=== PATIENT | female | born 1935 | race Caucasian/White ===

== ENCOUNTER 2016-03-28 17:28 | Inpatient (IN) | payer MEDICARE ==
[~2016-03-28] VITALS: Ht 175.3 cm; Wt 99.8 kg
[~2016-03-28 17:28] MED LIST changes: -ASPI81TA7 PO; -ATOR40TA PO; -CALC1CAP31 PO; -CEFD1CAP8 PO; -DILT240C5 PO; -FLUO40CA PO; -INSULANT SC; -JANU25TA PO; -LEVA500T PO; -LOSA100T PO; -LYRI200C PO; -OMEP40CA2 PO; -PERC5TAB6 PO; -PERC7.5T3 PO; -SENN1TAB4 PO; -SPIR1CAP INH; -SPIR25TA2 PO; -TRAM50TA2 PO; -VITA-121 PO
[2016-03-28] MEDS ORDERED: PERCOCET 5MG/325MG TAB As Ordered ONE (17:45)
[2016-03-28] MEDS ORDERED: BUPIVACAINE HCL 0.5% 10 ML VIAL As Ordered ONE (17:51)
[2016-03-28] MEDS ORDERED: LIDOCAINE 1% MDV 20ML VIAL As Ordered ONE (17:52)
[2016-03-28] MEDS ORDERED: MORPHINE 4 MG/ML 1ML SYRINGE As Ordered ONE (19:15)
[2016-03-28] MEDS ORDERED: ONDANSETRON 4MG/2ML VIAL (J2405) As Ordered ONE ×2 (19:15→23:05)
[2016-03-28] MEDS ORDERED: PERC7.5T3 PO (19:18)
[2016-03-28] MEDS ORDERED: LOSA100T PO (19:18)
[2016-03-28] MEDS ORDERED: OMEP40CA2 PO (19:18)
[2016-03-28] MEDS ORDERED: CALC1CAP31 PO (19:18)
[2016-03-28] MEDS ORDERED: SPIR1CAP INH (19:18)
[2016-03-28] MEDS ORDERED: JANU25TA PO (19:18)
[2016-03-28] MEDS ORDERED: CEFD1CAP8 PO (19:18)
[2016-03-28] MEDS ORDERED: FLUO40CA PO (19:18)
[2016-03-28] MEDS ORDERED: ASPI81TA7 PO (19:18)
[2016-03-28] MEDS ORDERED: DILT240C5 PO (19:18)
[2016-03-28] MEDS ORDERED: INSULANT SC (19:18)
[2016-03-28] MEDS ORDERED: TRAM50TA2 PO (19:18)
[2016-03-28] MEDS ORDERED: LYRI200C PO (19:18)
[2016-03-28] MEDS ORDERED: SPIR25TA2 PO (19:18)
[2016-03-28] MEDS ORDERED: ATOR40TA PO (19:18)
[2016-03-28] MEDS ORDERED: VITA-121 PO (19:18)
[2016-03-28 19:30] LABS: MEAN CORPUSCULAR HEMOGLOBIN 29.2 pg (27.0-33.0); MEAN CORPUSCULAR HGB CONC 33.1 g/dl (32.0-36.5); MEAN CORPUSCULAR VOLUME 88.3 fl (80.0-96.0); RED CELL DISTRIBUTION WIDTH 13.8 % (11.5-14.5); WHITE BLOOD COUNT 11.8 K/mm3 (4.0-10.0)
[2016-03-28 19:49] LABS: INR 1.01
[2016-03-28 19:54] LABS: ALBUMIN 3.4 GM/DL (3.2-5.2); ALBUMIN/GLOBULIN RATIO 1.13 (1.00-1.93); BILIRUBIN,DIRECT 0.1 MG/DL (0.0-0.2); BILIRUBIN,TOTAL 0.4 MG/DL (0.2-1.0); CALCIUM LEVEL 8.4 MG/DL (8.8-10.2); CREATININE FOR GFR 1.71 MG/DL (0.55-1.02); GLOMERULAR FILTRATION RATE 30.6 (>32); POTASSIUM SERUM 3.9 MEQ/L (3.5-5.1); TOTAL PROTEIN 6.4 GM/DL (6.4-8.2)
[2016-03-28] MEDS ORDERED: fentaNYL 100 MCG/2 ML INJECTION (J3010) As Ordered ONE ×2 (20:05→21:00)
--- NOTE | 2016-03-28 20:29 | REP ---
AP PORTABLE CHEST: 03/28/2016. Comparison: 12/17/2015, 09/26/2014 chest x-ray. 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 This portable chest show the lungs quite hyperinflated. Flattening of the diaphragm on the right and left obscured. Lordotic technique limits evaluation of posterior lower lung zone. Heart not enlarged. There is pulmonary artery hypertension. There is no venous hypertension, pulmonary edema or dense consolidation. Small effusion is difficult to exclude, but no gross effusion seen. Airway intact. Calcified aortic arch without aneurysm. Bones demineralized. Impression: 1. COPD and fibrosis with emphysematous changes, pulmonary artery hypertension and no cardiomegaly, edema or acute infiltrate. Small effusions difficult to exclude due to lordotic projection. Signed by Fabián Miller MD 03/29/2016 07:18 P
[2016-03-28] MEDS ORDERED: PREGABALIN 100 MG CAP (LYRICA) PO PRN (20:30)
[2016-03-28] MEDS ORDERED: GLUCOSE 4 GM CHEW TABLET PO PRN (20:30)
[2016-03-28] MEDS ORDERED: GLUCAGON FOR INJ 1 MG VIAL (J1610) SC PRN (20:30)
[2016-03-28] MEDS ORDERED: DEXTROSE 50% 50 ML SYRINGE IV PRN (20:30)
[2016-03-28] MEDS ORDERED: ATORVASTATIN 20 MG TAB PO SCH (21:00)
--- NOTE | 2016-03-28 21:30 | CR.PDOC ---
[facility] Consultation Consultation DATE OF CONSULTATION: Mar 28, 2016 at 17:28 PRIMARY CARE PHYSICIAN: Dr. Tod Stevens REFERRING PROVIDER: Justino Fischer M.D. ATTENDING PHYSICIAN: Dr. Peterson of orthopedic surgery REASON FOR CONSULTATION/CHIEF COMPLAINT: . Medical optimization for surgery HISTORY OF PRESENT ILLNESS: . 80-year-old female with past medical history of insulin-dependent diabetes mellitus, hypertension, dyslipidemia, CAD, history of PR status post angioplasty in 1995, COPD, and chronic kidney disease presented to the ER following a slip and fall on a sheet of ice which resulted in her falling on her right wrist, resulting in a Colles' fracture of the distal radius. The patient denies any trauma to the head, loss of consciousness, or any preceding symptoms leading to the event. The hospitalist service has been consulted for medical optimization prior to the patient going for surgery. Upon evaluation, the patient states that she is otherwise feeling relatively well. She follows with Dr. Caceres of cardiology for her CAD. She notes that she did have a stress test within the past 1 year, and this was noted to be within normal limits according to her. She states that she is able to walk up a flight of stairs without any significant limitations. She also states that she is able to ambulate around her home without any significant shortness of breath or any complaints of chest pain. However, her ambulation is limited due to chronic lower back pain. The patient denies any history of PND, orthopnea, or lower extremity swelling. She reports that she has not had any issues with her heart since she had an PR in 1995. At this time, she denies any acute complaints of fevers, chills, shortness of breath, chest pain, palpitations, abdominal pain, or any nausea/vomiting/diarrhea. In the ER, the patient's EKG is without any acute ST changes when compared to previous tracings. ALLERGIES: Please see below. HOME MEDICATIONS: Please see below. PAST MEDICAL HISTORY: 1. . As noted above PAST SURGICAL HISTORY: 1. Lasix surgery, gallbladder removal, FAMILY HISTORY: Non-pertinent SOCIAL HISTORY: Lives with her family, is able to ambulate without any assistive devices, and is able to perform activities of daily living independently REVIEW OF SYSTEMS: 10 point review of systems is negative unless otherwise specified in HPI PHYSICAL EXAMINATION: VITAL SIGNS: Please see below. GENERAL APPEARANCE: . Awake, alert, and oriented, in no acute distress HEENT: . Normocephalic, atraumatic. No JVD, no murmur appreciated on auscultation of the carotid arteries RESPIRATORY: . Clear to auscultation bilaterally, with no wheezing or rales, or rhonchi CARDIOVASCULAR: . Normal rate, normal rhythm, normal S1, normal S2 ABDOMEN: . Soft, nontender, nondistended EXTREMITIES: . No edema, no erythema noted LABORATORY DATA: Please see below. ASSESSMENT/PLAN: 1. Right wrist fracture secondary to mechanical fall The patient's revised cardiac risk index score is 2 (history of ischemic heart disease, and insulin-dependent diabetes mellitus) which categorizes the patient as a class III risk with a 6.6% chance of major cardiac risk, for an intermediate risk procedure. In addition, the patient did have a stress test done one year ago which, according to her was negative She is also able to tolerate up to 4 METs of activity without any significant limitations The patient does follow with Dr. Caceres of cardiology as an outpatient-I did discuss the case with his partner Dr. Peres given the patient's history of coronary artery disease. He concurs with the risk stratification above and does not believe that her cardiac history/current condition should preclude her from surgery. The patient has been medically optimized for this intermediate risk procedure. 2. History of CAD status post angioplasty in 1995, history of PR EKG with no acute ST changes, and unchanged compared to previous tracings Hold aspirin 81 mg, continue statin Patient not on a beta brenda, possibly secondary to her underlying history of COPD Patient on losartan as an outpatient, however we will hold this as her blood pressure is on the lower and after receiving narcotic medication for pain relief 3. Diabetes mellitus Patient's hemoglobin A1c noted to be 6.5% from 6 weeks ago The patient takes 40 units of insulin in the a.m. subcutaneously-however, we will order half this dose to be given in the morning given her nothing by mouth status Consider up titration of this dose when the patient is able to adequately resume her diet Insulin sliding scale added for additional coverage 4. Chronic kidney disease Patient's serum creatinine noted to be 1.7 (Baseline 1.5-1.7) Patient's losartan held secondary to borderline low blood pressures 5. Hypertension We'll hold the patient's antihypertensives at this time given that her blood pressure is on the lower end of normal following administration of narcotics for pain relief 6. COPD Patient with no active wheezing, and with no need of supplemental oxygen at this time Continue Spiriva States that she used to follow with Dr. Jiménez pulmonary as an outpatient, but has not been back as her COPD has been well-controlled. 7. Dyslipidemia Continue statin 8. Diabetes mellitus Patient's hemoglobin A1c noted to be 6.5% from 6 weeks ago The patient takes 40 units of insulin in the a.m. subcutaneously-however, we will order half this dose to be given in the morning given her nothing by mouth status Consider up titration of this dose when the patient is able to adequately resume her diet Insulin sliding scale added for additional coverage 9. Chronic kidney disease Patient's serum creatinine noted to be 1.7 (Baseline 1.5-1.7) Patient's losartan held secondary to borderline low blood pressures 10. GERD Cont PPI 11. Depression Cont Fluoxetine DVT prophylaxis-as per primary team Laboratory Data Labs 24H Laboratory Tests 2 03/28/16 19:19: Aspartate Amino Transf (AST/SGOT) 11L, Alanine Aminotransferase (ALT/SGPT) 22, Alkaline Phosphatase 120H, Total Bilirubin 0.4, Direct Bilirubin 0.1, Albumin 3.4, Albumin/Globulin Ratio 1.13, Anion Gap 9, Calcium Level 8.4L, Glomerular Filtration Rate 30.6L, Prothromb Time International Ratio 1.01, Prothrombin Time 13.4, Total Protein 6.4 CBC/BMP Laboratory Tests 03/28/16 19:19 Red Blood Count 4.60, Mean Corpuscular Volume 88.3, Mean Corpuscular Hemoglobin 29.2, Mean Corpuscular Hemoglobin Concent 33.1, Red Cell Distribution Width 13.8 Allergies Coded Allergies: No Known Drug Allergy (Verified Allergy, Unknown, 05/23/12) Home Medications Scheduled (Losartan Potassium/Hydroc 100-12.5 mg) 1 Tab Tab 1 TAB PO DAILY (Reported) Aspirin (Aspirin) 81 Mg Tab 81 MG PO QHS (Reported) Atorvastatin Calcium (Atorvastatin Calcium) 40 Mg Tab 40 MG PO QHS (Reported) Calcitriol (Calcitriol) 0.25 Mcg Cap 0.25 MCG PO DAILY (Reported) Cefdinir (Cefdinir) 300 Mg Cap 300 MG PO BID (Reported) 10 DAY COURSE ENDS 03/29 Cholecalciferol (Vitamin D-3) 1,000 Unit Tab 1,000 UNIT PO DAILY (Reported) Diltiazem HCl (Diltiazem Cd) 240 Mg Cap 240 MG PO DAILY (Reported) Fluoxetine Hcl (Fluoxetine HCl) 40 Mg Cap 40 MG PO DAILY (Reported) Insulin Glargine (Lantus) 1 Units/0.01 Ml Susp 40 UNITS SC QAM (Reported) Omeprazole (Omeprazole) 40 Mg Cap 40 MG PO DAILY (Reported) Sitagliptin Phosphate (Januvia) 25 Mg Tab 25 MG PO DAILY (Reported) Spironolactone (Spironolactone) 25 Mg Tab 12.5 MG PO DAILY (Reported) Tiotropium [place] Monohydrate (Spiriva Handihaler) 18 Mcg Cap 1 INHALATION INH DAILY (Reported) Scheduled PRN Oxycodone/Acetaminophen (Percocet 7.5-325 mg) 1 Tab Tab 2 TAB PO DAILY PRN PRN PAIN (Reported) Pregabalin (Lyrica) 200 Mg Cap 200 MG PO BID PRN PRN NERVE PAIN (Reported) Tramadol HCl (Tramadol HCl) 50 Mg Tab 50 MG PO Q6H PRN PRN PAIN (Reported) JUSTINO FISCHER MD Mar 28, 2016 21:30
--- NOTE | 2016-03-28 21:39 | ECGEPIP ---
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
--- NOTE | 2016-03-28 21:55 | EDDOCDS ---
Physician Documentation [facility] Name: Yamila Gallegos Age: 80 yrs Sex: Female : 1935 Arrival Date: 03/28/2016 Time: 17:28 Bed 10 Private MD: Tod Stevens P. Disposition: 03/28/16 19:09 Hospitalization ordered by Derek Peterson for Inpatient Admission. Preliminary diagnosis is Displaced comminuted fracture of shaft of radius, right arm. - Bed requested for Admit. - Status is Inpatient Admission. af2 - Condition is Stable. - Problem is new. - Symptoms are unchanged. Historical: - Allergies: no known allergies; - Home Meds: 1. aspirin 81 mg Oral chew 1 tab nightly (Last dose: 03/27/2016) 2. atorvastatin oral nightly (Last dose: 03/27/2016) 3. Januvia 25 mg oral tab daily (Last dose: 03/28/2016 08:00) 4. Lantus 40 units Sub-Q daily (Last dose: 03/28/2016 08:00) 5. losartan-hydrochlorothiazide oral once daily (Last dose: 03/28/2016 08:00) 6. Prozac Oral once daily (Last dose: 03/28/2016 08:00) 7. Vitamin D Oral daily (Last dose: 03/28/2016 07:00) - PMHx: Hypertension; Hypercholesterolemia; Diabetes - IDDM: controlled; Depression; AAA; [place] 1995; - PSHx: Angioplasty (1995); right ear surgery; Cataract Surgery- Bilateral; Cesearean Section; Cholecystectomy; - Social history: Smoking status: Patient states was never smoker of tobacco. Patient/guardian denies using alcohol, street drugs, No barriers to communication noted, The patient speaks fluent Macedonian, Speaks appropriately for age. - Family history: Not pertinent. - : The pt / caregiver states he / she is not on anticoagulants. Home medication list is obtained from the patient. - Exposure Risk Screening:: None identified. Vital Signs: 03/28 17:35 BP 154 / 77; Pulse 73; Resp 17; Temp 96.4(T); Pulse Ox 100% on R/A; Weight 99.79 kg / lr2 220 lbs (R); Height 5 ft. 9 in. (175.26 cm) (R); Pain 10/10; 19:48 BP 111 / 58 (auto/); cjh 19:50 Pulse 64 MON; Pulse Ox 94% ; cjh 19:51 BP 111 / 58 LA Sitting (auto/); Pulse 64; Resp 18 S; Pulse Ox 93% on R/A; af2 20:50 BP 114 / 63; Pulse 55; Resp 18; Pulse Ox 94% ; Pain 10/10; cjh 21:03 BP 118 / 62 (auto/); af2 21:05 Pulse 72 MON; Resp 18 S; Temp 97.6(O); Pulse Ox 93% on R/A; af2 17:35 Body Mass Index 32.49 (99.79 kg, 175.26 cm) lr2 MDM: 17:42 oxyCODONE-acetaminophen 5 mg-325 mg 2 tabs PO once ordered. ke 17:53 Lidocaine 10 mg/mL (1 %) 10 ml Infiltration once; to bedside ordered. ke 17:53 Bupivacaine 0.5 % 5 ml Infiltration once ordered. ke 18:40 IV Saline Lock ordered. ke 18:40 Ondansetron 4 mg IVP once ordered. ke 18:40 morphine 4 mg IVP every 30 minutes; Document pain score/vitals after each dose (Hold if ke SBP < 90mmHg) x2 ordered. 18:42 CBC Ordered. EDMS 18:42 BMP Ordered. EDMS 18:42 PT/INR Ordered. EDMS 18:42 Liver Profile Ordered. EDMS 18:42 Chest, 1 View Ordered. EDMS 18:42 ECG WITH READING ER PHYS+CARDIAG ordered. EDMS 18:42 BED REQUEST+ADM ordered. EDMS 18:48 Wrist, complete Ordered. EDMS 20:08 Written Provider Order was scanned into Direct Access Software and attached to record. jlm 20:09 fentaNYL (PF) 50 mcg IVP once ordered. af2 20:57 fentaNYL (PF) 50 mcg IVP once ordered. cjh 21:18 Fingerstick Blood Sugar Ordered. EDMS 21:34 [facility] Payment Agreement was scanned into Direct Access Software and attached to record. zo 21:34 Financial registration complete. zo 21:36 Written Provider Order was scanned into Direct Access Software and attached to record. zo Point of Care Testing: Blood Glucose: 21:12 Blood Glucose: 125 mg/dL; [facility] Ranges: Administered Medications: 17:54 Drug: oxyCODONE-acetaminophen 2 tabs [oxycodone-acetaminophen 5 mg-325 mg tablet (2 mb9 tabs)] Route: PO; 19:23 Follow up: Response: No significant change. af2 17:54 Drug: Lidocaine 10 ml [lidocaine 10 mg/mL (1 %) injection solution (10 mL)] Route: mb9 Infiltration; 17:54 Drug: Bupivacaine 5 ml [bupivacaine 0.5 % (5 mg/mL) injection solution (5 mL)] {Note: mb9 given to provider..} Route: Infiltration; 19:18 Drug: Ondansetron 4 mg [ondansetron HCl 2 mg/mL intravenous solution (2 mL)] Route: af2 IVP; Site: left antecubital; 20:08 Follow up: Response: Nausea is decreased af2 19:18 Drug: morphine 4 mg [morphine 4 mg/mL intravenous cartridge (1 mL)] Route: IVP; Site: af2 left antecubital; 20:08 Follow up: Response: No significant change. af2 20:09 Drug: fentaNYL (PF) 50 mcg [fentanyl (PF) 50 mcg/mL injection solution (1 mL)] Route: af2 IVP; Site: left antecubital; 20:52 Follow up: Response: Confirmed pt not driving.; No Adverse Reaction; No significant [facility] change. 21:07 Drug: fentaNYL (PF) 50 mcg [fentanyl (PF) 50 mcg/mL injection solution (1 mL)] Route: [facility] IVP; Site: left antecubital; Signatures: Dispatcher [employer] EDMS Chicho Eddy, LAW INSTRUCTOR LAW INSTRUCTOR Dante Marinelli Jane, RN RN [facility] Shelley Miller RN RN ttb Flavia Sanchez, Turkish Line Attendant Unit jlm Gabrielle YeungRN RN af2 Luis Greenwood RN mb9 The chart was reviewed and I authenticate all verbal orders and agree with the evaluation and treatment provided.Attachments: 20:08 Written Provider Order jltato 21:34 [facility] Payment Agreement zo 21:36 Written Provider Order zo [email or web address]
--- NOTE | 2016-03-28 21:55 | EDDOCDS ---
Nurse's Notes [facility] Name: Yamila Gallegos Age: 80 yrs Sex: Female : 1935 Arrival Date: 03/28/2016 Time: 17:28 Bed 10 Private MD: Tod Stevens P. Diagnosis: Displaced comminuted fracture of shaft of radius, right arm Presentation: 03/28 17:34 Presenting complaint: Patient states: pt fell on right wrist around 1600 today. From [facility]. Tucker wrapped and sling on upon arrival. Painful. Adult Sepsis Screening: The patient does not have new or worsening altered mentation. Patient's respiratory rate is less than 22. Systolic blood pressure is greater than 100. Patient has a qSOFA score of 0- Negative Sepsis Screen. Suicide/Homicide risk assessment- the patient denies having any suicidal and/or homicidal ideations and does not present with any other emotional, behavioral or mental health complaints. Status: Patient is not a home economist consumer service or dependent. Transition of care: patient was not received from another setting of care. 17:34 Acuity: PRINCESS Level 3 ttb 17:34 Method Of Arrival: Walkin/Carried/Asstd ttb Triage Assessment: 17:37 General: Appears in no apparent distress, uncomfortable, well nourished, well groomed, ttb Behavior is appropriate for age, cooperative, pleasant. Pain: Location: right wrist 10/10. Neurological: Level of Consciousness is awake, alert. Cardiovascular: Chest pain is denied. Respiratory: No deficits noted. Airway is patent Denies cough, shortness of breath. Derm: Skin is normal. Musculoskeletal: Range of motion limited in right wrist. Injury Description: pt fell from standing. Historical: - Allergies: no known allergies; - Home Meds: 1. aspirin 81 mg Oral chew 1 tab nightly (Last dose: 03/27/2016) 2. atorvastatin oral nightly (Last dose: 03/27/2016) 3. Januvia 25 mg oral tab daily (Last dose: 03/28/2016 08:00) 4. Lantus 40 units Sub-Q daily (Last dose: 03/28/2016 08:00) 5. losartan-hydrochlorothiazide oral once daily (Last dose: 03/28/2016 08:00) 6. Prozac Oral once daily (Last dose: 03/28/2016 08:00) 7. Vitamin D Oral daily (Last dose: 03/28/2016 07:00) - PMHx: Hypertension; Hypercholesterolemia; Diabetes - IDDM: controlled; Depression; AAA; [place] 1995; - PSHx: Angioplasty (1995); right ear surgery; Cataract Surgery- Bilateral; Cesearean Section; Cholecystectomy; - Social history: Smoking status: Patient states was never smoker of tobacco. Patient/guardian denies using alcohol, street drugs, No barriers to communication noted, The patient speaks fluent Sudanese, Speaks appropriately for age. - Family history: Not pertinent. - : The pt / caregiver states he / she is not on anticoagulants. Home medication list is obtained from the patient. - Exposure Risk Screening:: None identified. Screenin:53 Screening information is obtained from the patient. Fall risk: At risk due to prior kc3 history of falls, The following interventions are performed due to a positive Fall Risk Screen: Fall Risk is added to Special Handling on the patient Summary Screen. A Fall Risk Bracelet was applied to the patient. Side Rails are placed in the up position. A Call Ortega is given with instruction to call for help when getting out of bed. Fall Alert bracelet is placed on the patient. Assistance ADL's: requires no assistance with activities of daily living. Abuse/DV Screen: The patient / caregiver reports he/she is: not in a situation that causes fear, pain or injury. Nutritional screening: No deficits noted. home support is adequate. 21:12 Advance Directives: There is an active DNR order and the pt has a copy here at this af2 time. Assessment: 18:52 General: Appears uncomfortable, Behavior is appropriate for age, cooperative. Pain: kc3 Location: right wrist. Neurological: Level of Consciousness is awake, alert, obeys commands, Oriented to person, place, time. Respiratory: Respiratory effort is even, unlabored. Derm: Skin is pink, warm & dry. Swollen area noted on right wrist. Musculoskeletal: Capillary refill < 3 seconds Bony deformity noted of right wrist Signs and Symptoms of Compartment Syndrome: no signs of compartment syndrome. 19:27 General: Appears uncomfortable, Behavior is appropriate for age, cooperative, Assumed af2 care of pt at this time. Resp easy, unlabored. Pt updated regarding plan of care, verbalizes understanding.. Neurological: Level of Consciousness is awake, alert, obeys commands. Respiratory: Airway is patent Respiratory effort is even, unlabored. Derm: Skin is pink, warm & dry. Swollen area noted on right wrist. 19:50 General: hospitalist at bedside to exam pt. pt requests additional dose of pain af2 medication, medication withheld due to BP.. 20:50 General: patient requesting additional pain meds, states 'whatever she gave me before [facility] didn't help at all' call placed to hospitalist to request additional meds. 21:00 General: Appears uncomfortable, Behavior is cooperative, pt updated regarding plan of af2 care and transport to OR at this time. Resp easy and unlabored.. Vital Signs: 17:35 BP 154 / 77; Pulse 73; Resp 17; Temp 96.4(T); Pulse Ox 100% on R/A; Weight 99.79 kg lr2 (R); Height 5 ft. 9 in. (175.26 cm) (R); Pain 10/10; 19:48 BP 111 / 58 (auto/); cjh 19:50 Pulse 64 MON; Pulse Ox 94% ; cjh 19:51 BP 111 / 58 LA Sitting (auto/); Pulse 64; Resp 18 S; Pulse Ox 93% on R/A; af2 20:50 BP 114 / 63; Pulse 55; Resp 18; Pulse Ox 94% ; Pain 10/10; cjh 21:03 BP 118 / 62 (auto/); af2 21:05 Pulse 72 MON; Resp 18 S; Temp 97.6(O); Pulse Ox 93% on R/A; af2 17:35 Body Mass Index 32.49 (99.79 kg, 175.26 cm) lr2 Vitals: 17:35 Log In Time: March 28, 2016 at 17:28. lr2 ED Course: 17:31 Patient visited by Mei Gomez. lr2 17:31 Patient moved to Waiting lr2 17:33 Tod Stevens is Private Physician. lr2 17:33 Patient moved to Pre RCE lr2 17:35 Triage Initiated ttb 17:38 Tati Fox,RN is Primary Nurse. ttb 17:38 Patient moved to 10 ttb 17:40 [facility] Edd[facility]. ke 17:40 Patient visited by Chicho Eddy FNP. ke 17:40 Patient visited by Chicho Eddy FNP. ke 18:13 Patient visited by Chicho Eddy FNP. ke 18:51 Patient visited by Chicho Eddy FNP. ke 19:04 Gabrielle Yeung RN is Primary Nurse. af2 19:06 Derek Peterson is Hospitalizing Provider. ke 19:08 Patient visited by Josef Castro PCA. jmv 19:08 EKG done. (by ED staff). Reviewed by Chicho SOLIS. jmv 19:22 Liver Profile Sent. af2 19:22 PT/INR Sent. af2 19:22 BMP Sent. af2 19:23 CBC Sent. af2 19:28 Patient visited by Gabrielle Yeung RN. af2 19:28 Inserted saline lock: 18 gauge in left antecubital area and blood collected. The af2 patient tolerated the procedure well. 19:40 Primary Nurse role handed off by Tati Fox RN rs6 19:51 Patient visited by Gabrielle Yeung RN. af2 20:08 Written Provider Order was scanned into [employer] and attached to record. jlm 21:00 Patient visited by Gabrielle Yeung RN. af2 21:12 The patient / caregiver is instructed regarding the plan of care and ED course. Patient af2 has correct armband on for positive identification. Placed in gown. 21:13 No procedures done that require assistance. af2 21:23 Chest, 1 View Returned. EDMS 21:34 [facility] [place] Agreement was scanned into [employer] and attached to record. zo 21:36 Written Provider Order was scanned into [employer] and attached to record. zo Administered Medications: 17:54 Drug: oxyCODONE-acetaminophen 2 tabs [oxycodone-acetaminophen 5 mg-325 mg tablet (2 mb9 tabs)] Route: PO; 19:23 Follow up: Response: No significant change. af2 17:54 Drug: Lidocaine 10 ml [lidocaine 10 mg/mL (1 %) injection solution (10 mL)] Route: mb9 Infiltration; 17:54 Drug: Bupivacaine 5 ml [bupivacaine 0.5 % (5 mg/mL) injection solution (5 mL)] {Note: mb9 given to provider..} Route: Infiltration; 19:18 Drug: Ondansetron 4 mg [ondansetron HCl 2 mg/mL intravenous solution (2 mL)] Route: af2 IVP; Site: left antecubital; 20:08 Follow up: Response: Nausea is decreased af2 19:18 Drug: morphine 4 mg [morphine 4 mg/mL intravenous cartridge (1 mL)] Route: IVP; Site: af2 left antecubital; 20:08 Follow up: Response: No significant change. af2 20:09 Drug: fentaNYL (PF) 50 mcg [fentanyl (PF) 50 mcg/mL injection solution (1 mL)] Route: af2 IVP; Site: left antecubital; 20:52 Follow up: Response: Confirmed pt not driving.; No Adverse Reaction; No significant [facility] change. 21:07 Drug: fentaNYL (PF) 50 mcg [fentanyl (PF) 50 mcg/mL injection solution (1 mL)] Route: [facility] IVP; Site: left antecubital; Point of Care Testing: Blood Glucose: 21:12 Blood Glucose: 125 mg/dL; [facility] Ranges: Order Results: Lab Order: CBC; SPEC'M 03/28/16 19:19 Test: WHITE BLOOD COUNT; Value: 11.8; Range: 4.0-10.0; Abnormal: Above high normal; Units: K/mm3; Status: F Test: RED BLOOD COUNT; Value: 4.60; Range: 4.00-5.40; Units: M/mm3; Status: F Test: HEMOGLOBIN; Value: 13.4; Range: 12.0-16.0; Units: g/dl; Status: F Test: HEMATOCRIT; Value: 40.6; Range: 36.0-47.0; Units: %; Status: F Test: MEAN CORPUSCULAR VOLUME; Value: 88.3; Range: 80.0-96.0; Units: fl; Status: F Test: MEAN CORPUSCULAR HEMOGLOBIN; Value: 29.2; Range: 27.0-33.0; Units: pg; Status: F Test: MEAN CORPUSCULAR HGB CONC; Value: 33.1; Range: 32.0-36.5; Units: g/dl; Status: F Test: RED CELL DISTRIBUTION WIDTH; Value: 13.8; Range: 11.5-14.5; Units: %; Status: F Test: PLATELET COUNT, AUTOMATED; Value: 295; Range: 150-450; Units: k/mm3; Status: F Lab Order: BMP; 03/28/16 19:19 Test: GLUCOSE, FASTING; Value: 197; Range: 83-110; Abnormal: Above high normal; Units: MG/DL; Status: F Test: BLOOD UREA NITROGEN; Value: 29; Range: 7-18; Abnormal: Above high normal; Units: MG/DL; Status: F Test: CREATININE FOR GFR; Value: 1.71; Range: 0.55-1.02; Abnormal: Above high normal; Units: MG/DL; Status: F Test: GLOMERULAR FILTRATION RATE; Value: 30.6; Range: >32; Abnormal: Below low normal; Status: F Test: SODIUM LEVEL; Value: 140; Range: 136-145; Units: MEQ/L; Status: F Test: POTASSIUM SERUM; Value: 3.9; Range: 3.5-5.1; Units: MEQ/L; Status: F Test: CHLORIDE LEVEL; Value: 105; Range: 98-107; Units: MEQ/L; Status: F Test: CARBON DIOXIDE LEVEL; Value: 26; Range: 21-32; Units: MEQ/L; Status: F Test: ANION GAP; Value: 9; Range: 8-16; Units: MEQ/L; Status: F Test: CALCIUM LEVEL; Value: 8.4; Range: 8.8-10.2; Abnormal: Below low normal; Units: MG/DL; Status: F Test Note: ; Units are mL/min/1.73 m2 Chronic Kidney Disease Staging per NKF: Stage I & II GFR >=60 Normal to Mildly Decreased Stage III GFR 30-59 Moderately Decreased Stage IV GFR 15-29 Severely Decreased Stage V GFR <15 Very Little GFR Left ESRD GFR <15 on AIR COMPRESSOR MECHANIC Lab Order: PT/INR; 03/28/16 19:19 Test: PROTHROMBIN TIME; Value: 13.4; Range: 12.3-14.5; Units: SECONDS; Status: F Test: INR; Value: 1.01; Status: F Test Note: ; THERAPUTIC HUMAN INR VALUES INDICATIONS NORMAL RANGES PROPHYLAXIS/TREATMENT OF: VENOUS THROMBOSIS 2.0-3.0 PULMONARY EMBOLISM 2.0-3.0 PREVENTION OF SYSTEMIC EMBOLISM FROM: TISSUE HEART VALVES 2.0-3.0 ACUTE MYOCARDIAL INFARCTION 2.0-3.0 VALVULAR HEART DISEASE 2.0-3.0 ATRIAL FIBRILLATION 2.0-3.0 MECHANICAL VALVES(HIGH RISK) 2.5-3.5 RECURRENT MYOCARDIAL INFARCTION 2.5-3.5 Lab Order: Liver Profile; SPEC'M 03/28/16 19:19 Test: AST/SGOT; Value: 11; Range: 15-37; Abnormal: Below low normal; Units: U/L; Status: F Test: ALT/SGPT; Value: 22; Range: 12-78; Units: U/L; Status: F Test: ALKALINE PHOSPHATASE; Value: 120; Range: 45-117; Abnormal: Above high normal; Units: U/L; Status: F Test: BILIRUBIN,TOTAL; Value: 0.4; Range: 0.2-1.0; Units: MG/DL; Status: F Test: BILIRUBIN,DIRECT; Value: 0.1; Range: 0.0-0.2; Units: MG/DL; Status: F Test: TOTAL PROTEIN; Value: 6.4; Range: 6.4-8.2; Units: GM/DL; Status: F Test: ALBUMIN; Value: 3.4; Range: 3.2-5.2; Units: GM/DL; Status: F Test: ALBUMIN/GLOBULIN RATIO; Value: 1.13; Range: 1.00-1.93; Status: F Lab Order: Fingerstick Blood Sugar; SPEC'M 03/28/16 21:10 Test: BEDSIDE GLUCOSE; Value: 125; Range: 83-110; Abnormal: Above high normal; Units: MG/DL; Status: F Radiology Order: Chest, 1 View Test: Chest, 1 View REASON FOR EXAMINATION: pre op; AP PORTABLE CHEST: 03/28/2016.; ; Comparison: 12/17/2015, 09/26/2014 chest x-ray.; ; Clinical history: 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 Flattening of the; diaphragm on the right and left obscured. Lordotic technique limits evaluation; of posterior lower lung zone. Heart not enlarged. There is pulmonary artery; hypertension. There is no venous hypertension, pulmonary edema or dense; consolidation. Small effusion is difficult to exclude, but no gross effusion; seen. Airway intact. Calcified aortic arch without aneurysm.; ; Bones demineralized.; ; Impression:; COPD and fibrosis with emphysematous changes, pulmonary artery hypertension and; no cardiomegaly, edema or acute infiltrate. Small effusions difficult to exclude; due to lordotic projection.; ; ; ; ; Unreviewed; Outcome: 19:09 Decision to Hospitalize by Provider. ke 21:12 Discharge Assessment: Patient awake, alert and oriented x 3. No cognitive and/or af2 functional deficits noted. Patient verbalized understanding of disposition instructions. patient administered narcotics - yes. Patient was admitted to the hospital or transferred to another facility. The following High Risk Discharge criteria are identified: None. Admitted to OR accompanied by nurse, accompanied by tech, via stretcher, with chart. Condition: stable. No special radiology studies were completed. Property :Personal belongings accompany Pt. 21:53 Patient left the ED. af2 Signatures: Dispatcher [employer] EDMS Chicho Eddy, TEAR DOWN MATCHER TEAR DOWN MATCHER Dante Marinelli Jane,RN RN Shelley Ross RN RN ttb Flavia Sanchez, Refresh Technician Unit jlm Luis Greenwood,RN RN mb9 Estefania Cox, RADIAL DRILL OPERATOR RADIAL DRILL OPERATOR rs6 Gabrielle YeungRN RN af2 Tati Fox,WILLIAM RN kc3 Josef Castro, RADIAL DRILL OPERATOR RADIAL DRILL OPERATOR Mei Michaels lr2 MTDD
[2016-03-28] MEDS ORDERED: MIDAZOLAM INJ 2 MG/2 ML VIAL (J2250) As Ordered ONE (22:02)
[2016-03-28] MEDS ORDERED: fentaNYL 250 MCG/5 ML INJECTION (J3010) As Ordered ONE (22:02)
[2016-03-28] MEDS ORDERED: LIDOCAINE 2% INJ 100 MG/5 ML SDV (FOR ANES.) As Ordered ONE (22:03)
[2016-03-28] MEDS ORDERED: ROCURONIUM BROMIDE 50 MG/5 ML VIAL As Ordered ONE (22:03)
[2016-03-28] MEDS ORDERED: PROPOFOL 200 MG/20 ML VIAL As Ordered ONE (22:03)
[2016-03-28] MEDS ORDERED: GLYCOPYRROLATE INJ 0.2 MG/ML 2 ML VIAL As Ordered ONE (23:05)
[2016-03-28] MEDS ORDERED: NEOSTIGMINE 1MG/ML 5 ML SYRINGE (J2710) As Ordered ONE (23:05)
[2016-03-28] MEDS ORDERED: BUPIVACAINE HCL 0.5% 30 ML VIAL As Ordered ONE (23:19)
[2016-03-28] MEDS ORDERED: DESFLURANE 240 ML INHALANT As Ordered ONE (23:24)
[2016-03-28] MEDS ORDERED: BUPIVACAINE HCL 0.5% 10 ML VIAL IM ONE (23:33)
[2016-03-29] VITALS (10 sets, daily range): BP systolic 117–179; BP diastolic 55–84
[2016-03-29] MEDS ORDERED: HumaLOG INSULIN (NovoLOG) PER UNIT SC SCH
[2016-03-29] MEDS: fentaNYL 100 MCG/2 ML INJECTION (J3010) IV PRN ×3 (00:05→00:20)
[2016-03-29] MEDS ORDERED: fentaNYL 100 MCG/2 ML INJECTION (J3010) As Ordered ONE (00:09)
[2016-03-29] MEDS ORDERED: LR 1,000 ML IV SCH (00:15)
[2016-03-29] MEDS ORDERED: ONDANSETRON 4MG/2ML VIAL (J2405) IV PRN (00:15)
[2016-03-29] MEDS ORDERED: DOCUSATE SODIUM 100 MG CAP PO PRN (00:30)
[2016-03-29] MEDS ORDERED: ONDANSETRON 4 MG TAB (S0181) PO PRN (00:30)
[2016-03-29] MEDS ORDERED: HYDROmorphone HCL 1 MG/ML SYRINGE (J1170) As Ordered ONE (00:33)
[2016-03-29] MEDS: HYDROmorphone HCL 1 MG/ML SYRINGE (J1170) IV PRN ×2 (00:35→00:40)
[2016-03-29] MEDS ORDERED: HYDROmorphone HCL 1 MG/ML SYRINGE (J1170) IV PRN (00:45)
[2016-03-29] MEDS: PERCOCET 5MG/325MG TAB PO PRN ×4 (03:25→18:10)
[2016-03-29] MEDS ORDERED: traMADol 50 MG TAB PO PRN (03:30)
[2016-03-29] MEDS ORDERED: ALBUTEROL 90 MCG/ACT 8GM HFA INHALER INH PRN (04:30)
[2016-03-29 06:19] LABS: MEAN CORPUSCULAR HEMOGLOBIN 29.2 pg (27.0-33.0); MEAN CORPUSCULAR HGB CONC 32.8 g/dl (32.0-36.5); MEAN CORPUSCULAR VOLUME 88.9 fl (80.0-96.0); RED CELL DISTRIBUTION WIDTH 13.7 % (11.5-14.5); WHITE BLOOD COUNT 12.6 K/mm3 (4.0-10.0)
[2016-03-29] MEDS ORDERED: PERC5TAB6 PO (06:36)
[2016-03-29 06:46] LABS: CALCIUM LEVEL 8.2 MG/DL (8.8-10.2); CREATININE FOR GFR 1.52 MG/DL (0.55-1.02); POTASSIUM SERUM 3.9 MEQ/L (3.5-5.1)
[2016-03-29] MEDS: TIOTROPIUM INHALER/CAPSULE (SPIRIVA) INH SCH (07:29)
[2016-03-29] MEDS: HumaLOG INSULIN (NovoLOG) PER UNIT SC SCH ×4 (07:50→21:00)
[2016-03-29] MEDS ORDERED: TIOTROPIUM INHALER/CAPSULE (SPIRIVA) INH SCH (08:00)
[2016-03-29] MEDS ORDERED: ACETAMINOPHEN TAB 650MG DOSE (2X325MG) PO ONE (08:00)
[2016-03-29] MEDS ORDERED: ACETAMINOPHEN TAB 650MG DOSE (2X325MG) PO PRN (08:00)
--- NOTE | 2016-03-29 08:05 | REP ---
RIGHT WRIST SERIES AP LATERAL: 03/28/2016. Clinical history: C-arm fluoroscopy images utilized by Dr. Peterson of the orthopedic division for ORIF distal right radial fracture. Findings: Plate and multiple screws in the distal radius along its volar surface transfixing the comminuted distal radial metaphyseal fracture. Alignment is anatomic. There is an ulnar styloid avulsion noted. Signed by Fabián Miller MD 03/29/2016 07:24 P
[2016-03-29] MEDS ORDERED: FLUoxetine 20 MG CAP PO SCH (09:00)
[2016-03-29] MEDS ORDERED: LEVEMIR (INSULIN DETEMIR) 1 UNITS/0.01ML SC SCH (09:00)
[2016-03-29] MEDS ORDERED: SPIRONOLACTONE 12.5MG PER 1/2 TABLET PO SCH (09:00)
[2016-03-29] MEDS ORDERED: hydroCHLOROthiazide 12.5 MG CAPSULE PO SCH (09:00)
[2016-03-29] MEDS ORDERED: OMEPRAZOLE 20 MG CAP PO SCH (09:00)
[2016-03-29] MEDS: VITAMIN D 1,000 INTERNATIONAL UNITS TABLET PO SCH (09:04)
[2016-03-29] MEDS: OMEPRAZOLE 20 MG CAP PO SCH (09:04)
[2016-03-29] MEDS: CALCITRIOL 0.25 MCG CAP (S0169) PO SCH (09:05)
[2016-03-29] MEDS: PREGABALIN 100 MG CAP (LYRICA) PO SCH ×2 (09:05→20:11)
[2016-03-29] MEDS: hydroCHLOROthiazide 12.5 MG CAPSULE PO SCH (09:05)
[2016-03-29] MEDS: FLUoxetine 20 MG CAP PO SCH (09:05)
[2016-03-29] MEDS: LEVEMIR (INSULIN DETEMIR) 1 UNITS/0.01ML SC SCH (09:06)
--- NOTE | 2016-03-29 11:13 | RO ---
DATE OF CONSULTATION: 03/28/2016 PREOPERATIVE DIAGNOSIS: She is an 80-year-old female with a right extraarticular widely displaced distal radius fracture. POSTOPERATIVE DIAGNOSIS: She is an 80-year-old female with a right extraarticular widely displaced distal radius fracture. PROCEDURE PERFORMED: Open reduction internal fixation with a volar locking plate. SURGEON: Dr. Derek Peterson CATALYTIC CONVERTER OPERATOR: ONIEL Mena ANESTHESIA: ANESTHESIOLOGIST: Dr. Daniel TOURNIQUET TIME: Less than 1 hour under 250 mmHg. COMPLICATIONS: None. BLOOD LOSS: Minimal. INDICATIONS: An 80-year-old female with an unstable displaced distal radius fracture. After discussion of risks and benefits of operative intervention, she elected to proceed. DESCRIPTION OF PROCEDURE: The patient was met in preoperative holding area, the operative site was initialed by the surgeon, IV access was verified, consent was verified, and she was taken to the operative suite where she was prepped and draped in the usual sterile fashion in the supine position. A formal time-out was performed. IV antibiotics were infused. We inflated the tourniquet to 250 mmHg and performed a standard volar approach to the distal radius without difficulty with care to avoid and protect the neurovascular structures. There was subperiosteal dissection to the volar distal radius and reduced it manually with the use of a [place] volar locking plate. We positioned the plate first in the center of the bone and then used the plate as a reduction tool and added the remaining screws without difficulty. The position of the screws and the position of the plate and fracture were all verified both clinically and fluoroscopically in orthogonal planes. Once the fracture was fixed with a locking construct and stable, the wound was irrigated copiously and closed in layers. She was injected with Marcaine without epinephrine for postoperative analgesia. She was placed in a volar splint for comfort, and she was awaken and taken to the recovery room in stable condition. Postoperative plan will be overnight stay for pain control and discharge in the morning on oral pain medications if she tolerates. She will followup in the orthopedic clinic at [facility] ([facility] in about 1-1/2 weeks or so for a wound check.
[2016-03-29] MEDS: LOSARTAN 50 MG TAB PO SCH (11:49)
[2016-03-29] MEDS: ATORVASTATIN 20 MG TAB PO SCH (20:10)
[2016-03-29] MEDS ORDERED: ASPIRIN 81 MG ENTERIC TAB PO SCH (21:00)
[2016-03-30 06:00] VITALS: BP 145/52
[2016-03-30 07:14] LABS: MEAN CORPUSCULAR HEMOGLOBIN 29.2 pg (27.0-33.0); MEAN CORPUSCULAR HGB CONC 32.7 g/dl (32.0-36.5); MEAN CORPUSCULAR VOLUME 89.4 fl (80.0-96.0); WHITE BLOOD COUNT 10.5 K/mm3 (4.0-10.0)
[2016-03-30] MEDS: TIOTROPIUM INHALER/CAPSULE (SPIRIVA) INH SCH (07:17)
[2016-03-30 07:30] LABS: CALCIUM LEVEL 8.6 MG/DL (8.8-10.2); CREATININE FOR GFR 1.68 MG/DL (0.55-1.02); GLOMERULAR FILTRATION RATE 31.2 (>32); MAGNESIUM LEVEL 2.2 MG/DL (1.8-2.4)
[2016-03-30] MEDS: CALCITRIOL 0.25 MCG CAP (S0169) PO SCH (09:23)
[2016-03-30] MEDS: FLUoxetine 20 MG CAP PO SCH (09:23)
[2016-03-30] MEDS: OMEPRAZOLE 20 MG CAP PO SCH (09:24)
[2016-03-30] MEDS: LOSARTAN 50 MG TAB PO SCH (09:24)
[2016-03-30] MEDS: VITAMIN D 1,000 INTERNATIONAL UNITS TABLET PO SCH (09:24)
[2016-03-30] MEDS: PERCOCET 5MG/325MG TAB PO PRN ×2 (09:25→16:58)
[2016-03-30] MEDS: PREGABALIN 100 MG CAP (LYRICA) PO SCH (09:25)
[2016-03-30] MEDS: hydroCHLOROthiazide 12.5 MG CAPSULE PO SCH (09:26)
[2016-03-30] MEDS: HumaLOG INSULIN (NovoLOG) PER UNIT SC SCH ×4 (09:26→21:00)
[2016-03-30] MEDS: LEVEMIR (INSULIN DETEMIR) 1 UNITS/0.01ML SC SCH (09:27)
[2016-03-30] MEDS ORDERED: IPRATROPIUM 0.5MG/ALBUTEROL 2.5MG INH SOL UD 3ML (DUONEB)(J7620) NEB PRN (11:45)
--- NOTE | 2016-03-30 12:03 | IPNPDOC ---
Date Seen The patient was seen on 03/30/16. Progress Note SUBJECTIVE: The patient tells me that she has a little cough and that she has some difficulty getting a deep breath in but otherwise she has no complaints of chest pain fevers chills nausea vomiting or diarrhea OBJECTIVE PHYSICAL EXAMINATION: VITAL SIGNS: Please see below. GENERAL: Frail elderly female laying in bed at 30 angle she does not appear to be in any acute distress. She coughs during exam HEENT: Pupils round reactive to light she has moist pedis membranes elevation CVP CARDIOVASCULAR: s1 S2 regular. RESPIRATORY: Some mild end expiratory wheeze bibasilar Rales. ABDOMINAL: Sounds present abdomen soft EXTREMITIES: No clubbing cyanosis or edema, her right arm was casted LABORATORY DATA: Please see below. MICROBIOLOGY: Please see below. IMAGING: No new imaging DVT prophylaxis ordered?: Sequentials and teds as per orthopedic surgery ASSESSMENT AND PLAN: This is a 80-year-old female with right colles fracture status post operative repair. 1. colles fracture management as per orthopedic surgery DVT prophylaxis PT 2. Dyspnea: The patient is not using presents from to have encouraged her to do this I feel that she likely has some abdominal post operative atelectasis. She has a history of COPD she is on her home Spiriva I'll also provide her with nebulizer treatments and continue to monitor should she spike a temperature we' ll consider starting antibiotics for the time being we'll check a chest x-ray 3. Hypertension the patient is on hydrochlorothiazide and losartan 4. Dyslipidemia: The patient is on Lipitor 5. Insulin-dependent diabetes: The patient on sliding scale insulin finger 6 uncontrolled. 6. Gastroesophageal reflux disease: The patient is on omeprazole. 7. Depression: The patient is on fluoxetine. 8. Coronary artery disease: The patient's aspirin is on hold she is on a statin she is not on a beta brenda curiously will defer to her outpatient providers DISPOSITION: We will continue to follow along with you thank you for involving us in this patient's care. VS, I&O, 24H, Fishbone Vital Signs/I&O Vital Signs Date Time Temp Pulse Resp B/P Pulse Ox O2 Delivery O2 Flow Rate FiO2 03/30/16 10:00 18 03/30/16 09:24 145/52 03/30/16 06:00 99.4 70 91 Nasal Cannula 2.0 I&O- Last 24 Hours up to 6 AM 03/30/16 05:59 Intake Total 2160 ml Output Total 0 ml Balance 2160 ml Laboratory Data 24H LABS Laboratory Tests 2 03/29/16 12:52: Bedside Glucose (Misc Panel) 111H 03/29/16 16:23: Bedside Glucose (Misc Panel) 114H 03/29/16 20:05: Bedside Glucose (Misc Panel) 119H 03/30/16 06:47: Anion Gap 8, Blood Urea Nitrogen 24H, Creatinine 1.68H, Sodium Level 140, Potassium Level 4.0, Chloride Level 104, Carbon Dioxide Level 28, Calcium Level 8.6L, Glomerular Filtration Rate 31.2L, Magnesium Level 2.2 03/30/16 09:19: B-Type Natriuretic Peptide 57.3 03/30/16 11:39: Bedside Glucose (Misc Panel) 113H CBC/BMP Laboratory Tests 03/30/16 06:46 Red Blood Count 3.97 L, Mean Corpuscular Volume 89.4, Mean Corpuscular Hemoglobin 29.2, Mean Corpuscular Hemoglobin Concent 32.7, Red Cell Distribution Width 14.0 03/30/16 06:47 Calcium Level 8.6 L ELHAM BLACK MD Mar 30, 2016 12:03
[2016-03-30] MEDS: IPRATROPIUM 0.5MG/ALBUTEROL 2.5MG INH SOL UD 3ML (DUONEB)(J7620) NEB SCH ×2 (13:35→19:29)
--- NOTE | 2016-03-30 13:43 | REP ---
CHEST X-RAY PA AND LATERAL: 03/30/2016. Clinical history: Infiltrate versus pulmonary edema. Comparison: 03/28/2016, 12/17/2015, CT angiogram 12/17/2015. Findings: The lung oliva are hyperinflated. COPD, interstitial fibrotic changes and some superimposed basilar atelectatic or fibroatelectatic changes are noted. There is no dense consolidation. I see no definite effusion. There is no parenchymal mass. The heart is not enlarged. The aorta is calcified at the arch but without aneurysm. There is some pulmonary artery hypertension. Some apical pleural parenchymal scarring noted but stable. Bony thorax shows no acute compression deformity. Bones appear demineralized. Impression: 1. COPD and fibrosis with emphysematous changes, pulmonary artery hypertension and some apical pleural scarring. Some heavier fibrotic changes in the bases left CP angle may have some linear atelectasis superimposed. 2. No cardiomegaly, edema or dense consolidation. No definite effusion. Signed by Fabián Miller MD 03/30/2016 07:22 P
[2016-03-30 14:00] VITALS: BP 114/57
[2016-03-30] MEDS ORDERED: traMADol 50 MG TAB PO PRN (18:00)
[2016-03-30] MEDS ORDERED: FLEET ENEMA PR PRN (18:30)
[2016-03-30] MEDS: MOM 30ML SUSPENSION UDC PO SCH (18:44)
[2016-03-30] MEDS: MIRALAX *UNIT DOSE* 17GM PACKET PO SCH (18:44)
[2016-03-30] MEDS: SENNA 8.6 MG TAB (SENOKOT) PO SCH (18:44)
[2016-03-30 22:00] VITALS: BP 140/65
[2016-03-30] MEDS: ATORVASTATIN 20 MG TAB PO SCH (22:22)
--- NOTE | 2016-03-30 22:54 | EDDOCDS ---
Physician Documentation [facility] Name: Yamila Gallegos Age: 80 yrs Sex: Female : 1935 Arrival Date: 03/28/2016 Time: 17:28 Bed 10 Private MD: Tod Stevens P. Disposition: 03/28/16 19:09 Hospitalization ordered by Derek Peterson for Inpatient Admission. Preliminary diagnosis is Displaced comminuted fracture of shaft of radius, right arm. - Bed requested for Admit. - Status is Inpatient Admission. af2 - Condition is Stable. - Problem is new. - Symptoms are unchanged. Historical: - Allergies: no known allergies; - Home Meds: 1. aspirin 81 mg Oral chew 1 tab nightly (Last dose: 03/27/2016) 2. atorvastatin oral nightly (Last dose: 03/27/2016) 3. Januvia 25 mg oral tab daily (Last dose: 03/28/2016 08:00) 4. Lantus 40 units Sub-Q daily (Last dose: 03/28/2016 08:00) 5. losartan-hydrochlorothiazide oral once daily (Last dose: 03/28/2016 08:00) 6. Prozac Oral once daily (Last dose: 03/28/2016 08:00) 7. Vitamin D Oral daily (Last dose: 03/28/2016 07:00) - PMHx: Hypertension; Hypercholesterolemia; Diabetes - IDDM: controlled; Depression; AAA; [place] 1995; - PSHx: Angioplasty (1995); right ear surgery; Cataract Surgery- Bilateral; Cesearean Section; Cholecystectomy; - Social history: Smoking status: Patient states was never smoker of tobacco. Patient/guardian denies using alcohol, street drugs, No barriers to communication noted, The patient speaks fluent Irish, Speaks appropriately for age. - Family history: Not pertinent. - : The pt / caregiver states he / she is not on anticoagulants. Home medication list is obtained from the patient. - Exposure Risk Screening:: None identified. Vital Signs: 03/28 17:35 BP 154 / 77; Pulse 73; Resp 17; Temp 96.4(T); Pulse Ox 100% on R/A; Weight 99.79 kg / lr2 220 lbs (R); Height 5 ft. 9 in. (175.26 cm) (R); Pain 10/10; 19:48 BP 111 / 58 (auto/); cjh 19:50 Pulse 64 MON; Pulse Ox 94% ; cjh 19:51 BP 111 / 58 LA Sitting (auto/); Pulse 64; Resp 18 S; Pulse Ox 93% on R/A; af2 20:50 BP 114 / 63; Pulse 55; Resp 18; Pulse Ox 94% ; Pain 10/10; cjh 21:03 BP 118 / 62 (auto/); af2 21:05 Pulse 72 MON; Resp 18 S; Temp 97.6(O); Pulse Ox 93% on R/A; af2 17:35 Body Mass Index 32.49 (99.79 kg, 175.26 cm) lr2 MDM: 17:42 oxyCODONE-acetaminophen 5 mg-325 mg 2 tabs PO once ordered. ke 17:53 Lidocaine 10 mg/mL (1 %) 10 ml Infiltration once; to bedside ordered. ke 17:53 Bupivacaine 0.5 % 5 ml Infiltration once ordered. ke 18:40 IV Saline Lock ordered. ke 18:40 Ondansetron 4 mg IVP once ordered. ke 18:40 morphine 4 mg IVP every 30 minutes; Document pain score/vitals after each dose (Hold if ke SBP < 90mmHg) x2 ordered. 18:42 CBC Ordered. EDMS 18:42 BMP Ordered. EDMS 18:42 PT/INR Ordered. EDMS 18:42 Liver Profile Ordered. EDMS 18:42 Chest, 1 View Ordered. EDMS 18:42 ECG WITH READING ER PHYS+CARDIAG ordered. EDMS 18:42 BED REQUEST+ADM ordered. EDMS 18:48 Wrist, complete Ordered. EDMS 20:08 Written Provider Order was scanned into [employer] and attached to record. jlm 20:09 fentaNYL (PF) 50 mcg IVP once ordered. af2 20:57 fentaNYL (PF) 50 mcg IVP once ordered. cjh 21:18 Fingerstick Blood Sugar Ordered. EDMS 21:34 [facility] Payment Agreement was scanned into [employer] and attached to record. zo 21:34 Financial registration complete. zo 21:36 Written Provider Order was scanned into [employer] and attached to record. zo 03/29 10:33 T-Sheet-- Draft Copy was scanned into [employer] and attached to record. gb 16:35 ECG/EKG was scanned into [employer] and attached to record. 16:35 Consents was scanned into [employer] and attached to record. Point of Care Testing: Blood Glucose: 03/28 21:12 Blood Glucose: 125 mg/dL; [facility] Ranges: Administered Medications: 17:54 Drug: oxyCODONE-acetaminophen 2 tabs [oxycodone-acetaminophen 5 mg-325 mg tablet (2 mb9 tabs)] Route: PO; 19:23 Follow up: Response: No significant change. af2 17:54 Drug: Lidocaine 10 ml [lidocaine 10 mg/mL (1 %) injection solution (10 mL)] Route: mb9 Infiltration; 17:54 Drug: Bupivacaine 5 ml [bupivacaine 0.5 % (5 mg/mL) injection solution (5 mL)] {Note: mb9 given to provider..} Route: Infiltration; 19:18 Drug: Ondansetron 4 mg [ondansetron HCl 2 mg/mL intravenous solution (2 mL)] Route: af2 IVP; Site: left antecubital; 20:08 Follow up: Response: Nausea is decreased af2 19:18 Drug: morphine 4 mg [morphine 4 mg/mL intravenous cartridge (1 mL)] Route: IVP; Site: af2 left antecubital; 20:08 Follow up: Response: No significant change. af2 20:09 Drug: fentaNYL (PF) 50 mcg [fentanyl (PF) 50 mcg/mL injection solution (1 mL)] Route: af2 IVP; Site: left antecubital; 20:52 Follow up: Response: Confirmed pt not driving.; No Adverse Reaction; No significant [facility] change. 21:07 Drug: fentaNYL (PF) 50 mcg [fentanyl (PF) 50 mcg/mL injection solution (1 mL)] Route: [facility] IVP; Site: left antecubital; Signatures: Dispatcher [employer] EDMS Lolis Warren, Chicho Curiel, RECONCILIATION ACCOUNTANT RECONCILIATION ACCOUNTANT Dante Marinelli Jane, RN RN [facility] Shelley Miller RN RN ttb Flavia Sanchez, Rating Examiner Unit Gabrielle Benavides RN RN 2 Luis Greenwood RN mb9 The chart was reviewed and I authenticate all verbal orders and agree with the evaluation and treatment provided.Attachments: 20:08 Written Provider Order jlm 21:34 [facility] Payment Agreement zo 21:36 Written Provider Order zo 03/29 10:33 T-Sheet-- Draft Copy gb 16:35 ECG/EKG gb Chart Complete MTDD
--- NOTE | 2016-03-30 22:54 | EDDOCDS ---
Physician Documentation [facility] Name: Yamila Gallegos Age: 80 yrs Sex: Female : 1935 Arrival Date: 03/28/2016 Time: 17:28 Bed 10 Private MD: Tod Stevens P. Disposition: 03/28/16 19:09 Hospitalization ordered by Derek Peterson for Inpatient Admission. Preliminary diagnosis is Displaced comminuted fracture of shaft of radius, right arm. - Bed requested for Admit. - Status is Inpatient Admission. af2 - Condition is Stable. - Problem is new. - Symptoms are unchanged. Historical: - Allergies: no known allergies; - Home Meds: 1. aspirin 81 mg Oral chew 1 tab nightly (Last dose: 03/27/2016) 2. atorvastatin oral nightly (Last dose: 03/27/2016) 3. Januvia 25 mg oral tab daily (Last dose: 03/28/2016 08:00) 4. Lantus 40 units Sub-Q daily (Last dose: 03/28/2016 08:00) 5. losartan-hydrochlorothiazide oral once daily (Last dose: 03/28/2016 08:00) 6. Prozac Oral once daily (Last dose: 03/28/2016 08:00) 7. Vitamin D Oral daily (Last dose: 03/28/2016 07:00) - PMHx: Hypertension; Hypercholesterolemia; Diabetes - IDDM: controlled; Depression; AAA; [place] 1995; - PSHx: Angioplasty (1995); right ear surgery; Cataract Surgery- Bilateral; Cesearean Section; Cholecystectomy; - Social history: Smoking status: Patient states was never smoker of tobacco. Patient/guardian denies using alcohol, street drugs, No barriers to communication noted, The patient speaks fluent Kazakh, Speaks appropriately for age. - Family history: Not pertinent. - : The pt / caregiver states he / she is not on anticoagulants. Home medication list is obtained from the patient. - Exposure Risk Screening:: None identified. Vital Signs: 03/28 17:35 BP 154 / 77; Pulse 73; Resp 17; Temp 96.4(T); Pulse Ox 100% on R/A; Weight 99.79 kg / lr2 220 lbs (R); Height 5 ft. 9 in. (175.26 cm) (R); Pain 10/10; 19:48 BP 111 / 58 (auto/); cjh 19:50 Pulse 64 MON; Pulse Ox 94% ; cjh 19:51 BP 111 / 58 [place] Sitting (auto/); Pulse 64; Resp 18 S; Pulse Ox 93% on R/A; af2 20:50 BP 114 / 63; Pulse 55; Resp 18; Pulse Ox 94% ; Pain 10/10; cjh 21:03 BP 118 / 62 (auto/); af2 21:05 Pulse 72 MON; Resp 18 S; Temp 97.6(O); Pulse Ox 93% on R/A; af2 17:35 Body Mass Index 32.49 (99.79 kg, 175.26 cm) lr2 MDM: 17:42 oxyCODONE-acetaminophen 5 mg-325 mg 2 tabs PO once ordered. ke 17:53 Lidocaine 10 mg/mL (1 %) 10 ml Infiltration once; to bedside ordered. ke 17:53 Bupivacaine 0.5 % 5 ml Infiltration once ordered. ke 18:40 IV Saline Lock ordered. ke 18:40 Ondansetron 4 mg IVP once ordered. ke 18:40 morphine 4 mg IVP every 30 minutes; Document pain score/vitals after each dose (Hold if ke SBP < 90mmHg) x2 ordered. 18:42 CBC Ordered. EDMS 18:42 BMP Ordered. EDMS 18:42 PT/INR Ordered. EDMS 18:42 Liver Profile Ordered. EDMS 18:42 Chest, 1 View Ordered. EDMS 18:42 ECG WITH READING ER PHYS+CARDIAG ordered. EDMS 18:42 BED REQUEST+ADM ordered. EDMS 18:48 Wrist, complete Ordered. EDMS 20:08 Written Provider Order was scanned into [employer] and attached to record. jlm 20:09 fentaNYL (PF) 50 mcg IVP once ordered. af2 20:57 fentaNYL (PF) 50 mcg IVP once ordered. cjh 21:18 Fingerstick Blood Sugar Ordered. EDMS 21:34 [facility] Payment Agreement was scanned into [employer] and attached to record. zo 21:34 Financial registration complete. zo 21:36 Written Provider Order was scanned into [employer] and attached to record. zo 03/29 10:33 T-Sheet-- Draft Copy was scanned into [employer] and attached to record. gb 16:35 ECG/EKG was scanned into [employer] and attached to record. 16:35 Consents was scanned into [employer] and attached to record. Point of Care Testing: Blood Glucose: 03/28 21:12 Blood Glucose: 125 mg/dL; [facility] Ranges: Administered Medications: 17:54 Drug: oxyCODONE-acetaminophen 2 tabs [oxycodone-acetaminophen 5 mg-325 mg tablet (2 mb9 tabs)] Route: PO; 19:23 Follow up: Response: No significant change. af2 17:54 Drug: Lidocaine 10 ml [lidocaine 10 mg/mL (1 %) injection solution (10 mL)] Route: mb9 Infiltration; 17:54 Drug: Bupivacaine 5 ml [bupivacaine 0.5 % (5 mg/mL) injection solution (5 mL)] {Note: mb9 given to provider..} Route: Infiltration; 19:18 Drug: Ondansetron 4 mg [ondansetron HCl 2 mg/mL intravenous solution (2 mL)] Route: af2 IVP; Site: left antecubital; 20:08 Follow up: Response: Nausea is decreased af2 19:18 Drug: morphine 4 mg [morphine 4 mg/mL intravenous cartridge (1 mL)] Route: IVP; Site: af2 left antecubital; 20:08 Follow up: Response: No significant change. af2 20:09 Drug: fentaNYL (PF) 50 mcg [fentanyl (PF) 50 mcg/mL injection solution (1 mL)] Route: af2 IVP; Site: left antecubital; 20:52 Follow up: Response: Confirmed pt not driving.; No Adverse Reaction; No significant [facility] change. 21:07 Drug: fentaNYL (PF) 50 mcg [fentanyl (PF) 50 mcg/mL injection solution (1 mL)] Route: [facility] IVP; Site: left antecubital; Signatures: Dispatcher [employer] EDMS Lolis Warren, Chicho Curiel, MATERIALS PLANNING ANALYST MATERIALS PLANNING ANALYST Dante Marinelli Jane, RN RN [facility] Shelley Miller RN RN ttb Flavia Sanchez, Qual Research Manager Unit Gabrielle Benavides RN RN 2 Luis Greenwood RN mb9 The chart was reviewed and I authenticate all verbal orders and agree with the evaluation and treatment provided.Attachments: 20:08 Written Provider Order jlm 21:34 [facility] Payment Agreement zo 21:36 Written Provider Order zo 03/29 10:33 T-Sheet-- Draft Copy gb 16:35 ECG/EKG gb Chart Complete MTDD
--- NOTE | 2016-03-30 22:55 | EDDOCDS ---
Nurse's Notes [facility] Name: Yamila Gallegos Age: 80 yrs Sex: Female : 1935 Arrival Date: 03/28/2016 Time: 17:28 Bed 10 Private MD: Tod Stevens P. Diagnosis: Displaced comminuted fracture of shaft of radius, right arm Presentation: 03/28 17:34 Presenting complaint: Patient states: pt fell on right wrist around 1600 today. From [facility]. Tucker wrapped and sling on upon arrival. Painful. Adult Sepsis Screening: The patient does not have new or worsening altered mentation. Patient's respiratory rate is less than 22. Systolic blood pressure is greater than 100. Patient has a qSOFA score of 0- Negative Sepsis Screen. Suicide/Homicide risk assessment- the patient denies having any suicidal and/or homicidal ideations and does not present with any other emotional, behavioral or mental health complaints. 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 Transition of care: patient was not received from another setting of care. 17:34 Acuity: PRINCESS Level 3 ttb 17:34 Method Of Arrival: Walkin/Carried/Asstd ttb Triage Assessment: 17:37 General: Appears in no apparent distress, uncomfortable, well nourished, well groomed, ttb Behavior is appropriate for age, cooperative, pleasant. Pain: Location: right wrist 10/10. Neurological: Level of Consciousness is awake, alert. Cardiovascular: Chest pain is denied. Respiratory: No deficits noted. Airway is patent Denies cough, shortness of breath. Derm: Skin is normal. Musculoskeletal: Range of motion limited in right wrist. Injury Description: pt fell from standing. Historical: - Allergies: no known allergies; - Home Meds: 1. aspirin 81 mg Oral chew 1 tab nightly (Last dose: 03/27/2016) 2. atorvastatin oral nightly (Last dose: 03/27/2016) 3. Januvia 25 mg oral tab daily (Last dose: 03/28/2016 08:00) 4. Lantus 40 units Sub-Q daily (Last dose: 03/28/2016 08:00) 5. losartan-hydrochlorothiazide oral once daily (Last dose: 03/28/2016 08:00) 6. Prozac Oral once daily (Last dose: 03/28/2016 08:00) 7. Vitamin D Oral daily (Last dose: 03/28/2016 07:00) - PMHx: Hypertension; Hypercholesterolemia; Diabetes - IDDM: controlled; Depression; AAA; SD 1995; - PSHx: Angioplasty (1995); right ear surgery; Cataract Surgery- Bilateral; Cesearean Section; Cholecystectomy; - Social history: Smoking status: Patient states was never smoker of tobacco. Patient/guardian denies using alcohol, street drugs, No barriers to communication noted, The patient speaks fluent Chilean, Speaks appropriately for age. - Family history: Not pertinent. - : The pt / caregiver states he / she is not on anticoagulants. Home medication list is obtained from the patient. - Exposure Risk Screening:: None identified. Screenin:53 Screening information is obtained from the patient. Fall risk: At risk due to prior kc3 history of falls, The following interventions are performed due to a positive Fall Risk Screen: Fall Risk is added to Special Handling on the patient Summary Screen. A Fall Risk Bracelet was applied to the patient. Side Rails are placed in the up position. A Call Ortega is given with instruction to call for help when getting out of bed. Fall Alert bracelet is placed on the patient. Assistance ADL's: requires no assistance with activities of daily living. Abuse/DV Screen: The patient / caregiver reports he/she is: not in a situation that causes fear, pain or injury. Nutritional screening: No deficits noted. home support is adequate. 21:12 Advance Directives: There is an active DNR order and the pt has a copy here at this af2 time. Assessment: 18:52 General: Appears uncomfortable, Behavior is appropriate for age, cooperative. Pain: kc3 Location: right wrist. Neurological: Level of Consciousness is awake, alert, obeys commands, Oriented to person, place, time. Respiratory: Respiratory effort is even, unlabored. Derm: Skin is pink, warm & dry. Swollen area noted on right wrist. Musculoskeletal: Capillary refill < 3 seconds Bony deformity noted of right wrist Signs and Symptoms of Compartment Syndrome: no signs of compartment syndrome. 19:27 General: Appears uncomfortable, Behavior is appropriate for age, cooperative, Assumed af2 care of pt at this time. Resp easy, unlabored. Pt updated regarding plan of care, verbalizes understanding.. Neurological: Level of Consciousness is awake, alert, obeys commands. Respiratory: Airway is patent Respiratory effort is even, unlabored. Derm: Skin is pink, warm & dry. Swollen area noted on right wrist. 19:50 General: hospitalist at bedside to exam pt. pt requests additional dose of pain af2 medication, medication withheld due to BP.. 20:50 General: patient requesting additional pain meds, states 'whatever she gave me before [facility] didn't help at all' call placed to hospitalist to request additional meds. 21:00 General: Appears uncomfortable, Behavior is cooperative, pt updated regarding plan of af2 care and transport to OR at this time. Resp easy and unlabored.. Vital Signs: 17:35 BP 154 / 77; Pulse 73; Resp 17; Temp 96.4(T); Pulse Ox 100% on R/A; Weight 99.79 kg lr2 (R); Height 5 ft. 9 in. (175.26 cm) (R); Pain 10/10; 19:48 BP 111 / 58 (auto/); cjh 19:50 Pulse 64 MON; Pulse Ox 94% ; cjh 19:51 BP 111 / 58 LA Sitting (auto/); Pulse 64; Resp 18 S; Pulse Ox 93% on R/A; af2 20:50 BP 114 / 63; Pulse 55; Resp 18; Pulse Ox 94% ; Pain 10/10; cjh 21:03 BP 118 / 62 (auto/); af2 21:05 Pulse 72 MON; Resp 18 S; Temp 97.6(O); Pulse Ox 93% on R/A; af2 17:35 Body Mass Index 32.49 (99.79 kg, 175.26 cm) lr2 Vitals: 17:35 Log In Time: March 28, 2016 at 17:28. lr2 ED Course: 17:31 Patient visited by Mei Gomez. lr2 17:31 Patient moved to Waiting lr2 17:33 Tod Stevens is Private Physician. lr2 17:33 Patient moved to Pre RCE lr2 17:35 Triage Initiated ttb 17:38 Tati Fox,RN is Primary Nurse. ttb 17:38 Patient moved to 10 ttb 17:40 [facility]. ke 17:40 Patient visited by Chicho Eddy FNP. ke 17:40 Patient visited by Chicho Edyd FNP. ke 18:13 Patient visited by Chicho Eddy FNP. ke 18:51 Patient visited by Chicho Eddy FNP. ke 19:04 Gabrielle Yeung RN is Primary Nurse. af2 19:06 Derek Peterson is Hospitalizing Provider. ke 19:08 Patient visited by Josef Castro PCA. jmv 19:08 EKG done. (by ED staff). Reviewed by Chicho SOLIS. jmv 19:22 Liver Profile Sent. af2 19:22 PT/INR Sent. af2 19:22 BMP Sent. af2 19:23 CBC Sent. af2 19:28 Patient visited by Gabrielle Yeung RN. af2 19:28 Inserted saline lock: 18 gauge in left antecubital area and blood collected. The af2 patient tolerated the procedure well. 19:40 Primary Nurse role handed off by Tati Fox RN rs6 19:51 Patient visited by Gabrielle Yeung RN. af2 20:08 Written Provider Order was scanned into Outright and attached to record. jlm 21:00 Patient visited by Gabrielle Yeung RN. af2 21:12 The patient / caregiver is instructed regarding the plan of care and ED course. Patient af2 has correct armband on for positive identification. Placed in gown. 21:13 No procedures done that require assistance. af2 21:23 Chest, 1 View Returned. EDMS 21:34 [place] [place] was scanned into Outright and attached to record. zo 21:36 Written Provider Order was scanned into Outright and attached to record. zo 03/29 10:33 T-Sheet-- Draft Copy was scanned into Outright and attached to record. gb 16:35 ECG/EKG was scanned into Outright and attached to record. gb 16:35 Consents was scanned into Outright and attached to record. gb Administered Medications: 03/28 17:54 Drug: oxyCODONE-acetaminophen 2 tabs [oxycodone-acetaminophen 5 mg-325 mg tablet (2 mb9 tabs)] Route: PO; 19:23 Follow up: Response: No significant change. af2 17:54 Drug: Lidocaine 10 ml [lidocaine 10 mg/mL (1 %) injection solution (10 mL)] Route: mb9 Infiltration; 17:54 Drug: Bupivacaine 5 ml [bupivacaine 0.5 % (5 mg/mL) injection solution (5 mL)] {Note: mb9 given to provider..} Route: Infiltration; 19:18 Drug: Ondansetron 4 mg [ondansetron HCl 2 mg/mL intravenous solution (2 mL)] Route: af2 IVP; Site: left antecubital; 20:08 Follow up: Response: Nausea is decreased af2 19:18 Drug: morphine 4 mg [morphine 4 mg/mL intravenous cartridge (1 mL)] Route: IVP; Site: af2 left antecubital; 20:08 Follow up: Response: No significant change. af2 20:09 Drug: fentaNYL (PF) 50 mcg [fentanyl (PF) 50 mcg/mL injection solution (1 mL)] Route: af2 IVP; Site: left antecubital; 20:52 Follow up: Response: Confirmed pt not driving.; No Adverse Reaction; No significant [facility] change. 21:07 Drug: fentaNYL (PF) 50 mcg [fentanyl (PF) 50 mcg/mL injection solution (1 mL)] Route: [facility] IVP; Site: left antecubital; Attachments: 16:35 Consents Point of Care Testing: Blood Glucose: 03/28 21:12 Blood Glucose: 125 mg/dL; [facility] Ranges: Order Results: Lab Order: CBC; SPEC'M 03/28/16 19:19 Test: WHITE BLOOD COUNT; Value: 11.8; Range: 4.0-10.0; Abnormal: Above high normal; Units: K/mm3; Status: F Test: RED BLOOD COUNT; Value: 4.60; Range: 4.00-5.40; Units: M/mm3; Status: F Test: HEMOGLOBIN; Value: 13.4; Range: 12.0-16.0; Units: g/dl; Status: F Test: HEMATOCRIT; Value: 40.6; Range: 36.0-47.0; Units: %; Status: F Test: MEAN CORPUSCULAR VOLUME; Value: 88.3; Range: 80.0-96.0; Units: fl; Status: F Test: MEAN CORPUSCULAR HEMOGLOBIN; Value: 29.2; Range: 27.0-33.0; Units: pg; Status: F Test: MEAN CORPUSCULAR HGB CONC; Value: 33.1; Range: 32.0-36.5; Units: g/dl; Status: F Test: RED CELL DISTRIBUTION WIDTH; Value: 13.8; Range: 11.5-14.5; Units: %; Status: F Test: PLATELET COUNT, AUTOMATED; Value: 295; Range: 150-450; Units: k/mm3; Status: F Lab Order: BMP; SPEC'03/28/16 19:19 Test: GLUCOSE, FASTING; Value: 197; Range: 83-110; Abnormal: Above high normal; Units: MG/DL; Status: F Test: BLOOD UREA NITROGEN; Value: 29; Range: 7-18; Abnormal: Above high normal; Units: MG/DL; Status: F Test: CREATININE FOR GFR; Value: 1.71; Range: 0.55-1.02; Abnormal: Above high normal; Units: MG/DL; Status: F Test: GLOMERULAR FILTRATION RATE; Value: 30.6; Range: >32; Abnormal: Below low normal; Status: F Test: SODIUM LEVEL; Value: 140; Range: 136-145; Units: MEQ/L; Status: F Test: POTASSIUM SERUM; Value: 3.9; Range: 3.5-5.1; Units: MEQ/L; Status: F Test: CHLORIDE LEVEL; Value: 105; Range: 98-107; Units: MEQ/L; Status: F Test: CARBON DIOXIDE LEVEL; Value: 26; Range: 21-32; Units: MEQ/L; Status: F Test: ANION GAP; Value: 9; Range: 8-16; Units: MEQ/L; Status: F Test: CALCIUM LEVEL; Value: 8.4; Range: 8.8-10.2; Abnormal: Below low normal; Units: MG/DL; Status: F Test Note: ; Units are mL/min/1.73 m2 Chronic Kidney Disease Staging per NKF: Stage I & II GFR >=60 Normal to Mildly Decreased Stage III GFR 30-59 Moderately Decreased Stage IV GFR 15-29 Severely Decreased Stage V GFR <15 Very Little GFR Left ESRD GFR <15 on STIPPLER Lab Order: PT/INR; SPEC'03/28/16 19:19 Test: PROTHROMBIN TIME; Value: 13.4; Range: 12.3-14.5; Units: SECONDS; Status: F Test: INR; Value: 1.01; Status: F Test Note: ; THERAPUTIC HUMAN INR VALUES INDICATIONS NORMAL RANGES PROPHYLAXIS/TREATMENT OF: VENOUS THROMBOSIS 2.0-3.0 PULMONARY EMBOLISM 2.0-3.0 PREVENTION OF SYSTEMIC EMBOLISM FROM: TISSUE HEART VALVES 2.0-3.0 ACUTE MYOCARDIAL INFARCTION 2.0-3.0 VALVULAR HEART DISEASE 2.0-3.0 ATRIAL FIBRILLATION 2.0-3.0 MECHANICAL VALVES(HIGH RISK) 2.5-3.5 RECURRENT MYOCARDIAL INFARCTION 2.5-3.5 Lab Order: Liver Profile; SPEC'M 03/28/16 19:19 Test: AST/SGOT; Value: 11; Range: 15-37; Abnormal: Below low normal; Units: U/L; Status: F Test: ALT/SGPT; Value: 22; Range: 12-78; Units: U/L; Status: F Test: ALKALINE PHOSPHATASE; Value: 120; Range: 45-117; Abnormal: Above high normal; Units: U/L; Status: F Test: BILIRUBIN,TOTAL; Value: 0.4; Range: 0.2-1.0; Units: MG/DL; Status: F Test: BILIRUBIN,DIRECT; Value: 0.1; Range: 0.0-0.2; Units: MG/DL; Status: F Test: TOTAL PROTEIN; Value: 6.4; Range: 6.4-8.2; Units: GM/DL; Status: F Test: ALBUMIN; Value: 3.4; Range: 3.2-5.2; Units: GM/DL; Status: F Test: ALBUMIN/GLOBULIN RATIO; Value: 1.13; Range: 1.00-1.93; Status: F Lab Order: Fingerstick Blood Sugar; SPEC'M 03/28/16 21:10 Test: BEDSIDE GLUCOSE; Value: 125; Range: 83-110; Abnormal: Above high normal; Units: MG/DL; Status: F Radiology Order: Chest, 1 View Test: Chest, 1 View REASON FOR EXAMINATION: pre op; AP PORTABLE CHEST: 03/28/2016.; ; Comparison: 12/17/2015, 09/26/2014 chest x-ray.; ; Clinical history: 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 Flattening of the; diaphragm on the right and left obscured. Lordotic technique limits evaluation; of posterior lower lung zone. Heart not enlarged. There is pulmonary artery; hypertension. There is no venous hypertension, pulmonary edema or dense; consolidation. Small effusion is difficult to exclude, but no gross effusion; seen. Airway intact. Calcified aortic arch without aneurysm.; ; Bones demineralized.; ; Impression:; COPD and fibrosis with emphysematous changes, pulmonary artery hypertension and; no cardiomegaly, edema or acute infiltrate. Small effusions difficult to exclude; due to lordotic projection.; ; ; ; ; Unreviewed; Outcome: 19:09 Decision to Hospitalize by Provider. ke 21:12 Discharge Assessment: Patient awake, alert and oriented x 3. No cognitive and/or af2 functional deficits noted. Patient verbalized understanding of disposition instructions. patient administered narcotics - yes. Patient was admitted to the hospital or transferred to another facility. The following High Risk Discharge criteria are identified: None. Admitted to OR accompanied by nurse, accompanied by tech, via stretcher, with chart. Condition: stable. No special radiology studies were completed. Property :Personal belongings accompany Pt. 21:53 Patient left the ED. af2 Signatures: Dispatcher [employer] EDMS Lolis Warren, Isma Ashby gb Chicho Eddy, RESET MERCHANDISER RESET MERCHANDISER Dante Marinelli JaneRN Shelley Juan RN RN ttb Flavia Sanchez, Commercial Litigation Attorney Unit Luis Li,WILLIAM RN mb9 Estefania Cox, [employer] rs6 Gabrielle Yeung,RN RN af2 Tati Fox,WILLIAM RN kc3 Josef Castro, [employer]NS[employer] B[employer] INTERNSH[employer] ebv Mei Gomez lr2 Chart Complete MTDD
[2016-03-31] MEDS: IPRATROPIUM 0.5MG/ALBUTEROL 2.5MG INH SOL UD 3ML (DUONEB)(J7620) NEB SCH ×4 (02:15→19:51)
[2016-03-31 06:00] VITALS: BP 138/63
[2016-03-31] MEDS ORDERED: LevoFLOXacin 500 MG TABLET PO SCH (06:00)
[2016-03-31 06:42] LABS: MEAN CORPUSCULAR HEMOGLOBIN 30.6 pg (27.0-33.0); MEAN CORPUSCULAR HGB CONC 34.6 g/dl (32.0-36.5); MEAN CORPUSCULAR VOLUME 88.6 fl (80.0-96.0); RED CELL DISTRIBUTION WIDTH 13.8 % (11.5-14.5); WHITE BLOOD COUNT 9.5 K/mm3 (4.0-10.0)
[2016-03-31 06:56] LABS: CALCIUM LEVEL 8.4 MG/DL (8.8-10.2); CREATININE FOR GFR 1.61 MG/DL (0.55-1.02); GLOMERULAR FILTRATION RATE 32.8 (>32); POTASSIUM SERUM 4.2 MEQ/L (3.5-5.1)
[2016-03-31] MEDS ORDERED: CIPROFLOXACIN 500 MG TAB PO SCH (07:00)
[2016-03-31] MEDS: TIOTROPIUM INHALER/CAPSULE (SPIRIVA) INH SCH (07:28)
[2016-03-31] MEDS ORDERED: MAGNESIUM CITRATE 300 ML BTL PO ONE (08:00)
[2016-03-31] MEDS: MOM 30ML SUSPENSION UDC PO SCH (08:24)
[2016-03-31] MEDS: LEVEMIR (INSULIN DETEMIR) 1 UNITS/0.01ML SC SCH (08:24)
[2016-03-31] MEDS: HumaLOG INSULIN (NovoLOG) PER UNIT SC SCH ×4 (08:24→21:00)
[2016-03-31] MEDS: SENNA 8.6 MG TAB (SENOKOT) PO SCH (08:25)
[2016-03-31] MEDS: FLUoxetine 20 MG CAP PO SCH (08:25)
[2016-03-31] MEDS: hydroCHLOROthiazide 12.5 MG CAPSULE PO SCH (08:25)
[2016-03-31] MEDS: CALCITRIOL 0.25 MCG CAP (S0169) PO SCH (08:25)
[2016-03-31] MEDS: VITAMIN D 1,000 INTERNATIONAL UNITS TABLET PO SCH (08:25)
[2016-03-31] MEDS: OMEPRAZOLE 20 MG CAP PO SCH (08:25)
[2016-03-31] MEDS: MIRALAX *UNIT DOSE* 17GM PACKET PO SCH (08:26)
[2016-03-31] MEDS: LOSARTAN 50 MG TAB PO SCH (08:26)
--- NOTE | 2016-03-31 12:03 | IPNPDOC ---
Date Seen The patient was seen on 03/31/16. Progress Note SUBJECTIVE: The patient tells me that she has some difficulty with walking and getting around feling unsteady but otherwise she has no complaints of chest pain fevers chills nausea vomiting or diarrhea OBJECTIVE PHYSICAL EXAMINATION: VITAL SIGNS: Please see below. GENERAL: Frail elderly female laying in bed at 30 angle she does not appear to be in any acute distress. She is oriented to person, place, time and situation. HEENT: Pupils round reactive to light she has moist pedis membranes elevation CVP CARDIOVASCULAR: s1 S2 regular. RESPIRATORY: Some mild end expiratory wheeze bibasilar Rales. ABDOMINAL: Sounds present abdomen soft EXTREMITIES: No clubbing cyanosis or edema, her right arm was casted LABORATORY DATA: Please see below. MICROBIOLOGY: Please see below. IMAGING: No new imaging DVT prophylaxis ordered?: Sequentials and teds as per orthopedic surgery ASSESSMENT AND PLAN: This is a 80-year-old female with right colles fracture status post operative repair. 1. colles fracture management as per orthopedic surgery DVT prophylaxis PT 2. COPD: She has a history of COPD she is on her home Spiriva I'll also provide her with nebulizer treatments, CXR shows some LLL atelectasis 3. Gait instability minor disorientation: The patient has difficulty ambulating and using a walker with her fracture she also is intermittently confused I'm concerned she may have a urinary tract infection given her abnormal UA. I did discuss this with Dr. Peters this morning I'll start the patient on levofloxacin renally dosed this should adequately cover her for urinary tract infection and any postoperative atelectasis we'll continue to follow her progress with PT as of now she is not safe. PT is recommending acute versus subacute rehabilitation. I am optimistic she may improve with antibiotic treatment after 2 days. I would also limit narcotic pain medication as this may be contributing as well 3. Hypertension the patient is on hydrochlorothiazide and losartan 4. Dyslipidemia: The patient is on Lipitor 5. Insulin-dependent diabetes: The patient on sliding scale insulin finger 6 uncontrolled. 6. Gastroesophageal reflux disease: The patient is on omeprazole. 7. Depression: The patient is on fluoxetine. 8. Coronary artery disease: The patient's aspirin is on hold she is on a statin she is not on a beta brenda curiously will defer to her outpatient providers DISPOSITION: We will continue to follow along with you thank you for involving us in this patient's care. VS, I&O, 24H, [place] Vital Signs/I&O Vital Signs Date Time Temp Pulse Resp B/P Pulse Ox O2 Delivery O2 Flow Rate FiO2 03/31/16 08:30 Nasal Cannula 2.0 03/31/16 08:26 138/63 03/31/16 06:00 99.5 100 18 93 I&O- Last 24 Hours up to 6 AM 03/31/16 05:59 Intake Total 1560 ml Output Total 0 ml Balance 1560 ml Laboratory Data 24H LABS Laboratory Tests 2 03/30/16 16:41: Bedside Glucose (Misc Panel) 176H 03/30/16 21:06: Bedside Glucose (Misc Panel) 157H 03/31/16 05:29: Urine Amorphous Sediment , Urine Appearance HAZY, Urine Color YELLOW, Urine pH 5.0, Urine Specific [place] 1.017, Urine Protein NEGATIVE, Urine Glucose (UA) NEGATIVE, Urine Ketones NEGATIVE, Urine Urobilinogen 0.2, Urine Bilirubin NEGATIVE, Urine Leukocyte Esterase 2+H, Urine Bacteria (Auto) NEGATIVE, Urine Blood NEGATIVE, Urine Calcium Carbonate Cryst(Auto) , Urine Calcium Oxalate Cryst (Auto) , Urine Calcium Phosphate Geri (Auto) , Urine Cellular Casts , Urine Cystine Crystals , Urine Granular Casts (Auto) , Urine Hyaline Casts (Auto ) 11, Urine Leucine Crystals , Urine Mucus (Auto) SMALL, Urine Nitrite NEGATIVE , Urine Oval Fat Bodies (Auto) , Urine RBC (Auto) 5H, Urine Renal Epithelial Cells , Urine Sperm (Auto) , Urine Squamous Epithelial Cells 1, Urine Transitional Epithelial Cells , Urine Trichomonas (Auto) , Urine Triple Phosphate Cryst (Auto) , Urine Tyrosine Crystals , Urine Uric Acid Crystals ( Auto) , Urine WBC (Auto) 175H, Urine Waxy Casts (Auto) , Urine Yeast-Like Cells (Auto) 03/31/16 06:25: Anion Gap 9, Blood Urea Nitrogen 26H, Creatinine 1.61H, Sodium Level 139, Potassium Level 4.2, Chloride Level 103, Carbon Dioxide Level 27, Calcium Level 8.4L, Glomerular Filtration Rate 32.8, Magnesium Level 2.0 03/31/16 11:08: Bedside Glucose (Misc Panel) 140H CBC/BMP Laboratory Tests 03/31/16 06:25 Calcium Level 8.4 L, Red Blood Count 3.74 L, Mean Corpuscular Volume 88.6, Mean Corpuscular Hemoglobin 30.6, Mean Corpuscular Hemoglobin Concent 34.6, Red Cell Distribution Width 13.8 Microbiology Microbiology 03/31/16 Urine Culture, Received Pending ELHAM BLACK MD Mar 31, 2016 12:03
[2016-03-31] MEDS: traMADol 50 MG TAB PO PRN ×2 (12:39→18:53)
[2016-03-31 14:00] VITALS: BP 137/72
[2016-03-31] MEDS: ATORVASTATIN 20 MG TAB PO SCH (21:18)
[2016-03-31 22:00] VITALS: BP 144/67
[2016-04-01] MEDS: IPRATROPIUM 0.5MG/ALBUTEROL 2.5MG INH SOL UD 3ML (DUONEB)(J7620) NEB SCH ×2 (01:45→07:25)
[2016-04-01 06:00] VITALS: BP 147/70
[2016-04-01 07:13] LABS: MEAN CORPUSCULAR HEMOGLOBIN 29.5 pg (27.0-33.0); MEAN CORPUSCULAR HGB CONC 34.2 g/dl (32.0-36.5); MEAN CORPUSCULAR VOLUME 86.2 fl (80.0-96.0); RED CELL DISTRIBUTION WIDTH 13.5 % (11.5-14.5); WHITE BLOOD COUNT 8.1 K/mm3 (4.0-10.0)
[2016-04-01] MEDS: TIOTROPIUM INHALER/CAPSULE (SPIRIVA) INH SCH (07:22)
[2016-04-01 07:23] LABS: CALCIUM LEVEL 8.4 MG/DL (8.8-10.2); CREATININE FOR GFR 1.25 MG/DL (0.55-1.02); GLOMERULAR FILTRATION RATE 43.9 (>32)
[2016-04-01] MEDS ORDERED: LEVA500T PO (08:00)
[2016-04-01] MEDS ORDERED: HEPARIN SOD (PORCINE) 5000 UNITS/ML VIAL SQ SCH (08:00)
[2016-04-01] MEDS ORDERED: SENN1TAB4 PO (08:00)
[2016-04-01] MEDS: HumaLOG INSULIN (NovoLOG) PER UNIT SC SCH (08:18)
[2016-04-01] MEDS: traMADol 50 MG TAB PO PRN (08:19)
[2016-04-01] MEDS: MOM 30ML SUSPENSION UDC PO SCH (09:00)
[2016-04-01] MEDS: MIRALAX *UNIT DOSE* 17GM PACKET PO SCH (09:00)
[2016-04-01 09:20] VITALS: BP 128/60
[2016-04-01 09:53] VITALS: BP 147/70
[2016-04-01] MEDS: OMEPRAZOLE 20 MG CAP PO SCH (09:53)
[2016-04-01] MEDS: LOSARTAN 50 MG TAB PO SCH (09:53)
[2016-04-01] MEDS: FLUoxetine 20 MG CAP PO SCH (09:53)
[2016-04-01] MEDS: hydroCHLOROthiazide 12.5 MG CAPSULE PO SCH (09:53)
[2016-04-01] MEDS: VITAMIN D 1,000 INTERNATIONAL UNITS TABLET PO SCH (09:54)
[2016-04-01] MEDS ORDERED: LOSA100T PO (09:54)
[2016-04-01] MEDS: SENNA 8.6 MG TAB (SENOKOT) PO SCH (09:54)
[2016-04-01] MEDS: LEVEMIR (INSULIN DETEMIR) 1 UNITS/0.01ML SC SCH (09:54)
[2016-04-01] MEDS: CALCITRIOL 0.25 MCG CAP (S0169) PO SCH (09:54)
--- NOTE | 2016-04-02 06:48 | IPN ---
DATE: 04/01/2016 Patient seen and examined. Currently walking with a walker. Denies any chest pain, pressure or discomfort. No fevers or chill. Had no nausea, vomiting or diarrhea overnight. Case discussed with orthopedics and physical therapy. Patient ready for discharge as per primary team. Patient currently admitted under orthopedics. Patient did have an episode of nausea and vomiting prior to discharge. As per patient due to her pain medication, she does have a history of nausea and vomiting with pain medication and patient is still comfortable with discharge. Vital signs: Temperature 98.2, pulse 100, respirations 18, blood pressure 128/60, pulse ox 94% on room air. Laboratory: WBC 8.1, hemoglobin and hematocrit 10.8/31.6, platelets 245. Chemistry: Sodium 141, potassium 4, chloride 104, bicarbonate 77, BUN 20, creatinine 1.25. PHYSICAL EXAMINATION: General: Patient alert, oriented times three. Comfortable, in no acute distress. HEENT: Normocephalic, atraumatic. Moist mucous membranes. Cardiac: Regular, S1, S2. Pulmonary: Mild expiratory wheeze. Abdomen: Soft, nontender, positive bowel sounds. Extremities: No clubbing, cyanosis or edema. Right arm cast in place. ASSESSMENT AND PLAN: This is an 80-year-old female patient with underlying medical history of insulin dependent diabetes, hypertension, dyslipidemia, coronary arterial disease, with history of myocardial infarction ([place]) with angioplasty in 1995, chronic obstructive pulmonary disease (COPD), chronic kidney disease (CKD), presented status post mechanical fall with Colles fracture. PROBLEMS: 1. Colles fracture, management as per orthopedics, status post surgery. Pain regimen, deep venous thrombosis (DVT) prophylaxis. Physical therapy (PT) as per surgery. As per surgical team, patient likely to be discharged today. 2. Chronic obstructive pulmonary disease (COPD). Patient has history of chronic obstructive pulmonary disease (COPD). Continue home medication. Chest x-ray shows left lower lobe atelectasis. Incentive spirometry. 3. Gait instability with mild disorientation. Physical therapy (PT) has been consulted, walker. 4. Intermittent disorientation possibly due to narcotics versus urinary tract infection (UTI). Patient was treated with antibiotics for urinary tract infection with Levaquin renally dosed. Currently back to baseline and cleared by physical therapy for discharge. Narcotic was discontinue. 5. Hypertension. Continue hydrochlorothiazide and Losartan and diltiazem as well. 6. Dyslipidemia. Continue Lipitor. 7. Insulin dependent diabetes. Continue insulin as per home dose. Outpatient followup with primary care provider for further management. 8. Gastroesophageal reflux disease (GERD). Continue omeprazole. 9. Depression. Continue home medication. 10. Coronary arterial disease, aspirin on hold initially. Will continue patient on aspirin, statin, Losartan, hydrochlorothiazide, diltiazem and spironolactone. Outpatient followup with primary care provider for further management. 11. Deep venous thrombosis (DVT) prophylaxis as per surgical team. DISPOSITION: Likely discharge later today. Patient is instructed to followup with primary care provider for management of diabetes, hypertension in the next 7 days.
--- NOTE | 2016-04-04 19:24 | DSES ---
DATE OF ADMISSION: 03/29/2016 DATE OF DISCHARGE: 04/01/2016 ADMISSION DIAGNOSIS: Comminuted displaced right distal radius fracture. OTHER DIAGNOSES: 1. Depression. 2. Gastric reflux disease. 3. Coronary artery disease. 4. History of myocardial infarction (CT) status post angioplasty. 5. Chronic obstructive pulmonary disease (COPD). 6. Hypertension. 7. Insulin-dependent diabetes. 8. Elevated lipids. 9. Chronic kidney disease. ATTENDING PHYSICIAN: Dr. Peterson. DISCHARGE DIAGNOSIS: Right comminuted displaced distal radius fracture, status post open reduction internal fixation of a right distal radius fracture. HISTORY: This is a pleasant 80-year-old female patient who sustained a mechanical fall on 03/28/2016, and noted to have a displaced comminuted distal radius fracture of the right side. She was seen at the emergency room (ER) and then seen by Dr. Peterson who recommended operative fixation of her unstable fracture. The patient elected for the operative procedure. OPERATION PERFORMED: Open reduction internal fixation of her right displaced comminuted distal radius fracture. HOSPITAL COURSE: The patient was admitted on day of surgery, underwent open reduction internal fixation of her right comminuted displaced distal radius fracture which was uneventful. During the hospital course, she did develop a urinary tract infection (UTI) and some confusion. The confusion was thought to be secondary to narcotics, was slowly weaned off the narcotics, and her UTI was treated with antibiotics. She continued to improve and on the day of discharge she was doing well. Her confusion had resolved and her UTI symptoms had resolved. On day of discharge, she will use oral pain medications for pain control. She is non-weightbearing on her right upper extremity. She will resume her preoperative medications and diet. She was given instructions to include but not limited to wound monitoring, activity limitations, wear the splint. She will followup in our office in a 7-10 days for surgical followup. Please refer the medical record for further details.
== END 2016-04-01 10:09 | disposition home or self-care (01) | DRG 512 ==
LOC: M ED 17:28 → M SDC 18:45 → M MS5PR 03-29 01:10 → M SDC 03-29 08:59 → M MS5PR 03-29 09:00
PROC: 0PSH04Z Reposition Right Radius with Internal Fixation Device, Open Approach (ICD-10-PCS; principal; 2016-03-29)
DX: S52.531A Colles' fracture of right radius, initial encounter for closed fracture (principal); Y93.9 Activity, unspecified; Y99.8 Other external cause status; K21.9 Gastro-esophageal reflux disease without esophagitis; I25.2 Old myocardial infarction; J44.9 Chronic obstructive pulmonary disease, unspecified; I12.9 Hypertensive chronic kidney disease with stage 1 through stage 4 chronic kidney disease, or unspecified chronic kidney disease; E11.9 Type 2 diabetes mellitus without complications; N18.9 Chronic kidney disease, unspecified; I25.10 Atherosclerotic heart disease of native coronary artery without angina pectoris; W18.30XA Fall on same level, unspecified, initial encounter; Y92.009 Unspecified place in unspecified non-institutional (private) residence as the place of occurrence of the external cause; F32.9 Major depressive disorder, single episode, unspecified; Z79.899 Other long term (current) drug therapy; E78.5 Hyperlipidemia, unspecified

== ENCOUNTER → 2016-03-28 | Outpatient (CLI) | payer MEDICARE ==
[~2016-03-28] MED LIST: /ATOR40TA OR; /GLIP10TAB OR; /TIOT18INH INH; ALBU83IN IN; AMBI10TA OR; AMBI5TAB OR; ASPI325T OR; ASPI81TA7 PO; ATEN25TA OR; ATOR40TA PO; BENI20TA11 OR; CALC1CAP31 PO; CEFD1CAP8 PO; COMBVENT INH; DILT240C5 PO; FLUO40CA PO; GLUC500T OR; INSULANT SC; JANU25TA PO; LEVA500T PO; LOSA100T PO; LYRI200C PO; OMEP40CA2 PO; PERC5TAB6 PO; PERC7.5T3 PO; PRED20TA OR; PRIL40CA OR; SENN1TAB4 PO; SPIR1CAP INH; SPIR25TA2 PO; TESS100C OR; TRAM50TA2 PO; VITA-121 PO; XOPE0.632 IN; ZITH500T OR
--- NOTE | 2016-03-28 17:07 | REP ---
Right wrist four views: The there is a Collie's' fracture of the distal radius with one shaft width posterior displacement of the distal fracture fragment and posterior angulation of the distal fracture fragment. I suspect that there is a fracture of the ulnar styloid. 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 Signed by Ross Null MD 03/28/2016 04:59 P
== END ==
LOC: M WUC 16:40
PROVIDERS: ATTEND Physician Assistant
DX: S52.531A Colles' fracture of right radius, initial encounter for closed fracture (principal); X58.XXXA Exposure to other specified factors, initial encounter; Y93.9 Activity, unspecified; Y92.9 Unspecified place or not applicable; Y99.8 Other external cause status

== ENCOUNTER → 2016-09-17 | Outpatient (CLI) | payer MEDICARE ==
[~2016-09-17] MED LIST changes: +ASPI1TAB15 PO; +ATOR40TA75 PO; +CALC1CAP31 PO; +CEFD1CAP8 PO; +DILT240C75 PO; +FLUO40CA PO; +INSULANT SC; +JANU25TA PO; +LEVA1TAB2 PO; +LOSA100T8 PO; +LYRI200C PO; +OMEP40CA2 PO; +PERC5TAB12 PO; +PERC7.5T11 PO; +SENN18TA PO; +SPIR1CAP INH; +SPIR25TA2 PO; +TRAM50TA2 PO; +VITA-121 PO
[2016-09-17 16:41] LABS: CALCIUM LEVEL 8.3 MG/DL (8.8-10.2); CREATININE FOR GFR 1.24 MG/DL (0.55-1.02); GLOMERULAR FILTRATION RATE 44.3 (>32); POTASSIUM SERUM 3.6 MEQ/L (3.5-5.1)
--- NOTE | 2016-09-17 17:27 | REP ---
CHEST, TWO VIEWS: HISTORY: Heart disease. COMPARISON: 04/04/2016 The lungs are hyperinflated. An increase in interstitial markings is present in the lungs. Bilateral apical pleural thickening is present. Linear density is present in the left lower lobe consistent with scar. There is blunting of the costophrenic angles due to pleural thickening. The heart is normal in size. The pulmonary vasculature is normal in appearance. The bony structure is intact. IMPRESSION:1. COPD. 2. Left lower lobe scar. Signed by Malachi Brandt MD 09/18/2016 08:18 A
== END ==
LOC: M LAB 13:59
PROVIDERS: ATTEND Orthopaedic Surgery
DX: Z01.818 Encounter for other preprocedural examination (principal); I51.9 Heart disease, unspecified

== ENCOUNTER 2016-09-18 20:37 | Emergency (ER) | payer MEDICARE ==
[~2016-09-18] VITALS: Ht 170.2 cm; Wt 104.0 kg
--- NOTE | 2016-09-18 22:00 | REPUSA ---
CLINICAL HISTORY: Head trauma COMPARISON: No study for comparison is available at the time of interpretation. TECHNIQUE: Head CT without contrast. Total DLP 894.5 mGy*cm Brain: Chronic generalized atrophy. Periventricular low attenuation changes consistent with small ves danni ischemic disease. No intracranial hemorrhage or parenchymal edema. Calvarium: No depressed fractures. Right mastoidectomy. Sinuses (partially visualized): No hemorrhage fluid levels. IMPRESSION: 1. No intracranial hemorrhage or fracture. 2. Chronic atrophy and small vessel ischemic disease.
[2016-09-18 22:46] VITALS: BP 126/74
== END 2016-09-18 22:47 | disposition home or self-care (01) ==
LOC: M ED 20:37
DX: S00.93XA Contusion of unspecified part of head, initial encounter (principal); E11.9 Type 2 diabetes mellitus without complications; I25.10 Atherosclerotic heart disease of native coronary artery without angina pectoris; I10 Essential (primary) hypertension; W18.30XA Fall on same level, unspecified, initial encounter; Y92.017 Garden or yard in single-family (private) house as the place of occurrence of the external cause; Y99.9 Unspecified external cause status; Y93.9 Activity, unspecified; Z87.891 Personal history of nicotine dependence; Z79.82 Long term (current) use of aspirin; Z79.4 Long term (current) use of insulin; Z79.899 Other long term (current) drug therapy

== ENCOUNTER → 2016-09-29 | Outpatient (CLI) | payer MEDICARE ==
--- NOTE | 2016-09-29 09:00 | REP ---
Abdominal aorta ultrasound: Abdominal Aortic Measurements are as follows: Proximal 2.5 cm AP at 2.2 cm TRV Renal Artery Level 2.3 cm AP 2.1 cm TRV Mid Aorta 2.8 cm AP 2.4 cm TRV Distal Aorta 3.8 cm AP 4.7 cm TRV R Iliac Artery bowel gas cm AP 1.4 cm TRV L Iliac Artery bowel gas cm AP 1.9 cm TRV There is a 3.8 x 4.7 cm abdominal aortic aneurysm of the distal abdominal aorta. The aneurysm measures 7.8 cm craniocaudad. Signed by Ross Null MD 09/29/2016 08:51 A
== END ==
LOC: M RAD 07:47
PROVIDERS: ATTEND Internal Medicine Cardiovascular Disease
DX: I71.4 Abdominal aortic aneurysm, without rupture (principal)

== ENCOUNTER → 2017-01-30 | Outpatient (CLI) | payer MEDICARE ==
--- NOTE | 2017-01-30 15:09 | REP ---
Chest x-ray: Two views. History: Shortness of breath. Comparison chest x-ray September 17, 2016. The lungs are symmetrically aerated and free of infiltrate. There is a linear zone of fibrosis in the left base, unchanged from the comparison study. Heart is not enlarged. No new infiltrate is seen. The aorta is calcific and somewhat tortuous. Impression: Linear fibrosis left base. Otherwise no acute disease. Signed by Lnony Hein MD 01/30/2017 04:16 P
== END ==
LOC: M SMT 10:34
PROVIDERS: ATTEND Internal Medicine Cardiovascular Disease
DX: R06.02 Shortness of breath (principal)

== ENCOUNTER → 2017-02-16 | Outpatient (CLI) | payer MEDICARE ==
[2017-02-16 16:29] LABS: ESTIMATED AVERAGE GLUCOSE 137 MG/DL (60-110); HEMOGLOBIN A1c 6.4 %
[2017-02-16 16:31] LABS: ALBUMIN 3.3 GM/DL (3.2-5.2); ALBUMIN/GLOBULIN RATIO 1.06 (1.00-1.93); ALKALINE PHOSPHATASE 149 U/L (45-117); ALT/SGPT 29 U/L (12-78); ANION GAP 6 MEQ/L (8-16); AST/SGOT 16 U/L (7-37); BILIRUBIN,TOTAL 0.5 MG/DL (0.2-1.0); BLOOD UREA NITROGEN 23 MG/DL (7-18); CALCIUM LEVEL 8.4 MG/DL (8.8-10.2); CARBON DIOXIDE LEVEL 29 MEQ/L (21-32); CHLORIDE LEVEL 108 MEQ/L (98-107); CHOLESTEROL LEVEL 156 MG/DL (<200); CHOLESTEROL RISK RATIO 3.391 (<5); CREATININE FOR GFR 1.23 MG/DL (0.55-1.02); GLOMERULAR FILTRATION RATE 44.6 (>32); GLUCOSE, FASTING 103 MG/DL (83-110); HDL CHOLESTEROL 46 MG/DL (>40); LDL CHOLESTEROL 85.2 MG/DL (<100); MAGNESIUM LEVEL 2.1 MG/DL (1.8-2.4); NON-HDL-C 110 MG/DL; POTASSIUM SERUM 4.5 MEQ/L (3.5-5.1); SODIUM LEVEL 143 MEQ/L (136-145); TOTAL PROTEIN 6.4 GM/DL (6.4-8.2); TRIGLYCERIDES LEVEL 124 MG/DL (<150)
[2017-02-16 16:38] LABS: TOTAL 25(OH) VITAMIN D 42.5 NG/ML (30.0-100.0)
== END ==
LOC: M LAB 15:14
DX: E11.9 Type 2 diabetes mellitus without complications (principal); E55.9 Vitamin D deficiency, unspecified; I10 Essential (primary) hypertension; E78.2 Mixed hyperlipidemia; E83.42 Hypomagnesemia
CPT/HCPCS: 83735

== ENCOUNTER → 2017-06-30 | Outpatient (CLI) | payer MEDICARE ==
[2017-06-30 18:37] LABS: ALBUMIN 3.7 GM/DL (3.2-5.2); ANION GAP 10 MEQ/L (8-16); BLOOD UREA NITROGEN 26 MG/DL (7-18); CALCIUM LEVEL 8.8 MG/DL (8.8-10.2); CARBON DIOXIDE LEVEL 28 MEQ/L (21-32); CHLORIDE LEVEL 105 MEQ/L (98-107); CREATININE FOR GFR 1.49 MG/DL (0.55-1.30); GLOMERULAR FILTRATION RATE 35.8 (>32); GLUCOSE, FASTING 151 MG/DL (70-100); MAGNESIUM LEVEL 2.1 MG/DL (1.8-2.4); PHOSPHORUS LEVEL 3.6 MG/DL (2.5-4.9); POTASSIUM SERUM 3.9 MEQ/L (3.5-5.1); SODIUM LEVEL 143 MEQ/L (136-145)
== END ==
LOC: M SMT 12:59
DX: I11.0 Hypertensive heart disease with heart failure (principal)
CPT/HCPCS: 83735

== ENCOUNTER → 2017-09-07 | Outpatient (CLI) | payer MEDICARE ==
[2017-09-07 14:05] LABS: TOTAL 25(OH) VITAMIN D 51.6 NG/ML (30.0-100.0)
[2017-09-07 14:11] LABS: ALBUMIN 3.3 GM/DL (3.2-5.2); ALBUMIN/GLOBULIN RATIO 1.03 (1.00-1.93); ALKALINE PHOSPHATASE 135 U/L (45-117); ALT/SGPT 26 U/L (12-78); ANION GAP 6 MEQ/L (8-16); AST/SGOT 14 U/L (7-37); BILIRUBIN,TOTAL 0.4 MG/DL (0.2-1.0); BLOOD UREA NITROGEN 21 MG/DL (7-18); CALCIUM LEVEL 8.5 MG/DL (8.8-10.2); CARBON DIOXIDE LEVEL 31 MEQ/L (21-32); CHLORIDE LEVEL 110 MEQ/L (98-107); CHOLESTEROL LEVEL 128 MG/DL (<200); CREATININE FOR GFR 1.42 MG/DL (0.55-1.30); GLOMERULAR FILTRATION RATE 37.8 (>32); GLUCOSE, FASTING 105 MG/DL (70-100); HDL CHOLESTEROL 40 MG/DL (>40); LDL CHOLESTEROL 47.8 MG/DL (<100); MAGNESIUM LEVEL 2.3 MG/DL (1.8-2.4); NON-HDL-C 88 MG/DL; POTASSIUM SERUM 3.9 MEQ/L (3.5-5.1); SODIUM LEVEL 147 MEQ/L (136-145); TOTAL PROTEIN 6.5 GM/DL (6.4-8.2); TRIGLYCERIDES LEVEL 201 MG/DL (<150)
[2017-09-07 14:21] LABS: ESTIMATED AVERAGE GLUCOSE 148 MG/DL (60-110); HEMOGLOBIN A1c 6.8 %
== END ==
LOC: M SMT 08:10
DX: E11.9 Type 2 diabetes mellitus without complications (principal); E55.9 Vitamin D deficiency, unspecified; I10 Essential (primary) hypertension; E78.2 Mixed hyperlipidemia; E83.42 Hypomagnesemia
CPT/HCPCS: 83735

== ENCOUNTER 2017-11-03 16:01 | Emergency (ER) | payer MEDICARE ==
[2017-11-03 17:21] LABS: BASO % 0.4 % (0.0-1.0); EOS # 0.3 10^3/uL (0.0-0.50); EOS % 3.4 % (0.0-3.0); HEMATOCRIT 37.2 % (36.0-47.0); HEMOGLOBIN 12.3 g/dl (12.0-15.5); IMMATURE GRANULOCYTE % 0.9 % (0-3.0); LYMPH # 1.1 10^3/uL (1.5-4.5); LYMPH % 15.3 % (24.0-44.0); MEAN CORPUSCULAR HEMOGLOBIN 27.8 pg (27.0-33.0); MEAN CORPUSCULAR HGB CONC 33.1 g/dl (32.0-36.5); MEAN CORPUSCULAR VOLUME 84.2 fl (80.0-96.0); MONO # 0.5 10^3/uL (0.0-0.8); MONO % 6.1 % (0.0-5.0); NEUTROPHILS # 5.4 10^3/uL (1.8-7.7); NEUTROPHILS % 73.9 % (36.0-66.0); PLATELET COUNT, AUTOMATED 302 10^3/uL (150-450); RED BLOOD COUNT 4.42 10^6/uL (4.00-5.40); RED CELL DISTRIBUTION WIDTH 15.5 % (11.5-14.5); WHITE BLOOD COUNT 7.4 10^3/uL (4.0-10.0)
[2017-11-03 17:27] LABS: ANION GAP 8 MEQ/L (8-16); BLOOD UREA NITROGEN 18 MG/DL (7-18); CALCIUM LEVEL 8.5 MG/DL (8.8-10.2); CARBON DIOXIDE LEVEL 26 MEQ/L (21-32); CHLORIDE LEVEL 109 MEQ/L (98-107); CPK CREATINE PHOSPHOKINASE 132 U/L (26-192); CREATININE FOR GFR 1.37 MG/DL (0.55-1.30); GLOMERULAR FILTRATION RATE 39.4 (>32); GLUCOSE, FASTING 225 MG/DL (70-100); MB/CK RELATIVE INDEX 0.98 (< OR =4); POTASSIUM SERUM 3.8 MEQ/L (3.5-5.1); SODIUM LEVEL 143 MEQ/L (136-145); TROPONIN I 0.02 NG/ML (< 0.10)
[2017-11-03 17:34] LABS: INR 0.97
[2017-11-03 17:35] LABS: PARTIAL THROMBOPLASTIN TIME 27.9 SECONDS (25.4-37.6)
[2017-11-03 21:00] LABS: CPK CREATINE PHOSPHOKINASE 137 U/L (26-192); MB/CK RELATIVE INDEX 1.09 (< OR =4); TROPONIN I < 0.02 NG/ML (< 0.10)
[2017-11-03] MEDS: HEPARIN SOD (PORCINE) 5000 UNITS/ML VIAL IV ×2 (21:45)
[2017-11-03] MEDS: CLOPIDOGREL 300 MG TAB (PLAVIX) PO ×2 (21:45)
[2017-11-03] MEDS: HEPARIN DRIP 25,000 UNITS in APPROPRIATE DILUENT 1 EA IV (21:45)
[2017-11-03 21:53] LABS: BEDSIDE GLUCOSE 59 MG/DL (83-110)
[2017-11-03] MEDS: DEXTROSE 50% 50 ML SYRINGE IV ×2 (22:30)
[2017-11-03] MEDS ORDERED: DEXTROSE 50% 50 ML SYRINGE As Ordered ×2 (22:31)
== END 2017-11-03 22:45 | disposition short-term general hospital (02) ==
LOC: M ED 16:01
DX: I20.0 Unstable angina (principal); R94.31 Abnormal electrocardiogram [ECG] [EKG]; R00.1 Bradycardia, unspecified; I44.0 Atrioventricular block, first degree; I25.10 Atherosclerotic heart disease of native coronary artery without angina pectoris; E11.9 Type 2 diabetes mellitus without complications; I10 Essential (primary) hypertension; E78.5 Hyperlipidemia, unspecified; N18.9 Chronic kidney disease, unspecified; Z79.82 Long term (current) use of aspirin; Z79.4 Long term (current) use of insulin; Z79.899 Other long term (current) drug therapy
CPT/HCPCS: 71045

== ENCOUNTER → 2017-11-23 | Outpatient (CLI) | payer MEDICARE ==
[2017-11-23 13:55] LABS: ANION GAP 4 MEQ/L (8-16); BLOOD UREA NITROGEN 19 MG/DL (7-18); CALCIUM LEVEL 8.1 MG/DL (8.8-10.2); CARBON DIOXIDE LEVEL 31 MEQ/L (21-32); CHLORIDE LEVEL 108 MEQ/L (98-107); CREATININE FOR GFR 1.28 MG/DL (0.55-1.30); GLOMERULAR FILTRATION RATE 42.6 (>32); GLUCOSE, FASTING 108 MG/DL (70-100); POTASSIUM SERUM 4.4 MEQ/L (3.5-5.1); SODIUM LEVEL 143 MEQ/L (136-145)
== END ==
LOC: M SMT 09:48
DX: I10 Essential (primary) hypertension (principal)
CPT/HCPCS: 80048

== ENCOUNTER → 2017-11-26 | Outpatient (REF) | payer MEDICARE | LOC: M LAB REF 17:22 | DX: N39.0 Urinary tract infection, site not specified (principal) | CPT/HCPCS: 87086 ==

== ENCOUNTER → 2017-12-29 | Outpatient (CLI) | payer MEDICARE ==
[2017-12-29 17:48] LABS: C REACTIVE PROTEIN QUANTITATIV < 0.30 MG/DL (0.00-0.30)
[2017-12-29 18:25] LABS: ERYTHROCYTE SEDIMENTATION RATE 27 mm/hr (0-30)
== END ==
LOC: M SMT 13:56
DX: M31.6 Other giant cell arteritis (principal)
CPT/HCPCS: 86140

== ENCOUNTER → 2018-01-27 | Outpatient (CLI) | payer MEDICARE ==
[2018-01-27 13:51] LABS: BASO # 0.1 10^3/uL (0.0-0.2); BASO % 0.7 % (0.0-1.0); EOS # 0.2 10^3/uL (0.0-0.50); EOS % 2.5 % (0.0-3.0); HEMATOCRIT 40.2 % (36.0-47.0); HEMOGLOBIN 12.8 g/dl (12.0-15.5); IMMATURE GRANULOCYTE % 0.4 % (0-3.0); LYMPH # 2.2 10^3/uL (1.5-4.5); LYMPH % 25.4 % (24.0-44.0); MEAN CORPUSCULAR HEMOGLOBIN 27.9 pg (27.0-33.0); MEAN CORPUSCULAR HGB CONC 31.8 g/dl (32.0-36.5); MEAN CORPUSCULAR VOLUME 87.8 fl (80.0-96.0); MONO # 0.7 10^3/uL (0.0-0.8); MONO % 8.2 % (0.0-5.0); NEUTROPHILS # 5.4 10^3/uL (1.8-7.7); NEUTROPHILS % 62.8 % (36.0-66.0); PLATELET COUNT, AUTOMATED 280 10^3/uL (150-450); RED BLOOD COUNT 4.58 10^6/uL (4.00-5.40); RED CELL DISTRIBUTION WIDTH 14.7 % (11.5-14.5); WHITE BLOOD COUNT 8.6 10^3/uL (4.0-10.0)
[2018-01-27 13:56] LABS: APPEARANCE, URINE CLEAR (CLEAR); BACTERIA, URINE AUTO 1+ (NEGATIVE); BILIRUBIN, URINE AUTO NEGATIVE (NEGATIVE); BLOOD, URINE BLOOD NEGATIVE (NEGATIVE); COLOR, URINE YELLOW (YELLOW); GLUCOSE, URINE (UA) AUTO NEGATIVE (NEGATIVE); KETONE, URINE AUTO NEGATIVE (NEGATIVE); LEUKOCYTE ESTERASE, URINE AUTO NEGATIVE (NEGATIVE); NITRITE, URINE AUTO NEGATIVE (NEGATIVE); PROTEIN, URINE AUTO NEGATIVE (NEGATIVE); RBC, URINE AUTO 1 /HPF (0-3); SPECIFIC GRAVITY URINE AUTO 1.017 (1.002-1.035); SQUAMOUS EPITHELIAL CELL UR AU 1 /HPF (0-6); UROBILINOGEN, URINE AUTO 0.2 mg/dL (0.0-2.0); WBC, URINE AUTO 1 /HPF (0-3)
[2018-01-27 15:14] LABS: ALBUMIN 3.1 GM/DL (3.2-5.2); ANION GAP 8 MEQ/L (8-16); BLOOD UREA NITROGEN 20 MG/DL (7-18); CALCIUM LEVEL 8.2 MG/DL (8.8-10.2); CARBON DIOXIDE LEVEL 28 MEQ/L (21-32); CHLORIDE LEVEL 109 MEQ/L (98-107); CREATININE FOR GFR 1.24 MG/DL (0.55-1.30); GLOMERULAR FILTRATION RATE 44.1 (>32); GLUCOSE, FASTING 95 MG/DL (70-100); PHOSPHORUS LEVEL 3.3 MG/DL (2.5-4.9); POTASSIUM SERUM 4.1 MEQ/L (3.5-5.1); SODIUM LEVEL 145 MEQ/L (136-145)
[2018-01-27 15:32] LABS: TOTAL 25(OH) VITAMIN D 37.9 NG/ML (30.0-100.0)
[2018-01-27 15:33] LABS: PTH INTACT 114.6 PG/ML (18.5-88.0)
[2018-01-27 15:59] LABS: MALB URINE SIEMENS 11.1 MG/L; MAU/CREAT RATIO 8.7 MCG/MG (0.0-30.0)
== END ==
LOC: M SMT 10:15
DX: N18.4 Chronic kidney disease, stage 4 (severe) (principal); I12.9 Hypertensive chronic kidney disease with stage 1 through stage 4 chronic kidney disease, or unspecified chronic kidney disease; E11.22 Type 2 diabetes mellitus with diabetic chronic kidney disease; E55.9 Vitamin D deficiency, unspecified
CPT/HCPCS: 80069

== ENCOUNTER 2018-01-29 21:35 | Emergency (ER) | payer OTHER, MEDICARE ==
[~2018-01-29] VITALS: Ht 175.3 cm; Wt 100.0 kg
[~2018-01-29 21:35] MED LIST changes: +ADV250INH; +DILT240C14 PO; -DILT240C75 PO; +INCR1INH; +NITR0.4S14 SL; +SPIR-10 PO; -SPIR25TA2 PO
[2018-01-29] MEDS ORDERED: IBUPROFEN 600 MG TAB PO ONE (22:15)
[2018-01-29 22:35] VITALS: BP 200/93
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
[2018-01-29] MEDS ORDERED: NAPR-50 PO (23:20)
[2018-01-29] MEDS ORDERED: SOMA350T PO (23:20)
[2018-01-29 23:21] VITALS: BP 151/73
[2018-01-29] MEDS ORDERED: NORCO 5/325MG TABLET (BULK FOR ED) PO ONE (23:30)
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
--- NOTE | 2018-01-31 08:15 | ED PDOC ---
Post-Departure Follow-Up dr marquez faxed formal report of ct ls spine for fu Maynor Avalos MD Jan 31, 2018 08:15
--- NOTE | 2018-01-31 08:16 | ED PDOC ---
Post-Departure Follow-Up ct c spine faxed formal report to dr rebecca marquez rfu Maynor Avalos MD Jan 31, 2018 08:16
== END 2018-01-29 23:45 | disposition home or self-care (01) ==
LOC: M ED 21:35
DX: S16.1XXA Strain of muscle, fascia and tendon at neck level, initial encounter (principal); T14.8XXA Other injury of unspecified body region, initial encounter; V49.49XA Driver injured in collision with other motor vehicles in traffic accident, initial encounter; Y92.410 Unspecified street and highway as the place of occurrence of the external cause; J44.9 Chronic obstructive pulmonary disease, unspecified; E11.9 Type 2 diabetes mellitus without complications; I25.10 Atherosclerotic heart disease of native coronary artery without angina pectoris; Z79.899 Other long term (current) drug therapy; Z79.4 Long term (current) use of insulin; F17.210 Nicotine dependence, cigarettes, uncomplicated

== ENCOUNTER → 2018-03-01 | Outpatient (CLI) | payer MEDICARE ==
[~2018-03-01] MED LIST changes: +NAPR-50 PO; +SOMA350T PO
[2018-03-01 18:03] LABS: ALBUMIN 3.2 GM/DL (3.2-5.2); CALCIUM LEVEL 8.7 MG/DL (8.8-10.2); CREATININE FOR GFR 1.39 MG/DL (0.55-1.30); GLOMERULAR FILTRATION RATE 38.6 (>32); PHOSPHORUS LEVEL 3.5 MG/DL (2.5-4.9); POTASSIUM SERUM 4.1 MEQ/L (3.5-5.1)
[2018-03-01 18:15] LABS: PTH INTACT 85.1 PG/ML (18.5-88.0)
[2018-03-01 18:23] LABS: BASO % 0.5 % (0.0-1.0); EOS # 0.3 10^3/uL (0.0-0.50); EOS % 3.4 % (0.0-3.0); HEMATOCRIT 39.4 % (36.0-47.0); HEMOGLOBIN 12.6 g/dl (12.0-15.5); LYMPH # 2.1 10^3/uL (1.5-4.5); LYMPH % 24.9 % (24.0-44.0); MEAN CORPUSCULAR HEMOGLOBIN 27.3 pg (27.0-33.0); MEAN CORPUSCULAR VOLUME 85.5 fl (80.0-96.0); MONO # 0.5 10^3/uL (0.0-0.8); MONO % 6.3 % (0.0-5.0); NEUTROPHILS # 5.5 10^3/uL (1.8-7.7); NEUTROPHILS % 64.3 % (36.0-66.0); PLATELET COUNT, AUTOMATED 243 10^3/uL (150-450); RED BLOOD COUNT 4.61 10^6/uL (4.00-5.40); WHITE BLOOD COUNT 8.6 10^3/uL (4.0-10.0)
== END ==
LOC: M SMT 13:22
PROVIDERS: ATTEND Internal Medicine Nephrology
DX: N18.3 Chronic kidney disease, stage 3 (moderate) (principal); D63.1 Anemia in chronic kidney disease; N25.81 Secondary hyperparathyroidism of renal origin

== ENCOUNTER → 2018-04-13 | Outpatient (CLI) | payer MEDICARE ==
[2018-04-13 13:59] LABS: ALBUMIN 3.3 GM/DL (3.2-5.2); BILIRUBIN,TOTAL 0.6 MG/DL (0.2-1.0); CALCIUM LEVEL 8.6 MG/DL (8.8-10.2); CHOLESTEROL RISK RATIO 3.17 (<5); CREATININE FOR GFR 1.23 MG/DL (0.55-1.30); GLOMERULAR FILTRATION RATE 44.5 (>32); POTASSIUM SERUM 4.2 MEQ/L (3.5-5.1); TOTAL PROTEIN 6.3 GM/DL (6.4-8.2)
[2018-04-13 14:05] LABS: HEMOGLOBIN A1c 7.4 %
== END ==
LOC: M SMT 10:06
PROVIDERS: ATTEND Physician Assistant
DX: E11.69 Type 2 diabetes mellitus with other specified complication (principal); I10 Essential (primary) hypertension

== ENCOUNTER → 2018-05-05 | Outpatient (CLI) | payer MEDICARE ==
--- NOTE | 2018-05-06 09:26 | REPMRS ---
Patient History The patient states she has not had a clinical breast exam in over a year. Patient is postmenopausal and has history of other cancer at age 81. Family history of breast cancer at age 50 or over in maternal cousin, breast cancer at age 50 or over in maternal cousin, colorectal cancer at age 50 or over in maternal cousin. Benign excisional biopsy of the left breast, 1995. No Hormone Replacement Therapy Digital Woman Screen Mammo: May 05, 2018 - Exam #: [id number] Bilateral CC and MLO view(s) were taken. Technologist: Lalita Tucker, Technologist Prior study comparison: January 02, 2016, digital woman screen mammo performed at [facility]. August 15, 2013, digital woman screen mammo performed at [facility] [facility]. November 07, 2009, bilateral digital woman screen mammo, performed at [facility]. FINDINGS: There are scattered fibroglandular densities. There has been no change in the appearance of the mammogram from the prior studies. There is a mild amount of scattered fibroglandular density which is fairly symmetric. There is no interval development of dominant mass, architectural distortion, or clustered microcalcification suggestive of malignancy. 3-D tomosynthesis shows no additional findings. Assessment: BI-RADS/ACR category 1 mammogram. Negative Mammogram. Recommendation Routine screening mammogram of both breasts in 1 year (for women over age 40). This patient's Lifetime Breast Cancer RIsk is estimated at 1.0 %. This mammogram was interpreted with the aid of an FDA-approved computer-aided dectection system. Electronically Signed By: Waqar Hein MD 05/06/18 [id number]
--- NOTE | 2018-05-11 13:36 | DEXA ---
AP SPINE L1 - L4 1.199 0.0 1.9 LT FEMUR TOTAL 0.737 -2.1 0.0 LT NECK 0.650 -2.8 -0.5 RT FEMUR TOTAL 0.749 -2.1 0.1 RT NECK 0.663 -2.7 -0.4 TOTAL BODY TOTAL OTHER COMMENTS: Normal bone densitometry of the spine. There is osteoporosis of the hips. The decreased density of the spine does represent a significant change. The decreased density of the left hip does represent a significant change. The decreased density of the right hip does represent a significant change. The density of the spine has increased 10.2% since the initial exam on 03/09/2001. The spine density has decreased 3.7% since the most recent exam on 01/02/2016. The density of the left hip has decreased 12.9% since the initial exam on 03/09/2001. The density of the left hip has decreased 5.6% since the most recent exam on 01/02/2016. The density of the right hip has decreased 11.8% since the initial exam on 03/09/2001. The density of the right hip has decreased 7.8% since the most recent exam on 01/02/2016. FOLLOW-UP: Recommendation for the next bone density exam: 2 years. GEORGES
== END ==
LOC: M WHC 13:09
PROVIDERS: ATTEND Physician Assistant
DX: Z12.31 Encounter for screening mammogram for malignant neoplasm of breast (principal); Z80.3 Family history of malignant neoplasm of breast; Z80.0 Family history of malignant neoplasm of digestive organs; M81.0 Age-related osteoporosis without current pathological fracture; M85.851 Other specified disorders of bone density and structure, right thigh; M85.852 Other specified disorders of bone density and structure, left thigh

== ENCOUNTER → 2018-06-10 | Outpatient (CLI) | payer MEDICARE ==
[~2018-06-10] MED LIST changes: -/ATOR40TA OR; -/TIOT18INH INH; -DILT240C14 PO; +DILT240C82 PO; +LIPI1TAB2 OR; -NAPR-50 PO; +NAPR-837 PO
[2018-06-10 19:09] LABS: CREATININE FOR GFR 1.47 MG/DL (0.55-1.30); GLOMERULAR FILTRATION RATE 36.2 (>32)
== END ==
LOC: M SMT 14:29
PROVIDERS: ATTEND Physician Assistant
DX: Z01.812 Encounter for preprocedural laboratory examination (principal)

== ENCOUNTER → 2018-06-23 | Outpatient (CLI) | payer MEDICARE ==
[~2018-06-23] MED LIST changes: +ISOVUE-370 76% 100ML VIAL (Q9967) As Ordered ONE
--- NOTE | 2018-06-23 15:59 | REP ---
CT chest with IV contrast: History: Localized swelling, mass and lump. Lump in the right subclavicular region. CT contrast dose: 75 ml of intravenous Isovue 370. CT findings: There is no evidence of supraclavicular, subclavicular, or axillary lymphadenopathy on either side. There is no CT evidence of breast mass on either side. Thyroid lobes are normal and symmetric. There is heavy atherosclerotic plaquing and calcification in the transverse aorta. No aneurysm is seen. No evidence of dissection. No hilar or mediastinal mass is seen. No mediastinal adenopathy is observed. No pleural or pericardial effusion is seen. No filling defect is seen in the pulmonary arterial tree to suggest pulmonary embolism. On lung parenchymal window settings, there is mild biapical pleuroparenchymal fibrosis. Minimal emphysematous changes are seen in the apices. No infiltrate, mass or adenopathy is seen. No significant pulmonary nodule is seen. No bony destructive lesion. No adrenal lesion is observed. There are clips in the gallbladder fossa. A tiny accessory splenule is noted. Visualized upper abdominal structures are otherwise unremarkable. Impression: No active disease. Electronically Signed by Lonny Hein MD 06/23/2018 05:01 P
== END ==
LOC: M RAD 10:33
PROVIDERS: ATTEND Physician Assistant
DX: R22.31 Localized swelling, mass and lump, right upper limb (principal)
CPT/HCPCS: 71260; Q9967

== ENCOUNTER → 2018-09-09 | Outpatient (CLI) | payer MEDICARE ==
[~2018-09-09] MED LIST changes: -ISOVUE-370 76% 100ML VIAL (Q9967) As Ordered ONE
[2018-09-09 20:23] LABS: ALBUMIN 3.3 GM/DL (3.2-5.2); BILIRUBIN,TOTAL 0.5 MG/DL (0.2-1.0); CALCIUM LEVEL 8.4 MG/DL (8.8-10.2); CHOLESTEROL RISK RATIO 3.552 (<5); CREATININE FOR GFR 1.27 MG/DL (0.55-1.30); GLOMERULAR FILTRATION RATE 42.9 (>32); POTASSIUM SERUM 3.6 MEQ/L (3.5-5.1); TOTAL PROTEIN 6.4 GM/DL (6.4-8.2)
[2018-09-09 20:36] LABS: HEMOGLOBIN A1c 7.1 %
[2018-09-09 20:42] LABS: MALB URINE SIEMENS 8.2 MG/L; MAU/CREAT RATIO 6.8 MCG/MG (0.0-30.0)
== END ==
LOC: M WUC 17:39
PROVIDERS: ATTEND Physician Assistant
DX: I10 Essential (primary) hypertension (principal); E11.69 Type 2 diabetes mellitus with other specified complication

== ENCOUNTER → 2018-09-21 | Outpatient (CLI) | payer MEDICARE ==
[2018-09-21 20:15] LABS: BASO # 0.1 10^3/uL (0.0-0.2); BASO % 0.7 % (0.0-1.0); EOS # 0.3 10^3/uL (0.0-0.50); EOS % 4.4 % (0.0-3.0); HEMATOCRIT 39.6 % (36.0-47.0); HEMOGLOBIN 13.1 g/dl (12.0-15.5); LYMPH # 1.9 10^3/uL (1.5-4.5); LYMPH % 24.9 % (24.0-44.0); MEAN CORPUSCULAR HEMOGLOBIN 28.7 pg (27.0-33.0); MEAN CORPUSCULAR HGB CONC 33.1 g/dl (32.0-36.5); MEAN CORPUSCULAR VOLUME 86.8 fl (80.0-96.0); MONO # 0.5 10^3/uL (0.0-0.8); MONO % 6.4 % (0.0-5.0); NEUTROPHILS # 4.8 10^3/uL (1.8-7.7); NEUTROPHILS % 63.2 % (36.0-66.0); PLATELET COUNT, AUTOMATED 245 10^3/uL (150-450); RED BLOOD COUNT 4.56 10^6/uL (4.00-5.40); WHITE BLOOD COUNT 7.7 10^3/uL (4.0-10.0)
[2018-09-21 20:37] LABS: ALBUMIN 3.1 GM/DL (3.2-5.2); CALCIUM LEVEL 8.5 MG/DL (8.8-10.2); CREATININE FOR GFR 1.17 MG/DL (0.55-1.30); GLOMERULAR FILTRATION RATE 47.1 (>32); PHOSPHORUS LEVEL 3.8 MG/DL (2.5-4.9); POTASSIUM SERUM 3.7 MEQ/L (3.5-5.1)
[2018-09-21 20:53] LABS: PTH INTACT 66.2 PG/ML (18.5-88.0)
== END ==
LOC: M WUC 18:25
PROVIDERS: ATTEND Internal Medicine Nephrology
DX: N18.3 Chronic kidney disease, stage 3 (moderate) (principal); D63.1 Anemia in chronic kidney disease; N25.81 Secondary hyperparathyroidism of renal origin

== ENCOUNTER → 2018-10-07 | Outpatient (CLI) | payer MEDICARE ==
[2018-10-07 17:39] LABS: ALBUMIN 3.1 GM/DL (3.2-5.2); CREATININE FOR GFR 1.07 MG/DL (0.55-1.30); GLOMERULAR FILTRATION RATE 52.3 (>32); PHOSPHORUS LEVEL 3.7 MG/DL (2.5-4.9); POTASSIUM SERUM 3.8 MEQ/L (3.5-5.1)
== END ==
LOC: M WUC 14:01
PROVIDERS: ATTEND Nurse Practitioner Family
DX: N18.3 Chronic kidney disease, stage 3 (moderate) (principal)

== ENCOUNTER 2018-10-22 13:49 | Emergency (ER) | payer MEDICARE ==
[~2018-10-22] VITALS: Ht 172.7 cm; Wt 104.5 kg
[2018-10-22] MEDS ORDERED: HYDR12CA (14:13)
[2018-10-22] MEDS ORDERED: OMEP-221 (14:13)
[2018-10-22] MEDS ORDERED: DULO1CAP5 (14:13)
[2018-10-22] MEDS ORDERED: FLUO60TA6 (14:13)
[2018-10-22] MEDS ORDERED: PREG200C (14:13)
[2018-10-22] MEDS ORDERED: SPIR1CAP (14:13)
[2018-10-22 14:41] LABS: BASO % 0.3 % (0.0-1.0); EOS # 0.3 10^3/uL (0.0-0.5); EOS % 2.2 % (0.0-3.0); HEMOGLOBIN 13.1 g/dl (12.0-15.5); LYMPH # 1.4 10^3/uL (1.5-5.0); LYMPH % 11.8 % (24.0-44.0); MEAN CORPUSCULAR HEMOGLOBIN 29.7 pg (27.0-33.0); MEAN CORPUSCULAR HGB CONC 33.6 g/dl (32.0-36.5); MEAN CORPUSCULAR VOLUME 88.4 fl (80.0-96.0); MONO # 0.7 10^3/uL (0.0-0.8); MONO % 6.1 % (0.0-5.0); NEUTROPHILS # 9.1 10^3/uL (1.5-8.5); NEUTROPHILS % 79.2 % (36.0-66.0); PLATELET COUNT, AUTOMATED 214 10^3/uL (150-450); RED BLOOD COUNT 4.41 10^6/uL (4.00-5.40); WHITE BLOOD COUNT 11.5 10^3/uL (4.0-10.0)
--- NOTE | 2018-10-22 14:48 | REP ---
Clinical: Altered mental status. Comparison: 01/29/2018 . Findings: Age-related atrophy and microvascular ischemic changes are appreciated. The ventricles and sulci are symmetric. Berry-white differentiation is maintained. There is no evidence for acute intracranial hemorrhage, mass/mass effect, pathology or infarction. No extra-axial fluid collection. Calvarium is intact. Paranasal sinuses and mastoid air cells are clear. Impression: Age related atrophy and microvascular ischemic changes. No acute intracranial hemorrhage, infarction, or mass/mass effect. Electronically Signed by Koffi Avery MD 10/22/2018 02:39 P
[2018-10-22 15:15] LABS: ALBUMIN 2.7 GM/DL (3.2-5.2); BILIRUBIN,DIRECT 0.1 MG/DL (0.0-0.2); BILIRUBIN,TOTAL 0.4 MG/DL (0.2-1.0); CK-MB VALUE MASS 1.3 NG/ML (<3.6); MAGNESIUM LEVEL 2.2 MG/DL (1.8-2.4); MB/CK RELATIVE INDEX 1.6 (< OR =4); TOTAL PROTEIN 5.6 GM/DL (6.4-8.2); TROPONIN I 0.02 NG/ML (< 0.10)
[2018-10-22] MEDS ORDERED: KCL 10MEQ/100ML SWI (KRUN) 10 MEQ in IV 1 EA IV ONE (15:30)
[2018-10-22] MEDS ORDERED: POTASSIUM CHLORIDE 10 MEQ SR TABLET PO ONE (15:30)
[2018-10-22] MEDS ORDERED: NS 500 ML IV ONE (16:00)
[2018-10-22 17:46] VITALS: BP 154/73
--- NOTE | 2018-10-22 19:32 | ECGEPIP ---
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
== END 2018-10-22 18:01 | disposition home or self-care (01) ==
LOC: EDBD 13:49 → M ED 13:49
DX: E11.649 Type 2 diabetes mellitus with hypoglycemia without coma (principal); E87.6 Hypokalemia; I11.0 Hypertensive heart disease with heart failure; I50.9 Heart failure, unspecified; E78.5 Hyperlipidemia, unspecified; J44.9 Chronic obstructive pulmonary disease, unspecified; N18.9 Chronic kidney disease, unspecified; D63.1 Anemia in chronic kidney disease; Z87.891 Personal history of nicotine dependence; Z79.899 Other long term (current) drug therapy; Z79.82 Long term (current) use of aspirin; Z79.4 Long term (current) use of insulin; Z79.51 Long term (current) use of inhaled steroids

== ENCOUNTER → 2018-10-28 | Outpatient (CLI) | payer MEDICARE ==
[~2018-10-28] MED LIST changes: +DULO1CAP5; +FLUO60TA6; +HYDR12CA; +OMEP-221; +PREG200C; +SPIR1CAP
[2018-10-28 20:49] LABS: CALCIUM LEVEL 8.8 MG/DL (8.8-10.2); CREATININE FOR GFR 1.46 MG/DL (0.55-1.30); GLOMERULAR FILTRATION RATE 36.5 (>32); POTASSIUM SERUM 4.5 MEQ/L (3.5-5.1)
== END ==
LOC: M WUC 17:21
PROVIDERS: ATTEND Physician Assistant
DX: E87.6 Hypokalemia (principal)

== ENCOUNTER 2018-12-13 12:45 | Outpatient (RCR) | payer MEDICARE, OTHER ==
[~2018-12-13 12:45] MED LIST changes: -OMEP40CA2 PO; +OMEP40CA97 PO
== END 2018-12-16 ==
LOC: M PT 12:45
PROVIDERS: ATTEND Physician Assistant
DX: M47.897 Other spondylosis, lumbosacral region (principal); M51.37 Other intervertebral disc degeneration, lumbosacral region

== ENCOUNTER → 2018-12-28 | Outpatient (CLI) | payer MEDICARE ==
[2018-12-28 20:25] LABS: BASO % 0.4 % (0.0-1.0); EOS # 0.3 10^3/uL (0.0-0.5); EOS % 3.4 % (0.0-3.0); HEMATOCRIT 43.3 % (36.0-47.0); HEMOGLOBIN 13.5 g/dl (12.0-15.5); LYMPH # 1.9 10^3/uL (1.5-5.0); LYMPH % 25.4 % (24.0-44.0); MEAN CORPUSCULAR HEMOGLOBIN 28.5 pg (27.0-33.0); MEAN CORPUSCULAR HGB CONC 31.2 g/dl (32.0-36.5); MEAN CORPUSCULAR VOLUME 91.5 fl (80.0-96.0); MONO # 0.5 10^3/uL (0.0-0.8); MONO % 7.1 % (0.0-5.0); NEUTROPHILS # 4.7 10^3/uL (1.5-8.5); NEUTROPHILS % 63.3 % (36.0-66.0); PLATELET COUNT, AUTOMATED 238 10^3/uL (150-450); RED BLOOD COUNT 4.73 10^6/uL (4.00-5.40); WHITE BLOOD COUNT 7.4 10^3/uL (4.0-10.0)
[2018-12-28 20:35] LABS: APPEARANCE, URINE CLOUDY (CLEAR); BACTERIA, URINE AUTO 1+ (NEGATIVE); BILIRUBIN, URINE AUTO NEGATIVE (NEGATIVE); BLOOD, URINE BLOOD NEGATIVE (NEGATIVE); COLOR, URINE YELLOW (YELLOW); GLUCOSE, URINE (UA) AUTO NEGATIVE (NEGATIVE); KETONE, URINE AUTO NEGATIVE (NEGATIVE); LEUKOCYTE ESTERASE, URINE AUTO 1+ (NEGATIVE); MUCUS, URINE SMALL (NEGATIVE); NITRITE, URINE AUTO NEGATIVE (NEGATIVE); PROTEIN, URINE AUTO NEGATIVE (NEGATIVE); RBC, URINE AUTO 2 /HPF (0-3); SPECIFIC GRAVITY URINE AUTO 1.019 (1.002-1.035); SQUAMOUS EPITHELIAL CELL UR AU 11 /HPF (0-6); UROBILINOGEN, URINE AUTO 0.2 mg/dL (0.0-2.0); WBC, URINE AUTO 10 /HPF (0-3)
[2018-12-28 20:58] LABS: ALBUMIN 3.1 GM/DL (3.2-5.2); CALCIUM LEVEL 8.4 MG/DL (8.8-10.2); CREATININE FOR GFR 1.44 MG/DL (0.55-1.30); MAGNESIUM LEVEL 1.9 MG/DL (1.8-2.4); PHOSPHORUS LEVEL 3.7 MG/DL (2.5-4.9); POTASSIUM SERUM 3.5 MEQ/L (3.5-5.1)
[2018-12-28 21:03] LABS: PTH INTACT 80.5 PG/ML (18.5-88.0)
== END ==
LOC: M WUC 15:55
PROVIDERS: ATTEND Nurse Practitioner Family
DX: N18.3 Chronic kidney disease, stage 3 (moderate) (principal); D63.1 Anemia in chronic kidney disease; N25.81 Secondary hyperparathyroidism of renal origin; E83.42 Hypomagnesemia

== ENCOUNTER → 2019-01-18 | Outpatient (CLI) | payer MEDICARE ==
[2019-01-18 20:59] LABS: APPEARANCE, URINE CLOUDY (CLEAR); BACTERIA, URINE AUTO NEGATIVE (NEGATIVE); BILIRUBIN, URINE AUTO NEGATIVE (NEGATIVE); BLOOD, URINE BLOOD NEGATIVE (NEGATIVE); COLOR, URINE YELLOW (YELLOW); GLUCOSE, URINE (UA) AUTO NEGATIVE (NEGATIVE); KETONE, URINE AUTO NEGATIVE (NEGATIVE); LEUKOCYTE ESTERASE, URINE AUTO 1+ (NEGATIVE); MUCUS, URINE SMALL (NEGATIVE); NITRITE, URINE AUTO NEGATIVE (NEGATIVE); PROTEIN, URINE AUTO NEGATIVE (NEGATIVE); RBC, URINE AUTO 2 /HPF (0-3); SPECIFIC GRAVITY URINE AUTO 1.023 (1.002-1.035); SQUAMOUS EPITHELIAL CELL UR AU 10 /HPF (0-6); UROBILINOGEN, URINE AUTO 0.2 mg/dL (0.0-2.0); WBC, URINE AUTO 7 /HPF (0-3)
[2019-01-18 21:06] LABS: ALBUMIN 3.2 GM/DL (3.2-5.2); BLOOD UREA NITROGEN 29 MG/DL (7-18); C REACTIVE PROTEIN QUANTITATIV < 0.30 MG/DL (0.00-0.30); CALCIUM LEVEL 8.9 MG/DL (8.8-10.2); CARBON DIOXIDE LEVEL 32 MEQ/L (21-32); CHLORIDE LEVEL 106 MEQ/L (98-107); CREATININE FOR GFR 1.18 MG/DL (0.55-1.30); GLOMERULAR FILTRATION RATE 46.6 (>32); GLUCOSE, FASTING 65 MG/DL (70-100); PHOSPHORUS LEVEL 3.5 MG/DL (2.5-4.9); POTASSIUM SERUM 4.1 MEQ/L (3.5-5.1); SODIUM LEVEL 143 MEQ/L (136-145)
== END ==
LOC: M WUC 17:54
PROVIDERS: ATTEND Nurse Practitioner Family
DX: M25.542 Pain in joints of left hand (principal); M79.641 Pain in right hand; I73.00 Raynaud's syndrome without gangrene; N18.3 Chronic kidney disease, stage 3 (moderate); N39.0 Urinary tract infection, site not specified

== ENCOUNTER → 2019-01-29 | Outpatient (CLI) | payer OTHER ==
--- NOTE | 2019-01-31 10:13 | REP ---
MRI lumbar spine: . Indication: Low back pain. Comparison: 01/29/2019. Technique: Multiplanar short and long TR sequences of the lumbar spine were performed without IV Gadolinium. Findings: There is dextroscoliosis of the lumbar spine with the convexity centered at L3. There is reversal of the lumbar lordosis. Mild anterolisthesis of L1 on L2 and retrolisthesis of L3 on L4 are present. Disc desiccation and disc space narrowing is present throughout. Endplate degenerative signal changes are present most pronounced anteriorly at L2/L3. L1/L2: There is no focal disc herniation or significant spinal canal / neural foraminal narrowing. L2/L3: Bilateral facet arthropathy and diffuse disc and spur complex, most apparent anteriorly are present. There is moderate to severe left recess narrowing. The neural foramen are patent. L3/L4: Diffuse disc and spur complex and bilateral facet arthropathy are present with moderate to severe left and moderate right recess and neural foraminal narrowing. L4/L5: Diffuse disc bulge and bilateral facet arthropathy are present with severe bilateral recess narrowing. Moderate bilateral neural foraminal narrowing is present on the left. Moderate to severe right neural foraminal narrowing is present. L5/S1: Diffuse disc bulge and bilateral facet arthropathy are present with moderate bilateral recess and neural foraminal narrowing. Impression: Scoliosis, multilevel spondylolisthesis and degenerative sequelae as described with the greatest spinal canal narrowing at L4/L5. Electronically Signed by Keven Gutierrez DO 01/31/2019 10:05 A
== END ==
LOC: M RAD 09:31
PROVIDERS: ATTEND Physician Assistant
DX: M47.817 Spondylosis without myelopathy or radiculopathy, lumbosacral region (principal); M41.9 Scoliosis, unspecified

== ENCOUNTER → 2019-02-22 | Outpatient (CLI) | payer MEDICARE ==
[2019-02-22 17:50] LABS: HEMATOCRIT 43.4 % (36.0-47.0); HEMOGLOBIN 13.4 g/dl (12.0-15.5); MEAN CORPUSCULAR HGB CONC 30.9 g/dl (32.0-36.5); MEAN CORPUSCULAR VOLUME 90.8 fl (80.0-96.0); PLATELET COUNT, AUTOMATED 263 10^3/uL (150-450); RED BLOOD COUNT 4.78 10^6/uL (4.00-5.40); WHITE BLOOD COUNT 9.2 10^3/uL (4.0-10.0)
[2019-02-22 17:55] LABS: ALBUMIN 3.2 GM/DL (3.2-5.2); CALCIUM LEVEL 8.5 MG/DL (8.8-10.2); CREATININE FOR GFR 1.08 MG/DL (0.55-1.30); GLOMERULAR FILTRATION RATE 51.6 (>32); PHOSPHORUS LEVEL 3.5 MG/DL (2.5-4.9); POTASSIUM SERUM 4.4 MEQ/L (3.5-5.1)
[2019-02-22 18:06] LABS: PTH INTACT 100.7 PG/ML (18.5-88.0)
== END ==
LOC: M WUC 12:00
PROVIDERS: ATTEND Nurse Practitioner Family
DX: N18.3 Chronic kidney disease, stage 3 (moderate) (principal); N25.81 Secondary hyperparathyroidism of renal origin; D63.1 Anemia in chronic kidney disease

== ENCOUNTER → 2019-04-27 | Outpatient (CLI) | payer MEDICARE ==
--- NOTE | 2019-04-27 11:16 | REP ---
Abdominal aortic sonography: History: Abdominal aortic aneurysm without rupture. Comparison is made with CT study of the abdomen from November 05, 2016. This showed a 3.8 cm infrarenal abdominal aortic aneurysm. . Findings: Scanning through the retroperitoneum demonstrates that the abdominal aorta is normal in caliber at the level of the diaphragmatic hiatus measuring 2.7 x 2.4 cm in AP by transverse dimension respectively. Abdominal bowel gas precludes visualization and measurement of the abdominal aorta at mid level and renal artery level. The distal aorta is aneurysmal measuring 4.2 x 4.1 cm in AP by transverse dimension. The right and left common iliac arteries are normal measuring 1.0 and 1.1 cm in AP dimension respectively. No aneurysm is seen. No periaortic disease is observed. Impression: 4.2 x 4.1 cm infrarenal abdominal aortic aneurysm. Electronically Signed by Lonny Hein MD 04/27/2019 11:07 A
== END ==
LOC: M RAD 08:06
PROVIDERS: ATTEND Internal Medicine Cardiovascular Disease
DX: I71.4 Abdominal aortic aneurysm, without rupture (principal)

== ENCOUNTER → 2019-05-23 | Outpatient (CLI) | payer MEDICARE ==
[2019-05-23 20:16] LABS: ALBUMIN 3.1 GM/DL (3.2-5.2); CALCIUM LEVEL 8.6 MG/DL (8.8-10.2); CREATININE FOR GFR 1.1 MG/DL (0.55-1.30); GLOMERULAR FILTRATION RATE 50.5 (>32); PHOSPHORUS LEVEL 2.9 MG/DL (2.5-4.9); POTASSIUM SERUM 3.9 MEQ/L (3.5-5.1)
== END ==
LOC: M WUC 18:21
PROVIDERS: ATTEND Internal Medicine Cardiovascular Disease
DX: I50.42 Chronic combined systolic (congestive) and diastolic (congestive) heart failure (principal); I11.0 Hypertensive heart disease with heart failure; I25.10 Atherosclerotic heart disease of native coronary artery without angina pectoris

== ENCOUNTER → 2019-07-27 | Outpatient (CLI) | payer MEDICARE ==
--- NOTE | 2019-07-27 16:21 | REPMRS ---
Patient History The patient states she has not had a clinical breast exam in over a year. Family history of breast cancer at age 50 or over in maternal cousin, breast cancer at age 50 or over in maternal cousin, colorectal cancer at age 50 or over in maternal cousin. Benign excisional biopsy of the left breast, 1995. No Hormone Replacement Therapy 3D TOMOSYNTHESIS WAS PERFORMED. [facility] lifetime risk for breast cancer is 0.6%. VOLJOSEA ELO A. Digital Woman Screen Mammo: July 27, 2019 - Exam #: [id number] Bilateral CC and MLO view(s) were taken. Technologist: Bella Lindsey, Technologist Prior study comparison: May 05, 2018, bilateral digital woman screen mammo performed at [facility]. January 02, 2016, digital woman screen mammo performed at [facility]. FINDINGS: There are scattered fibroglandular densities. There has been no change in the appearance of the mammogram from the prior studies. There is a mild amount of residual fibroglandular tissue which is fairly symmetric. There is no interval development of dominant mass, architectural distortion, or clustered microcalcification suggestive of malignancy. Assessment: BI-RADS/ACR category 1 mammogram. Negative Mammogram. Recommendation Routine screening mammogram in 1 year (for women over age 40). This mammogram was interpreted with the aid of an FDA-approved computer-aided dectection system. Electronically Signed By: Ross Berry MD 07/27/19 [id number]
== END ==
LOC: M WHC 14:05
PROVIDERS: ATTEND Physician Assistant
DX: Z12.31 Encounter for screening mammogram for malignant neoplasm of breast (principal); M89.9 Disorder of bone, unspecified; M94.9 Disorder of cartilage, unspecified; Z80.3 Family history of malignant neoplasm of breast; Z80.0 Family history of malignant neoplasm of digestive organs

== ENCOUNTER → 2019-08-15 | Outpatient (CLI) | payer MEDICARE ==
[2019-08-15 15:58] LABS: PLATELET COUNT, AUTOMATED 260 10^3/uL (150-450)
[2019-08-15 16:13] LABS: INR 1.11
[2019-08-15 16:14] LABS: PARTIAL THROMBOPLASTIN TIME 30.9 SECONDS (25.0-38.4)
== END ==
LOC: M WUC 13:39
PROVIDERS: ATTEND Physician Assistant
DX: Z01.812 Encounter for preprocedural laboratory examination (principal); M47.817 Spondylosis without myelopathy or radiculopathy, lumbosacral region; Z79.82 Long term (current) use of aspirin; Z79.4 Long term (current) use of insulin; Z79.899 Other long term (current) drug therapy

== ENCOUNTER → 2019-08-18 | Outpatient (CLI) | payer MEDICARE | LOC: M LABSMTC 10:41 | PROVIDERS: ATTEND Physical Medicine & Rehabilitation | DX: Z03.818 Encounter for observation for suspected exposure to other biological agents ruled out (principal); Z11.59 Encounter for screening for other viral diseases ==

== ENCOUNTER → 2019-10-04 | Outpatient (REF) | payer MEDICARE ==
[~2019-10-04] MED LIST changes: +ASPI-546 PO; -ASPI1TAB15 PO
[2019-12-25 08:37] LABS: ALBUMIN 3.5 GM/DL (3.2-5.2); CALCIUM LEVEL 9.1 MG/DL (8.8-10.2); CREATININE FOR GFR 1.23 MG/DL (0.55-1.30); GLOMERULAR FILTRATION RATE 44.3 (>32); MAGNESIUM LEVEL 2.3 MG/DL (1.8-2.4); PHOSPHORUS LEVEL 3.3 MG/DL (2.5-4.9); POTASSIUM SERUM 4.2 MEQ/L (3.5-5.1)
== END ==
LOC: M WUC 16:02
PROVIDERS: ATTEND Internal Medicine Cardiovascular Disease
DX: I11.0 Hypertensive heart disease with heart failure (principal)

== ENCOUNTER → 2019-11-09 | Outpatient (CLI) | payer MEDICARE ==
--- NOTE | 2019-11-17 08:20 | REP ---
TWO-VIEW CHEST HISTORY: Cough. COMPARISON: 01/30/2017. TECHNIQUE: PA and lateral views of the chest are performed. FINDINGS: Bibasilar fibrotic change is stable with no evidence of acute infiltrate bilaterally. The heart is not enlarged. The mediastinal silhouette is unchanged. There is calcification and tortuosity of the thoracic aorta. There are mild degenerative changes of the spine. IMPRESSION: Stable chronic findings without evidence of acute pulmonary disease. MTDD
== END ==
LOC: M WUC 10:49
PROVIDERS: ATTEND Nurse Practitioner Family
DX: R91.8 Other nonspecific abnormal finding of lung field (principal); R05 Cough

== ENCOUNTER → 2019-12-06 | Outpatient (CLI) | payer MEDICARE ==
[2019-12-06 16:00] LABS: ALBUMIN 3.2 GM/DL (3.2-5.2); CALCIUM LEVEL 9.4 MG/DL (8.8-10.2); CREATININE FOR GFR 1.08 MG/DL (0.55-1.30); GLOMERULAR FILTRATION RATE 51.6 (>32); PHOSPHORUS LEVEL 4.3 MG/DL (2.5-4.9); POTASSIUM SERUM 4.6 MEQ/L (3.5-5.1)
[2019-12-06 16:01] LABS: BASO % 0.4 % (0.0-1.0); EOS # 0.3 10^3/uL (0.0-0.5); EOS % 3.3 % (0.0-3.0); HEMATOCRIT 43.7 % (36.0-47.0); HEMOGLOBIN 13.6 g/dl (12.0-15.5); LYMPH # 2.1 10^3/uL (1.5-5.0); LYMPH % 23.5 % (24.0-44.0); MEAN CORPUSCULAR HEMOGLOBIN 27.7 pg (27.0-33.0); MEAN CORPUSCULAR HGB CONC 31.1 g/dl (32.0-36.5); MONO # 0.8 10^3/uL (0.0-0.8); MONO % 9.2 % (0.0-5.0); NEUTROPHILS # 5.6 10^3/uL (1.5-8.5); NEUTROPHILS % 62.7 % (36.0-66.0); PLATELET COUNT, AUTOMATED 280 10^3/uL (150-450); RED BLOOD COUNT 4.91 10^6/uL (4.00-5.40); WHITE BLOOD COUNT 8.9 10^3/uL (4.0-10.0)
[2019-12-06 16:03] LABS: APPEARANCE, URINE HAZY (CLEAR); BACTERIA, URINE AUTO 1+ (NEGATIVE); BILIRUBIN, URINE AUTO NEGATIVE (NEGATIVE); BLOOD, URINE BLOOD NEGATIVE (NEGATIVE); COLOR, URINE YELLOW (YELLOW); GLUCOSE, URINE (UA) AUTO NEGATIVE (NEGATIVE); KETONE, URINE AUTO NEGATIVE (NEGATIVE); LEUKOCYTE ESTERASE, URINE AUTO 3+ (NEGATIVE); NITRITE, URINE AUTO NEGATIVE (NEGATIVE); PROTEIN, URINE AUTO NEGATIVE (NEGATIVE); RBC, URINE AUTO 4 /HPF (0-3); SPECIFIC GRAVITY URINE AUTO 1.014 (1.002-1.035); SQUAMOUS EPITHELIAL CELL UR AU 7 /HPF (0-6); UROBILINOGEN, URINE AUTO 0.2 mg/dL (0.0-2.0); WBC, URINE AUTO 12 /HPF (0-3)
[2019-12-06 16:11] LABS: PTH INTACT 60.2 PG/ML (18.5-88.0)
== END ==
LOC: M WUC 12:08
PROVIDERS: ATTEND Nurse Practitioner Family
DX: N18.30 Chronic kidney disease, stage 3 unspecified (principal); D63.1 Anemia in chronic kidney disease; N25.81 Secondary hyperparathyroidism of renal origin

== ENCOUNTER → 2019-12-16 | Outpatient (CLI) | payer MEDICARE ==
[2019-12-16 17:16] LABS: BASO # 0.1 10^3/uL (0.0-0.2); BASO % 0.5 % (0.0-1.0); EOS # 0.3 10^3/uL (0.0-0.5); EOS % 3.1 % (0.0-3.0); HEMATOCRIT 42.1 % (36.0-47.0); HEMOGLOBIN 13.6 g/dl (12.0-15.5); LYMPH # 2.4 10^3/uL (1.5-5.0); LYMPH % 23.6 % (24.0-44.0); MEAN CORPUSCULAR HEMOGLOBIN 28.3 pg (27.0-33.0); MEAN CORPUSCULAR HGB CONC 32.3 g/dl (32.0-36.5); MEAN CORPUSCULAR VOLUME 87.5 fl (80.0-96.0); MONO # 0.6 10^3/uL (0.0-0.8); MONO % 5.9 % (0.0-5.0); NEUTROPHILS # 6.7 10^3/uL (1.5-8.5); NEUTROPHILS % 66.3 % (36.0-66.0); PLATELET COUNT, AUTOMATED 281 10^3/uL (150-450); RED BLOOD COUNT 4.81 10^6/uL (4.00-5.40); WHITE BLOOD COUNT 10.1 10^3/uL (4.0-10.0)
[2019-12-16 17:53] LABS: ALBUMIN 3.3 GM/DL (3.2-5.2); BILIRUBIN,TOTAL 0.5 MG/DL (0.2-1.0); CHOLESTEROL RISK RATIO 3.136 (<5); CREATININE FOR GFR 1.18 MG/DL (0.55-1.30); FREE T4 1.03 NG/DL (0.76-1.46); GLOMERULAR FILTRATION RATE 46.6 (>32); POTASSIUM SERUM 4.2 MEQ/L (3.5-5.1); THYROID STIMULATING HORMONE 2.16 uIU/ML (0.358-3.740); TOTAL PROTEIN 6.4 GM/DL (6.4-8.2)
[2019-12-16 17:54] LABS: CREATININE, URINE 65.8 MG/DL; MALB URINE SIEMENS 5.7 MG/L; MAU/CREAT RATIO 8.6 MCG/MG (0.0-30.0)
[2019-12-16 18:18] LABS: HEMOGLOBIN A1c 6.6 %
== END ==
LOC: M WUC 14:30
PROVIDERS: ATTEND Nurse Practitioner Family
DX: E11.69 Type 2 diabetes mellitus with other specified complication (principal)

== ENCOUNTER → 2020-01-05 | Outpatient (CLI) | payer MEDICARE ==
[2020-01-05 19:46] LABS: MAGNESIUM LEVEL 1.9 MG/DL (1.8-2.4)
== END ==
LOC: M WUC 15:08
PROVIDERS: ATTEND Internal Medicine Cardiovascular Disease
DX: I50.33 Acute on chronic diastolic (congestive) heart failure (principal)

== ENCOUNTER → 2020-02-24 | Outpatient (CLI) | payer MEDICARE ==
[2020-02-24 16:56] LABS: BASO % 0.4 % (0.0-1.0); EOS # 0.3 10^3/uL (0.0-0.5); EOS % 2.5 % (0.0-3.0); HEMATOCRIT 40.7 % (36.0-47.0); HEMOGLOBIN 12.9 g/dl (12.0-15.5); LYMPH # 2.2 10^3/uL (1.5-5.0); LYMPH % 22.2 % (24.0-44.0); MEAN CORPUSCULAR HEMOGLOBIN 28.1 pg (27.0-33.0); MEAN CORPUSCULAR HGB CONC 31.7 g/dl (32.0-36.5); MEAN CORPUSCULAR VOLUME 88.7 fl (80.0-96.0); MONO # 0.6 10^3/uL (0.0-0.8); MONO % 6.4 % (0.0-5.0); NEUTROPHILS # 6.8 10^3/uL (1.5-8.5); PLATELET COUNT, AUTOMATED 274 10^3/uL (150-450); RED BLOOD COUNT 4.59 10^6/uL (4.00-5.40)
[2020-02-24 17:29] LABS: ALBUMIN 3.4 GM/DL (3.2-5.2); BILIRUBIN,TOTAL 0.5 MG/DL (0.2-1.0); CALCIUM LEVEL 8.7 MG/DL (8.8-10.2); CHOLESTEROL RISK RATIO 3.065 (<5); CREATININE FOR GFR 1.28 MG/DL (0.55-1.30); GLOMERULAR FILTRATION RATE 42.3 (>32); MAGNESIUM LEVEL 2.1 MG/DL (1.8-2.4); POTASSIUM SERUM 3.7 MEQ/L (3.5-5.1); THYROID STIMULATING HORMONE 2.22 uIU/ML (0.358-3.740); TOTAL PROTEIN 6.5 GM/DL (6.4-8.2)
== END ==
LOC: M WUC 15:05
PROVIDERS: ATTEND Internal Medicine Cardiovascular Disease
DX: E78.2 Mixed hyperlipidemia (principal); I47.2 Ventricular tachycardia

== ENCOUNTER → 2020-03-07 | Outpatient (CLI) | payer MEDICARE ==
[2020-03-07 17:49] LABS: BASO # 0.1 10^3/uL (0.0-0.2); BASO % 0.6 % (0.0-1.0); EOS # 0.3 10^3/uL (0.0-0.5); EOS % 3.6 % (0.0-3.0); HEMATOCRIT 41.8 % (36.0-47.0); LYMPH # 2.4 10^3/uL (1.5-5.0); LYMPH % 28.4 % (24.0-44.0); MEAN CORPUSCULAR HEMOGLOBIN 27.8 pg (27.0-33.0); MEAN CORPUSCULAR HGB CONC 31.1 g/dl (32.0-36.5); MEAN CORPUSCULAR VOLUME 89.3 fl (80.0-96.0); MONO # 0.7 10^3/uL (0.0-0.8); MONO % 7.7 % (0.0-5.0); NEUTROPHILS # 5.1 10^3/uL (1.5-8.5); NEUTROPHILS % 59.1 % (36.0-66.0); PLATELET COUNT, AUTOMATED 271 10^3/uL (150-450); RED BLOOD COUNT 4.68 10^6/uL (4.00-5.40); WHITE BLOOD COUNT 8.6 10^3/uL (4.0-10.0)
[2020-03-07 18:04] LABS: APPEARANCE, URINE CLOUDY (CLEAR); BACTERIA, URINE AUTO 2+ (NEGATIVE); BILIRUBIN, URINE AUTO NEGATIVE (NEGATIVE); BLOOD, URINE BLOOD NEGATIVE (NEGATIVE); COLOR, URINE YELLOW (YELLOW); GLUCOSE, URINE (UA) AUTO NEGATIVE (NEGATIVE); KETONE, URINE AUTO NEGATIVE (NEGATIVE); LEUKOCYTE ESTERASE, URINE AUTO 2+ (NEGATIVE); MUCUS, URINE SMALL (NEGATIVE); NITRITE, URINE AUTO NEGATIVE (NEGATIVE); PROTEIN, URINE AUTO NEGATIVE (NEGATIVE); RBC, URINE AUTO 5 /HPF (0-3); SQUAMOUS EPITHELIAL CELL UR AU 14 /HPF (0-6); UROBILINOGEN, URINE AUTO 0.2 mg/dL (0.0-2.0); WBC, URINE AUTO 11 /HPF (0-3)
[2020-03-07 18:25] LABS: ALBUMIN 3.3 GM/DL (3.2-5.2); BLOOD UREA NITROGEN 23 MG/DL (7-18); CALCIUM LEVEL 8.7 MG/DL (8.8-10.2); CARBON DIOXIDE LEVEL 35 MEQ/L (21-32); CHLORIDE LEVEL 104 MEQ/L (98-107); CREATININE FOR GFR 0.64 MG/DL (0.55-1.30); GLOMERULAR FILTRATION RATE > 60.0 (>32); GLUCOSE, FASTING 85 MG/DL (70-100); PHOSPHORUS LEVEL 3.1 MG/DL (2.5-4.9); SODIUM LEVEL 144 MEQ/L (136-145)
[2020-03-07 18:39] LABS: PTH INTACT 115.2 PG/ML (18.5-88.0)
[2020-03-08 13:19] LABS: CREATININE, URINE 66.7 MG/DL; MALB URINE SIEMENS 9.6 MG/L; MAU/CREAT RATIO 14.3 MCG/MG (0.0-30.0)
[2020-03-09 12:11] LABS: TOTAL 25(OH) VITAMIN D 42.8 NG/ML (30.0-100.0)
== END ==
LOC: M WUC 15:54
PROVIDERS: ATTEND Nurse Practitioner Family
DX: N25.81 Secondary hyperparathyroidism of renal origin (principal); D63.1 Anemia in chronic kidney disease; N18.30 Chronic kidney disease, stage 3 unspecified

== ENCOUNTER → 2020-04-09 | Outpatient (CLI) | payer MEDICARE | LOC: M WUC 11:37 | PROVIDERS: ATTEND Internal Medicine Cardiovascular Disease | DX: I50.32 Chronic diastolic (congestive) heart failure (principal) ==

== ENCOUNTER → 2020-04-23 | Outpatient (CLI) | payer MEDICARE ==
[2020-04-23 20:59] LABS: ALBUMIN 3.4 GM/DL (3.2-5.2); BILIRUBIN,TOTAL 0.4 MG/DL (0.2-1.0); CALCIUM LEVEL 8.6 MG/DL (8.8-10.2); CREATININE FOR GFR 1.21 MG/DL (0.55-1.30); GLOMERULAR FILTRATION RATE 45.1 (>32); MAGNESIUM LEVEL 1.9 MG/DL (1.8-2.4); POTASSIUM SERUM 3.2 MEQ/L (3.5-5.1); TOTAL PROTEIN 6.6 GM/DL (6.4-8.2)
== END ==
LOC: M WUC 15:31
PROVIDERS: ATTEND Internal Medicine Cardiovascular Disease
DX: I47.2 Ventricular tachycardia (principal); E78.2 Mixed hyperlipidemia

== ENCOUNTER → 2020-04-25 | Outpatient (CLI) | payer MEDICARE ==
--- NOTE | 2020-04-25 16:03 | REP ---
INDICATION: COUGH COMPARISON: 11/09/2019 TECHNIQUE: PA and lateral. FINDINGS: The mediastinum and cardiac silhouette are normal. The lung oliva demonstrate stable chronic changes without acute focal consolidation, effusion, or pneumothorax. The skeletal structures are intact and normal. IMPRESSION: No acute cardiopulmonary process. <Electronically signed by Koffi Avery > 04/25/20 [id number]
== END ==
LOC: M WUC 15:35
PROVIDERS: ATTEND Nurse Practitioner Family
DX: R05 Cough (principal)

== ENCOUNTER → 2020-05-03 | Outpatient (CLI) | payer MEDICARE ==
--- NOTE | 2020-05-03 08:16 | REP ---
INDICATION: LEFT LEG PAIN, LUMP IN BACK OF KNEE COMPARISON: None. TECHNIQUE: Berry scale and color Doppler evaluation left lower extremity using linear high frequency transducer. FINDINGS: Ultrasound examination of the left lower extremity deep venous structures from the common femoral vein to the popliteal vein demonstrates normal compressibility flow and wave patterns in response to respiration and augmentation. There is no evidence for deep venous thrombosis. Fernández's cyst in the popliteal fossa measures 3.2 x 0.8 x 1.1 cm. IMPRESSION: No evidence for deep venous thrombosis. Fernández's cyst in the popliteal fossa. <Electronically signed by Koffi Avery > 05/03/20 [id number]
== END ==
LOC: M RAD 07:16
PROVIDERS: ATTEND Nurse Practitioner Family
DX: M71.22 Synovial cyst of popliteal space [Baker], left knee (principal)

== ENCOUNTER → 2020-08-15 | Outpatient (CLI) | payer MEDICARE ==
[~2020-08-15] MED LIST changes: +OMEP40CA4 PO; -OMEP40CA97 PO
--- NOTE | 2020-08-15 15:18 | REPMRS ---
Patient History The patient states she has not had a clinical breast exam in over a year. Family history of breast cancer at age 50 or over in maternal cousin, breast cancer at age 50 or over in maternal cousin, colorectal cancer at age 50 or over in maternal cousin. Benign excisional biopsy of the left breast, 1995. No Hormone Replacement Therapy Patient states no breast complaints today. Patient has signed MRS History Sheet. Digital Woman Screen Mammo: August 15, 2020 - Exam #: [id number] Bilateral CC and MLO view(s) were taken. Technologist: Jany Dickens, Technologist Prior study comparison: July 27, 2019, bilateral digital woman screen mammo performed at [facility]. May 05, 2018, bilateral digital woman screen mammo performed at [facility]. January 02, 2016, digital woman screen mammo performed at [facility]. FINDINGS: The breast tissue is almost entirely fat. The Volpara volumetric breast density category is: A. There has been no change in the appearance of the mammogram from the prior studies. There is no interval development of dominant mass, architectural distortion, or grouped microcalcification typical of malignancy. 3-D tomosynthesis shows no additional findings. Assessment: BI-RADS/ACR category 1 mammogram. Negative Mammogram. Recommendation Routine screening mammogram of both breasts in 1 year (for women over age 40). This patient's [facility] Lifetime Breast Cancer RIsk is estimated at 0.3 %. This mammogram was interpreted with the aid of an FDA-approved computer-aided dectection system. Electronically Signed By: Waqar Hein MD 08/15/20 [id number]
--- NOTE | 2020-08-15 15:41 | DEXAMM ---
INDICATION: SCR FOR OSTEOPOROSIS/Z13.820. COMPARISON: Most recent comparison densitometry study May 05, 2018. The most remote is dated March 09, 2001.. TECHNIQUE: Bone density was measured using dual-energy x-ray absorptionmetry (DEXA). FINDINGS: AP SPINE L1-L4 BMD 1.264 g/cm2 Young Adult T-Score 0.6 Age Matched Z-Score 2.5. LT FEMUR, TOTAL BMD 0.739 g/cm2 Young Adult T-Score -2.1 Age Matched Z-Score 0.1. LT NECK BMD 0.646 g/cm2 Young Adult T-Score -2.8 Age Matched Z-Score -0.5. RT FEMUR, TOTAL BMD 0.761 g/cm2 Young Adult T-Score -2.0 Age Matched Z-Score 0.3. RT NECK BMD 0.690 g/cm2 Young Adult T-Score -2.5 Age Matched Z-Score -0.1. IMPRESSION: There is normal bone density of the spine. There is osteoporosis of the left hip. There is low bone density of the right hip. The density of the spine has increased 16.2% since the initial exam on March 09, 2001. The density of the spine increased 5.4% since most recent exam on May 05, 2018. The density of the left hip has decreased 12.6% since initial exam on March 09, 2001. The density of the left hip has increase 0.3% since most recent exam on May 05, 2018. The density of the right hip has decreased 10.4% since the initial exam on March 09, 2001. The density of the right hip has increased 1.6% since the most recent exam on May 05, 2018. FOLLOW-UP: Recommendation for the next bone density exam: 2 years. <Electronically signed by Waqar Hein > 08/15/20 [id number]
== END ==
LOC: M WHC 14:03
PROVIDERS: ATTEND Nurse Practitioner Family
DX: Z12.31 Encounter for screening mammogram for malignant neoplasm of breast (principal); Z13.820 Encounter for screening for osteoporosis; M85.89 Other specified disorders of bone density and structure, multiple sites

== ENCOUNTER 2020-08-28 16:10 | Emergency (ER) | payer MEDICARE ==
[~2020-08-28] VITALS: Ht 170.2 cm; Wt 104.8 kg
--- NOTE | 2020-08-28 19:17 | REP ---
INDICATION: DYSPNEA/COUGH. COMPARISON: Comparison chest x-ray April 25, 2020. TECHNIQUE: Portable upright AP chest radiograph. FINDINGS: EKG monitoring electrodes are seen overlying the chest along with what appears to be a loop recorder. There is mild cardiomegaly. Pulmonary vasculature is cephalized and somewhat congested. Pleural angles are sharp. No focal infiltrate is seen.. IMPRESSION: Mild cardiomegaly and pulmonary vascular cephalization and congestion consistent with CHF pattern. No pleural effusion or dani pulmonary edema seen.. <Electronically signed by Waqar Hein > 08/28/201912
[2020-08-28 21:24] LABS: BASO % 0.5 % (0.0-1.0); EOS # 0.3 10^3/uL (0.0-0.5); EOS % 3.2 % (0.0-3.0); HEMATOCRIT 41.2 % (36.0-47.0); HEMOGLOBIN 13.1 g/dl (12.0-15.5); LYMPH # 2.2 10^3/uL (1.5-5.0); LYMPH % 25.5 % (24.0-44.0); MEAN CORPUSCULAR HEMOGLOBIN 27.5 pg (27.0-33.0); MEAN CORPUSCULAR HGB CONC 31.8 g/dl (32.0-36.5); MEAN CORPUSCULAR VOLUME 86.6 fl (80.0-96.0); MONO # 0.7 10^3/uL (0.0-0.8); MONO % 7.6 % (2.0-8.0); NEUTROPHILS # 5.5 10^3/uL (1.5-8.5); NEUTROPHILS % 62.7 % (36.0-66.0); PLATELET COUNT, AUTOMATED 268 10^3/uL (150-450); RED BLOOD COUNT 4.76 10^6/uL (4.00-5.40); WHITE BLOOD COUNT 8.7 10^3/uL (4.0-10.0)
[2020-08-28 21:54] LABS: ALBUMIN 3.1 GM/DL (3.2-5.2); BILIRUBIN,DIRECT 0.2 MG/DL (0.0-0.2); BILIRUBIN,TOTAL 0.7 MG/DL (0.2-1.0); CALCIUM LEVEL 8.7 MG/DL (8.8-10.2); CK-MB VALUE MASS 1.7 NG/ML (<3.6); CREATININE FOR GFR 1.16 MG/DL (0.55-1.30); GLOMERULAR FILTRATION RATE 47.4 (>32); MB/CK RELATIVE INDEX 1.95 (< OR =4); POTASSIUM SERUM 3.8 MEQ/L (3.5-5.1); TOTAL PROTEIN 6.3 GM/DL (6.4-8.2); TROPONIN I 0.02 NG/ML (< 0.10)
[2020-08-28] MEDS ORDERED: FUROSEMIDE 40MG/4ML VIAL (J1940) IV ONE (22:10)
[2020-08-28] MEDS ORDERED: BISO5TAB14 (23:02)
[2020-08-28] MEDS ORDERED: FURO40TA2 (23:02)
[2020-08-28] MEDS ORDERED: ELIQ5TAB (23:02)
[2020-08-28] MEDS ORDERED: ISOS1TAB36 (23:02)
[2020-08-28] MEDS ORDERED: BASA100I (23:02)
[2020-08-28 23:30] VITALS: BP 153/73
--- NOTE | 2020-08-29 20:34 | ECGEPIP ---
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
== END 2020-08-28 23:39 | disposition home or self-care (01) ==
LOC: M ED 16:10
DX: I11.0 Hypertensive heart disease with heart failure (principal); I48.91 Unspecified atrial fibrillation
CPT/HCPCS: 71045; 80048; 80076; 82550; 82553; 83880; 84484; 85025; 93005; 93041; 94760; 96374; 99284; J1940

== ENCOUNTER → 2020-08-30 | Outpatient (CLI) | payer MEDICARE ==
[~2020-08-30] MED LIST changes: +BASA100I; +BISO5TAB14; +ELIQ5TAB; +FURO40TA2; +ISOS1TAB36
--- NOTE | 2020-08-30 11:36 | REP ---
INDICATION: HEART FAILURE, UNSPECIFIED. COMPARISON: Multiple the latest 08/28/2020 TECHNIQUE: PA and lateral views FINDINGS: There is cardiomegaly status quo. There is interstitial fibrotic change with basilar predominance status quo. No acute patchy parenchymal opacities or pleural effusions have developed. There is no change in the osseous structures. IMPRESSION: Stable appearing chronic changes correlate clinically to rule out the possibility of acute disease superimposed upon chronic change. <Electronically signed by Niels Richard > 08/30/20 [id number]
[2020-08-30 12:36] LABS: CALCIUM LEVEL 8.5 MG/DL (8.8-10.2); CREATININE FOR GFR 1.28 MG/DL (0.55-1.30); GLOMERULAR FILTRATION RATE 42.3 (>32); MAGNESIUM LEVEL 2.1 MG/DL (1.8-2.4); POTASSIUM SERUM 3.2 MEQ/L (3.5-5.1)
== END ==
LOC: M WUC 11:05
PROVIDERS: ATTEND Nurse Practitioner Family
DX: I50.9 Heart failure, unspecified (principal)

== ENCOUNTER → 2020-10-10 | Outpatient (CLI) | payer MEDICARE ==
[2020-10-10 20:02] LABS: BILIRUBIN,TOTAL 0.5 MG/DL (0.2-1.0); CALCIUM LEVEL 8.6 MG/DL (8.8-10.2); CHOLESTEROL RISK RATIO 3.621 (<5); CREATININE FOR GFR 1.37 MG/DL (0.55-1.30); GLOMERULAR FILTRATION RATE 39.1 (>32); POTASSIUM SERUM 4.5 MEQ/L (3.5-5.1)
[2020-10-10 20:03] LABS: ALBUMIN 3.1 GM/DL (3.2-5.2); TOTAL PROTEIN 6.5 GM/DL (6.4-8.2)
[2020-10-10 20:15] LABS: HEMOGLOBIN A1c 6.8 %
[2020-10-12 13:33] LABS: CREATININE, URINE 82.4 MG/DL; MALB URINE SIEMENS 6.9 MG/L; MAU/CREAT RATIO 8.3 MCG/MG (0.0-30.0)
== END ==
LOC: M WUC 15:54
PROVIDERS: ATTEND Nurse Practitioner Family
DX: I10 Essential (primary) hypertension (principal); E11.69 Type 2 diabetes mellitus with other specified complication

== ENCOUNTER → 2020-10-12 | Outpatient (REF) | payer MEDICARE | LOC: M LAB REF 13:01 | PROVIDERS: ATTEND Nurse Practitioner Family | DX: E83.42 Hypomagnesemia (principal) ==

== ENCOUNTER 2020-11-02 18:27 | Inpatient (IN) | payer MEDICARE ==
[~2020-11-02] VITALS: Ht 170.2 cm; Wt 103.0 kg
[2020-11-02 21:20] LABS: BASO % 0.4 % (0.0-1.0); EOS # 0.3 10^3/uL (0.0-0.5); EOS % 2.7 % (0.0-3.0); HEMATOCRIT 40.4 % (36.0-47.0); HEMOGLOBIN 13.2 g/dl (12.0-15.5); LYMPH # 2.8 10^3/uL (1.5-5.0); LYMPH % 26.6 % (24.0-44.0); MEAN CORPUSCULAR HGB CONC 32.7 g/dl (32.0-36.5); MEAN CORPUSCULAR VOLUME 85.8 fl (80.0-96.0); MONO # 0.7 10^3/uL (0.0-0.8); MONO % 6.3 % (2.0-8.0); NEUTROPHILS # 6.6 10^3/uL (1.5-8.5); NEUTROPHILS % 63.6 % (36.0-66.0); PLATELET COUNT, AUTOMATED 266 10^3/uL (150-450); RED BLOOD COUNT 4.71 10^6/uL (4.00-5.40); WHITE BLOOD COUNT 10.3 10^3/uL (4.0-10.0)
--- NOTE | 2020-11-02 21:35 | REPVR ---
PROCEDURE INFORMATION: Exam: XR Chest Exam date and time: 11/02/2020 9:10 PM Age: 84 years old Clinical indication: Shortness of breath; Additional info: Dyspnea/cough TECHNIQUE: Imaging protocol: XR of the chest. Views: 1 view. COMPARISON: CR CHEST 2 VIEW 08/30/2020 11:22 AM FINDINGS: Lungs: Unremarkable. No consolidation. Pleural spaces: Unremarkable. No pleural effusion. No pneumothorax. Heart/Mediastinum: Unremarkable. No cardiomegaly. Loop recorder demonstrated. Bones/joints: Unremarkable. IMPRESSION: No acute findings. Electronically signed by: Jeff Bui On 11/02/2020 21:34:52 PM
[2020-11-02 21:45] LABS: ALBUMIN 3.4 GM/DL (3.2-5.2); ALT/SGPT 37 U/L (12-78); BILIRUBIN,DIRECT 0.1 MG/DL (0.0-0.2); BILIRUBIN,TOTAL 0.4 MG/DL (0.2-1.0); BLOOD UREA NITROGEN 58 MG/DL (7-18); CALCIUM LEVEL 9.1 MG/DL (8.8-10.2); CARBON DIOXIDE LEVEL 29 MEQ/L (21-32); CHLORIDE LEVEL 105 MEQ/L (98-107); CK-MB VALUE MASS 1.7 NG/ML (<3.6); CPK CREATINE PHOSPHOKINASE 77 U/L (26-192); CREATININE FOR GFR 1.88 MG/DL (0.55-1.30); GLOMERULAR FILTRATION RATE 27.1 (>32); GLUCOSE, FASTING 88 MG/DL (70-100); MB/CK RELATIVE INDEX 2.21 (< OR =4); NT-PRO BNP 974 PG/ML (<450); SODIUM LEVEL 144 MEQ/L (136-145); TOTAL PROTEIN 6.6 GM/DL (6.4-8.2); TROPONIN I < 0.02 NG/ML (< 0.10)
[2020-11-02] MEDS ORDERED: hydrALAZINE 20MG/ML 1ML VIAL (J0360 PER 20MG) IV ONE (21:55)
[2020-11-02] MEDS ORDERED: dexameTHASONE 20MG/5ML VIAL (J1100 PER 1MG) IV ONE (23:05)
[2020-11-02] MEDS: IPRATROPIUM 0.5MG/ALBUTEROL 2.5MG INH SOL UD 3ML (DUONEB) NEB SCH ×2 (23:22→23:25)
--- NOTE | 2020-11-02 23:52 | HPEPDOC ---
[facility] Medical History & Physical Date of Admission Nov 02, 2020 Date of Service: Nov 02, 2020 Other Provider Mushtaq SOLIS Attending Physician: JESS GARCÍA MD History and Physical TIME OF SERVICE 1154PM CHIEF COMPLAINT: shortness of breath HISTORY OF PRESENT ILLNESS: For about the last month has been feeling short of breath. The shortness of breath is worse with minimal exertion & when she tries to lie down flat on her back she feels like she is choking. Despite feeling like she is retaining water around her abdomen she denies having leg swelling or gaining weight. She reports that she has actually lost about 25 lbs. She has not been eating much but tries to consume ensure shakes with protein and V-8 juice. She also denies having chest pain or feeling like her chest is congested. She often feels dizzy, tired and weak and spends a lot of time resting. Her chronic dry cough has not changed recently. Despite receiving nebs for presumed acute COPD in the ER her shortness of breath has not improved. She added that her Pipe Coverer Helper told her that she doesnt have COPD but that she has a touch of asthma and that she doesnt need to use her inhalers any longer. Per d/w and review of the notes from her PCP Kate Barnett note from August of this year the patient was short of breath therefore the torsemide dose was increased from 20 to 30mg daily. She was on spironolactone as well. felt that the patients dyspnea was due to acute COPD/Asthma and that her BIJAN is due to dehydration. Per d/w Angel (pharmacy technologist) the patient didnt know her medications therefore he reviiewed the patients medications with her daughter who reported that the patient was on furosemide rather than torsemide. Angel also reviewed the scripts that the patient recently filled and added that the patient had torsemide prescribed by one provider in June and another script for furosemide written by a different provider in August. He suspected that the patient may actually be taking both torsemide and furosemide. REVIEW OF SYSTEMS: 10-point review of systems negative except as listed in HPI PAST MEDICAL/ SURGICAL HISTORY: Asthma ? 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 HOME MEDICATIONS: Please see below. PHYSICAL EXAMINATION: Vital Signs Date Time Temp Pulse Resp B/P (MAP) Pulse Ox O2 Delivery O2 Flow Rate FiO2 11/02/20 18:27 97.3 69 20 130/59 (82) 95 Room Air GENERAL APPEARANCE: well-nourished and developed/ NAD HEENT: EOMI / MMM&P / unable to appreciate hepatojugular reflux CARDIOVASCULAR: RRR/NMRG / trace BLE edema LUNGS: after transferring herself from the commode to the hospital bed she was very short of breath and took about 1 min to catch her breath before she was able to start talking with me / she was not coughing / she was initially using her accessory muscles / air entry was equal bilaterally / she has expiratory wheezing and inspiratory crackles at the lung bases ABDOMEN: contour convex / soft & NT w palpation MUSCULOSKELETAL: NCAT / DAMIAN x 4 extremities INTEGUMENT: she is not cyanotic, flushed or pale NEUROLOGICAL: CN 2-12 grossly intact / speech not dysarthric PSYCHIATRIC: A&O / able to understand and follow all commands LABORATORY DATA: Laboratory Tests 11/02/20 20:41 IMAGING: IMPRESSION: No acute findings. MICROBIOLOGY: Respiratory panel is neg ASSESSMENT: is an 84 yr old F w Asthma ?, CAD, Mild / AI, DLP, A fib, HFpEF, HTN, CKD3, ZOFIA, AAA, Osteoporosis, Microvascular ischemic dz (CT head 2018), hearing loss and obesity who is admitted for dyspnea that is likely 2/2 a combination of acute asthma and acute HFpEF along with BIJAN. PLAN: 1 Dyspnea -She has orthopnea, PND, wheezing & crackles therefore I think her symptoms are due to a combination of acute asthma and fluid overload Plan: admit to medical floor / treat fluid overload and reactive airway dz 2 Acute Asthma -She meets criteria for admission bc she has had poor response to therapy in the ER Plan: pulse ox / c/w supplemental O2 / continuous pulse ox / Dunebs Q6H, Albuterol Q1H / start oral Prednisone tomorrow 3 Fluid overload 2/2 Acute HFpEF / Pulm HTN Plan: f/u Is and Os (will aim for a fluid balance of -2L daily) / daily weights / restrict fluid to 2L of 67 oz / restrict salt to 2g 4 ZOFIA Plan: table top BIPAP w 2.5L bled in 5 IBJAN on CKD 3 Possibly due to congestive nephropathy Plan: Lasix / f/u UA w Ulytes, renal US, PTH and Phosphorus / calcitriol 6 IDDM w neuropathy Plan: diabetic diet / f/u accuchecks / hypoglycemia protocol / sliding scale insulin / f/u A1C (target A1C is 7.1 to 8.5%) / because her serum glucose is low and she has renal impairment which will reduce her rate of clearing insulin we will hold her long acting insulin for now / pregabalin 7 Chronic non-obstructive CAD / DLP Plan: atorvastatin, bisoprolol and nitro PRN 8 Paroxysmal Atrial Fibrillation She has an implantable loop recorder Plan: apixaban and bisoprolol 9 Essential HTN Plan: bisoprolol, furosemide and spironolactone 10 Osteoporosis She has T scores ranging from -2 to -2.8 at various sites Plan: Oscal with vitamin D/ she can f/u w her PCP to start Denosumab (bc her GFR is low) 10 Class 1 obesity -complicates care DVT n/a she is on a DOAC Dispo: home after at least 2 midnights stay / she is at high risk for readmission therefore a PFS consult has been placed for dc planning & home RN to help with her meds Home Medications Scheduled Apixaban (Eliquis) 5 Mg Tablet, 5 MG PO BID Atorvastatin Calcium (Atorvastatin Calcium) 40 Mg Tab, 40 MG PO QHS Bisoprolol Fumarate (Bisoprolol Fumarate) 5 Mg Tablet, 5 MG PO DAILY Calcitriol (Calcitriol) 0.25 Mcg Cap, 0.25 MCG PO DAILY Cholecalciferol (Vitamin D3) (Vitamin D3) 1,000 Unit Tablet, 1,000 UNITS PO QHS Duloxetine Hcl (Duloxetine HCl) 30 Mg Capsule.dr, 30 MG PO DAILY Fluoxetine Hcl (Fluoxetine HCl) 40 Mg Capsule, 40 MG PO DAILY Furosemide (Furosemide) 40 Mg Tablet, 40 MG PO DAILY Insulin Glargine,Hum.rec.anlog (Basaglar Kwikpen U-100) 100 Unit/1 Ml Insuln.pen, 100 UNIT SC DAILY Multivitamin (Multivitamins) 1 Each Tablet, 1 TAB PO DAILY Omeprazole (Omeprazole) 40 Mg Capsule.dr, 40 MG PO BID Potassium Chloride (Potassium Chloride) 20 Meq Tablet.er, 20 MEQ PO DAILY Spironolactone (Spironolactone) 25 Mg Tablet, 25 MG PO DAILY Scheduled PRN Albuterol Sulfate (Proair Hfa) 8.5 Gm Hfa.aer.ad, 2 PUFF INH Q4H PRN for COUGH/WHEEZING Nitroglycerin (Nitrostat) 0.4 Mg Tab.subl, 0.4 MG SL NITRO PRN for CHEST PAIN Pregabalin (Lyrica) 225 Mg Capsule, 225 MG PO BID PRN for NEUROPATHIC PAIN Allergies Coded Allergies: No Known Allergies (Unverified , 10/22/18) A-FIB/CHADSVASC A-FIB History Current/History of A-Fib/PAF?: Yes Current PO Anticoag Therapy: Yes JESS GARCÍA MD Nov 02, 2020 23:51
[2020-11-02] MEDS ORDERED: methylPREDNISolone 125MG 2ML VIAL IV STA (23:53)
[2020-11-02] MEDS ORDERED: MAALOX 30 ML SUSP *UDC PO PRN (23:55)
[2020-11-02] MEDS ORDERED: MOM 30ML SUSPENSION UDC PO PRN (23:55)
[2020-11-02] MEDS ORDERED: ACETAMINOPHEN TAB 650MG DOSE (2X325MG) PO PRN (23:55)
[2020-11-02] MEDS ORDERED: GLUCOSE 4GM CHEW TABLET PO PRN (23:55)
[2020-11-02] MEDS ORDERED: DEXTROSE 50% 50 ML SYRINGE IV PRN (23:55)
[2020-11-02] MEDS ORDERED: GLUCAGON INJ 1MG VIAL SC PRN (23:55)
[2020-11-02] MEDS ORDERED: ALBUTEROL 90 MCG/ACT 8GM HFA INHALER INH PRN (23:55)
[2020-11-03] MEDS ORDERED: FUROSEMIDE 40MG/4ML VIAL (J1940) IV SCH ×3 (00:20→21:00)
[2020-11-03] MEDS ORDERED: ISOS1TAB36 PO (00:34)
[2020-11-03] MEDS ORDERED: ELIQ5TAB PO (00:34)
[2020-11-03] MEDS ORDERED: BASA100I SC (00:34)
[2020-11-03] MEDS ORDERED: FLUO40CA PO (00:34)
[2020-11-03] MEDS ORDERED: DULO1CAP5 PO (00:34)
[2020-11-03] MEDS ORDERED: BISO5TAB14 PO (00:34)
[2020-11-03] MEDS ORDERED: D31000TA2 PO (00:34)
[2020-11-03] MEDS ORDERED: FURO40TA2 PO (00:34)
[2020-11-03] MEDS: HumaLOG INSULIN (NovoLOG) PER UNIT SC SCH ×5 (00:37→21:00)
[2020-11-03] MEDS ORDERED: POTA1TAB14 PO (00:40)
[2020-11-03] MEDS ORDERED: OMEP-221 PO (00:40)
[2020-11-03] MEDS ORDERED: HOME MED LIST COMPLETE! XX SCH (00:40)
[2020-11-03] MEDS ORDERED: NITR4TASL SL (00:40)
[2020-11-03] MEDS ORDERED: MULT-40 PO (00:40)
[2020-11-03] MEDS ORDERED: LYRI225C PO (00:40)
[2020-11-03] MEDS ORDERED: SPIR-10 PO (00:40)
[2020-11-03] MEDS ORDERED: PROAAER10 INH (00:40)
[2020-11-03 01:00] VITALS: BP 151/90
[2020-11-03 02:59] VITALS: O2SAT 91
[2020-11-03] MEDS ORDERED: PREGABALIN 75 MG CAP(LYRICA) PO PRN (03:00)
[2020-11-03] MEDS ORDERED: NITROGLYCERIN 0.4 MG SUBL TABLET SL PRN (03:00)
[2020-11-03 03:30] LABS: HEMATOCRIT 39.2 % (36.0-47.0); MEAN CORPUSCULAR HGB CONC 33.2 g/dl (32.0-36.5); MEAN CORPUSCULAR VOLUME 84.5 fl (80.0-96.0); PLATELET COUNT, AUTOMATED 234 10^3/uL (150-450); RED BLOOD COUNT 4.64 10^6/uL (4.00-5.40); WHITE BLOOD COUNT 10.9 10^3/uL (4.0-10.0)
[2020-11-03 04:03] LABS: PHOSPHORUS LEVEL 2.8 MG/DL (2.5-4.9)
[2020-11-03 04:07] LABS: CALCIUM LEVEL 9.1 MG/DL (8.8-10.2); CREATININE FOR GFR 1.66 MG/DL (0.55-1.30); GLOMERULAR FILTRATION RATE 31.3 (>32)
[2020-11-03] MEDS: FUROSEMIDE 40MG/4ML VIAL (J1940) IV SCH ×2 (04:13→08:00)
[2020-11-03] MEDS: IPRATROPIUM 0.5MG/ALBUTEROL 2.5MG INH SOL UD 3ML (DUONEB) NEB SCH ×5 (04:44→18:18)
[2020-11-03 05:04] LABS: APPEARANCE, URINE HAZY (CLEAR); BILIRUBIN, URINE AUTO NEGATIVE (NEGATIVE); BLOOD, URINE BLOOD NEGATIVE (NEGATIVE); COLOR, URINE YELLOW (YELLOW); GLUCOSE, URINE (UA) AUTO NEGATIVE (NEGATIVE); KETONE, URINE AUTO NEGATIVE (NEGATIVE); LEUKOCYTE ESTERASE, URINE AUTO 1+ (NEGATIVE); NITRITE, URINE AUTO NEGATIVE (NEGATIVE); PROTEIN, URINE AUTO NEGATIVE (NEGATIVE); SPECIFIC GRAVITY URINE AUTO 1.014 (1.002-1.035); UROBILINOGEN, URINE AUTO 0.2 mg/dL (0.0-2.0)
[2020-11-03 05:06] LABS: BACTERIA, URINE AUTO NEGATIVE (NEGATIVE); RBC, URINE AUTO 2 /HPF (0-3); SQUAMOUS EPITHELIAL CELL UR AU 1 /HPF (0-6); WBC, URINE AUTO 8 /HPF (0-3)
--- NOTE | 2020-11-03 05:20 | ECGEPIP ---
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
[2020-11-03 05:28] LABS: CREATININE,RANDOM URINE 85.2 MG/DL
[2020-11-03 06:00] VITALS: BP 149/70
[2020-11-03 06:33] LABS: VENOUS BASE EXCESS 0.8 (-2.0-2.0); VENOUS O2 SATURATION 95.9 % (60.0-80.0); VENOUS PARTIAL PRESSURE CO2 38.7 mmHg (38.0-50.0); VENOUS PARTIAL PRESSURE O2 86.5 mmHg (30.0-50.0); VENOUS PH 7.428 UNITS (7.330-7.430); VENOUS STANDARD HCO3 25.1 MEQ/L; VENOUS TOTAL CO2 26.2 MEQ/L (24.0-28.0)
--- NOTE | 2020-11-03 07:57 | REP ---
INDICATION: sissy. COMPARISON: None. TECHNIQUE: Real-time sonographic evaluation of the kidneys FINDINGS: Multiple ultrasonographic images of the right kidney show the right kidney to measure 9.7 x 4.9 x 3.7 cm. The renal cortical echotexture is unremarkable. There are no masses. There is good corticomedullary differentiation. There is no hydronephrosis. There are no perinephric fluid collections. Multiple ultrasonographic images of the left kidney show the left kidney to measure 10.2 x 4.2 x 4.7 cm. The renal cortical echotexture is unremarkable. There are no masses. There is good corticomedullary differentiation. There is no hydronephrosis. There is minimal caliceal prominence. There are no perinephric fluid collections. IMPRESSION: Unremarkable renal ultrasonography. <Electronically signed by Niels Richard > 11/03/20 0759
[2020-11-03] MEDS ORDERED: FLUBLOK(EGG FREE)(QUAD)INFLUENZA VACC 0.5ML SYRINGE 18YRS & OLDER IM ONE (09:00)
[2020-11-03] MEDS: SPIRONOLACTONE 25 MG TAB PO SCH (09:32)
[2020-11-03] MEDS: bisoproloL fumarate 5 MG TAB PO SCH (09:33)
[2020-11-03] MEDS: DULoxetine 30MG CAPSULE (CYMBALTA) PO SCH (09:34)
[2020-11-03] MEDS: predniSONE 20 MG TAB PO SCH (09:34)
[2020-11-03] MEDS: FLUoxetine 20 MG CAP PO SCH (09:34)
[2020-11-03] MEDS: OMEPRAZOLE 20 MG CAP PO SCH (09:34)
[2020-11-03] MEDS: POTASSIUM CHLORIDE 10MEQ SR TABLET PO SCH (09:36)
[2020-11-03] MEDS: CALCITRIOL 0.25 MCG CAP (S0169) PO SCH (09:36)
[2020-11-03] MEDS: APIXABAN 5 MG TAB (ELIQUIS) PO SCH ×2 (09:36→20:46)
[2020-11-03] MEDS ORDERED: ALBUTEROL 90 MCG/ACT 8GM HFA INHALER INH PRN (10:25)
--- NOTE | 2020-11-03 12:31 | IPNPDOC ---
Text Note Date of Service The patient was seen on 11/03/20. NOTE SUBJECTIVE: -No acute events, reports that she feels better GENERAL APPEARANCE: well-nourished and developed/ NAD HEENT: NCAT, EOMI, MMM CARDIOVASCULAR: RRR/NMRG / no edema LUNGS: Continues to have expiratory wheezing. No crackles ABDOMEN: Normoactive sounds, soft, NTND NEUROLOGICAL: CN 3-12 grossly intact / speech not dysarthric PSYCHIATRIC: A&O x3 / able to understand and follow all commands LABORATORY DATA: Reviewed IMAGING: IMPRESSION: No acute findings. MICROBIOLOGY: Respiratory panel is neg ASSESSMENT: 84 yr old F w Asthma ?, CAD, Mild / AI, DLP, A fib, HFpEF, HTN, CKD3, ZOFIA, AAA, Osteoporosis, Microvascular ischemic dz (CT head 2019), hearing loss and obesity who is admitted for dyspnea that is likely 2/2 a combination of acute asthma and acute HFpEF along with BIJAN. PLAN: 1 Dyspnea -She has orthopnea, PND, wheezing & crackles therefore I think her symptoms are due to a combination of acute asthma and fluid overload Plan: admit to medical floor / treat fluid overload and reactive airway dz Probable Asthma exacerbation -Duonebs Q6H -Albuterol Q4HP -prednisone 40mg QD Possible HFpEF exacerbation / Pulm HTN -I am not convinced that she is fluid overloaded --> will get TTE -f/u Is and Os, goal balance of -2L daily) -daily weights -restrict fluid to 2L -restrict salt to 2g -Reduce lasix to 40 IV BID 4 ZOFIA Plan: table top BIPAP w 2.5L bled in 5 BIJAN on CKD 3 -Possibly due to congestive nephropathy -Lasix as per above -renal US was unremarkable 6 IDDM w neuropathy -Diabetic diet / f/u accuchecks / hypoglycemia protocol / sliding scale insulin / f/u A1C (target A1C is 7.1 to 8.5%) / because her serum glucose is low and she has renal impairment which will reduce her rate of clearing insulin we will hold her long acting insulin for now / pregabalin 7 Chronic non-obstructive CAD / DLP -continue atorvastatin, bisoprolol and nitro PRN 8 Paroxysmal Atrial Fibrillation She has an implantable loop recorder -continue apixaban and bisoprolol 9 Essential HTN -bisoprolol, furosemide and spironolactone 10 Osteoporosis She has T scores ranging from -2 to -2.8 at various sites -Oscal with vitamin D/ she can f/u w her PCP 10 Class 1 obesity -complicates care DVT ppx: DOAC Dispo: home after at least 2 midnights stay / she is at high risk for readmission therefore a PFS consult has been placed for dc planning & home RN to help with her meds VS,Fishbone, I+O VS, Fishbone, I+O Laboratory Tests 11/02/20 20:41 11/03/20 03:18 Vital Signs Date Time Temp Pulse Resp B/P (MAP) Pulse Ox O2 Delivery O2 Flow Rate FiO2 11/03/20 09:33 90 116/60 11/03/20 06:00 98.0 20 94 Room Air I&O- Last 24 Hours up to 6 AM 11/03/20 06:00 Intake Total 500 ml Output Total 350 ml Balance 150 ml JE ORTA MD Nov 03, 2020 10:33
[2020-11-03 14:00] VITALS: BP 120/58
[2020-11-03] MEDS: OYSTER SHELL CALCIUM 500 MG TAB PO SCH (20:46)
[2020-11-03] MEDS: ATORVASTATIN 20 MG TAB PO SCH (20:46)
[2020-11-03] MEDS: VITAMIN D 1,000 INTERNATIONAL UNITS TABLET PO SCH (20:46)
[2020-11-03 22:00] VITALS: BP 122/58
[2020-11-03] MEDS ORDERED: RAMELTEON 8 MG TAB (ROZEREM) PO PRN (23:55)
[2020-11-04] MEDS: IPRATROPIUM 0.5MG/ALBUTEROL 2.5MG INH SOL UD 3ML (DUONEB) NEB SCH ×4 (02:00→20:00)
[2020-11-04 06:00] VITALS: BP 148/77
[2020-11-04] MEDS ORDERED: FUROSEMIDE 100MG/10ML VIAL (J1940) IV SCH (09:00)
[2020-11-04 09:50] LABS: HEMATOCRIT 37.9 % (36.0-47.0); HEMOGLOBIN 12.5 g/dl (12.0-15.5); MEAN CORPUSCULAR HEMOGLOBIN 28.3 pg (27.0-33.0); MEAN CORPUSCULAR VOLUME 85.7 fl (80.0-96.0); PLATELET COUNT, AUTOMATED 267 10^3/uL (150-450); RED BLOOD COUNT 4.42 10^6/uL (4.00-5.40); WHITE BLOOD COUNT 17.2 10^3/uL (4.0-10.0)
[2020-11-04] MEDS: HumaLOG INSULIN (NovoLOG) PER UNIT SC SCH ×4 (09:56→22:22)
[2020-11-04] MEDS: OMEPRAZOLE 20 MG CAP PO SCH (09:56)
[2020-11-04] MEDS: SPIRONOLACTONE 25 MG TAB PO SCH (09:56)
[2020-11-04] MEDS: FLUoxetine 20 MG CAP PO SCH (09:56)
[2020-11-04] MEDS: bisoproloL fumarate 5 MG TAB PO SCH (09:57)
[2020-11-04] MEDS: DULoxetine 30MG CAPSULE (CYMBALTA) PO SCH (09:57)
[2020-11-04] MEDS: POTASSIUM CHLORIDE 10MEQ SR TABLET PO SCH (09:58)
[2020-11-04] MEDS: predniSONE 20 MG TAB PO SCH (09:58)
[2020-11-04] MEDS: FUROSEMIDE 40 MG TAB PO SCH (09:58)
[2020-11-04] MEDS: CALCITRIOL 0.25 MCG CAP (S0169) PO SCH (09:58)
[2020-11-04] MEDS: APIXABAN 5 MG TAB (ELIQUIS) PO SCH ×2 (09:58→21:01)
[2020-11-04 10:32] LABS: CALCIUM LEVEL 9.5 MG/DL (8.8-10.2); CREATININE FOR GFR 1.58 MG/DL (0.55-1.30); GLOMERULAR FILTRATION RATE 33.2 (>32); POTASSIUM SERUM 4.4 MEQ/L (3.5-5.1)
--- NOTE | 2020-11-04 11:09 | IPNPDOC ---
Text Note Date of Service The patient was seen on 11/04/20. NOTE SUBJECTIVE: -No acute events, continues to feel better GENERAL APPEARANCE: well-nourished and developed/ NAD HEENT: NCAT, EOMI, MMM CARDIOVASCULAR: RRR/NMRG / no edema LUNGS: Continues to have expiratory wheezing. No crackles ABDOMEN: Normoactive sounds, soft, NTND NEUROLOGICAL: CN 3-12 grossly intact / speech not dysarthric PSYCHIATRIC: A&O x3 / able to understand and follow all commands LABORATORY DATA: Reviewed, pending AM labs IMAGING: IMPRESSION: No acute findings. MICROBIOLOGY: Respiratory panel is neg ASSESSMENT: 84 yr old F w Asthma ?, CAD, Mild / AI, DLP, A fib, HFpEF, HTN, CKD3, ZOFIA, AAA, Osteoporosis, Microvascular ischemic dz (CT head 2019), hearing loss and obesity who is admitted for dyspnea that is likely 2/2 a combination of acute as thma and acute HFpEF along with BIJAN. PLAN: 1 Dyspnea -She reported orthopnea and wheezing Probable Asthma exacerbation -Duonebs Q6H -Albuterol Q4HP -prednisone 40mg QD -will start her on advair BID Unlikely HFpEF exacerbation / Pulm HTN -I am not convinced that she is fluid overloaded --> f/u TTE -f/u Is and Os, goal balance of -2L daily) -daily weights -restrict fluid to 2L -restrict salt to 2g -Restore home lasix of 40 PO QD 4 ZOFIA -table top BIPAP w 2.5L bled in 5 BIJAN on CKD 3 -Possibly due to congestive nephropathy vs frankly pre-renal? as she is at the most euvolemic on exam -Lasix per baseline meds -renal US was unremarkable -f/u BMP today 6 IDDM w neuropathy -Diabetic diet / f/u accuchecks / hypoglycemia protocol / sliding scale insulin / f/u A1C (target A1C is 7.1 to 8.5%) / because her serum glucose is low and she has renal impairment which will reduce her rate of clearing insulin we will continue holding her long acting insulin for now / pregabalin 7 Chronic non-obstructive CAD / DLP -continue atorvastatin, bisoprolol and nitro PRN 8 Paroxysmal Atrial Fibrillation She has an implantable loop recorder -continue apixaban and bisoprolol 9 Essential HTN -bisoprolol, furosemide and spironolactone 10 Osteoporosis She has T scores ranging from -2 to -2.8 at various sites -Oscal with vitamin D/ she can f/u w her PCP 10 Class 1 obesity -complicates care DVT ppx: DOAC Dispo: home after at least 2 midnights stay VS,Fishbone, I+O VS, Fishbone, I+O Vital Signs Date Time Temp Pulse Resp B/P (MAP) Pulse Ox O2 Delivery O2 Flow Rate FiO2 11/04/20 06:00 97.4 82 17 148/77 (100) 89 Room Air I&O- Last 24 Hours up to 6 AM 11/04/20 06:00 Intake Total 660 ml Output Total 450 ml Balance 210 ml JE ORTA MD Nov 04, 2020 09:18
[2020-11-04 14:00] VITALS: BP 133/58
[2020-11-04] MEDS: ADVAIR HFA 115/21MCG INHALER INH SCH (20:07)
[2020-11-04] MEDS: OYSTER SHELL CALCIUM 500 MG TAB PO SCH (21:01)
[2020-11-04] MEDS: VITAMIN D 1,000 INTERNATIONAL UNITS TABLET PO SCH (21:01)
[2020-11-04] MEDS: ATORVASTATIN 20 MG TAB PO SCH (21:01)
[2020-11-04 22:00] VITALS: BP 128/60
[2020-11-05] MEDS: IPRATROPIUM 0.5MG/ALBUTEROL 2.5MG INH SOL UD 3ML (DUONEB) NEB SCH ×2 (01:24→07:58)
[2020-11-05 06:00] VITALS: BP 135/65
[2020-11-05 06:38] LABS: HEMATOCRIT 35.9 % (36.0-47.0); HEMOGLOBIN 11.9 g/dl (12.0-15.5); MEAN CORPUSCULAR HEMOGLOBIN 28.4 pg (27.0-33.0); MEAN CORPUSCULAR HGB CONC 33.1 g/dl (32.0-36.5); MEAN CORPUSCULAR VOLUME 85.7 fl (80.0-96.0); PLATELET COUNT, AUTOMATED 227 10^3/uL (150-450); RED BLOOD COUNT 4.19 10^6/uL (4.00-5.40); WHITE BLOOD COUNT 12.8 10^3/uL (4.0-10.0)
[2020-11-05 06:58] LABS: CALCIUM LEVEL 9.2 MG/DL (8.8-10.2); CREATININE FOR GFR 1.34 MG/DL (0.55-1.30); GLOMERULAR FILTRATION RATE 40.1 (>32); POTASSIUM SERUM 4.5 MEQ/L (3.5-5.1)
[2020-11-05] MEDS: ADVAIR HFA 115/21MCG INHALER INH SCH (07:57)
[2020-11-05] MEDS: SPIRONOLACTONE 25 MG TAB PO SCH (09:07)
[2020-11-05] MEDS: HumaLOG INSULIN (NovoLOG) PER UNIT SC SCH (09:07)
[2020-11-05 09:08] VITALS: BP 142/62
[2020-11-05] MEDS: FLUoxetine 20 MG CAP PO SCH (09:08)
[2020-11-05] MEDS: bisoproloL fumarate 5 MG TAB PO SCH (09:08)
[2020-11-05] MEDS: CALCITRIOL 0.25 MCG CAP (S0169) PO SCH (09:09)
[2020-11-05] MEDS: DULoxetine 30MG CAPSULE (CYMBALTA) PO SCH (09:09)
[2020-11-05] MEDS: FUROSEMIDE 40 MG TAB PO SCH (09:09)
[2020-11-05] MEDS: OMEPRAZOLE 20 MG CAP PO SCH (09:09)
[2020-11-05] MEDS: predniSONE 20 MG TAB PO SCH (09:09)
[2020-11-05] MEDS: APIXABAN 5 MG TAB (ELIQUIS) PO SCH (09:10)
[2020-11-05] MEDS: POTASSIUM CHLORIDE 10MEQ SR TABLET PO SCH (09:10)
--- NOTE | 2020-11-05 09:33 | ECHO ---
ECHOCARDIOGRAM DATE OF PROCEDURE: 11/03/2020 REFERRING PHYSICIAN: JESS GARCÍA MD INDICATION: Dyspnea. MEASUREMENTS: LV 5.1 cm IVS 1.2 cm LVPW 1.2 cm Aorta 3.0 cm LA 5.6 cm Mitral E wave velocity 72 Mitral A wave 82 E prime septal 12.5 E prime lateral 8.6 FINDINGS: This study is of fair technical quality with limited visualization. The patient is in sinus rhythm with wide QRS complex. Left ventricle is normal size. Mild left ventricular hypertrophy is noted. Overall, normal LV systolic function based on fair visualization. I cannot reliably rule out segmental wall motion abnormality, but overall left ventricle systolic function is preserved and I estimate LVEF around 60 to 65%. Right ventricle is grossly normal. Left atrium is visually enlarged. Right atraumatic was poorly visualized. Aortic valve was poorly seen. It appears sclerotic based on limited views, but I cannot comment on its anatomy and mobility. Mitral and tricuspid valve septi are normal. Pulmonic valve was not well visualized. No pericardial effusion is noted. The inferior vena cava is relatively of small size indicative of low central venous pressure. Aortic root is normal. Aortic arch and abdominal aorta were not well visualized. Doppler interrogation reveals no aortic insufficiency and mild stenosis with mean gradient 14 mmHg. Mitral and tricuspid valves are functionally competent. Mitral inflow pattern and tissue Doppler imaging of mitral annulus reveals grade 1 diastolic dysfunction. CONCLUSIONS: 1. Study is of fair technical quality, underlying sinus rhythm and wide QRS complex. 2. Normal LV size with mild LVH and overall preserved LV systolic function. Grade 1 diastolic dysfunction. Due to limitations of the study, I cannot reliably rule out subtle segmental wall motion abnormalities. 3. Poorly visualized aortic valve with mild stenosis and no insufficiency. 4. Competent mitral and tricuspid valves. 5. Likely normal central venous pressure. 6. Unable to estimate pulmonary artery pressure.
[2020-11-05] MEDS ORDERED: ADVA115A INH (09:46)
[2020-11-05] MEDS ORDERED: PRED20TA PO (09:46)
[2020-11-05] MEDS ORDERED: PROAAER10 INH (09:46)
--- NOTE | 2020-11-05 10:09 | DS.PDOC ---
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 HISTORY OF PRESENT ILLNESS: For about 1 month had been feeling short of breath. The shortness of breath was worse with minimal exertion & when she tries to lie down flat on her back she feels like she is choking. Despite feeling like she was retaining water around her abdomen she denies having leg swelling or gaining weight. She also denied having chest pain or feeling like her chest is congested but often had audible wheezing a lot. HOSPITAL COURSE: Despite receiving nebs for presumed acute COPD in the ER her shortness of breath did not improved. She added that her [employer] told her that she doesnt have COPD but that she has a touch of asthma and that she doesnt need to use her inhalers any longer. Per d/w and review of the notes from her PCP Kate Barnett note from August of this year the patient was short of breath therefore the torsemide dose was increased from 20 to 30mg daily. She was on spironolactone as well. felt that the patients dyspnea was due to acute COPD/Asthma and that her BIJAN is due to dehydration. Despite that assessment the admitting team placed her on IV diuretics TID that I de- escalated, steroids which improved her wheezing and tachypnea greatly and she clinically improved. She did well with PT and is now being discharged home on 5d of pred 50, advair BID, PRN albuterol and her home dose of lasix 40 PO. She is to be seen by her PCP within 7d and english language learner tutor within 2w. DISCHARGE MEDICATIONS: Please see below. ALLERGIES: Please see below. PHYSICAL EXAMINATION ON DISCHARGE: VITAL SIGNS: Please see below. GENERAL APPEARANCE: well-nourished and developed/ NAD HEENT: NCAT, EOMI, MMM CARDIOVASCULAR: RRR/NMRG / no edema LUNGS: Continues to have expiratory wheezing. No crackles ABDOMEN: Normoactive sounds, soft, NTND NEUROLOGICAL: CN 3-12 grossly intact / speech not dysarthric PSYCHIATRIC: A&O x3 / able to understand and follow all commands LABORATORY DATA: please see below IMAGING: CXR: IMPRESSION: No acute findings. TTE: Left ventricle is normal size. Mild left ventricular hypertrophy is noted. Overall, normal LV systolic function based on fair visualization. I cannot reliably rule out segmental wall motion abnormality, but overall left ventricle systolic function is preserved and I estimate LVEF around 60 to 65%. Right ventricle is grossly normal. Left atrium is visually enlarged. Right atraumatic was poorly visualized. Aortic valve was poorly seen. It appears sclerotic based on limited views, but I cannot comment on its anatomy and mobility. Mitral and tricuspid valve septi are normal. Pulmonic valve was not well visualized. No pericardial effusion is noted. The inferior vena cava is relatively of small size indicative of low central venous pressure. Aortic root is normal. Aortic arch and abdominal aorta were not well visualized. Doppler interrogation reveals no aortic insufficiency and mild stenosis with mean gradient 14 mmHg. Mitral and tricuspid valves are functionally competent. Mitral inflow pattern and tissue Doppler imaging of mitral annulus reveals grade 1 diastolic dysfunction. CONCLUSIONS: 1. Study is of fair technical quality, underlying sinus rhythm and wide QRS complex. 2. Normal LV size with mild LVH and overall preserved LV systolic function. Grade 1 diastolic dysfunction. Due to limitations of the study, I cannot reliably rule out subtle segmental wall motion abnormalities. 3. Poorly visualized aortic valve with mild stenosis and no insufficiency. 4. Competent mitral and tricuspid valves. 5. Likely normal central venous pressure. 6. Unable to estimate pulmonary artery pressure. PROGNOSIS: Good ACTIVITY: As tolerated DIET: consistent carb, 2g sodium DISCHARGE PLAN: Home w/ advair BID, prednisone 40mg daily for 5d, lasix 40mg daily. Please DO NOT TAKE TORSEMIDE WELL THAT YOU MAY ALSO HAVE AT HOME. DISPOSITION: Home DISCHARGE INSTRUCTIONS: Home w/ advair BID, prednisone 40mg daily for 5d, lasix 40mg daily. Please DO NOT TAKE TORSEMIDE WELL THAT YOU MAY ALSO HAVE AT HOME. ITEMS TO FOLLOWUP ON ON OUTPATIENT: Asthma exacerbation CHF med optimization, was recently possibly taking 2 loop diuretics DISCHARGE CONDITION: Stable TIME SPENT ON DISCHARGE: 50 minutes. Vital Signs/I&Os Vital Signs Date Time Temp Pulse Resp B/P (MAP) Pulse Ox O2 Delivery O2 Flow Rate FiO2 11/05/20 09:08 75 142/62 11/05/20 06:00 97.3 18 95 Room Air I&O- Last 24 Hours up to 6 AM 11/05/20 06:00 Intake Total 540 ml Output Total 1000 ml Balance -460 ml Laboratory Data Labs 24H Laboratory Tests 2 11/04/20 11:29: Bedside Glucose (Misc Panel) 170H 11/04/20 16:22: Bedside Glucose (Misc Panel) 191H 11/04/20 21:32: Bedside Glucose (Misc Panel) 308H 11/05/20 04:51: Bedside Glucose (Misc Panel) 244H 11/05/20 06:09: Nucleated Red Blood Cells % (auto) 0.0, Anion Gap 7L, Glomerular Filtration Rate 40.1, Calcium Level 9.2 CBC/BMP Laboratory Tests 11/05/20 06:09 FSBS Laboratory Tests Test 11/04/20 11:29 11/04/20 16:22 11/04/20 21:32 11/05/20 04:51 Range/Units Bedside Glucose (Misc Panel) 170 191 308 244 83-110 MG/DL Microbiology Microbiology 11/02/20 Blood Culture - Preliminary, Resulted No Growth after 48 hours. All Specime... 11/02/20 Respiratory Virus Panel (PCR) ([facility]) - Final, Complete 11/02/20 Blood Culture - Preliminary, Resulted No Growth after 48 hours. All Specime... Discharge Medications Scheduled Apixaban (Eliquis) 5 Mg Tablet, 5 MG PO BID, (Reported) Atorvastatin Calcium (Atorvastatin Calcium) 40 Mg Tab, 40 MG PO QHS, (Reported) Bisoprolol Fumarate (Bisoprolol Fumarate) 5 Mg Tablet, 5 MG PO DAILY, (Reported) Calcitriol (Calcitriol) 0.25 Mcg Cap, 0.25 MCG PO DAILY, (Reported) Cholecalciferol (Vitamin D3) (Vitamin D3) 1,000 Unit Tablet, 1,000 UNITS PO QHS, (Reported) Duloxetine Hcl (Duloxetine HCl) 30 Mg Capsule.dr, 30 MG PO DAILY, (Reported) Fluoxetine Hcl (Fluoxetine HCl) 40 Mg Capsule, 40 MG PO DAILY, (Reported) Fluticasone Propion/Salmeterol (Advair Hfa 115-21 Mcg Inhaler) 12 Gm Hfa.aer.ad, 2 PUFF INH RBID Furosemide (Furosemide) 40 Mg Tablet, 40 MG PO DAILY, (Reported) Insulin Glargine,Hum.rec.anlog (Basaglar Kwikpen U-100) 100 Unit/1 Ml I nsuln.pen, 100 UNIT SC DAILY, (Reported) Multivitamin (Multivitamins) 1 Each Tablet, 1 TAB PO DAILY, (Reported) Omeprazole (Omeprazole) 40 Mg Capsule.dr, 40 MG PO BID, (Reported) Potassium Chloride (Potassium Chloride) 20 Meq Tablet.er, 20 MEQ PO DAILY, (Reported) Prednisone (Prednisone) 20 Mg Tablet, 40 MG PO DAILY Spironolactone (Spironolactone) 25 Mg Tablet, 25 MG PO DAILY, (Reported) Scheduled PRN Albuterol Sulfate (Proair Hfa) 8.5 Gm Hfa.aer.ad, 2 PUFF INH Q4H PRN for COUGH/WHEEZING Nitroglycerin (Nitrostat) 0.4 Mg Tab.subl, 0.4 MG SL NITRO PRN for CHEST PAIN, (Reported) Pregabalin (Lyrica) 225 Mg Capsule, 225 MG PO BID PRN for NEUROPATHIC PAIN, (Reported) Allergies Coded Allergies: No Known Allergies (Unverified , 10/22/18) JE ORTA MD Nov 05, 2020 10:09
[2020-11-05 11:17] LABS: PTH INTACT 62.6 PG/ML (18.5-88.0)
[2020-11-05] MEDS ORDERED: MUCI1TAB16 PO (12:30)
[2020-11-05] MEDS ORDERED: LEVA1.25 INH (12:30)
== END 2020-11-05 12:30 | disposition home health service (06) | DRG 202 ==
LOC: M ED 18:27 → M ED INP 23:53 → M MSPAV 11-03 01:00
PROVIDERS: ADMIT Internal Medicine; ATTEND Internal Medicine
DX: J45.901 Unspecified asthma with (acute) exacerbation (principal); N17.9 Acute kidney failure, unspecified; I50.32 Chronic diastolic (congestive) heart failure; I13.0 Hypertensive heart and chronic kidney disease with heart failure and stage 1 through stage 4 chronic kidney disease, or unspecified chronic kidney disease; N18.30 Chronic kidney disease, stage 3 unspecified; E66.9 Obesity, unspecified; Z68.35 Body mass index [BMI] 35.0-35.9, adult; I27.20 Pulmonary hypertension, unspecified; I25.10 Atherosclerotic heart disease of native coronary artery without angina pectoris; I48.0 Paroxysmal atrial fibrillation; E11.40 Type 2 diabetes mellitus with diabetic neuropathy, unspecified; G47.33 Obstructive sleep apnea (adult) (pediatric); I71.4 Abdominal aortic aneurysm, without rupture; M81.0 Age-related osteoporosis without current pathological fracture; Z79.899 Other long term (current) drug therapy; Z79.4 Long term (current) use of insulin; E86.0 Dehydration; Z87.891 Personal history of nicotine dependence

== ENCOUNTER → 2020-11-28 | Outpatient (CLI) | payer MEDICARE ==
[~2020-11-28] MED LIST changes: +ADVA115A INH; +BASA100I SC; +BISO5TAB14 PO; +D31000TA2 PO; +DULO1CAP5 PO; +ELIQ5TAB PO; +FURO40TA2 PO; +ISOS1TAB36 PO; +LEVA1.25 INH; +LYRI225C PO; +MUCI1TAB16 PO; +MULT-40 PO; +NITR4TASL SL; +OMEP-221 PO; +POTA1TAB14 PO; +PRED20TA PO; +PROAAER10 INH
--- NOTE | 2020-11-28 14:20 | REP ---
INDICATION: CHF COMPARISON: 11/02/2020 TECHNIQUE: PA and lateral. FINDINGS: Mediastinum and cardiac silhouette are stable. Loop recorder overlies the cardiac silhouette. Increased interstitial markings are nonspecific although mild interstitial edema cannot be excluded. No focal consolidation. No effusion. No pneumothorax. IMPRESSION: Cannot exclude interstitial edema. No focal consolidation or effusion. <Electronically signed by Koffi Avery > 11/28/20 [id number]
== END ==
LOC: M WUC 13:28
PROVIDERS: ATTEND Nurse Practitioner Family
DX: I50.32 Chronic diastolic (congestive) heart failure (principal)

== ENCOUNTER → 2021-01-15 | Outpatient (CLI) | payer OTHER ==
[~2021-01-15] MED LIST changes: +ADVA230A INH; +AMIO200T49; +AMIO200T49 PO; +BUDE0.5S6 INH; -CEFD1CAP8 PO; +CEFD300C41 PO; +FLUO60TA PO; +FURO20TA2 PO; +JARD1TAB PO; +LEVA1.2519 INH; +LEVA45AE INH; +LEVO500T4 PO; +OCUVTAB4 PO; -OMEP-221; -OMEP-221 PO; +OMEP40CA5; +OMEP40CA5 PO; +PRED10TA2; +PRED10TA2 PO; +TORS20TA2; +TORS20TA2 PO; +VITMTA PO
== END ==
LOC: M PLAIMG 07:50
PROVIDERS: ATTEND Physician Assistant
DX: M47.817 Spondylosis without myelopathy or radiculopathy, lumbosacral region (principal)

== ENCOUNTER 2021-01-28 11:18 | Emergency (ER) | payer MEDICARE, OTHER ==
[~2021-01-28] VITALS: Ht 170.2 cm; Wt 101.6 kg
[~2021-01-28 11:18] MED LIST changes: -ADVA230A INH; -AMIO200T49; -AMIO200T49 PO; -BUDE0.5S6 INH; -FLUO60TA PO; -FURO20TA2 PO; -JARD1TAB PO; -LEVA1.2519 INH; -LEVA45AE INH; -LEVO500T4 PO; -OCUVTAB4 PO; -PRED10TA2; -PRED10TA2 PO; -TORS20TA2; -TORS20TA2 PO; -VITMTA PO
[2021-01-28 11:20] VITALS: BP 148/67
[2021-01-28] MEDS ORDERED: PRED10TA2 (11:29)
[2021-01-28] MEDS ORDERED: AMIO200T49 (11:29)
[2021-01-28] MEDS ORDERED: TORS20TA2 (11:29)
[2021-01-29] MEDS ORDERED: LEVA45AE INH (00:35)
[2021-01-29] MEDS ORDERED: ADVA230A INH (00:35)
[2021-01-29] MEDS ORDERED: OCUVTAB4 PO (00:35)
[2021-01-29] MEDS ORDERED: AMIO200T49 PO (00:35)
[2021-01-29] MEDS ORDERED: PRED10TA2 PO ×2 (00:35→11:39)
[2021-01-29] MEDS ORDERED: TORS20TA2 PO (00:35)
[2021-01-29] MEDS ORDERED: VITMTA PO (00:35)
[2021-01-29] MEDS ORDERED: FLUO60TA PO (00:35)
[2021-01-29] MEDS ORDERED: BUDE0.5S6 INH (00:35)
[2021-01-29] MEDS ORDERED: FURO20TA2 PO (00:35)
[2021-01-29] MEDS ORDERED: LEVA1.2519 INH (00:35)
[2021-03-13] MEDS ORDERED: JARD1TAB PO (16:26)
== END 2021-01-28 13:39 | disposition left against medical advice (07) ==
LOC: M ED 11:18
DX: Z53.21 Procedure and treatment not carried out due to patient leaving prior to being seen by health care provider (principal)

== ENCOUNTER 2021-01-28 15:16 | Observation (INO) | payer MEDICARE, OTHER ==
[~2021-01-28] VITALS: Ht 170.2 cm; Wt 109.0 kg
[~2021-01-28 15:16] MED LIST changes: +AMIO200T49; +PRED10TA2; +TORS20TA2
[2021-01-29] MEDS ORDERED: BUDE0.5S6 INH (00:35)
[2021-01-29] MEDS ORDERED: TORS20TA2 PO (00:35)
[2021-01-29] MEDS ORDERED: OCUVTAB4 PO (00:35)
[2021-01-29] MEDS ORDERED: VITMTA PO (00:35)
[2021-01-29] MEDS ORDERED: AMIO200T49 PO (00:35)
[2021-01-29] MEDS ORDERED: FLUO60TA PO (00:35)
[2021-01-29] MEDS ORDERED: PRED10TA2 PO ×2 (00:35→11:39)
[2021-01-29] MEDS ORDERED: FURO20TA2 PO (00:35)
[2021-01-29] MEDS ORDERED: ADVA230A INH (00:35)
[2021-01-29] MEDS ORDERED: LEVA45AE INH (00:35)
[2021-01-29] MEDS ORDERED: LEVA1.2519 INH (00:35)
[2021-01-29 11:25] VITALS: BP 108/82
[2021-03-13] MEDS ORDERED: JARD1TAB PO (16:26)
== END 2021-01-29 12:21 | disposition home or self-care (01) ==
LOC: M ED 15:16 → M ED INP 15:17
PROVIDERS: ADMIT Family Medicine; ATTEND Family Medicine
DX: I50.33 Acute on chronic diastolic (congestive) heart failure (principal); J44.1 Chronic obstructive pulmonary disease with (acute) exacerbation; I48.0 Paroxysmal atrial fibrillation; E87.6 Hypokalemia; E78.5 Hyperlipidemia, unspecified; I12.9 Hypertensive chronic kidney disease with stage 1 through stage 4 chronic kidney disease, or unspecified chronic kidney disease; N18.30 Chronic kidney disease, stage 3 unspecified; G47.33 Obstructive sleep apnea (adult) (pediatric); E11.40 Type 2 diabetes mellitus with diabetic neuropathy, unspecified; K21.9 Gastro-esophageal reflux disease without esophagitis; I71.4 Abdominal aortic aneurysm, without rupture; E66.9 Obesity, unspecified; Z87.891 Personal history of nicotine dependence; Z79.01 Long term (current) use of anticoagulants; Z79.4 Long term (current) use of insulin; Z79.52 Long term (current) use of systemic steroids; Z79.899 Other long term (current) drug therapy
CPT/HCPCS: 36415; 71045; 80048; 80053; 80076; 82803; 83605; 83735; 83880; 84443; 84484; 85025; 87040; 87798; 87804; 93041; 94640; 99285; G0378; J1940; J2930

== ENCOUNTER 2021-03-13 16:14 | Emergency (ER) | payer MEDICARE ==
[~2021-03-13] VITALS: Ht 172.7 cm; Wt 100.0 kg
[~2021-03-13 16:14] MED LIST changes: +ADVA230A INH; +AMIO200T49 PO; +BUDE0.5S6 INH; +FLUO60TA PO; +FURO20TA2 PO; +LEVA1.2519 INH; +LEVA45AE INH; +OCUVTAB4 PO; +PRED10TA2 PO; +TORS20TA2 PO; +VITMTA PO
[2021-03-13] MEDS ORDERED: JARD1TAB (16:26)
[2021-03-13 18:35] LABS: BASO % 0.4 % (0.0-1.0); EOS # 0.1 10^3/uL (0.0-0.5); EOS % 1.4 % (0.0-3.0); HEMATOCRIT 33.7 % (36.0-47.0); HEMOGLOBIN 9.9 g/dl (12.0-15.5); LYMPH # 1.1 10^3/uL (1.5-5.0); MEAN CORPUSCULAR HEMOGLOBIN 22.6 pg (27.0-33.0); MEAN CORPUSCULAR HGB CONC 29.4 g/dl (32.0-36.5); MEAN CORPUSCULAR VOLUME 76.8 fl (80.0-96.0); MONO # 0.5 10^3/uL (0.0-0.8); MONO % 4.6 % (2.0-8.0); NEUTROPHILS # 8.5 10^3/uL (1.5-8.5); PLATELET COUNT, AUTOMATED 334 10^3/uL (150-450); RED BLOOD COUNT 4.39 10^6/uL (4.00-5.40); WHITE BLOOD COUNT 10.3 10^3/uL (4.0-10.0)
[2021-03-13 19:00] LABS: CALCIUM LEVEL 9.1 MG/DL (8.8-10.2); CREATININE FOR GFR 1.15 MG/DL (0.55-1.30); GLOMERULAR FILTRATION RATE 47.7 (>32); POTASSIUM SERUM 3.7 MEQ/L (3.5-5.1)
[2021-03-13] MEDS ORDERED: FUROSEMIDE 40MG/4ML VIAL (J1940) IV ONE (19:45)
[2021-03-13] MEDS: COMBIVENT RESPIMAT 100-20MCG INHALER 4GM INH SCH ×3 (20:55→21:46)
[2021-03-13 22:09] VITALS: BP 130/69
== END 2021-03-13 22:31 | disposition home or self-care (01) ==
LOC: M ED 16:14
DX: R06.02 Shortness of breath (principal); I50.30 Unspecified diastolic (congestive) heart failure; D64.9 Anemia, unspecified; R94.31 Abnormal electrocardiogram [ECG] [EKG]; I48.91 Unspecified atrial fibrillation; I10 Essential (primary) hypertension; J45.909 Unspecified asthma, uncomplicated; Z86.79 Personal history of other diseases of the circulatory system; Z88.8 Allergy status to other drugs, medicaments and biological substances; Z90.49 Acquired absence of other specified parts of digestive tract; Z79.899 Other long term (current) drug therapy
CPT/HCPCS: 71045; 80048; 83880; 84484; 85025; 87798; 93005; 93041; 94640; 96374; 99285; J1940

== ENCOUNTER 2021-03-18 12:56 | Inpatient (IN) | payer MEDICARE ==
[~2021-03-18] VITALS: Ht 170.2 cm; Wt 113.7 kg
[~2021-03-18 12:56] MED LIST changes: +JARD1TAB PO
[2021-03-18] MEDS ORDERED: COMBIVENT RESPIMAT 100-20MCG INHALER 4GM INH SCH (13:35)
[2021-03-18] MEDS ORDERED: BUDESONIDE 180MCG INHALER (PULMICORT FLEXHALER) INH ONE (13:40)
[2021-03-18 13:58] LABS: BASO # 0.1 10^3/uL (0.0-0.2); BASO % 0.6 % (0.0-1.0); EOS # 0.1 10^3/uL (0.0-0.5); EOS % 1.3 % (0.0-3.0); HEMOGLOBIN 9.8 g/dl (12.0-15.5); LYMPH # 1.1 10^3/uL (1.5-5.0); LYMPH % 10.4 % (24.0-44.0); MEAN CORPUSCULAR HEMOGLOBIN 22.6 pg (27.0-33.0); MEAN CORPUSCULAR HGB CONC 29.7 g/dl (32.0-36.5); MONO # 0.6 10^3/uL (0.0-0.8); MONO % 5.5 % (2.0-8.0); NEUTROPHILS # 8.3 10^3/uL (1.5-8.5); NEUTROPHILS % 81.7 % (36.0-66.0); PLATELET COUNT, AUTOMATED 312 10^3/uL (150-450); RED BLOOD COUNT 4.34 10^6/uL (4.00-5.40); WHITE BLOOD COUNT 10.1 10^3/uL (4.0-10.0)
[2021-03-18] MEDS ORDERED: FUROSEMIDE 40MG/4ML VIAL (J1940) IV ONE (14:10)
[2021-03-18 14:37] LABS: ALBUMIN 3.1 GM/DL (3.2-5.2); BILIRUBIN,DIRECT 0.2 MG/DL (0.0-0.2); BILIRUBIN,TOTAL 0.5 MG/DL (0.2-1.0); CALCIUM LEVEL 8.8 MG/DL (8.8-10.2); CREATININE FOR GFR 1.28 MG/DL (0.55-1.30); GLOMERULAR FILTRATION RATE 42.2 (>32); POTASSIUM SERUM 3.3 MEQ/L (3.5-5.1); THYROID STIMULATING HORMONE 3.69 uIU/ML (0.358-3.740); THYROXINE (T4) 11.4 UG/DL (4.5-12.0); TOTAL PROTEIN 6.3 GM/DL (6.4-8.2)
[2021-03-18] MEDS ORDERED: ALBUTEROL 90 MCG/ACT 8GM HFA INHALER INH ONE (14:45)
[2021-03-18] MEDS ORDERED: COMBIVENT RESPIMAT 100-20MCG INHALER 4GM INH ONE (15:25)
[2021-03-18] MEDS ORDERED: LEVO500T4 PO (15:31)
[2021-03-18] MEDS ORDERED: LEVALBUTEROL 1.25 MG/0.5 ML CONCENTRATE NEB NEB PRN (15:35)
[2021-03-18] MEDS ORDERED: POTASSIUM CHLORIDE 10MEQ SR TABLET PO ONE (15:45)
[2021-03-18] MEDS ORDERED: methylPREDNISolone 40MG 1ML VIAL IV SCH (16:00)
[2021-03-18] MEDS ORDERED: HOME MED LIST COMPLETE! XX SCH (16:20)
[2021-03-18 16:26] LABS: ABG BASE EXCESS 1.3 (-2.0-2.0); ABG HCO3 25.1 MEQ/L (22.0-26.0); ABG O2 SATURATION 96.2 % (95.0-99.0); ABG PARTIAL PRESSURE O2 88.1 mmHg (75.0-100.0); ABG STANDARD HCO3 25.6 MEQ/L (22.0-26.0); ABG TOTAL CO2 26.3 MEQ/L (23.0-31.0)
[2021-03-18] MEDS ORDERED: methylPREDNISolone 125MG 2ML VIAL IV SCH (16:40)
[2021-03-18] MEDS ORDERED: LevoFLOXacin IV 750 MG in IV 1 EA IV SCH (17:00)
[2021-03-18] MEDS ORDERED: NITROGLYCERIN 0.4 MG SUBL TABLET SL PRN (17:05)
[2021-03-18] MEDS ORDERED: cefTRIAXone SOD 1 GM in D5W MINI-BAG PLUS 50 ML IV SCH (18:00)
[2021-03-18 18:50] VITALS: BP 103/73
[2021-03-18 20:00] VITALS: BP 137/85
[2021-03-18] MEDS: ATORVASTATIN 20 MG TAB PO SCH (20:33)
[2021-03-18] MEDS: APIXABAN 5 MG TAB (ELIQUIS) PO SCH (20:34)
[2021-03-18] MEDS: PREGABALIN 75 MG CAP(LYRICA) PO SCH (20:34)
[2021-03-18] MEDS: AMIODARONE 200 MG TAB (PACERONE) PO SCH (20:34)
[2021-03-18] MEDS: DOXYCYCLINE HYCLATE 100MG TABLET PO SCH (20:34)
[2021-03-18] MEDS: VITAMIN D 1,000 INTERNATIONAL UNITS TABLET PO SCH (20:34)
[2021-03-18] MEDS: LEVALBUTEROL 1.25 MG/0.5 ML CONCENTRATE NEB NEB SCH (20:54)
[2021-03-18] MEDS: ADVAIR HFA 230/21MCG INHALER INH SCH (20:54)
[2021-03-18] MEDS: BUDESONIDE 0.5 MG/2 ML INHALATION SUSPENSION INH SCH (20:54)
[2021-03-19 04:00] VITALS: BP 141/84
[2021-03-19] MEDS: methylPREDNISolone 40MG 1ML VIAL IV SCH ×2 (04:42→16:03)
[2021-03-19 06:29] LABS: HEMOGLOBIN 9.6 g/dl (12.0-15.5); MEAN CORPUSCULAR HEMOGLOBIN 22.4 pg (27.0-33.0); MEAN CORPUSCULAR VOLUME 74.8 fl (80.0-96.0); PLATELET COUNT, AUTOMATED 308 10^3/uL (150-450); RED BLOOD COUNT 4.28 10^6/uL (4.00-5.40)
[2021-03-19 07:00] LABS: BILIRUBIN,TOTAL 0.4 MG/DL (0.2-1.0); CREATININE FOR GFR 1.24 MG/DL (0.55-1.30); GLOMERULAR FILTRATION RATE 43.8 (>32); POTASSIUM SERUM 3.6 MEQ/L (3.5-5.1); TOTAL PROTEIN 6.4 GM/DL (6.4-8.2)
[2021-03-19 07:48] VITALS: BP 141/71
[2021-03-19] MEDS: LEVALBUTEROL 1.25 MG/0.5 ML CONCENTRATE NEB NEB SCH ×4 (08:00→19:56)
[2021-03-19] MEDS: ADVAIR HFA 230/21MCG INHALER INH SCH ×2 (08:01→19:57)
[2021-03-19] MEDS: BUDESONIDE 0.5 MG/2 ML INHALATION SUSPENSION INH SCH ×2 (08:01→19:56)
[2021-03-19] MEDS: POTASSIUM CHLORIDE 10MEQ SR TABLET PO SCH (08:40)
[2021-03-19] MEDS: OMEPRAZOLE 20MG CAP PO SCH (08:40)
[2021-03-19] MEDS: MULTIVITAMINS/MINERALS THERAP 1 TAB PO SCH (08:42)
[2021-03-19] MEDS: bisoproloL fumarate 5 MG TAB PO SCH (08:42)
[2021-03-19] MEDS: CALCITRIOL 0.25 MCG CAP (S0169) PO SCH (08:42)
[2021-03-19] MEDS: DOXYCYCLINE HYCLATE 100MG TABLET PO SCH ×2 (08:42→20:16)
[2021-03-19] MEDS: PREGABALIN 75 MG CAP(LYRICA) PO SCH ×2 (08:42→20:16)
[2021-03-19] MEDS: APIXABAN 5 MG TAB (ELIQUIS) PO SCH ×2 (08:42→20:16)
[2021-03-19] MEDS ORDERED: FLUoxetine 20 MG CAP PO SCH (09:00)
[2021-03-19] MEDS ORDERED: PREVNAR 13 VACCINE SYRINGE IM ONE (09:00)
[2021-03-19] MEDS ORDERED: DULoxetine 30MG CAPSULE (CYMBALTA) PO SCH (09:00)
[2021-03-19 11:53] VITALS: BP 152/90
[2021-03-19] MEDS ORDERED: FUROSEMIDE 40MG/4ML VIAL (J1940) IV ONE (15:55)
[2021-03-19 16:00] VITALS: BP 150/90
[2021-03-19] MEDS: ATORVASTATIN 20 MG TAB PO SCH (20:16)
[2021-03-19] MEDS: VITAMIN D 1,000 INTERNATIONAL UNITS TABLET PO SCH (20:16)
[2021-03-19] MEDS: AMIODARONE 200 MG TAB (PACERONE) PO SCH (20:16)
[2021-03-20 04:00] VITALS: BP 142/88
[2021-03-20] MEDS: methylPREDNISolone 40MG 1ML VIAL IV SCH ×3 (05:30→20:49)
[2021-03-20] MEDS: BUDESONIDE 0.5 MG/2 ML INHALATION SUSPENSION INH SCH ×2 (07:34→20:21)
[2021-03-20] MEDS: ADVAIR HFA 230/21MCG INHALER INH SCH ×2 (07:34→20:21)
[2021-03-20] MEDS: LEVALBUTEROL 1.25 MG/0.5 ML CONCENTRATE NEB NEB SCH ×4 (07:37→20:00)
[2021-03-20 07:58] LABS: BASO % 0.1 % (0.0-1.0); HEMATOCRIT 34.9 % (36.0-47.0); HEMOGLOBIN 10.2 g/dl (12.0-15.5); LYMPH # 0.6 10^3/uL (1.5-5.0); LYMPH % 5.4 % (24.0-44.0); MEAN CORPUSCULAR HEMOGLOBIN 22.3 pg (27.0-33.0); MEAN CORPUSCULAR HGB CONC 29.2 g/dl (32.0-36.5); MEAN CORPUSCULAR VOLUME 76.2 fl (80.0-96.0); MONO # 0.5 10^3/uL (0.0-0.8); MONO % 4.4 % (2.0-8.0); NEUTROPHILS # 10.4 10^3/uL (1.5-8.5); NEUTROPHILS % 89.4 % (36.0-66.0); PLATELET COUNT, AUTOMATED 415 10^3/uL (150-450); RED BLOOD COUNT 4.58 10^6/uL (4.00-5.40); WHITE BLOOD COUNT 11.7 10^3/uL (4.0-10.0)
[2021-03-20 08:00] VITALS: BP 140/65
[2021-03-20 08:35] LABS: CALCIUM LEVEL 9.5 MG/DL (8.8-10.2); CREATININE FOR GFR 1.35 MG/DL (0.55-1.30); GLOMERULAR FILTRATION RATE 39.7 (>32)
[2021-03-20] MEDS: CALCITRIOL 0.25 MCG CAP (S0169) PO SCH (08:36)
[2021-03-20] MEDS: PREGABALIN 75 MG CAP(LYRICA) PO SCH ×2 (08:36→20:48)
[2021-03-20] MEDS: bisoproloL fumarate 5 MG TAB PO SCH (08:36)
[2021-03-20] MEDS: OMEPRAZOLE 20MG CAP PO SCH (08:36)
[2021-03-20] MEDS: DOXYCYCLINE HYCLATE 100MG TABLET PO SCH ×2 (08:36→20:49)
[2021-03-20] MEDS: APIXABAN 5 MG TAB (ELIQUIS) PO SCH ×2 (08:37→20:48)
[2021-03-20] MEDS: POTASSIUM CHLORIDE 10MEQ SR TABLET PO SCH (08:37)
[2021-03-20] MEDS: MULTIVITAMINS/MINERALS THERAP 1 TAB PO SCH (08:37)
[2021-03-20] MEDS ORDERED: predniSONE 20 MG TAB PO SCH (09:00)
[2021-03-20 12:00] VITALS: BP 137/75
[2021-03-20 15:45] LABS: MAGNESIUM LEVEL 2.3 MG/DL (1.8-2.4)
[2021-03-20 16:00] VITALS: BP 138/80
[2021-03-20] MEDS: AMIODARONE 200 MG TAB (PACERONE) PO SCH (20:48)
[2021-03-20] MEDS: ATORVASTATIN 20 MG TAB PO SCH (20:48)
[2021-03-20] MEDS: VITAMIN D 1,000 INTERNATIONAL UNITS TABLET PO SCH (20:49)
[2021-03-20 22:00] VITALS: BP 181/84
[2021-03-20] MEDS ORDERED: HumaLOG INSULIN (NovoLOG) PER UNIT SC ONE (22:15)
[2021-03-20] MEDS ORDERED: DEXTROSE 50% 50 ML SYRINGE IV PRN (22:15)
[2021-03-20] MEDS ORDERED: GLUCAGON INJ 1MG VIAL SC PRN (22:15)
[2021-03-20] MEDS ORDERED: GLUCOSE 4GM CHEW TABLET PO PRN (22:15)
[2021-03-20] MEDS ORDERED: SODIUM CHLORIDE 0.9% 250ML IV ONE (22:15)
[2021-03-21] MEDS: methylPREDNISolone 40MG 1ML VIAL IV SCH ×2 (05:08→18:26)
[2021-03-21] MEDS ORDERED: **hydrALAZINE** 50 MG TAB PO ONE (05:25)
[2021-03-21 05:54] LABS: BASO % 0.1 % (0.0-1.0); HEMATOCRIT 32.3 % (36.0-47.0); HEMOGLOBIN 9.2 g/dl (12.0-15.5); LYMPH # 0.4 10^3/uL (1.5-5.0); LYMPH % 2.8 % (24.0-44.0); MEAN CORPUSCULAR HEMOGLOBIN 22.1 pg (27.0-33.0); MEAN CORPUSCULAR HGB CONC 28.5 g/dl (32.0-36.5); MEAN CORPUSCULAR VOLUME 77.5 fl (80.0-96.0); MONO # 0.3 10^3/uL (0.0-0.8); NEUTROPHILS % 94.1 % (36.0-66.0); PLATELET COUNT, AUTOMATED 403 10^3/uL (150-450); RED BLOOD COUNT 4.17 10^6/uL (4.00-5.40); WHITE BLOOD COUNT 13.8 10^3/uL (4.0-10.0)
[2021-03-21 06:00] VITALS: BP 183/95
[2021-03-21 06:19] LABS: CALCIUM LEVEL 9.1 MG/DL (8.8-10.2); CREATININE FOR GFR 1.44 MG/DL (0.55-1.30); GLOMERULAR FILTRATION RATE 36.8 (>32); POTASSIUM SERUM 3.9 MEQ/L (3.5-5.1)
[2021-03-21 07:38] VITALS: BP 145/82
[2021-03-21] MEDS: BUDESONIDE 0.5 MG/2 ML INHALATION SUSPENSION INH SCH ×2 (08:02→19:59)
[2021-03-21] MEDS: ADVAIR HFA 230/21MCG INHALER INH SCH ×2 (08:02→19:59)
[2021-03-21] MEDS: LEVALBUTEROL 1.25 MG/0.5 ML CONCENTRATE NEB NEB SCH ×4 (08:03→19:59)
[2021-03-21] MEDS: LEVEMIR (INSULIN DETEMIR) 1 UNITS/0.01ML SC SCH (09:53)
[2021-03-21] MEDS: HumaLOG INSULIN (NovoLOG) PER UNIT SC SCH ×4 (09:53→21:48)
[2021-03-21] MEDS: POTASSIUM CHLORIDE 10MEQ SR TABLET PO SCH (09:54)
[2021-03-21] MEDS: DOCUSATE SODIUM 100MG CAPSULE PO SCH ×2 (09:54→21:00)
[2021-03-21] MEDS: DOXYCYCLINE HYCLATE 100MG TABLET PO SCH ×2 (09:54→21:51)
[2021-03-21] MEDS: OMEPRAZOLE 20MG CAP PO SCH (09:54)
[2021-03-21] MEDS: PREGABALIN 75 MG CAP(LYRICA) PO SCH ×2 (09:54→21:49)
[2021-03-21] MEDS: CALCITRIOL 0.25 MCG CAP (S0169) PO SCH (09:55)
[2021-03-21] MEDS: APIXABAN 5 MG TAB (ELIQUIS) PO SCH ×2 (09:55→21:49)
[2021-03-21] MEDS: MULTIVITAMINS/MINERALS THERAP 1 TAB PO SCH (09:55)
[2021-03-21] MEDS: bisoproloL fumarate 5 MG TAB PO SCH (09:56)
[2021-03-21 11:57] VITALS: BP 135/68
[2021-03-21 15:48] LABS: MAGNESIUM LEVEL 2.2 MG/DL (1.7-2.2)
[2021-03-21 16:31] VITALS: BP 133/92
[2021-03-21 20:05] VITALS: BP 174/77
[2021-03-21 20:06] VITALS: BP 170/70
[2021-03-21] MEDS: ATORVASTATIN 20 MG TAB PO SCH (21:49)
[2021-03-21] MEDS: VITAMIN D 1,000 INTERNATIONAL UNITS TABLET PO SCH (21:49)
[2021-03-21] MEDS: AMIODARONE 200 MG TAB (PACERONE) PO SCH (21:51)
[2021-03-22 04:45] LABS: BASO % 0.2 % (0.0-1.0); HEMATOCRIT 31.6 % (36.0-47.0); HEMOGLOBIN 9.1 g/dl (12.0-15.5); LYMPH # 0.4 10^3/uL (1.5-5.0); LYMPH % 3.2 % (24.0-44.0); MEAN CORPUSCULAR HEMOGLOBIN 22.1 pg (27.0-33.0); MEAN CORPUSCULAR HGB CONC 28.8 g/dl (32.0-36.5); MEAN CORPUSCULAR VOLUME 76.9 fl (80.0-96.0); MONO # 0.4 10^3/uL (0.0-0.8); MONO % 3.1 % (2.0-8.0); NEUTROPHILS # 11.7 10^3/uL (1.5-8.5); NEUTROPHILS % 91.4 % (36.0-66.0); PLATELET COUNT, AUTOMATED 321 10^3/uL (150-450); RED BLOOD COUNT 4.11 10^6/uL (4.00-5.40); WHITE BLOOD COUNT 12.8 10^3/uL (4.0-10.0)
[2021-03-22 05:05] LABS: CALCIUM LEVEL 8.8 MG/DL (8.8-10.2); CREATININE FOR GFR 1.36 MG/DL (0.55-1.30); GLOMERULAR FILTRATION RATE 39.3 (>32); POTASSIUM SERUM 4.6 MEQ/L (3.5-5.1)
[2021-03-22] MEDS: methylPREDNISolone 40MG 1ML VIAL IV SCH ×2 (07:27→17:53)
[2021-03-22] MEDS: ADVAIR HFA 230/21MCG INHALER INH SCH ×2 (08:09→20:47)
[2021-03-22] MEDS: LEVALBUTEROL 1.25 MG/0.5 ML CONCENTRATE NEB NEB SCH ×4 (08:09→20:05)
[2021-03-22] MEDS: BUDESONIDE 0.5 MG/2 ML INHALATION SUSPENSION INH SCH ×2 (08:09→20:05)
[2021-03-22 08:47] VITALS: BP 138/87
[2021-03-22] MEDS: HumaLOG INSULIN (NovoLOG) PER UNIT SC SCH ×4 (09:00→20:10)
[2021-03-22] MEDS: PREGABALIN 75 MG CAP(LYRICA) PO SCH ×2 (09:01→20:28)
[2021-03-22] MEDS: OMEPRAZOLE 20MG CAP PO SCH (09:01)
[2021-03-22] MEDS: bisoproloL fumarate 5 MG TAB PO SCH (09:01)
[2021-03-22] MEDS: DOCUSATE SODIUM 100MG CAPSULE PO SCH ×2 (09:01→20:28)
[2021-03-22] MEDS: POTASSIUM CHLORIDE 10MEQ SR TABLET PO SCH (09:01)
[2021-03-22] MEDS: MULTIVITAMINS/MINERALS THERAP 1 TAB PO SCH (09:02)
[2021-03-22] MEDS: APIXABAN 5 MG TAB (ELIQUIS) PO SCH ×2 (09:02→20:28)
[2021-03-22] MEDS: CALCITRIOL 0.25 MCG CAP (S0169) PO SCH (09:02)
[2021-03-22] MEDS: LEVEMIR (INSULIN DETEMIR) 1 UNITS/0.01ML SC SCH (09:02)
[2021-03-22] MEDS: DOXYCYCLINE HYCLATE 100MG TABLET PO SCH ×2 (09:02→20:28)
[2021-03-22 13:04] VITALS: BP 167/95
[2021-03-22 17:01] VITALS: BP 162/87
[2021-03-22 20:09] VITALS: BP 139/76
[2021-03-22] MEDS: AMIODARONE 200 MG TAB (PACERONE) PO SCH (20:28)
[2021-03-22] MEDS: VITAMIN D 1,000 INTERNATIONAL UNITS TABLET PO SCH (20:28)
[2021-03-22] MEDS: ATORVASTATIN 20 MG TAB PO SCH (20:28)
[2021-03-22 21:51] LABS: MAGNESIUM LEVEL 2.2 MG/DL (1.7-2.2)
[2021-03-23] VITALS (7 sets, daily range): BP systolic 127–165; BP diastolic 72–100
[2021-03-23] MEDS: methylPREDNISolone 40MG 1ML VIAL IV SCH (05:41)
[2021-03-23 05:45] LABS: BASO % 0.3 % (0.0-1.0); HEMATOCRIT 35.2 % (36.0-47.0); HEMOGLOBIN 9.9 g/dl (12.0-15.5); LYMPH # 0.7 10^3/uL (1.5-5.0); LYMPH % 5.1 % (24.0-44.0); MEAN CORPUSCULAR HGB CONC 28.1 g/dl (32.0-36.5); MEAN CORPUSCULAR VOLUME 78.2 fl (80.0-96.0); MONO # 0.5 10^3/uL (0.0-0.8); MONO % 3.8 % (2.0-8.0); NEUTROPHILS # 11.2 10^3/uL (1.5-8.5); NEUTROPHILS % 87.9 % (36.0-66.0); PLATELET COUNT, AUTOMATED 385 10^3/uL (150-450); WHITE BLOOD COUNT 12.7 10^3/uL (4.0-10.0)
[2021-03-23 06:02] LABS: CALCIUM LEVEL 8.9 MG/DL (8.8-10.2); CREATININE FOR GFR 1.19 MG/DL (0.55-1.30); GLOMERULAR FILTRATION RATE 45.9 (>32); POTASSIUM SERUM 4.8 MEQ/L (3.5-5.1)
[2021-03-23] MEDS: LEVALBUTEROL 1.25 MG/0.5 ML CONCENTRATE NEB NEB SCH ×4 (06:17→19:18)
[2021-03-23] MEDS: BUDESONIDE 0.5 MG/2 ML INHALATION SUSPENSION INH SCH ×2 (06:18→19:18)
[2021-03-23] MEDS: HumaLOG INSULIN (NovoLOG) PER UNIT SC SCH ×4 (08:25→20:31)
[2021-03-23] MEDS: LEVEMIR (INSULIN DETEMIR) 1 UNITS/0.01ML SC SCH (08:25)
[2021-03-23] MEDS: predniSONE 20 MG TAB PO SCH (08:26)
[2021-03-23] MEDS: OMEPRAZOLE 20MG CAP PO SCH (08:26)
[2021-03-23] MEDS: bisoproloL fumarate 5 MG TAB PO SCH (08:26)
[2021-03-23] MEDS: PREGABALIN 75 MG CAP(LYRICA) PO SCH ×3 (08:26→20:30)
[2021-03-23] MEDS: DOCUSATE SODIUM 100MG CAPSULE PO SCH ×2 (08:26→20:30)
[2021-03-23] MEDS: guaiFENesin ER 600 MG TAB PO SCH ×2 (08:26→20:30)
[2021-03-23] MEDS: CALCITRIOL 0.25 MCG CAP (S0169) PO SCH (08:26)
[2021-03-23] MEDS: MULTIVITAMINS/MINERALS THERAP 1 TAB PO SCH (08:27)
[2021-03-23] MEDS: APIXABAN 5 MG TAB (ELIQUIS) PO SCH ×2 (08:27→20:30)
[2021-03-23] MEDS: DOXYCYCLINE HYCLATE 100MG TABLET PO SCH ×2 (08:27→20:30)
[2021-03-23] MEDS: ADVAIR HFA 230/21MCG INHALER INH SCH ×2 (08:31→19:18)
[2021-03-23 08:45] LABS: ABG BASE EXCESS -2.5 (-2.0-2.0); ABG HCO3 22.3 MEQ/L (22.0-26.0); ABG O2 SATURATION 97.1 % (95.0-99.0); ABG PARTIAL PRESSURE CO2 38.9 mmHg (35.0-45.0); ABG PARTIAL PRESSURE O2 105.7 mmHg (75.0-100.0); ABG STANDARD HCO3 22.3 MEQ/L (22.0-26.0); ABG TOTAL CO2 23.5 MEQ/L (23.0-31.0); ABG pH (ARTERIAL) 7.377 UNITS (7.350-7.450)
[2021-03-23 17:19] LABS: MAGNESIUM LEVEL 2.2 MG/DL (1.7-2.2)
[2021-03-23] MEDS: VITAMIN D 1,000 INTERNATIONAL UNITS TABLET PO SCH (20:30)
[2021-03-23] MEDS: ATORVASTATIN 20 MG TAB PO SCH (20:30)
[2021-03-23] MEDS: AMIODARONE 200 MG TAB (PACERONE) PO SCH (20:30)
[2021-03-24 05:54] LABS: BASO % 0.2 % (0.0-1.0); EOS % 0.1 % (0.0-3.0); HEMATOCRIT 32.5 % (36.0-47.0); HEMOGLOBIN 9.4 g/dl (12.0-15.5); LYMPH # 1.7 10^3/uL (1.5-5.0); LYMPH % 11.1 % (24.0-44.0); MEAN CORPUSCULAR HEMOGLOBIN 22.1 pg (27.0-33.0); MEAN CORPUSCULAR HGB CONC 28.9 g/dl (32.0-36.5); MEAN CORPUSCULAR VOLUME 76.5 fl (80.0-96.0); MONO % 6.6 % (2.0-8.0); NEUTROPHILS # 12.4 10^3/uL (1.5-8.5); NEUTROPHILS % 80.4 % (36.0-66.0); PLATELET COUNT, AUTOMATED 361 10^3/uL (150-450); RED BLOOD COUNT 4.25 10^6/uL (4.00-5.40); WHITE BLOOD COUNT 15.5 10^3/uL (4.0-10.0)
[2021-03-24 06:00] VITALS: BP 139/68
[2021-03-24 06:23] LABS: CALCIUM LEVEL 8.5 MG/DL (8.8-10.2); CREATININE FOR GFR 1.16 MG/DL (0.55-1.30); GLOMERULAR FILTRATION RATE 47.3 (>32); POTASSIUM SERUM 4.1 MEQ/L (3.5-5.1)
[2021-03-24] MEDS: BUDESONIDE 0.5 MG/2 ML INHALATION SUSPENSION INH SCH ×2 (07:59→20:24)
[2021-03-24] MEDS: ADVAIR HFA 230/21MCG INHALER INH SCH ×2 (07:59→20:26)
[2021-03-24] MEDS: APIXABAN 5 MG TAB (ELIQUIS) PO SCH ×2 (08:19→21:54)
[2021-03-24] MEDS: DOCUSATE SODIUM 100MG CAPSULE PO SCH ×2 (08:19→21:54)
[2021-03-24] MEDS: bisoproloL fumarate 5 MG TAB PO SCH (08:19)
[2021-03-24] MEDS: HumaLOG INSULIN (NovoLOG) PER UNIT SC SCH ×4 (08:20→21:00)
[2021-03-24] MEDS: OMEPRAZOLE 20MG CAP PO SCH (08:20)
[2021-03-24] MEDS: guaiFENesin ER 600 MG TAB PO SCH ×2 (08:20→21:54)
[2021-03-24] MEDS: DOXYCYCLINE HYCLATE 100MG TABLET PO SCH ×2 (08:20→21:53)
[2021-03-24] MEDS: CALCITRIOL 0.25 MCG CAP (S0169) PO SCH (08:20)
[2021-03-24] MEDS: predniSONE 20 MG TAB PO SCH (08:20)
[2021-03-24] MEDS: PREGABALIN 75 MG CAP(LYRICA) PO SCH ×2 (08:20→21:54)
[2021-03-24] MEDS: MULTIVITAMINS/MINERALS THERAP 1 TAB PO SCH (08:20)
[2021-03-24] MEDS: LEVEMIR (INSULIN DETEMIR) 1 UNITS/0.01ML SC SCH (08:26)
[2021-03-24] MEDS: LEVALBUTEROL 1.25 MG/0.5 ML CONCENTRATE NEB NEB SCH ×4 (11:25→20:24)
[2021-03-24 14:00] VITALS: BP 151/74
[2021-03-24 16:07] LABS: MAGNESIUM LEVEL 2.1 MG/DL (1.7-2.2)
[2021-03-24 21:00] VITALS: BP 172/95
[2021-03-24] MEDS: AMIODARONE 200 MG TAB (PACERONE) PO SCH (21:54)
[2021-03-24] MEDS: VITAMIN D 1,000 INTERNATIONAL UNITS TABLET PO SCH (21:54)
[2021-03-24] MEDS: ATORVASTATIN 20 MG TAB PO SCH (21:54)
[2021-03-25 05:23] LABS: BASO % 0.2 % (0.0-1.0); EOS % 0.2 % (0.0-3.0); HEMATOCRIT 30.2 % (36.0-47.0); HEMOGLOBIN 8.9 g/dl (12.0-15.5); LYMPH # 1.8 10^3/uL (1.5-5.0); LYMPH % 14.9 % (24.0-44.0); MEAN CORPUSCULAR HEMOGLOBIN 22.3 pg (27.0-33.0); MEAN CORPUSCULAR HGB CONC 29.5 g/dl (32.0-36.5); MEAN CORPUSCULAR VOLUME 75.5 fl (80.0-96.0); MONO # 0.9 10^3/uL (0.0-0.8); MONO % 7.2 % (2.0-8.0); NEUTROPHILS % 75.7 % (36.0-66.0); PLATELET COUNT, AUTOMATED 315 10^3/uL (150-450); WHITE BLOOD COUNT 11.9 10^3/uL (4.0-10.0)
[2021-03-25 05:44] LABS: CALCIUM LEVEL 8.4 MG/DL (8.8-10.2); CREATININE FOR GFR 1.17 MG/DL (0.55-1.30); GLOMERULAR FILTRATION RATE 46.8 (>32); POTASSIUM SERUM 3.9 MEQ/L (3.5-5.1)
[2021-03-25 06:00] VITALS: BP 158/84
[2021-03-25] MEDS: LEVALBUTEROL 1.25 MG/0.5 ML CONCENTRATE NEB NEB SCH ×2 (08:00→11:45)
[2021-03-25] MEDS: BUDESONIDE 0.5 MG/2 ML INHALATION SUSPENSION INH SCH (08:00)
[2021-03-25] MEDS: ADVAIR HFA 230/21MCG INHALER INH SCH (08:11)
[2021-03-25] MEDS: HumaLOG INSULIN (NovoLOG) PER UNIT SC SCH ×2 (08:15→12:36)
[2021-03-25] MEDS: PREGABALIN 75 MG CAP(LYRICA) PO SCH (09:00)
[2021-03-25] MEDS ORDERED: PRED10TA2 PO (10:19)
[2021-03-25] MEDS: CALCITRIOL 0.25 MCG CAP (S0169) PO SCH (10:55)
[2021-03-25] MEDS: MULTIVITAMINS/MINERALS THERAP 1 TAB PO SCH (10:55)
[2021-03-25] MEDS: OMEPRAZOLE 20MG CAP PO SCH (10:55)
[2021-03-25] MEDS: guaiFENesin ER 600 MG TAB PO SCH (10:55)
[2021-03-25] MEDS: LEVEMIR (INSULIN DETEMIR) 1 UNITS/0.01ML SC SCH (10:56)
[2021-03-25] MEDS: DOCUSATE SODIUM 100MG CAPSULE PO SCH (10:56)
[2021-03-25] MEDS: DOXYCYCLINE HYCLATE 100MG TABLET PO SCH (10:56)
[2021-03-25] MEDS: APIXABAN 5 MG TAB (ELIQUIS) PO SCH (10:56)
[2021-03-25] MEDS: predniSONE 20 MG TAB PO SCH (10:56)
[2021-03-25 11:04] VITALS: BP 140/70
[2021-03-25] MEDS: bisoproloL fumarate 5 MG TAB PO SCH (11:04)
[2021-03-25 16:37] LABS: MAGNESIUM LEVEL 2.1 MG/DL (1.7-2.2)
== END 2021-03-25 13:26 | disposition home health service (06) | DRG 193 ==
LOC: M ED 12:56 → M ED INP 15:31 → ENRESERV 17:05 → M PCU 18:48 → M MSPAV 03-23 13:15
PROVIDERS: ADMIT Internal Medicine; ATTEND Family Medicine
DX: J18.9 Pneumonia, unspecified organism (principal); J96.21 Acute and chronic respiratory failure with hypoxia; J45.901 Unspecified asthma with (acute) exacerbation; I50.32 Chronic diastolic (congestive) heart failure; I13.0 Hypertensive heart and chronic kidney disease with heart failure and stage 1 through stage 4 chronic kidney disease, or unspecified chronic kidney disease; N17.9 Acute kidney failure, unspecified; N18.30 Chronic kidney disease, stage 3 unspecified; I48.0 Paroxysmal atrial fibrillation; K21.9 Gastro-esophageal reflux disease without esophagitis; G47.33 Obstructive sleep apnea (adult) (pediatric); E78.5 Hyperlipidemia, unspecified; I71.4 Abdominal aortic aneurysm, without rupture; I25.10 Atherosclerotic heart disease of native coronary artery without angina pectoris; M81.0 Age-related osteoporosis without current pathological fracture; Z99.81 Dependence on supplemental oxygen; Z79.899 Other long term (current) drug therapy; Z88.8 Allergy status to other drugs, medicaments and biological substances; E66.9 Obesity, unspecified; R94.31 Abnormal electrocardiogram [ECG] [EKG]

== ENCOUNTER 2021-04-17 18:23 | Inpatient (IN) | payer MEDICARE ==
[~2021-04-17] VITALS: Ht 170.2 cm; Wt 108.4 kg
[~2021-04-17 18:23] MED LIST changes: -D31000TA2 PO; +LEVO500T4 PO; +VITA100093 PO
[2021-04-17 19:40] LABS: BASO % 0.2 % (0.0-1.0); EOS # 0.1 10^3/uL (0.0-0.5); EOS % 1.4 % (0.0-3.0); HEMATOCRIT 32.1 % (36.0-47.0); HEMOGLOBIN 9.3 g/dl (12.0-15.5); LYMPH # 1.1 10^3/uL (1.5-5.0); LYMPH % 10.9 % (24.0-44.0); MEAN CORPUSCULAR HEMOGLOBIN 21.8 pg (27.0-33.0); MEAN CORPUSCULAR VOLUME 75.2 fl (80.0-96.0); MONO # 0.6 10^3/uL (0.0-0.8); MONO % 6.4 % (2.0-8.0); NEUTROPHILS # 7.7 10^3/uL (1.5-8.5); NEUTROPHILS % 80.5 % (36.0-66.0); PLATELET COUNT, AUTOMATED 294 10^3/uL (150-450); RED BLOOD COUNT 4.27 10^6/uL (4.00-5.40); WHITE BLOOD COUNT 9.6 10^3/uL (4.0-10.0)
[2021-04-17 20:05] LABS: CALCIUM LEVEL 8.3 MG/DL (8.8-10.2); CREATININE FOR GFR 1.42 MG/DL (0.55-1.30); GLOMERULAR FILTRATION RATE 37.4 (>32); POTASSIUM SERUM 3.9 MEQ/L (3.5-5.1); THYROID STIMULATING HORMONE 2.51 uIU/ML (0.358-3.740)
[2021-04-17 20:15] LABS: INR 1.12; PROTHROMBIN TIME 14.8 SECONDS (12.7-14.5)
[2021-04-17 20:16] LABS: PARTIAL THROMBOPLASTIN TIME 30.3 SECONDS (25.9-37.0)
[2021-04-17 20:41] LABS: RSV AMPLIFICATION NEGATIVE (NEGATIVE)
[2021-04-17] MEDS ORDERED: FUROSEMIDE 40MG/4ML VIAL (J1940) IV ONE (21:15)
[2021-04-17] MEDS ORDERED: AMIODARONE 200 MG TAB (PACERONE) PO ONE (21:15)
[2021-04-17] MEDS ORDERED: MORPHINE 2 MG/ML 1ML VIAL (J2270) IV ONE (23:30)
[2021-04-18 00:25] LABS: CK-MB VALUE MASS 6.4 NG/ML (<3.6); MB/CK RELATIVE INDEX 5.57 (< OR =4)
[2021-04-18] MEDS ORDERED: LEVALBUTEROL HFA 45MCG/ACT 15 GM INHALER INH PRN (01:40)
[2021-04-18] MEDS ORDERED: FERR325T18 PO (06:23)
[2021-04-18] MEDS ORDERED: FLUT1BLS8 INH (06:23)
[2021-04-18] MEDS ORDERED: OMEP40CA5 PO (06:23)
[2021-04-18] MEDS ORDERED: PREG150C PO (06:23)
[2021-04-18] MEDS ORDERED: HOME MED LIST COMPLETE! XX SCH (06:25)
[2021-04-18 06:54] LABS: HEMATOCRIT 31.9 % (36.0-47.0); HEMOGLOBIN 9.3 g/dl (12.0-15.5); MEAN CORPUSCULAR HEMOGLOBIN 21.9 pg (27.0-33.0); MEAN CORPUSCULAR HGB CONC 29.2 g/dl (32.0-36.5); MEAN CORPUSCULAR VOLUME 75.1 fl (80.0-96.0); PLATELET COUNT, AUTOMATED 259 10^3/uL (150-450); RED BLOOD COUNT 4.25 10^6/uL (4.00-5.40); WHITE BLOOD COUNT 7.2 10^3/uL (4.0-10.0)
[2021-04-18 07:13] LABS: CK-MB VALUE MASS 3.2 NG/ML (<3.6); MB/CK RELATIVE INDEX 4.21 (< OR =4)
[2021-04-18 07:17] LABS: CALCIUM LEVEL 7.9 MG/DL (8.8-10.2); CREATININE FOR GFR 1.27 MG/DL (0.55-1.30); GLOMERULAR FILTRATION RATE 42.6 (>32); POTASSIUM SERUM 3.8 MEQ/L (3.5-5.1)
[2021-04-18] MEDS ORDERED: DEXTROSE 50% 50 ML SYRINGE IV PRN (07:25)
[2021-04-18] MEDS ORDERED: GLUCAGON INJ 1MG VIAL SC PRN (07:25)
[2021-04-18] MEDS ORDERED: GLUCOSE 4GM CHEW TABLET PO PRN (07:25)
[2021-04-18] MEDS: HumaLOG INSULIN (NovoLOG) PER UNIT SC SCH ×4 (07:30→20:42)
[2021-04-18] MEDS: BUDESONIDE 0.5 MG/2 ML INHALATION SUSPENSION INH SCH ×2 (08:00→20:02)
[2021-04-18] MEDS ORDERED: ACETAMINOPHEN TAB 650MG DOSE (2X325MG) PO PRN (08:35)
[2021-04-18] MEDS: DULoxetine 30MG CAPSULE (CYMBALTA) PO SCH (09:28)
[2021-04-18] MEDS: bisoproloL fumarate 5 MG TAB PO SCH (09:28)
[2021-04-18] MEDS: PANTOPRAZOLE 40MG VIAL (C9113 PER 1) IV SCH (09:28)
[2021-04-18] MEDS: FUROSEMIDE 20 MG TAB PO SCH (09:29)
[2021-04-18] MEDS: FLUoxetine 20 MG CAP PO SCH (09:29)
[2021-04-18 11:16] VITALS: BP 112/56
[2021-04-18] MEDS: LEVALBUTEROL 1.25 MG/0.5 ML CONCENTRATE NEB INH PRN (13:51)
[2021-04-18 17:07] VITALS: BP 144/65
[2021-04-18 20:00] VITALS: BP 136/69
[2021-04-18] MEDS: APIXABAN 5 MG TAB (ELIQUIS) PO SCH (20:37)
[2021-04-18] MEDS: ATORVASTATIN 20 MG TAB PO SCH (20:38)
[2021-04-18] MEDS: AMIODARONE 200 MG TAB (PACERONE) PO SCH (20:38)
[2021-04-18] MEDS: PERCOCET 5MG/325MG TAB PO PRN (20:38)
[2021-04-19] VITALS: BP_SYST 135; BP_SYST 157; BP_DIAS 61; BP_DIAS 73
[2021-04-19 04:00] VITALS: BP 157/73
[2021-04-19 05:52] LABS: HEMATOCRIT 30.3 % (36.0-47.0); HEMOGLOBIN 8.8 g/dl (12.0-15.5); MEAN CORPUSCULAR HEMOGLOBIN 21.7 pg (27.0-33.0); MEAN CORPUSCULAR VOLUME 74.6 fl (80.0-96.0); PLATELET COUNT, AUTOMATED 267 10^3/uL (150-450); RED BLOOD COUNT 4.06 10^6/uL (4.00-5.40); WHITE BLOOD COUNT 6.5 10^3/uL (4.0-10.0)
[2021-04-19 06:10] LABS: CALCIUM LEVEL 8.4 MG/DL (8.8-10.2); CREATININE FOR GFR 1.08 MG/DL (0.55-1.30); GLOMERULAR FILTRATION RATE 51.3 (>32); POTASSIUM SERUM 3.9 MEQ/L (3.5-5.1)
[2021-04-19] MEDS: BUDESONIDE 0.5 MG/2 ML INHALATION SUSPENSION INH SCH ×2 (07:24→20:18)
[2021-04-19] MEDS: FUROSEMIDE 20 MG TAB PO SCH (08:59)
[2021-04-19] MEDS: bisoproloL fumarate 5 MG TAB PO SCH (08:59)
[2021-04-19] MEDS: PANTOPRAZOLE 40MG VIAL (C9113 PER 1) IV SCH (08:59)
[2021-04-19] MEDS: PERCOCET 5MG/325MG TAB PO PRN ×3 (08:59→17:02)
[2021-04-19] MEDS: FLUoxetine 20 MG CAP PO SCH (08:59)
[2021-04-19 09:00] VITALS: BP 148/77
[2021-04-19] MEDS: APIXABAN 5 MG TAB (ELIQUIS) PO SCH ×2 (09:00→20:17)
[2021-04-19] MEDS: DULoxetine 30MG CAPSULE (CYMBALTA) PO SCH (09:00)
[2021-04-19] MEDS: HumaLOG INSULIN (NovoLOG) PER UNIT SC SCH ×4 (09:00→21:00)
[2021-04-19 11:59] VITALS: BP 127/68
[2021-04-19 16:39] VITALS: BP 139/64
[2021-04-19] MEDS: AMIODARONE 200 MG TAB (PACERONE) PO SCH (20:17)
[2021-04-19] MEDS: ATORVASTATIN 20 MG TAB PO SCH (20:17)
[2021-04-20] MEDS: PERCOCET 5MG/325MG TAB PO PRN ×4 (04:03→22:56)
[2021-04-20 05:22] LABS: HEMATOCRIT 30.4 % (36.0-47.0); HEMOGLOBIN 8.8 g/dl (12.0-15.5); MEAN CORPUSCULAR HEMOGLOBIN 21.6 pg (27.0-33.0); MEAN CORPUSCULAR HGB CONC 28.9 g/dl (32.0-36.5); MEAN CORPUSCULAR VOLUME 74.5 fl (80.0-96.0); PLATELET COUNT, AUTOMATED 287 10^3/uL (150-450); RED BLOOD COUNT 4.08 10^6/uL (4.00-5.40); WHITE BLOOD COUNT 6.2 10^3/uL (4.0-10.0)
[2021-04-20 05:53] LABS: CALCIUM LEVEL 8.3 MG/DL (8.8-10.2); CREATININE FOR GFR 1.14 MG/DL (0.55-1.30); GLOMERULAR FILTRATION RATE 48.2 (>32)
[2021-04-20 06:00] VITALS: BP 139/83
[2021-04-20] MEDS: bisoproloL fumarate 5 MG TAB PO SCH (07:52)
[2021-04-20] MEDS: HumaLOG INSULIN (NovoLOG) PER UNIT SC SCH ×4 (07:52→21:00)
[2021-04-20] MEDS: APIXABAN 5 MG TAB (ELIQUIS) PO SCH ×2 (07:52→21:24)
[2021-04-20] MEDS: FLUoxetine 20 MG CAP PO SCH (07:52)
[2021-04-20] MEDS: PANTOPRAZOLE 40MG VIAL (C9113 PER 1) IV SCH (07:52)
[2021-04-20] MEDS: DULoxetine 30MG CAPSULE (CYMBALTA) PO SCH (07:53)
[2021-04-20] MEDS: BUDESONIDE 0.5 MG/2 ML INHALATION SUSPENSION INH SCH ×2 (08:19→19:58)
[2021-04-20 12:50] VITALS: BP 130/60
[2021-04-20] MEDS ORDERED: ONDANSETRON 4 MG TAB PO PRN (14:05)
[2021-04-20] MEDS: AMIODARONE 200 MG TAB (PACERONE) PO SCH (21:24)
[2021-04-20] MEDS: ATORVASTATIN 20 MG TAB PO SCH (21:24)
[2021-04-21 06:00] VITALS: BP 134/75
[2021-04-21] MEDS: BUDESONIDE 0.5 MG/2 ML INHALATION SUSPENSION INH SCH ×2 (07:10→18:14)
[2021-04-21] MEDS: LEVALBUTEROL 1.25 MG/0.5 ML CONCENTRATE NEB INH PRN ×2 (07:10→11:15)
[2021-04-21] MEDS: HumaLOG INSULIN (NovoLOG) PER UNIT SC SCH ×4 (09:15→21:00)
[2021-04-21] MEDS: FUROSEMIDE 20 MG TAB PO SCH (09:16)
[2021-04-21] MEDS: DULoxetine 30MG CAPSULE (CYMBALTA) PO SCH (09:16)
[2021-04-21] MEDS: PANTOPRAZOLE 40MG VIAL (C9113 PER 1) IV SCH (09:16)
[2021-04-21] MEDS: FLUoxetine 20 MG CAP PO SCH (09:16)
[2021-04-21] MEDS: APIXABAN 5 MG TAB (ELIQUIS) PO SCH ×2 (09:16→22:00)
[2021-04-21] MEDS: bisoproloL fumarate 5 MG TAB PO SCH (09:16)
[2021-04-21] MEDS: PERCOCET 5MG/325MG TAB PO PRN ×2 (14:29→22:02)
[2021-04-21] MEDS ORDERED: FUROSEMIDE 20 MG TAB PO ONE (16:00)
[2021-04-21 19:47] VITALS: BP 146/45
[2021-04-21] MEDS: AMIODARONE 200 MG TAB (PACERONE) PO SCH (22:00)
[2021-04-21] MEDS: ATORVASTATIN 20 MG TAB PO SCH (22:00)
[2021-04-22 05:32] VITALS: BP 164/92
[2021-04-22] MEDS: LEVALBUTEROL 1.25 MG/0.5 ML CONCENTRATE NEB INH PRN (07:29)
[2021-04-22] MEDS: BUDESONIDE 0.5 MG/2 ML INHALATION SUSPENSION INH SCH (07:29)
[2021-04-22 08:00] VITALS: BP 150/80
[2021-04-22] MEDS: FLUoxetine 20 MG CAP PO SCH (08:33)
[2021-04-22] MEDS: APIXABAN 5 MG TAB (ELIQUIS) PO SCH (08:33)
[2021-04-22 08:34] VITALS: BP 150/80
[2021-04-22] MEDS: DULoxetine 30MG CAPSULE (CYMBALTA) PO SCH (08:34)
[2021-04-22] MEDS: bisoproloL fumarate 5 MG TAB PO SCH (08:34)
[2021-04-22] MEDS: HumaLOG INSULIN (NovoLOG) PER UNIT SC SCH ×2 (08:35→13:33)
[2021-04-22] MEDS: PERCOCET 5MG/325MG TAB PO PRN ×2 (08:54→13:34)
[2021-04-22] MEDS ORDERED: FUROSEMIDE 40 MG TAB PO SCH (09:00)
[2021-04-22] MEDS ORDERED: PANTOPRAZOLE 40MG TAB (PROTONIX) PO SCH (09:00)
[2021-04-22 14:00] VITALS: BP 141/78
== END 2021-04-22 17:00 | disposition home health service (06) | DRG 312 ==
LOC: M ED 18:23 → M ED INP 04-18 00:08 → ENRESERV 04-18 10:56 → M PCU 04-18 11:09 → OBSVTOIN 04-19 10:27 → M MSPAV 04-20 12:50
PROVIDERS: ADMIT Family Medicine; ATTEND Internal Medicine
DX: I95.1 Orthostatic hypotension (principal); I50.33 Acute on chronic diastolic (congestive) heart failure; J96.11 Chronic respiratory failure with hypoxia; I13.0 Hypertensive heart and chronic kidney disease with heart failure and stage 1 through stage 4 chronic kidney disease, or unspecified chronic kidney disease; N17.9 Acute kidney failure, unspecified; E11.22 Type 2 diabetes mellitus with diabetic chronic kidney disease; N18.30 Chronic kidney disease, stage 3 unspecified; E78.5 Hyperlipidemia, unspecified; M81.0 Age-related osteoporosis without current pathological fracture; J45.909 Unspecified asthma, uncomplicated; Z79.4 Long term (current) use of insulin; I71.4 Abdominal aortic aneurysm, without rupture; I48.91 Unspecified atrial fibrillation; G47.33 Obstructive sleep apnea (adult) (pediatric); Z79.01 Long term (current) use of anticoagulants; Z79.899 Other long term (current) drug therapy; Z88.8 Allergy status to other drugs, medicaments and biological substances; Z85.828 Personal history of other malignant neoplasm of skin; Z87.891 Personal history of nicotine dependence; K21.9 Gastro-esophageal reflux disease without esophagitis; M54.59 Other low back pain

== ENCOUNTER → 2021-05-10 | Outpatient (REF) | payer MEDICARE ==
[~2021-05-10] MED LIST changes: +FERR325T18 PO; +FLUT1BLS8 INH; +PREG150C PO
[2021-05-10 19:11] LABS: MAGNESIUM LEVEL 2.2 MG/DL (1.8-2.4)
== END ==
LOC: M SHH 17:21
PROVIDERS: ATTEND Nurse Practitioner Family
DX: I50.32 Chronic diastolic (congestive) heart failure (principal)

== ENCOUNTER → 2021-05-11 | Outpatient (CLI) | payer MEDICARE ==
[~2021-05-11] MED LIST changes: +FLUT1BLS8 IH
[2021-05-11 12:39] LABS: MAGNESIUM LEVEL 2.1 MG/DL (1.8-2.4)
== END ==
LOC: M SHH 12:21
PROVIDERS: ATTEND Nurse Practitioner Family
DX: I50.32 Chronic diastolic (congestive) heart failure (principal); Z79.01 Long term (current) use of anticoagulants

== ENCOUNTER 2021-05-14 14:32 | Inpatient (IN) | payer MEDICARE ==
[~2021-05-14] VITALS: Ht 170.2 cm; Wt 101.9 kg
[~2021-05-14 14:32] MED LIST changes: -FLUT1BLS8 IH
[2021-05-14] MEDS ORDERED: ALBUTEROL SULFATE 2.5 MG/0.5 ML INH NEB SOLN INH PRN (16:10)
[2021-05-14] MEDS ORDERED: FUROSEMIDE 20MG/2ML VIAL (J1940) IV ONE (16:25)
[2021-05-14 16:53] LABS: ABG BASE EXCESS -0.9 (-2.0-2.0); ABG HCO3 22.7 MEQ/L (22.0-26.0); ABG O2 SATURATION 96.9 % (95.0-99.0); ABG PARTIAL PRESSURE CO2 33.9 mmHg (35.0-45.0); ABG PARTIAL PRESSURE O2 92.4 mmHg (75.0-100.0); ABG STANDARD HCO3 23.7 MEQ/L (22.0-26.0); ABG TOTAL CO2 23.8 MEQ/L (23.0-31.0); ABG pH (ARTERIAL) 7.444 UNITS (7.350-7.450)
[2021-05-14 17:28] LABS: BASO # 0.1 10^3/uL (0.0-0.2); BASO % 0.5 % (0.0-1.0); EOS # 0.1 10^3/uL (0.0-0.5); EOS % 1.1 % (0.0-3.0); HEMOGLOBIN 10.2 g/dl (12.0-15.5); LYMPH % 10.7 % (24.0-44.0); MEAN CORPUSCULAR HEMOGLOBIN 21.5 pg (27.0-33.0); MEAN CORPUSCULAR HGB CONC 29.1 g/dl (32.0-36.5); MEAN CORPUSCULAR VOLUME 73.7 fl (80.0-96.0); MONO # 0.5 10^3/uL (0.0-0.8); MONO % 5.5 % (2.0-8.0); NEUTROPHILS % 81.8 % (36.0-66.0); PLATELET COUNT, AUTOMATED 299 10^3/uL (150-450); RED BLOOD COUNT 4.75 10^6/uL (4.00-5.40); WHITE BLOOD COUNT 9.7 10^3/uL (4.0-10.0)
[2021-05-14 17:40] LABS: INR 1.34
[2021-05-14 17:43] LABS: D-DIMER QUANT 3450.94 ng/ml (<500)
[2021-05-14 18:13] LABS: CALCIUM LEVEL 8.2 MG/DL (8.8-10.2); CREATININE FOR GFR 1.33 MG/DL (0.55-1.30); GLOMERULAR FILTRATION RATE 40.4 (>32); POTASSIUM SERUM 3.9 MEQ/L (3.5-5.1); THYROID STIMULATING HORMONE 2.86 uIU/ML (0.358-3.740)
[2021-05-14] MEDS ORDERED: ACETAMINOPHEN TAB 650MG DOSE (2X325MG) PO PRN (19:20)
[2021-05-14] MEDS ORDERED: MAALOX 30 ML SUSP *UDC PO PRN (19:20)
[2021-05-14] MEDS ORDERED: MOM 30ML SUSPENSION UDC PO PRN (19:20)
[2021-05-14 20:39] LABS: CK-MB VALUE MASS 1.8 NG/ML (<3.6)
[2021-05-14] MEDS ORDERED: HOME MED LIST COMPLETE! XX SCH (20:55)
[2021-05-14] MEDS ORDERED: FLUT1BLS8 IH (20:55)
[2021-05-14] MEDS ORDERED: GLUCAGON INJ 1MG VIAL SC PRN (21:10)
[2021-05-14] MEDS ORDERED: LEVALBUTEROL HFA 45MCG/ACT 15 GM INHALER INH PRN (21:10)
[2021-05-14] MEDS ORDERED: GLUCOSE 4GM CHEW TABLET PO PRN (21:10)
[2021-05-14] MEDS ORDERED: DEXTROSE 50% 50 ML SYRINGE IV PRN (21:10)
[2021-05-14] MEDS ORDERED: NITROGLYCERIN 0.4 MG SUBL TABLET SL PRN (21:10)
[2021-05-15] MEDS: HumaLOG INSULIN (NovoLOG) PER UNIT SC SCH ×5 (00:52→21:00)
[2021-05-15] MEDS: ATORVASTATIN 20 MG TAB PO SCH ×2 (00:56→21:53)
[2021-05-15] MEDS: AMIODARONE 200 MG TAB (PACERONE) PO SCH ×2 (00:56→21:53)
[2021-05-15] MEDS: APIXABAN 5 MG TAB (ELIQUIS) PO SCH ×3 (00:57→21:53)
[2021-05-15] MEDS: DOCUSATE SODIUM 100MG CAPSULE PO SCH ×3 (00:57→21:53)
[2021-05-15] MEDS: POTASSIUM CHLORIDE 10MEQ SR TABLET PO SCH (08:33)
[2021-05-15] MEDS: DULoxetine 30MG CAPSULE (CYMBALTA) PO SCH (08:33)
[2021-05-15] MEDS: OMEPRAZOLE 20MG CAP PO SCH (08:33)
[2021-05-15] MEDS: FERROUS SULFATE 325MG TAB PO SCH (08:33)
[2021-05-15 08:47] LABS: BASO % 0.4 % (0.0-1.0); EOS # 0.3 10^3/uL (0.0-0.5); EOS % 2.7 % (0.0-3.0); HEMATOCRIT 34.3 % (36.0-47.0); HEMOGLOBIN 10.1 g/dl (12.0-15.5); LYMPH # 1.3 10^3/uL (1.5-5.0); LYMPH % 14.6 % (24.0-44.0); MEAN CORPUSCULAR HEMOGLOBIN 21.8 pg (27.0-33.0); MEAN CORPUSCULAR HGB CONC 29.4 g/dl (32.0-36.5); MEAN CORPUSCULAR VOLUME 74.1 fl (80.0-96.0); MONO # 0.6 10^3/uL (0.0-0.8); MONO % 6.6 % (2.0-8.0); NEUTROPHILS # 6.9 10^3/uL (1.5-8.5); NEUTROPHILS % 75.3 % (36.0-66.0); PLATELET COUNT, AUTOMATED 318 10^3/uL (150-450); RED BLOOD COUNT 4.63 10^6/uL (4.00-5.40); WHITE BLOOD COUNT 9.1 10^3/uL (4.0-10.0)
[2021-05-15] MEDS ORDERED: LEVALBUTEROL 1.25 MG/0.5 ML CONCENTRATE NEB INH PRN (08:55)
[2021-05-15] MEDS ORDERED: FLUoxetine 20 MG CAP PO SCH (09:00)
[2021-05-15] MEDS: LEVEMIR (INSULIN DETEMIR) 1 UNITS/0.01ML SC SCH (09:00)
[2021-05-15] MEDS ORDERED: FUROSEMIDE 20MG/2ML VIAL (J1940) IV SCH (09:00)
[2021-05-15] MEDS ORDERED: bisoproloL fumarate 5 MG TAB PO SCH (09:00)
[2021-05-15 09:06] LABS: CK-MB VALUE MASS 2.5 NG/ML (<3.6); MB/CK RELATIVE INDEX 2.91 (< OR =4)
[2021-05-15 09:09] LABS: CALCIUM LEVEL 9.1 MG/DL (8.8-10.2); CREATININE FOR GFR 1.16 MG/DL (0.55-1.30); GLOMERULAR FILTRATION RATE 47.3 (>32); MAGNESIUM LEVEL 2.2 MG/DL (1.8-2.4); POTASSIUM SERUM 3.4 MEQ/L (3.5-5.1)
[2021-05-15] MEDS: predniSONE 20 MG TAB PO SCH (09:38)
[2021-05-15] MEDS ORDERED: bisoproloL fumarate 5 MG TAB PO ONE (11:30)
[2021-05-15] MEDS: LEVALBUTEROL 1.25 MG/0.5 ML CONCENTRATE NEB INH SCH ×3 (11:41→19:28)
[2021-05-15] MEDS: guaiFENesin ER 600 MG TAB PO SCH ×2 (11:55→21:53)
[2021-05-15] MEDS ORDERED: ASPIRIN 325 MG TAB PO ONE (12:15)
[2021-05-15 14:00] VITALS: BP 131/90
[2021-05-15 14:07] LABS: CK-MB VALUE MASS 1.7 NG/ML (<3.6); MB/CK RELATIVE INDEX 2.24 (< OR =4)
[2021-05-15 15:15] VITALS: BP 148/92
[2021-05-15] MEDS: FUROSEMIDE 40MG/4ML VIAL (J1940) IV SCH (21:54)
[2021-05-15 22:00] VITALS: BP 126/72
[2021-05-16] MEDS: LEVALBUTEROL 1.25 MG/0.5 ML CONCENTRATE NEB INH SCH ×7 (04:00→23:44)
[2021-05-16 04:12] VITALS: BP 142/76
[2021-05-16] MEDS: MORPHINE 2 MG/ML 1ML VIAL IV ONE ×2 (05:47→06:08)
[2021-05-16 07:08] LABS: BASO % 0.3 % (0.0-1.0); EOS % 0.4 % (0.0-3.0); HEMATOCRIT 35.2 % (36.0-47.0); HEMOGLOBIN 10.3 g/dl (12.0-15.5); LYMPH # 1.5 10^3/uL (1.5-5.0); LYMPH % 14.5 % (24.0-44.0); MEAN CORPUSCULAR HEMOGLOBIN 21.9 pg (27.0-33.0); MEAN CORPUSCULAR HGB CONC 29.3 g/dl (32.0-36.5); MEAN CORPUSCULAR VOLUME 74.9 fl (80.0-96.0); MONO # 0.8 10^3/uL (0.0-0.8); MONO % 7.6 % (2.0-8.0); NEUTROPHILS # 7.6 10^3/uL (1.5-8.5); NEUTROPHILS % 76.7 % (36.0-66.0); PLATELET COUNT, AUTOMATED 328 10^3/uL (150-450)
[2021-05-16 07:27] LABS: CALCIUM LEVEL 8.5 MG/DL (8.8-10.2); CREATININE FOR GFR 1.22 MG/DL (0.55-1.30); GLOMERULAR FILTRATION RATE 44.6 (>32); MAGNESIUM LEVEL 2.1 MG/DL (1.8-2.4); POTASSIUM SERUM 3.5 MEQ/L (3.5-5.1)
[2021-05-16] MEDS: LEVEMIR (INSULIN DETEMIR) 1 UNITS/0.01ML SC SCH (08:18)
[2021-05-16] MEDS: HumaLOG INSULIN (NovoLOG) PER UNIT SC SCH ×4 (08:19→20:57)
[2021-05-16] MEDS: FUROSEMIDE 40MG/4ML VIAL (J1940) IV SCH ×2 (08:19→21:06)
[2021-05-16] MEDS: OMEPRAZOLE 20MG CAP PO SCH (08:20)
[2021-05-16] MEDS: bisoproloL fumarate 5 MG TAB PO SCH (08:20)
[2021-05-16] MEDS: DOCUSATE SODIUM 100MG CAPSULE PO SCH ×2 (08:21→21:05)
[2021-05-16] MEDS: predniSONE 20 MG TAB PO SCH (08:21)
[2021-05-16] MEDS: FERROUS SULFATE 325MG TAB PO SCH (08:21)
[2021-05-16] MEDS: DULoxetine 30MG CAPSULE (CYMBALTA) PO SCH (08:21)
[2021-05-16] MEDS: POTASSIUM CHLORIDE 10MEQ SR TABLET PO SCH (08:21)
[2021-05-16] MEDS: guaiFENesin ER 600 MG TAB PO SCH ×2 (08:21→21:06)
[2021-05-16] MEDS ORDERED: FUROSEMIDE 20MG/2ML VIAL (J1940) IV SCH (09:00)
[2021-05-16] MEDS ORDERED: ASPIRIN 325 MG TAB PO SCH (09:00)
[2021-05-16 14:00] VITALS: BP 137/78
[2021-05-16 18:53] VITALS: BP 140/57
[2021-05-16] MEDS: ATORVASTATIN 20 MG TAB PO SCH (21:06)
[2021-05-16] MEDS: AMIODARONE 200 MG TAB (PACERONE) PO SCH (21:06)
[2021-05-17] MEDS: LEVALBUTEROL 1.25 MG/0.5 ML CONCENTRATE NEB INH SCH ×2 (04:00→08:41)
[2021-05-17 05:00] VITALS: BP 159/81
[2021-05-17] MEDS ORDERED: cefTRIAXone SOD 1 GM in D5W MINI-BAG PLUS 50 ML IV SCH (05:00)
[2021-05-17] MEDS: HumaLOG INSULIN (NovoLOG) PER UNIT SC SCH ×2 (07:30→12:39)
[2021-05-17 07:41] LABS: BASO # 0.1 10^3/uL (0.0-0.2); BASO % 0.5 % (0.0-1.0); EOS # 0.1 10^3/uL (0.0-0.5); EOS % 0.7 % (0.0-3.0); HEMATOCRIT 33.9 % (36.0-47.0); HEMOGLOBIN 9.9 g/dl (12.0-15.5); LYMPH # 1.8 10^3/uL (1.5-5.0); LYMPH % 19.5 % (24.0-44.0); MEAN CORPUSCULAR HEMOGLOBIN 21.9 pg (27.0-33.0); MEAN CORPUSCULAR HGB CONC 29.2 g/dl (32.0-36.5); MEAN CORPUSCULAR VOLUME 74.8 fl (80.0-96.0); MONO # 0.7 10^3/uL (0.0-0.8); MONO % 7.6 % (2.0-8.0); NEUTROPHILS # 6.8 10^3/uL (1.5-8.5); NEUTROPHILS % 71.4 % (36.0-66.0); PLATELET COUNT, AUTOMATED 310 10^3/uL (150-450); RED BLOOD COUNT 4.53 10^6/uL (4.00-5.40); WHITE BLOOD COUNT 9.5 10^3/uL (4.0-10.0)
[2021-05-17 08:06] LABS: CALCIUM LEVEL 8.6 MG/DL (8.8-10.2); CREATININE FOR GFR 1.24 MG/DL (0.55-1.30); GLOMERULAR FILTRATION RATE 43.8 (>32); MAGNESIUM LEVEL 2.1 MG/DL (1.8-2.4); POTASSIUM SERUM 3.1 MEQ/L (3.5-5.1)
[2021-05-17] MEDS ORDERED: POTASSIUM CHLORIDE 10MEQ SR TABLET PO ONE (08:15)
[2021-05-17] MEDS: POTASSIUM CHLORIDE 10MEQ SR TABLET PO SCH (08:47)
[2021-05-17] MEDS: OMEPRAZOLE 20MG CAP PO SCH (08:47)
[2021-05-17] MEDS: FERROUS SULFATE 325MG TAB PO SCH (08:47)
[2021-05-17] MEDS: DULoxetine 30MG CAPSULE (CYMBALTA) PO SCH (08:47)
[2021-05-17] MEDS: DOCUSATE SODIUM 100MG CAPSULE PO SCH (08:47)
[2021-05-17 08:48] VITALS: BP 146/80
[2021-05-17] MEDS: predniSONE 20 MG TAB PO SCH (08:48)
[2021-05-17] MEDS: bisoproloL fumarate 5 MG TAB PO SCH (08:48)
[2021-05-17] MEDS: guaiFENesin ER 600 MG TAB PO SCH (08:48)
[2021-05-17] MEDS: LEVEMIR (INSULIN DETEMIR) 1 UNITS/0.01ML SC SCH (08:49)
[2021-05-17] MEDS ORDERED: APIXABAN 5 MG TAB (ELIQUIS) PO SCH (09:00)
[2021-05-17] MEDS ORDERED: FURO20TA2 PO (10:50)
[2021-05-17] MEDS ORDERED: MUCI600T31 PO (10:50)
[2021-05-17] MEDS ORDERED: PRED10TA2 PO (10:50)
[2021-05-17] MEDS ORDERED: BISO5TAB14 PO (10:50)
[2021-05-17] MEDS ORDERED: CEFD300CAP PO (10:50)
[2021-05-17] MEDS ORDERED: ASPI81CH33 PO (13:09)
[2021-05-17] MEDS ORDERED: CEFDINIR 300 MG CAP (OMNICEF) PO SCH (21:00)
== END 2021-05-17 14:48 | disposition home or self-care (01) | DRG 291 ==
LOC: M ED 14:32 → M ED INP 19:18 → ENRESERV 05-15 14:08 → M MSPAV 05-15 15:20
PROVIDERS: ADMIT Family Medicine; ATTEND Internal Medicine
DX: I13.0 Hypertensive heart and chronic kidney disease with heart failure and stage 1 through stage 4 chronic kidney disease, or unspecified chronic kidney disease (principal); I50.33 Acute on chronic diastolic (congestive) heart failure; G45.9 Transient cerebral ischemic attack, unspecified; I48.20 Chronic atrial fibrillation, unspecified; J44.1 Chronic obstructive pulmonary disease with (acute) exacerbation; N39.0 Urinary tract infection, site not specified; J45.901 Unspecified asthma with (acute) exacerbation; I25.10 Atherosclerotic heart disease of native coronary artery without angina pectoris; E11.22 Type 2 diabetes mellitus with diabetic chronic kidney disease; E78.5 Hyperlipidemia, unspecified; K21.9 Gastro-esophageal reflux disease without esophagitis; N18.30 Chronic kidney disease, stage 3 unspecified; R31.0 Gross hematuria; B96.20 Unspecified Escherichia coli [E. coli] as the cause of diseases classified elsewhere; F32.A Depression, unspecified; F41.9 Anxiety disorder, unspecified; Z79.01 Long term (current) use of anticoagulants; Z79.82 Long term (current) use of aspirin; Z79.899 Other long term (current) drug therapy; Z88.8 Allergy status to other drugs, medicaments and biological substances; Z98.41 Cataract extraction status, right eye; Z98.42 Cataract extraction status, left eye

== ENCOUNTER → 2021-05-23 | Outpatient (CLI) | payer MEDICARE ==
[~2021-05-23] MED LIST changes: +ASPI81CH33 PO; +CEFD300CAP PO; +FLUT1BLS8 IH; +MUCI600T31 PO
== END ==
LOC: M RAD 08:41
PROVIDERS: ATTEND Nurse Practitioner Family
DX: I71.4 Abdominal aortic aneurysm, without rupture (principal)

== ENCOUNTER → 2021-05-31 | Outpatient (REF) | payer MEDICARE | LOC: M LAB REF 13:09 | PROVIDERS: ATTEND Family Medicine | DX: R35.0 Frequency of micturition (principal) ==

== ENCOUNTER → 2021-06-05 | Outpatient (REF) | payer MEDICARE ==
[2021-06-05 17:08] LABS: APPEARANCE, URINE TURBID (CLEAR); BACTERIA, URINE AUTO 3+ (NEGATIVE); BILIRUBIN, URINE AUTO NEGATIVE (NEGATIVE); BLOOD, URINE BLOOD 2+ (NEGATIVE); COLOR, URINE YELLOW (YELLOW); GLUCOSE, URINE (UA) AUTO 3+ mg/dL (NEGATIVE); KETONE, URINE AUTO NEGATIVE (NEGATIVE); LEUKOCYTE ESTERASE, URINE AUTO 3+ (NEGATIVE); NITRITE, URINE AUTO NEGATIVE (NEGATIVE); PROTEIN, URINE AUTO 1+ mg/dL (NEGATIVE); RBC, URINE AUTO 156 /HPF (0-3); SPECIFIC GRAVITY URINE AUTO 1.015 (1.002-1.035); SQUAMOUS EPITHELIAL CELL UR AU 13 /HPF (0-6); UROBILINOGEN, URINE AUTO 0.2 mg/dL (0.0-2.0); WBC, URINE AUTO TNTC /HPF (0-3)
== END ==
LOC: M SMT 16:41
PROVIDERS: ATTEND Physician Assistant
DX: R31.0 Gross hematuria (principal)

== ENCOUNTER → 2021-06-18 | Outpatient (REF) | payer MEDICARE ==
[2021-06-18 17:44] LABS: APPEARANCE, URINE CLEAR (CLEAR); BACTERIA, URINE AUTO NEGATIVE (NEGATIVE); BILIRUBIN, URINE AUTO NEGATIVE (NEGATIVE); BLOOD, URINE BLOOD NEGATIVE (NEGATIVE); COLOR, URINE YELLOW (YELLOW); GLUCOSE, URINE (UA) AUTO NEGATIVE (NEGATIVE); KETONE, URINE AUTO NEGATIVE (NEGATIVE); LEUKOCYTE ESTERASE, URINE AUTO TRACE (NEGATIVE); MUCUS, URINE SMALL (NEGATIVE); NITRITE, URINE AUTO NEGATIVE (NEGATIVE); PROTEIN, URINE AUTO NEGATIVE (NEGATIVE); RBC, URINE AUTO 0 /HPF (0-3); SPECIFIC GRAVITY URINE AUTO 1.006 (1.002-1.035); SQUAMOUS EPITHELIAL CELL UR AU 1 /HPF (0-6); UROBILINOGEN, URINE AUTO 0.2 mg/dL (0.0-2.0); WBC, URINE AUTO 1 /HPF (0-3)
== END ==
LOC: M SMT 16:54
PROVIDERS: ATTEND Urology
DX: R31.0 Gross hematuria (principal)

== ENCOUNTER → 2021-08-15 | Outpatient (REF) | payer MEDICARE ==
[~2021-08-15] MED LIST changes: +OXYC-517 PO
[2021-08-15 17:05] LABS: APPEARANCE, URINE CLEAR (CLEAR); BACTERIA, URINE AUTO NEGATIVE (NEGATIVE); BILIRUBIN, URINE AUTO NEGATIVE (NEGATIVE); BLOOD, URINE BLOOD NEGATIVE (NEGATIVE); COLOR, URINE YELLOW (YELLOW); GLUCOSE, URINE (UA) AUTO 3+ mg/dL (NEGATIVE); KETONE, URINE AUTO NEGATIVE (NEGATIVE); LEUKOCYTE ESTERASE, URINE AUTO TRACE (NEGATIVE); NITRITE, URINE AUTO NEGATIVE (NEGATIVE); PROTEIN, URINE AUTO NEGATIVE (NEGATIVE); RBC, URINE AUTO 0 /HPF (0-3); SPECIFIC GRAVITY URINE AUTO 1.018 (1.002-1.035); SQUAMOUS EPITHELIAL CELL UR AU 1 /HPF (0-6); TRANSITIONAL EPITHELIAL AUTO <1 /HPF; UROBILINOGEN, URINE AUTO 0.2 mg/dL (0.0-2.0); WBC, URINE AUTO 2 /HPF (0-3)
== END ==
LOC: M SHH 16:22
PROVIDERS: ATTEND Nurse Practitioner Family
DX: R35.0 Frequency of micturition (principal)

== ENCOUNTER 2021-08-19 00:53 | Emergency (ER) | payer MEDICARE ==
[~2021-08-19] VITALS: Ht 170.2 cm; Wt 93.6 kg
[~2021-08-19 00:53] MED LIST changes: -OXYC-517 PO
[2021-08-19] MEDS ORDERED: OXYC-517 PO (01:14)
[2021-08-19 02:56] VITALS: BP 171/84
== END 2021-08-19 02:57 | disposition home or self-care (01) ==
LOC: M ED 00:53
DX: S01.419A Laceration without foreign body of unspecified cheek and temporomandibular area, initial encounter (principal); S00.83XA Contusion of other part of head, initial encounter; W06.XXXA Fall from bed, initial encounter; W22.09XA Striking against other stationary object, initial encounter; Z86.79 Personal history of other diseases of the circulatory system; Y92.009 Unspecified place in unspecified non-institutional (private) residence as the place of occurrence of the external cause; Y93.9 Activity, unspecified; Y99.9 Unspecified external cause status; Z88.8 Allergy status to other drugs, medicaments and biological substances; Z79.01 Long term (current) use of anticoagulants; Z79.899 Other long term (current) drug therapy

== ENCOUNTER → 2021-09-02 | Outpatient (CLI) | payer MEDICARE ==
[~2021-09-02] MED LIST changes: +OXYC-517 PO
[2021-09-02 17:43] LABS: APPEARANCE, URINE HAZY (CLEAR); BACTERIA, URINE AUTO NEGATIVE (NEGATIVE); BILIRUBIN, URINE AUTO NEGATIVE (NEGATIVE); BLOOD, URINE BLOOD NEGATIVE (NEGATIVE); COLOR, URINE YELLOW (YELLOW); GLUCOSE, URINE (UA) AUTO 3+ mg/dL (NEGATIVE); KETONE, URINE AUTO NEGATIVE (NEGATIVE); LEUKOCYTE ESTERASE, URINE AUTO TRACE (NEGATIVE); NITRITE, URINE AUTO NEGATIVE (NEGATIVE); PROTEIN, URINE AUTO NEGATIVE (NEGATIVE); RBC, URINE AUTO 0 /HPF (0-3); SPECIFIC GRAVITY URINE AUTO 1.018 (1.002-1.035); SQUAMOUS EPITHELIAL CELL UR AU 4 /HPF (0-6); UROBILINOGEN, URINE AUTO 0.2 mg/dL (0.0-2.0); WBC, URINE AUTO 6 /HPF (0-3)
== END ==
LOC: M RAD 16:32
PROVIDERS: ATTEND Nurse Practitioner Family
DX: R07.89 Other chest pain (principal); R30.0 Dysuria

== ENCOUNTER → 2021-09-05 | Outpatient (REF) | payer MEDICARE ==
[2021-09-05 18:34] LABS: CREATININE FOR GFR 1.15 MG/DL (0.55-1.30); GLOMERULAR FILTRATION RATE 47.7 (>32)
== END ==
LOC: M SHH 16:40
PROVIDERS: ATTEND Nurse Practitioner Family
DX: Z01.812 Encounter for preprocedural laboratory examination (principal)

== ENCOUNTER → 2021-09-06 | Outpatient (CLI) | payer MEDICARE ==
[~2021-09-06] MED LIST changes: +GASTROGRAFIN SOLUTION 30ML (Q9963) As Ordered ONE; +ISOVUE-370 76% 100ML VIAL As Ordered ONE
== END ==
LOC: M RAD 11:55
PROVIDERS: ATTEND Nurse Practitioner Family
DX: R10.12 Left upper quadrant pain (principal); Z90.49 Acquired absence of other specified parts of digestive tract; I71.4 Abdominal aortic aneurysm, without rupture
CPT/HCPCS: 74177; Q9963; Q9967

== ENCOUNTER → 2021-09-27 | Outpatient (CLI) | payer MEDICARE ==
[~2021-09-27] MED LIST changes: -GASTROGRAFIN SOLUTION 30ML (Q9963) As Ordered ONE; -ISOVUE-370 76% 100ML VIAL As Ordered ONE; +LEVO1TAB39 PO; -LEVO500T4 PO
== END ==
LOC: M RAD 15:29
PROVIDERS: ATTEND Nurse Practitioner Family
DX: R05.1 Acute cough (principal)

== ENCOUNTER 2021-11-28 11:15 | Emergency (ER) | payer MEDICARE ==
[~2021-11-28] VITALS: Ht 170.2 cm; Wt 96.4 kg
[~2021-11-28 11:15] MED LIST changes: -ADV500INH INH; -AMIO200T37 PO; -BUDE0.254 NEB; -CALC-364 PO; -CELE50CA PO; -CYMB60CA4 PO; -FERR325T3 PO; -IPRA0.00 INH; -K-TA10TA2 PO; -LEVAINH INH; -LIDO5CRE6 TOP; -LIPI20TA PO; -METO25TA4 PO; -PERCOCET PO; -PRESCAP PO; -REME15TA2 PO; -SENN-23 PO; -TIZA2CAP PO; -TREL1AER PO; -oxygen
[2021-11-28 11:51] LABS: BASO # 0.1 10^3/uL (0.0-0.2); BASO % 0.6 % (0.0-1.0); EOS # 0.3 10^3/uL (0.0-0.5); EOS % 2.3 % (0.0-3.0); HEMATOCRIT 48.2 % (36.0-47.0); HEMOGLOBIN 15.1 g/dl (12.0-15.5); LYMPH # 1.6 10^3/uL (1.5-5.0); LYMPH % 14.6 % (24.0-44.0); MEAN CORPUSCULAR HEMOGLOBIN 28.4 pg (27.0-33.0); MEAN CORPUSCULAR HGB CONC 31.3 g/dl (32.0-36.5); MEAN CORPUSCULAR VOLUME 90.8 fl (80.0-96.0); MONO # 0.5 10^3/uL (0.0-0.8); NEUTROPHILS # 8.1 10^3/uL (1.5-8.5); NEUTROPHILS % 75.5 % (36.0-66.0); PLATELET COUNT, AUTOMATED 322 10^3/uL (150-450); RED BLOOD COUNT 5.31 10^6/uL (4.00-5.40); WHITE BLOOD COUNT 10.7 10^3/uL (4.0-10.0)
[2021-11-28] MEDS ORDERED: BUDE0.254 NEB (11:57)
[2021-11-28] MEDS ORDERED: LIDO5CRE6 TOP (11:57)
[2021-11-28] MEDS ORDERED: FERR325T3 PO (11:57)
[2021-11-28] MEDS ORDERED: CALC-364 PO (11:57)
[2021-11-28] MEDS ORDERED: LIPI20TA PO (11:57)
[2021-11-28] MEDS ORDERED: ADV500INH INH (11:57)
[2021-11-28] MEDS ORDERED: VITA100093 PO (11:57)
[2021-11-28] MEDS ORDERED: AMIO200T37 PO (11:57)
[2021-11-28] MEDS ORDERED: BISO5TAB14 PO (11:57)
[2021-11-28] MEDS ORDERED: FURO20TA2 PO (11:57)
[2021-11-28] MEDS ORDERED: CALC1CAP31 PO (11:57)
[2021-11-28] MEDS ORDERED: oxygen (11:57)
[2021-11-28] MEDS ORDERED: PRESCAP PO (11:57)
[2021-11-28] MEDS ORDERED: TIZA2CAP PO (11:57)
[2021-11-28] MEDS ORDERED: FLUO60TA PO (11:57)
[2021-11-28] MEDS ORDERED: JARD1TAB PO (11:57)
[2021-11-28] MEDS ORDERED: LEVAINH INH (11:57)
[2021-11-28] MEDS ORDERED: REME15TA2 PO (11:57)
[2021-11-28] MEDS ORDERED: CYMB60CA4 PO (11:57)
[2021-11-28] MEDS ORDERED: PERCOCET PO (11:57)
[2021-11-28] MEDS ORDERED: BASA100I SC (11:57)
[2021-11-28] MEDS ORDERED: CELE50CA PO (11:57)
[2021-11-28] MEDS ORDERED: TREL1AER PO (11:57)
[2021-11-28] MEDS ORDERED: METO25TA4 PO (11:57)
[2021-11-28] MEDS ORDERED: SPIR-10 PO (11:57)
[2021-11-28] MEDS ORDERED: PRED10TA2 PO (11:57)
[2021-11-28] MEDS ORDERED: SENN-23 PO (11:57)
[2021-11-28] MEDS ORDERED: K-TA10TA2 PO (11:57)
[2021-11-28] MEDS ORDERED: PREG150C PO (11:57)
[2021-11-28] MEDS ORDERED: IPRA0.00 INH (11:57)
[2021-11-28 12:10] LABS: INR 1.09; PROTHROMBIN TIME 14.3 SECONDS (12.5-14.5)
[2021-11-28 12:11] LABS: PARTIAL THROMBOPLASTIN TIME 30.3 SECONDS (24.8-34.2)
[2021-11-28 12:40] LABS: CPK CREATINE PHOSPHOKINASE 45 U/L (26-192)
[2021-11-28 12:42] LABS: ALBUMIN 2.8 GM/DL (3.2-5.2); BILIRUBIN,DIRECT 0.2 MG/DL (0.0-0.2); BILIRUBIN,TOTAL 0.6 MG/DL (0.2-1.0); CALCIUM LEVEL 8.9 MG/DL (8.8-10.2); CREATININE FOR GFR 1.64 MG/DL (0.55-1.30); FREE T4 1.22 NG/DL (0.76-1.46); GLOMERULAR FILTRATION RATE 31.7 (>32); THYROID STIMULATING HORMONE 2.82 uIU/ML (0.358-3.740)
[2021-11-28] MEDS ORDERED: FUROSEMIDE 40MG/4ML VIAL (J1940) IV ONE (13:00)
[2021-11-28 13:51] LABS: CPK CREATINE PHOSPHOKINASE 240 U/L (26-192)
[2021-11-28] MEDS ORDERED: HOME MED LIST COMPLETE! XX SCH (15:35)
[2021-11-28 16:00] LABS: CPK CREATINE PHOSPHOKINASE 69 U/L (26-192)
[2021-11-28 17:00] VITALS: BP 107/54
== END 2021-11-28 17:21 | disposition home or self-care (01) ==
LOC: M ED 11:15
DX: I50.22 Chronic systolic (congestive) heart failure (principal); N17.9 Acute kidney failure, unspecified; I48.3 Typical atrial flutter; I25.2 Old myocardial infarction; I10 Essential (primary) hypertension; E11.9 Type 2 diabetes mellitus without complications; E78.5 Hyperlipidemia, unspecified; J44.9 Chronic obstructive pulmonary disease, unspecified; N18.30 Chronic kidney disease, stage 3 unspecified; Z86.79 Personal history of other diseases of the circulatory system; Z88.8 Allergy status to other drugs, medicaments and biological substances
CPT/HCPCS: 71045; 80048; 80076; 82550; 83690; 83880; 84439; 84443; 84484; 85025; 85610; 85730; 87486; 87581; 87633; 87798; 93005; 93041; 94760; 96374; 99285; J1940

== ENCOUNTER → 2021-11-28 | Outpatient (CLI) | payer MEDICARE ==
[~2021-11-28] MED LIST changes: +ADV500INH INH; +AMIO200T37 PO; +BUDE0.254 NEB; +CALC-364 PO; +CELE50CA PO; +CYMB60CA4 PO; +FERR325T3 PO; +IPRA0.00 INH; +K-TA10TA2 PO; +LEVAINH INH; +LIDO5CRE6 TOP; +LIPI20TA PO; +METO25TA4 PO; +PERCOCET PO; +PRESCAP PO; +REME15TA2 PO; +SENN-23 PO; +TIZA2CAP PO; +TREL1AER PO; +oxygen
== END ==
LOC: M RAD 10:43
PROVIDERS: ATTEND Family Medicine
DX: R22.32 Localized swelling, mass and lump, left upper limb (principal); M06.342 Rheumatoid nodule, left hand

== ENCOUNTER → 2021-12-25 | Outpatient (CLI) | payer MEDICARE ==
[~2021-12-25] MED LIST changes: +ADV500INH INH; +AMIO200T37 PO; +BUDE0.254 NEB; +CALC-364 PO; +CELE50CA PO; +CYMB60CA4 PO; +FERR325T3 PO; +IPRA0.00 INH; +K-TA10TA2 PO; +LEVAINH INH; +LIDO5CRE6 TOP; +LIPI20TA PO; +METO25TA4 PO; +PERCOCET PO; +PRESCAP PO; +REME15TA2 PO; +SENN-23 PO; +TIZA2CAP PO; +TREL1AER PO; +oxygen
[2021-12-25 16:48] LABS: BASO # 0.1 10^3/uL (0.0-0.2); BASO % 0.3 % (0.0-1.0); EOS # 0.1 10^3/uL (0.0-0.5); EOS % 0.5 % (0.0-3.0); HEMATOCRIT 49.9 % (36.0-47.0); HEMOGLOBIN 15.6 g/dl (12.0-15.5); LYMPH # 1.5 10^3/uL (1.5-5.0); LYMPH % 10.1 % (24.0-44.0); MEAN CORPUSCULAR HEMOGLOBIN 28.8 pg (27.0-33.0); MEAN CORPUSCULAR HGB CONC 31.3 g/dl (32.0-36.5); MEAN CORPUSCULAR VOLUME 92.2 fl (80.0-96.0); MONO # 0.5 10^3/uL (0.0-0.8); MONO % 3.6 % (2.0-8.0); NEUTROPHILS # 12.4 10^3/uL (1.5-8.5); NEUTROPHILS % 84.7 % (36.0-66.0); PLATELET COUNT, AUTOMATED 301 10^3/uL (150-450); RED BLOOD COUNT 5.41 10^6/uL (4.00-5.40); WHITE BLOOD COUNT 14.6 10^3/uL (4.0-10.0)
[2021-12-25 16:58] LABS: CALCIUM LEVEL 9.6 MG/DL (8.8-10.2); CREATININE FOR GFR 1.82 MG/DL (0.55-1.30); POTASSIUM SERUM 3.7 MEQ/L (3.5-5.1)
== END ==
LOC: M WUC 13:01
PROVIDERS: ATTEND Internal Medicine Cardiovascular Disease
DX: I48.19 Other persistent atrial fibrillation (principal)

== ENCOUNTER → 2021-12-25 | Outpatient (CLI) | payer MEDICARE ==
[2021-12-25 16:48] LABS: BASO # 0.1 10^3/uL (0.0-0.2); BASO % 0.4 % (0.0-1.0); EOS # 0.1 10^3/uL (0.0-0.5); EOS % 0.6 % (0.0-3.0); HEMATOCRIT 49.3 % (36.0-47.0); HEMOGLOBIN 15.7 g/dl (12.0-15.5); LYMPH # 1.3 10^3/uL (1.5-5.0); LYMPH % 9.3 % (24.0-44.0); MEAN CORPUSCULAR HEMOGLOBIN 29.1 pg (27.0-33.0); MEAN CORPUSCULAR HGB CONC 31.8 g/dl (32.0-36.5); MEAN CORPUSCULAR VOLUME 91.3 fl (80.0-96.0); MONO # 0.5 10^3/uL (0.0-0.8); MONO % 3.6 % (2.0-8.0); NEUTROPHILS # 12.2 10^3/uL (1.5-8.5); NEUTROPHILS % 85.3 % (36.0-66.0); PLATELET COUNT, AUTOMATED 295 10^3/uL (150-450); WHITE BLOOD COUNT 14.3 10^3/uL (4.0-10.0)
[2021-12-25 17:03] LABS: ALBUMIN 3.4 GM/DL (3.2-5.2); BILIRUBIN,TOTAL 0.8 MG/DL (0.2-1.0); CALCIUM LEVEL 9.5 MG/DL (8.8-10.2); CREATININE FOR GFR 1.81 MG/DL (0.55-1.30); GLOMERULAR FILTRATION RATE 28.2 (>32); POTASSIUM SERUM 3.7 MEQ/L (3.5-5.1); TOTAL PROTEIN 6.5 GM/DL (6.4-8.2)
[2021-12-25 18:36] LABS: HEMOGLOBIN A1c 6.9 %
== END ==
LOC: M WUC 13:03
PROVIDERS: ATTEND Registered Nurse
DX: E11.69 Type 2 diabetes mellitus with other specified complication (principal); I50.32 Chronic diastolic (congestive) heart failure

== ENCOUNTER → 2021-12-25 | Outpatient (CLI) | payer MEDICARE ==
[2021-12-25 16:58] LABS: CREATININE FOR GFR 1.77 MG/DL (0.55-1.30)
== END ==
LOC: M WUC 13:06
PROVIDERS: ATTEND Psychiatry & Neurology Neurology
DX: I10 Essential (primary) hypertension (principal)

== ENCOUNTER 2022-01-14 14:46 | Inpatient (IN) | payer MEDICARE ==
[~2022-01-14] VITALS: Ht 170.2 cm; Wt 93.2 kg
[2022-01-14 15:36] LABS: BASO # 0.1 10^3/uL (0.0-0.2); BASO % 0.5 % (0.0-1.0); EOS % 0.1 % (0.0-3.0); HEMATOCRIT 46.5 % (36.0-47.0); HEMOGLOBIN 15.2 g/dl (12.0-15.5); LYMPH # 0.9 10^3/uL (1.5-5.0); LYMPH % 6.3 % (24.0-44.0); MEAN CORPUSCULAR HEMOGLOBIN 29.6 pg (27.0-33.0); MEAN CORPUSCULAR HGB CONC 32.7 g/dl (32.0-36.5); MEAN CORPUSCULAR VOLUME 90.5 fl (80.0-96.0); MONO # 0.2 10^3/uL (0.0-0.8); MONO % 1.5 % (2.0-8.0); NEUTROPHILS # 12.7 10^3/uL (1.5-8.5); NEUTROPHILS % 87.5 % (36.0-66.0); PLATELET COUNT, AUTOMATED 372 10^3/uL (150-450); RED BLOOD COUNT 5.14 10^6/uL (4.00-5.40); WHITE BLOOD COUNT 14.6 10^3/uL (4.0-10.0)
[2022-01-14 16:02] LABS: CHLORIDE LEVEL 100 MMOL/L (98-107); SODIUM LEVEL 138 MMOL/L (136-145)
[2022-01-14 16:03] LABS: CARBON DIOXIDE LEVEL 28 MMOL/L (20-31)
[2022-01-14 16:08] LABS: ALKALINE PHOSPHATASE 90 U/L (46-116); CALCIUM LEVEL 8.2 MG/DL (8.3-10.6); GLUCOSE, FASTING 189 MG/DL (74-106)
[2022-01-14 16:09] LABS: BILIRUBIN,TOTAL 0.5 MG/DL (0.3-1.2)
[2022-01-14 16:10] LABS: AST/SGOT 124 U/L (<34); BILIRUBIN,DIRECT < 0.1 MG/DL (<0.4); CREATININE FOR GFR 1.51 MG/DL (0.55-1.30); GLOMERULAR FILTRATION RATE 34.8 (>32); TOTAL PROTEIN 6.4 G/DL (5.7-8.2)
[2022-01-14 16:11] LABS: THYROXINE (T4) 9.3 UG/DL (4.5-10.9)
[2022-01-14 16:12] LABS: THYROID STIMULATING HORMONE 0.802 uIU/ML (0.55-4.78)
[2022-01-14 16:13] LABS: RSV AMPLIFICATION NEGATIVE (NEGATIVE)
[2022-01-14 16:15] LABS: ALT/SGPT 136 U/L (7.0-40); BLOOD UREA NITROGEN 34 MG/DL (9-23); CK-MB VALUE MASS 1.3 NG/ML (<3.6); CPK CREATINE PHOSPHOKINASE 86 U/L (34-145); MB/CK RELATIVE INDEX 1.51 (< OR =4); POTASSIUM SERUM 7.3 MMOL/L (3.5-5.1)
[2022-01-14] MEDS ORDERED: CALCIUM CHLORIDE 10% 1 GM/10 ML SYR IV ONE (16:40)
[2022-01-14] MEDS ORDERED: DEXTROSE 50% 50 ML SYRINGE IV ONE (16:40)
[2022-01-14] MEDS ORDERED: FUROSEMIDE 40MG/4ML VIAL (J1940) IV ONE (16:40)
[2022-01-14] MEDS ORDERED: HumuLIN R (REGULAR) INSULIN (NovoLIN R) **100U/ML** PER UNIT IV ONE (16:40)
[2022-01-14] MEDS ORDERED: PATIROMER SORBITEX CALCIUM 8.4 GM POWDER PACKET (VELTASSA) PO ONE (16:40)
[2022-01-14 17:12] LABS: CK-MB VALUE MASS 1.1 NG/ML (<3.6); MB/CK RELATIVE INDEX 1.23 (< OR =4)
[2022-01-14] MEDS ORDERED: cefTRIAXone SOD 1 GM in D5W MINI-BAG PLUS 50 ML IV ONE (17:35)
[2022-01-14] MEDS ORDERED: AZITHROMYCIN INJ 500 MG, VIAL MATE ADAPTER 1 EACH in D5W 250 ML IV ONE (17:35)
[2022-01-14] MEDS ORDERED: guaiFENesin SYRUP 200MG 10ML UDC PO PRN (19:15)
[2022-01-14] MEDS ORDERED: ACETAMINOPHEN TAB 650MG DOSE (2X325MG) PO PRN (19:15)
[2022-01-14] MEDS ORDERED: DEXTROSE 50% 50 ML SYRINGE IV PRN (19:25)
[2022-01-14] MEDS ORDERED: GLUCOSE 4GM CHEW TABLET PO PRN (19:25)
[2022-01-14] MEDS ORDERED: GLUCAGON INJ 1MG VIAL SC PRN (19:25)
[2022-01-14] MEDS ORDERED: DULO30CA47 PO (20:11)
[2022-01-14] MEDS ORDERED: VENTAER INH (20:11)
[2022-01-14] MEDS ORDERED: LEVA1.2519 INH (20:11)
[2022-01-14] MEDS ORDERED: FURO20TA2 PO (20:11)
[2022-01-14] MEDS ORDERED: FLUT1BLS8 INH (20:11)
[2022-01-14] MEDS ORDERED: HOME MED LIST COMPLETE! XX SCH (20:15)
[2022-01-14 20:16] LABS: INR 1.21; PROTHROMBIN TIME 15.6 SECONDS (12.5-14.5)
[2022-01-14 20:20] LABS: HEMOGLOBIN A1c 6.7 % (4.0-6.0)
[2022-01-14 20:23] LABS: CALCIUM LEVEL 8.9 MG/DL (8.3-10.6)
[2022-01-14] MEDS ORDERED: POTA1TAB14 PO (20:23)
[2022-01-14 20:26] LABS: CREATININE FOR GFR 1.42 MG/DL (0.55-1.30); GLOMERULAR FILTRATION RATE 37.3 (>32)
[2022-01-14 20:28] LABS: POTASSIUM SERUM 3.7 MMOL/L (3.5-5.1)
[2022-01-14] MEDS ORDERED: INSULIN LISPRO (NovoLOG) PER UNIT SC SCH (21:00)
[2022-01-14] MEDS ORDERED: ATORVASTATIN 20 MG TAB PO SCH (21:00)
[2022-01-14 21:35] VITALS: BP 136/71
[2022-01-14] MEDS ORDERED: DOXYCYCLINE HYCLATE 100 MG in D5W MINI-BAG PLUS 100 ML IV SCH (22:00)
[2022-01-14] MEDS ORDERED: bisoproloL fumarate 5 MG TAB PO PRN (22:30)
[2022-01-14] MEDS ORDERED: LEVALBUTEROL HFA 45MCG/ACT 15 GM INHALER INH PRN (22:30)
[2022-01-14] MEDS ORDERED: SENOKOT S TAB PO PRN (22:30)
[2022-01-14] MEDS ORDERED: NITROGLYCERIN 0.4 MG SUBL TABLET SL PRN (22:30)
[2022-01-14] MEDS ORDERED: predniSONE 10 MG TAB PO SCH (22:30)
[2022-01-14] MEDS: APIXABAN 5 MG TAB (ELIQUIS) PO SCH (22:45)
[2022-01-15] VITALS: BP 127/60
[2022-01-15 04:00] VITALS: BP 136/66
[2022-01-15 06:12] LABS: HEMATOCRIT 42.6 % (36.0-47.0); MEAN CORPUSCULAR HEMOGLOBIN 29.5 pg (27.0-33.0); MEAN CORPUSCULAR HGB CONC 32.9 g/dl (32.0-36.5); MEAN CORPUSCULAR VOLUME 89.9 fl (80.0-96.0); PLATELET COUNT, AUTOMATED 331 10^3/uL (150-450); RED BLOOD COUNT 4.74 10^6/uL (4.00-5.40); WHITE BLOOD COUNT 15.3 10^3/uL (4.0-10.0)
[2022-01-15 06:24] LABS: POTASSIUM SERUM 3.5 MMOL/L (3.5-5.1)
[2022-01-15 06:26] LABS: ALBUMIN 2.6 G/DL (3.2-5.2)
[2022-01-15 06:30] LABS: CALCIUM LEVEL 8.7 MG/DL (8.3-10.6)
[2022-01-15 06:32] LABS: CREATININE FOR GFR 1.54 MG/DL (0.55-1.30); MAGNESIUM LEVEL 1.8 MG/DL (1.8-2.4)
[2022-01-15 06:33] LABS: BILIRUBIN,TOTAL 0.4 MG/DL (0.3-1.2)
[2022-01-15 06:40] LABS: TOTAL PROTEIN 5.5 G/DL (5.7-8.2)
[2022-01-15 07:27] VITALS: BP 116/76
[2022-01-15] MEDS: INSULIN LISPRO (NovoLOG) PER UNIT SC SCH ×2 (07:30→12:02)
[2022-01-15] MEDS: APIXABAN 5 MG TAB (ELIQUIS) PO SCH (08:37)
[2022-01-15] MEDS ORDERED: CALCITRIOL 0.25 MCG CAP (S0169) PO SCH (09:00)
[2022-01-15] MEDS ORDERED: FERROUS SULFATE 325MG TAB PO SCH (09:00)
[2022-01-15] MEDS ORDERED: OCUVITE 1 TAB PO SCH (09:00)
[2022-01-15] MEDS ORDERED: cefTRIAXone SOD 1 GM in D5W MINI-BAG PLUS 50 ML IV SCH (09:00)
[2022-01-15] MEDS ORDERED: SPIRONOLACTONE 25 MG TAB PO SCH (09:00)
[2022-01-15] MEDS ORDERED: FUROSEMIDE 20 MG TAB PO SCH (09:00)
[2022-01-15] MEDS ORDERED: predniSONE 20 MG TAB PO SCH (09:00)
[2022-01-15] MEDS ORDERED: FLUoxetine 20MG CAP PO SCH (09:00)
[2022-01-15] MEDS ORDERED: DOXYCYCLINE HYCLATE 100MG TABLET PO SCH (09:00)
[2022-01-15] MEDS ORDERED: DULoxetine 30MG CAPSULE (CYMBALTA) PO SCH (09:00)
[2022-01-15 12:15] VITALS: BP 124/79
[2022-01-15] MEDS ORDERED: GUAI100S51 PO (13:34)
[2022-01-15] MEDS ORDERED: CEFD300C41 PO (13:34)
[2022-01-15] MEDS ORDERED: DOXY-444 PO (13:34)
[2022-01-15] MEDS ORDERED: PRED10TA2 PO (13:35)
[2022-01-15] MEDS ORDERED: FUROSEMIDE 40 MG TAB PO SCH (17:00)
[2022-01-15] MEDS ORDERED: AMIODARONE 200 MG TAB (PACERONE) PO SCH (21:00)
[2022-01-16] MEDS ORDERED: FERROUS SULFATE 325MG TAB PO SCH (12:00)
[2022-01-19] MEDS ORDERED: predniSONE 10 MG TAB PO SCH (09:00)
== END 2022-01-15 14:25 | disposition home or self-care (01) | DRG 194 ==
LOC: M ED 14:46 → M ED INP 19:14 → ENRESERV 20:00 → M PCU 21:35
PROVIDERS: ADMIT Family Medicine; ATTEND Internal Medicine
DX: J18.9 Pneumonia, unspecified organism (principal); I13.0 Hypertensive heart and chronic kidney disease with heart failure and stage 1 through stage 4 chronic kidney disease, or unspecified chronic kidney disease; J44.0 Chronic obstructive pulmonary disease with (acute) lower respiratory infection; I48.20 Chronic atrial fibrillation, unspecified; N18.30 Chronic kidney disease, stage 3 unspecified; E11.22 Type 2 diabetes mellitus with diabetic chronic kidney disease; I20.9 Angina pectoris, unspecified; I50.9 Heart failure, unspecified; E87.5 Hyperkalemia; G47.33 Obstructive sleep apnea (adult) (pediatric); Z79.899 Other long term (current) drug therapy; Z88.8 Allergy status to other drugs, medicaments and biological substances

== ENCOUNTER → 2022-01-28 | Outpatient (CLI) | payer MEDICARE ==
[~2022-01-28] MED LIST changes: +DOXY-444 PO; +DULO30CA47 PO; +GUAI100S51 PO; +VENTAER INH
[2022-01-28 16:42] LABS: BASO % 0.3 % (0.0-1.0); EOS # 0.1 10^3/uL (0.0-0.5); EOS % 0.5 % (0.0-3.0); HEMATOCRIT 47.8 % (36.0-47.0); HEMOGLOBIN 14.8 g/dl (12.0-15.5); MEAN CORPUSCULAR HEMOGLOBIN 29.1 pg (27.0-33.0); MEAN CORPUSCULAR VOLUME 93.9 fl (80.0-96.0); MONO # 0.4 10^3/uL (0.0-0.8); MONO % 3.5 % (2.0-8.0); NEUTROPHILS # 9.9 10^3/uL (1.5-8.5); NEUTROPHILS % 85.8 % (36.0-66.0); PLATELET COUNT, AUTOMATED 302 10^3/uL (150-450); RED BLOOD COUNT 5.09 10^6/uL (4.00-5.40); WHITE BLOOD COUNT 11.5 10^3/uL (4.0-10.0)
[2022-01-28 17:10] LABS: CALCIUM LEVEL 8.7 MG/DL (8.3-10.6); CREATININE FOR GFR 1.28 MG/DL (0.55-1.30); GLOMERULAR FILTRATION RATE 42.1 (>32); POTASSIUM SERUM 4.1 MMOL/L (3.5-5.1)
== END ==
LOC: M WUC 14:16
PROVIDERS: ATTEND Nurse Practitioner Family
DX: J18.9 Pneumonia, unspecified organism (principal); I50.32 Chronic diastolic (congestive) heart failure

== ENCOUNTER → 2022-02-14 | Outpatient (CLI) | payer MEDICARE | LOC: M RAD 11:43 | PROVIDERS: ATTEND Nurse Practitioner Family | DX: I73.9 Peripheral vascular disease, unspecified (principal) ==

== ENCOUNTER 2022-03-15 16:05 | Emergency (ER) | payer MEDICAID, MEDICARE ==
[~2022-03-15] VITALS: Ht 170.2 cm; Wt 93.2 kg
[2022-03-15] MEDS ORDERED: METO1TAB32 (16:30)
[2022-03-15] MEDS ORDERED: PRED10PA PO (16:30)
[2022-03-15 18:04] LABS: BASO % 0.4 % (0.0-1.0); EOS % 0.3 % (0.0-3.0); HEMATOCRIT 43.9 % (36.0-47.0); HEMOGLOBIN 14.5 g/dl (12.0-15.5); LYMPH # 0.8 10^3/uL (1.5-5.0); LYMPH % 7.1 % (24.0-44.0); MEAN CORPUSCULAR HEMOGLOBIN 30.3 pg (27.0-33.0); MEAN CORPUSCULAR VOLUME 91.8 fl (80.0-96.0); MONO # 0.3 10^3/uL (0.0-0.8); MONO % 3.1 % (2.0-8.0); NEUTROPHILS # 9.4 10^3/uL (1.5-8.5); NEUTROPHILS % 88.2 % (36.0-66.0); PLATELET COUNT, AUTOMATED 236 10^3/uL (150-450); RED BLOOD COUNT 4.78 10^6/uL (4.00-5.40); WHITE BLOOD COUNT 10.6 10^3/uL (4.0-10.0)
[2022-03-15 18:20] LABS: CALCIUM LEVEL 8.5 MG/DL (8.3-10.6); CREATININE FOR GFR 1.39 MG/DL (0.55-1.30); GLOMERULAR FILTRATION RATE 38.3 (>32); POTASSIUM SERUM 3.6 MMOL/L (3.5-5.1)
[2022-03-15] MEDS ORDERED: FOSFOMYCIN TROMETHAMINE 3 GM POWDER PACKET (MONUROL) PO ONE (18:40)
[2022-03-15 19:48] VITALS: BP 154/75
== END 2022-03-15 19:50 | disposition home or self-care (01) ==
LOC: M ED 16:05
DX: N39.0 Urinary tract infection, site not specified (principal); I48.0 Paroxysmal atrial fibrillation; I25.2 Old myocardial infarction; E11.9 Type 2 diabetes mellitus without complications; I10 Essential (primary) hypertension; E78.5 Hyperlipidemia, unspecified; J44.9 Chronic obstructive pulmonary disease, unspecified; K21.9 Gastro-esophageal reflux disease without esophagitis; Z86.79 Personal history of other diseases of the circulatory system; Z87.891 Personal history of nicotine dependence; Z88.8 Allergy status to other drugs, medicaments and biological substances; Z79.52 Long term (current) use of systemic steroids; Z79.4 Long term (current) use of insulin; Z79.899 Other long term (current) drug therapy; Z79.01 Long term (current) use of anticoagulants

== ENCOUNTER → 2022-03-27 | Outpatient (CLI) | payer MEDICARE ==
[~2022-03-27] MED LIST changes: +METO1TAB32; +PRED10PA PO
== END ==
LOC: M WUC 14:31
PROVIDERS: ATTEND Nurse Practitioner Family
DX: J44.9 Chronic obstructive pulmonary disease, unspecified (principal); R05.1 Acute cough

== ENCOUNTER 2022-04-02 17:45 | Inpatient (IN) | payer MEDICARE ==
[~2022-04-02] VITALS: Ht 170.2 cm; Wt 91.2 kg
[~2022-04-02 17:45] MED LIST changes: -METO1TAB32; +METO1TAB32 PO
[2022-04-02] MEDS ORDERED: MORPHINE 4 MG/ML 1ML VIAL IV ONE ×2 (18:45→20:20)
[2022-04-02 18:55] LABS: BASO % 0.4 % (0.0-1.0); HEMATOCRIT 42.7 % (36.0-47.0); HEMOGLOBIN 14.2 g/dl (12.0-15.5); LYMPH # 0.9 10^3/uL (1.5-5.0); LYMPH % 8.4 % (24.0-44.0); MEAN CORPUSCULAR HEMOGLOBIN 30.2 pg (27.0-33.0); MEAN CORPUSCULAR HGB CONC 33.3 g/dl (32.0-36.5); MEAN CORPUSCULAR VOLUME 90.9 fl (80.0-96.0); MONO # 0.3 10^3/uL (0.0-0.8); MONO % 2.6 % (2.0-8.0); NEUTROPHILS # 9.5 10^3/uL (1.5-8.5); NEUTROPHILS % 86.7 % (36.0-66.0); PLATELET COUNT, AUTOMATED 297 10^3/uL (150-450)
[2022-04-02 18:59] LABS: INR 1.29; PARTIAL THROMBOPLASTIN TIME 30.5 SECONDS (24.8-34.2); PROTHROMBIN TIME 16.3 SECONDS (12.5-14.5)
[2022-04-02 19:02] LABS: CALCIUM LEVEL 8.6 MG/DL (8.3-10.6); CREATININE FOR GFR 1.43 MG/DL (0.55-1.30); POTASSIUM SERUM 3.5 MMOL/L (3.5-5.1)
[2022-04-02] MEDS ORDERED: PRESCAP PO (20:50)
[2022-04-02] MEDS ORDERED: PRED10TA2 PO (20:50)
[2022-04-02] MEDS ORDERED: HOME MED LIST COMPLETE! XX SCH (20:55)
[2022-04-02 22:01] LABS: RSV AMPLIFICATION NEGATIVE (NEGATIVE)
[2022-04-02] MEDS ORDERED: GLUCOSE 4GM CHEW TABLET PO PRN (22:05)
[2022-04-02] MEDS ORDERED: GLUCAGON INJ 1MG VIAL SC PRN (22:05)
[2022-04-02] MEDS ORDERED: DEXTROSE 50% 50ML SYRINGE IV PRN (22:05)
[2022-04-02] MEDS ORDERED: IPRATROPIUM 0.5MG/ALBUTEROL 2.5MG INH SOL UD 3ML (DUONEB) NEB PRN (22:05)
[2022-04-02] MEDS: APIXABAN 5 MG TAB (ELIQUIS) PO SCH (23:18)
[2022-04-02] MEDS: OMEPRAZOLE 20MG CAP PO SCH (23:18)
[2022-04-02] MEDS: POTASSIUM CHLORIDE 10MEQ SR TABLET PO SCH (23:19)
[2022-04-02] MEDS: ATORVASTATIN 20 MG TAB PO SCH (23:21)
[2022-04-02] MEDS: ACETAMINOPHEN TAB 650MG DOSE (2X325MG) PO PRN (23:22)
[2022-04-02] MEDS: INSULIN LISPRO (NovoLOG) PER UNIT SC SCH (23:30)
[2022-04-03 00:20] VITALS: BP 138/91
[2022-04-03] MEDS: MORPHINE 2 MG/ML 1ML VIAL IV PRN ×3 (01:11→15:25)
[2022-04-03 06:00] VITALS: BP 114/78
[2022-04-03 06:52] LABS: HEMATOCRIT 40.8 % (36.0-47.0); HEMOGLOBIN 13.8 g/dl (12.0-15.5); MEAN CORPUSCULAR HEMOGLOBIN 30.9 pg (27.0-33.0); MEAN CORPUSCULAR HGB CONC 33.8 g/dl (32.0-36.5); MEAN CORPUSCULAR VOLUME 91.5 fl (80.0-96.0); PLATELET COUNT, AUTOMATED 275 10^3/uL (150-450); RED BLOOD COUNT 4.46 10^6/uL (4.00-5.40); WHITE BLOOD COUNT 14.2 10^3/uL (4.0-10.0)
[2022-04-03 07:21] LABS: CALCIUM LEVEL 8.7 MG/DL (8.3-10.6); CREATININE FOR GFR 1.81 MG/DL (0.55-1.30); GLOMERULAR FILTRATION RATE 28.2 (>32); POTASSIUM SERUM 3.6 MMOL/L (3.5-5.1)
[2022-04-03] MEDS: INSULIN LISPRO (NovoLOG) PER UNIT SC SCH ×5 (07:30→20:21)
[2022-04-03] MEDS: OMEPRAZOLE 20MG CAP PO SCH ×2 (08:47→20:24)
[2022-04-03] MEDS: FERROUS SULFATE 325MG TAB PO SCH (08:48)
[2022-04-03] MEDS: FUROSEMIDE 20 MG TAB PO SCH (08:48)
[2022-04-03] MEDS: FLUoxetine 20MG CAP PO SCH (08:48)
[2022-04-03] MEDS: METOPROLOL SUCC *XL* 25MG TAB (TopROL *XL*) PO SCH (08:49)
[2022-04-03] MEDS: POTASSIUM CHLORIDE 10MEQ SR TABLET PO SCH ×2 (08:49→20:24)
[2022-04-03] MEDS: DULoxetine 30MG CAPSULE (CYMBALTA) PO SCH (08:49)
[2022-04-03] MEDS: APIXABAN 5 MG TAB (ELIQUIS) PO SCH ×2 (08:50→20:24)
[2022-04-03] MEDS: predniSONE 10MG TAB PO SCH (08:50)
[2022-04-03] MEDS ORDERED: PNEUMOCOCCAL VACCINE 0.5ML SYRINGE (PNEUMOVAX 23) IM.IMMUN ONE (09:00)
[2022-04-03] MEDS: ACETAMINOPHEN TAB 650MG DOSE (2X325MG) PO PRN (13:52)
[2022-04-03 14:00] VITALS: BP 119/80
[2022-04-03] MEDS: ATORVASTATIN 20 MG TAB PO SCH (20:24)
[2022-04-03 22:00] VITALS: BP 118/79
[2022-04-04] MEDS: MORPHINE 2 MG/ML 1ML VIAL IV PRN (02:43)
[2022-04-04 05:08] LABS: HEMATOCRIT 38.2 % (36.0-47.0); HEMOGLOBIN 12.7 g/dl (12.0-15.5); MEAN CORPUSCULAR HEMOGLOBIN 30.6 pg (27.0-33.0); MEAN CORPUSCULAR HGB CONC 33.2 g/dl (32.0-36.5); PLATELET COUNT, AUTOMATED 238 10^3/uL (150-450); RED BLOOD COUNT 4.15 10^6/uL (4.00-5.40); WHITE BLOOD COUNT 13.6 10^3/uL (4.0-10.0)
[2022-04-04 05:39] LABS: CALCIUM LEVEL 8.4 MG/DL (8.3-10.6); CREATININE FOR GFR 1.88 MG/DL (0.55-1.30); POTASSIUM SERUM 3.6 MMOL/L (3.5-5.1)
[2022-04-04 06:00] VITALS: BP 119/77
[2022-04-04] MEDS ORDERED: traMADol 50 MG TAB PO PRN (06:45)
[2022-04-04] MEDS: TIOTROPIUM INHALER/CAPSULE (SPIRIVA) INH SCH (08:57)
[2022-04-04] MEDS: SYMBICORT 160/4.5MCG INHALER 6GM INH SCH ×2 (08:57→20:45)
[2022-04-04] MEDS: INSULIN LISPRO (NovoLOG) PER UNIT SC SCH ×4 (09:40→21:00)
[2022-04-04] MEDS: POTASSIUM CHLORIDE 10MEQ SR TABLET PO SCH ×2 (09:42→22:01)
[2022-04-04] MEDS: APIXABAN 5 MG TAB (ELIQUIS) PO SCH ×2 (09:46→22:00)
[2022-04-04] MEDS: DULoxetine 30MG CAPSULE (CYMBALTA) PO SCH (09:46)
[2022-04-04] MEDS: predniSONE 10MG TAB PO SCH (09:46)
[2022-04-04] MEDS: METOPROLOL SUCC *XL* 25MG TAB (TopROL *XL*) PO SCH (09:46)
[2022-04-04] MEDS: FERROUS SULFATE 325MG TAB PO SCH (09:47)
[2022-04-04] MEDS: OMEPRAZOLE 20MG CAP PO SCH ×2 (09:47→21:59)
[2022-04-04] MEDS: SENOKOT S TAB PO SCH ×2 (09:47→22:01)
[2022-04-04] MEDS: CALCITRIOL 0.25 MCG CAP (S0169) PO SCH (09:48)
[2022-04-04] MEDS: MIRALAX *UNIT DOSE* 17GM PACKET PO SCH (09:48)
[2022-04-04] MEDS: FLUoxetine 20MG CAP PO SCH (09:48)
[2022-04-04] MEDS: oxyCODONE 5MG TAB PO PRN ×2 (10:12→17:00)
[2022-04-04] MEDS: ACETAMINOPHEN 500 MG TAB PO SCH ×2 (13:36→22:01)
[2022-04-04 14:00] VITALS: BP 110/68
[2022-04-04] MEDS: traMADol 50 MG TAB PO SCH ×2 (14:22→21:59)
[2022-04-04 22:00] VITALS: BP 110/62
[2022-04-04] MEDS: ATORVASTATIN 20 MG TAB PO SCH (22:01)
[2022-04-05] MEDS: traMADol 50 MG TAB PO SCH ×3 (05:31→20:40)
[2022-04-05] MEDS: ACETAMINOPHEN 500 MG TAB PO SCH ×3 (05:32→20:39)
[2022-04-05 06:00] VITALS: BP 116/74
[2022-04-05] MEDS: TIOTROPIUM INHALER/CAPSULE (SPIRIVA) INH SCH (07:34)
[2022-04-05] MEDS: SYMBICORT 160/4.5MCG INHALER 6GM INH SCH ×2 (07:34→20:00)
[2022-04-05] MEDS: oxyCODONE 5MG TAB PO PRN ×2 (08:06→18:32)
[2022-04-05] MEDS: FERROUS SULFATE 325MG TAB PO SCH (10:05)
[2022-04-05] MEDS: INSULIN LISPRO (NovoLOG) PER UNIT SC SCH ×4 (10:07→20:41)
[2022-04-05] MEDS: MIRALAX *UNIT DOSE* 17GM PACKET PO SCH (10:07)
[2022-04-05] MEDS: predniSONE 10MG TAB PO SCH (10:12)
[2022-04-05] MEDS: METOPROLOL SUCC *XL* 25MG TAB (TopROL *XL*) PO SCH (10:12)
[2022-04-05] MEDS: DULoxetine 30MG CAPSULE (CYMBALTA) PO SCH (10:13)
[2022-04-05] MEDS: FLUoxetine 20MG CAP PO SCH (10:13)
[2022-04-05] MEDS: OMEPRAZOLE 20MG CAP PO SCH ×2 (10:31→20:39)
[2022-04-05] MEDS: POTASSIUM CHLORIDE 10MEQ SR TABLET PO SCH ×2 (10:31→20:40)
[2022-04-05] MEDS: APIXABAN 5 MG TAB (ELIQUIS) PO SCH ×2 (10:34→20:38)
[2022-04-05] MEDS: SENOKOT S TAB PO SCH ×2 (10:34→20:41)
[2022-04-05 14:00] VITALS: BP 118/71
[2022-04-05] MEDS: ATORVASTATIN 20 MG TAB PO SCH (20:38)
[2022-04-05 22:30] VITALS: BP 119/72
[2022-04-06] MEDS: oxyCODONE 5MG TAB PO PRN ×2 (00:46→16:20)
[2022-04-06 06:00] VITALS: BP 122/72
[2022-04-06] MEDS: ACETAMINOPHEN 500 MG TAB PO SCH ×3 (06:12→22:01)
[2022-04-06] MEDS: traMADol 50 MG TAB PO SCH ×3 (06:12→22:01)
[2022-04-06 06:22] LABS: HEMATOCRIT 35.9 % (36.0-47.0); HEMOGLOBIN 11.8 g/dl (12.0-15.5); MEAN CORPUSCULAR HEMOGLOBIN 30.5 pg (27.0-33.0); MEAN CORPUSCULAR HGB CONC 32.9 g/dl (32.0-36.5); MEAN CORPUSCULAR VOLUME 92.8 fl (80.0-96.0); PLATELET COUNT, AUTOMATED 237 10^3/uL (150-450); RED BLOOD COUNT 3.87 10^6/uL (4.00-5.40); WHITE BLOOD COUNT 12.3 10^3/uL (4.0-10.0)
[2022-04-06 07:21] LABS: CALCIUM LEVEL 8.3 MG/DL (8.3-10.6); CREATININE FOR GFR 1.21 MG/DL (0.55-1.30); GLOMERULAR FILTRATION RATE 44.9 (>32); POTASSIUM SERUM 4.8 MMOL/L (3.5-5.1)
[2022-04-06] MEDS: SYMBICORT 160/4.5MCG INHALER 6GM INH SCH ×2 (08:11→20:57)
[2022-04-06] MEDS: TIOTROPIUM INHALER/CAPSULE (SPIRIVA) INH SCH (08:11)
[2022-04-06] MEDS: INSULIN LISPRO (NovoLOG) PER UNIT SC SCH ×4 (08:30→21:00)
[2022-04-06] MEDS: METOPROLOL SUCC *XL* 25MG TAB (TopROL *XL*) PO SCH (09:00)
[2022-04-06] MEDS: FERROUS SULFATE 325MG TAB PO SCH (09:00)
[2022-04-06] MEDS: DULoxetine 30MG CAPSULE (CYMBALTA) PO SCH (09:00)
[2022-04-06] MEDS: SENOKOT S TAB PO SCH ×2 (09:00→21:00)
[2022-04-06] MEDS: FLUoxetine 20MG CAP PO SCH (09:00)
[2022-04-06] MEDS: APIXABAN 5 MG TAB (ELIQUIS) PO SCH ×2 (09:00→22:01)
[2022-04-06] MEDS: predniSONE 10MG TAB PO SCH (09:00)
[2022-04-06] MEDS: MIRALAX *UNIT DOSE* 17GM PACKET PO SCH (09:00)
[2022-04-06] MEDS: OMEPRAZOLE 20MG CAP PO SCH ×2 (09:00→21:54)
[2022-04-06] MEDS: FUROSEMIDE 20 MG TAB PO SCH ×2 (09:00→16:20)
[2022-04-06] MEDS: POTASSIUM CHLORIDE 10MEQ SR TABLET PO SCH ×2 (09:00→21:00)
[2022-04-06 14:00] VITALS: BP 126/76
[2022-04-06 20:13] VITALS: BP 128/74
[2022-04-06] MEDS: ATORVASTATIN 20 MG TAB PO SCH (21:58)
[2022-04-07] MEDS: oxyCODONE 5MG TAB PO PRN ×2 (03:42→10:23)
[2022-04-07 05:17] VITALS: BP 136/81
[2022-04-07] MEDS: ACETAMINOPHEN 500 MG TAB PO SCH ×3 (06:11→22:01)
[2022-04-07] MEDS: traMADol 50 MG TAB PO SCH ×3 (06:12→22:00)
[2022-04-07 06:22] LABS: HEMATOCRIT 37.1 % (36.0-47.0); HEMOGLOBIN 12.2 g/dl (12.0-15.5); MEAN CORPUSCULAR HGB CONC 32.9 g/dl (32.0-36.5); MEAN CORPUSCULAR VOLUME 94.2 fl (80.0-96.0); PLATELET COUNT, AUTOMATED 251 10^3/uL (150-450); RED BLOOD COUNT 3.94 10^6/uL (4.00-5.40); WHITE BLOOD COUNT 11.2 10^3/uL (4.0-10.0)
[2022-04-07 06:47] LABS: CALCIUM LEVEL 8.8 MG/DL (8.3-10.6); CREATININE FOR GFR 1.24 MG/DL (0.55-1.30); GLOMERULAR FILTRATION RATE 43.7 (>32); POTASSIUM SERUM 4.3 MMOL/L (3.5-5.1)
[2022-04-07] MEDS: INSULIN LISPRO (NovoLOG) PER UNIT SC SCH ×4 (08:46→21:00)
[2022-04-07] MEDS: APIXABAN 5 MG TAB (ELIQUIS) PO SCH ×2 (08:46→22:00)
[2022-04-07] MEDS: DULoxetine 30MG CAPSULE (CYMBALTA) PO SCH (08:47)
[2022-04-07] MEDS: FLUoxetine 20MG CAP PO SCH (08:47)
[2022-04-07] MEDS: METOPROLOL SUCC *XL* 25MG TAB (TopROL *XL*) PO SCH (08:47)
[2022-04-07] MEDS: CALCITRIOL 0.25 MCG CAP (S0169) PO SCH (08:48)
[2022-04-07] MEDS: predniSONE 10MG TAB PO SCH (08:48)
[2022-04-07] MEDS: POTASSIUM CHLORIDE 10MEQ SR TABLET PO SCH ×2 (08:48→22:01)
[2022-04-07] MEDS: OMEPRAZOLE 20MG CAP PO SCH ×2 (08:49→22:02)
[2022-04-07] MEDS: FUROSEMIDE 20 MG TAB PO SCH ×2 (08:49→18:01)
[2022-04-07] MEDS: FERROUS SULFATE 325MG TAB PO SCH (08:49)
[2022-04-07] MEDS: SENOKOT S TAB PO SCH ×2 (08:51→21:00)
[2022-04-07] MEDS: MIRALAX *UNIT DOSE* 17GM PACKET PO SCH (08:51)
[2022-04-07] MEDS: SYMBICORT 160/4.5MCG INHALER 6GM INH SCH ×2 (08:53→20:06)
[2022-04-07] MEDS: TIOTROPIUM INHALER/CAPSULE (SPIRIVA) INH SCH (08:53)
[2022-04-07 13:47] LABS: APPEARANCE, URINE CLOUDY (CLEAR); BACTERIA, URINE AUTO 3+ (NEGATIVE); BILIRUBIN, URINE AUTO NEGATIVE (NEGATIVE); BLOOD, URINE BLOOD 1+ (NEGATIVE); COLOR, URINE YELLOW (YELLOW); GLUCOSE, URINE (UA) AUTO NEGATIVE (NEGATIVE); KETONE, URINE AUTO NEGATIVE (NEGATIVE); LEUKOCYTE ESTERASE, URINE AUTO 3+ (NEGATIVE); MUCUS, URINE SMALL (NEGATIVE); NITRITE, URINE AUTO NEGATIVE (NEGATIVE); PROTEIN, URINE AUTO NEGATIVE (NEGATIVE); RBC, URINE AUTO 9 /HPF (0-3); SQUAMOUS EPITHELIAL CELL UR AU 1 /HPF (0-6); UROBILINOGEN, URINE AUTO 0.2 mg/dL (0.0-2.0); WBC, URINE AUTO TNTC /HPF (0-3)
[2022-04-07] MEDS: cefTRIAXone SOD 1 GM in D5W MINI-BAG PLUS 50 ML IV SCH (20:01)
[2022-04-07 21:51] VITALS: BP 131/77
[2022-04-07] MEDS: ATORVASTATIN 20 MG TAB PO SCH (22:01)
[2022-04-07] MEDS: LEVEMIR (INSULIN DETEMIR) 1 UNITS/0.01ML SC SCH (22:05)
[2022-04-08] MEDS: oxyCODONE 5MG TAB PO PRN ×4 (02:34→20:34)
[2022-04-08] MEDS ORDERED: oxyCODONE 5MG TAB PO ONE (05:00)
[2022-04-08] MEDS: ACETAMINOPHEN 500 MG TAB PO SCH ×3 (05:59→21:20)
[2022-04-08] MEDS: traMADol 50 MG TAB PO SCH ×3 (06:00→21:20)
[2022-04-08 06:12] VITALS: BP 130/77
[2022-04-08 06:27] LABS: HEMATOCRIT 34.8 % (36.0-47.0); HEMOGLOBIN 11.2 g/dl (12.0-15.5); MEAN CORPUSCULAR HEMOGLOBIN 30.1 pg (27.0-33.0); MEAN CORPUSCULAR HGB CONC 32.2 g/dl (32.0-36.5); MEAN CORPUSCULAR VOLUME 93.5 fl (80.0-96.0); PLATELET COUNT, AUTOMATED 253 10^3/uL (150-450); RED BLOOD COUNT 3.72 10^6/uL (4.00-5.40); WHITE BLOOD COUNT 10.7 10^3/uL (4.0-10.0)
[2022-04-08 06:52] LABS: CALCIUM LEVEL 8.2 MG/DL (8.3-10.6); CREATININE FOR GFR 1.18 MG/DL (0.55-1.30); GLOMERULAR FILTRATION RATE 46.2 (>32)
[2022-04-08] MEDS: SYMBICORT 160/4.5MCG INHALER 6GM INH SCH ×2 (08:19→19:33)
[2022-04-08] MEDS: TIOTROPIUM INHALER/CAPSULE (SPIRIVA) INH SCH (08:19)
[2022-04-08] MEDS: INSULIN LISPRO (NovoLOG) PER UNIT SC SCH ×4 (08:31→21:00)
[2022-04-08] MEDS: FLUoxetine 20MG CAP PO SCH (08:32)
[2022-04-08] MEDS: FUROSEMIDE 20 MG TAB PO SCH (08:32)
[2022-04-08] MEDS: POTASSIUM CHLORIDE 10MEQ SR TABLET PO SCH ×2 (08:32→20:34)
[2022-04-08] MEDS: FERROUS SULFATE 325MG TAB PO SCH (08:32)
[2022-04-08] MEDS: DULoxetine 30MG CAPSULE (CYMBALTA) PO SCH (08:32)
[2022-04-08] MEDS: OMEPRAZOLE 20MG CAP PO SCH ×2 (08:32→20:34)
[2022-04-08] MEDS: APIXABAN 5 MG TAB (ELIQUIS) PO SCH ×2 (08:32→20:33)
[2022-04-08] MEDS: predniSONE 10MG TAB PO SCH (08:32)
[2022-04-08] MEDS: METOPROLOL SUCC *XL* 25MG TAB (TopROL *XL*) PO SCH (08:34)
[2022-04-08] MEDS: SENOKOT S TAB PO SCH ×2 (08:34→20:35)
[2022-04-08] MEDS: MIRALAX *UNIT DOSE* 17GM PACKET PO SCH (08:34)
[2022-04-08 14:00] VITALS: BP 109/66
[2022-04-08] MEDS: FUROSEMIDE 40 MG TAB PO SCH (16:58)
[2022-04-08] MEDS: cefTRIAXone SOD 1 GM in D5W MINI-BAG PLUS 50 ML IV SCH (20:31)
[2022-04-08] MEDS: ATORVASTATIN 20 MG TAB PO SCH (20:34)
[2022-04-08] MEDS: LEVEMIR (INSULIN DETEMIR) 1 UNITS/0.01ML SC SCH (20:35)
[2022-04-08 23:21] VITALS: BP 115/66
[2022-04-09] MEDS: oxyCODONE 5MG TAB PO PRN ×3 (02:20→17:51)
[2022-04-09] MEDS: traMADol 50 MG TAB PO SCH ×3 (05:43→21:40)
[2022-04-09] MEDS: ACETAMINOPHEN 500 MG TAB PO SCH ×3 (05:43→21:41)
[2022-04-09 05:54] VITALS: BP 144/79
[2022-04-09 06:38] LABS: HEMATOCRIT 34.5 % (36.0-47.0); HEMOGLOBIN 11.6 g/dl (12.0-15.5); MEAN CORPUSCULAR HEMOGLOBIN 31.6 pg (27.0-33.0); MEAN CORPUSCULAR HGB CONC 33.6 g/dl (32.0-36.5); PLATELET COUNT, AUTOMATED 269 10^3/uL (150-450); RED BLOOD COUNT 3.67 10^6/uL (4.00-5.40); WHITE BLOOD COUNT 11.1 10^3/uL (4.0-10.0)
[2022-04-09 07:11] LABS: CALCIUM LEVEL 8.5 MG/DL (8.3-10.6); CREATININE FOR GFR 1.26 MG/DL (0.55-1.30); GLOMERULAR FILTRATION RATE 42.9 (>32)
[2022-04-09] MEDS: DULoxetine 30MG CAPSULE (CYMBALTA) PO SCH (08:24)
[2022-04-09] MEDS: POTASSIUM CHLORIDE 10MEQ SR TABLET PO SCH ×2 (08:24→21:41)
[2022-04-09] MEDS: SENOKOT S TAB PO SCH ×2 (08:24→21:00)
[2022-04-09] MEDS: FLUoxetine 20MG CAP PO SCH (08:24)
[2022-04-09] MEDS: FERROUS SULFATE 325MG TAB PO SCH (08:24)
[2022-04-09] MEDS: CALCITRIOL 0.25 MCG CAP (S0169) PO SCH (08:24)
[2022-04-09] MEDS: OMEPRAZOLE 20MG CAP PO SCH ×2 (08:24→21:40)
[2022-04-09] MEDS: predniSONE 10MG TAB PO SCH (08:24)
[2022-04-09] MEDS: APIXABAN 5 MG TAB (ELIQUIS) PO SCH ×2 (08:24→21:41)
[2022-04-09] MEDS: MIRALAX *UNIT DOSE* 17GM PACKET PO SCH (08:25)
[2022-04-09] MEDS: INSULIN LISPRO (NovoLOG) PER UNIT SC SCH ×4 (08:25→21:00)
[2022-04-09] MEDS: FUROSEMIDE 40 MG TAB PO SCH ×2 (08:25→17:30)
[2022-04-09] MEDS: TIOTROPIUM INHALER/CAPSULE (SPIRIVA) INH SCH (08:55)
[2022-04-09] MEDS: SYMBICORT 160/4.5MCG INHALER 6GM INH SCH ×2 (08:55→20:15)
[2022-04-09] MEDS: METOPROLOL SUCC *XL* 25MG TAB (TopROL *XL*) PO SCH (09:00)
[2022-04-09 14:00] VITALS: BP 114/57
[2022-04-09] MEDS: cefTRIAXone SOD 1 GM in D5W MINI-BAG PLUS 50 ML IV SCH (20:24)
[2022-04-09 21:31] VITALS: BP 122/82
[2022-04-09] MEDS: ATORVASTATIN 20 MG TAB PO SCH (21:40)
[2022-04-09] MEDS: LEVEMIR (INSULIN DETEMIR) 1 UNITS/0.01ML SC SCH (21:42)
[2022-04-10] MEDS: oxyCODONE 5MG TAB PO PRN ×3 (03:25→18:30)
[2022-04-10] MEDS ORDERED: LevoFLOXacin 750 MG TABLET PO SCH (06:00)
[2022-04-10] MEDS: traMADol 50 MG TAB PO SCH ×3 (06:10→21:59)
[2022-04-10] MEDS: ACETAMINOPHEN 500 MG TAB PO SCH ×3 (06:10→21:58)
[2022-04-10 06:17] VITALS: BP 154/89
[2022-04-10 07:02] VITALS: BP 145/89
[2022-04-10] MEDS: TIOTROPIUM INHALER/CAPSULE (SPIRIVA) INH SCH (07:36)
[2022-04-10] MEDS: SYMBICORT 160/4.5MCG INHALER 6GM INH SCH ×2 (07:36→20:50)
[2022-04-10] MEDS: MIRALAX *UNIT DOSE* 17GM PACKET PO SCH (09:00)
[2022-04-10] MEDS: SENOKOT S TAB PO SCH ×2 (09:00→21:00)
[2022-04-10] MEDS: METOPROLOL SUCC *XL* 25MG TAB (TopROL *XL*) PO SCH (09:13)
[2022-04-10] MEDS: FERROUS SULFATE 325MG TAB PO SCH (09:13)
[2022-04-10] MEDS: DULoxetine 30MG CAPSULE (CYMBALTA) PO SCH (09:13)
[2022-04-10] MEDS: POTASSIUM CHLORIDE 10MEQ SR TABLET PO SCH ×2 (09:14→21:57)
[2022-04-10] MEDS: FLUoxetine 20MG CAP PO SCH (09:14)
[2022-04-10] MEDS: OMEPRAZOLE 20MG CAP PO SCH ×2 (09:14→21:57)
[2022-04-10] MEDS: FUROSEMIDE 40 MG TAB PO SCH ×2 (09:16→18:30)
[2022-04-10] MEDS: APIXABAN 5 MG TAB (ELIQUIS) PO SCH ×2 (09:16→21:56)
[2022-04-10] MEDS: predniSONE 10MG TAB PO SCH (09:16)
[2022-04-10] MEDS: INSULIN LISPRO (NovoLOG) PER UNIT SC SCH ×5 (09:18→21:00)
[2022-04-10] MEDS ORDERED: SENN-52 PO (11:49)
[2022-04-10] MEDS ORDERED: FURO20TA2 PO (11:49)
[2022-04-10] MEDS ORDERED: ACET-683 PO (11:49)
[2022-04-10] MEDS ORDERED: TRAM50TA2 PO (11:49)
[2022-04-10] MEDS ORDERED: LEVO1TAB40 PO (11:49)
[2022-04-10] MEDS ORDERED: OXYC-517 PO (11:49)
[2022-04-10] MEDS ORDERED: oxyCODONE 5MG TAB PO ONE (13:25)
[2022-04-10 17:21] VITALS: BP 105/60
[2022-04-10 20:00] VITALS: BP 113/70
[2022-04-10] MEDS: LEVEMIR (INSULIN DETEMIR) 1 UNITS/0.01ML SC SCH (21:55)
[2022-04-10] MEDS: ATORVASTATIN 20 MG TAB PO SCH (21:57)
[2022-04-11] MEDS: oxyCODONE 5MG TAB PO PRN ×2 (00:34→08:22)
[2022-04-11] MEDS: ACETAMINOPHEN 500 MG TAB PO SCH (05:01)
[2022-04-11] MEDS: traMADol 50 MG TAB PO SCH (05:01)
[2022-04-11 06:00] VITALS: BP 127/70
[2022-04-11] MEDS: INSULIN LISPRO (NovoLOG) PER UNIT SC SCH (07:30)
[2022-04-11] MEDS: SYMBICORT 160/4.5MCG INHALER 6GM INH SCH (07:51)
[2022-04-11] MEDS: TIOTROPIUM INHALER/CAPSULE (SPIRIVA) INH SCH (07:51)
[2022-04-11] MEDS: predniSONE 10MG TAB PO SCH (08:21)
[2022-04-11] MEDS: POTASSIUM CHLORIDE 10MEQ SR TABLET PO SCH (08:21)
[2022-04-11] MEDS: FLUoxetine 20MG CAP PO SCH (08:21)
[2022-04-11] MEDS: DULoxetine 30MG CAPSULE (CYMBALTA) PO SCH (08:22)
[2022-04-11] MEDS: OMEPRAZOLE 20MG CAP PO SCH (08:22)
[2022-04-11] MEDS: APIXABAN 5 MG TAB (ELIQUIS) PO SCH (08:22)
[2022-04-11] MEDS: SENOKOT S TAB PO SCH (08:22)
[2022-04-11] MEDS: CALCITRIOL 0.25 MCG CAP (S0169) PO SCH (08:22)
[2022-04-11 08:23] VITALS: BP 127/70
[2022-04-11] MEDS: METOPROLOL SUCC *XL* 25MG TAB (TopROL *XL*) PO SCH (08:23)
[2022-04-11] MEDS: FUROSEMIDE 40 MG TAB PO SCH (08:23)
[2022-04-11] MEDS: FERROUS SULFATE 325MG TAB PO SCH (08:23)
[2022-04-11] MEDS: MIRALAX *UNIT DOSE* 17GM PACKET PO SCH (08:23)
== END 2022-04-11 11:30 | DRG 536 ==
LOC: M ED 17:45 → EDBD 17:45 → M ED INP 22:10 → ENRESERV 23:46 → M MS5PR 04-03 00:15
PROVIDERS: ADMIT Family Medicine; ATTEND Internal Medicine Nephrology
DX: S32.519A Fracture of superior rim of unspecified pubis, initial encounter for closed fracture (principal); N17.9 Acute kidney failure, unspecified; J96.11 Chronic respiratory failure with hypoxia; I50.32 Chronic diastolic (congestive) heart failure; I13.0 Hypertensive heart and chronic kidney disease with heart failure and stage 1 through stage 4 chronic kidney disease, or unspecified chronic kidney disease; S32.10XA Unspecified fracture of sacrum, initial encounter for closed fracture; N39.0 Urinary tract infection, site not specified; N18.30 Chronic kidney disease, stage 3 unspecified; E66.9 Obesity, unspecified; J44.9 Chronic obstructive pulmonary disease, unspecified; E11.22 Type 2 diabetes mellitus with diabetic chronic kidney disease; Z79.52 Long term (current) use of systemic steroids; I25.10 Atherosclerotic heart disease of native coronary artery without angina pectoris; I48.0 Paroxysmal atrial fibrillation; F32.A Depression, unspecified; G47.33 Obstructive sleep apnea (adult) (pediatric); M81.0 Age-related osteoporosis without current pathological fracture; Z99.81 Dependence on supplemental oxygen; I35.0 Nonrheumatic aortic (valve) stenosis; D72.829 Elevated white blood cell count, unspecified; E78.5 Hyperlipidemia, unspecified; I71.43 Infrarenal abdominal aortic aneurysm, without rupture; Z88.8 Allergy status to other drugs, medicaments and biological substances; Z79.899 Other long term (current) drug therapy; Z79.4 Long term (current) use of insulin; Z87.891 Personal history of nicotine dependence; W18.30XA Fall on same level, unspecified, initial encounter; Y92.009 Unspecified place in unspecified non-institutional (private) residence as the place of occurrence of the external cause; B96.89 Other specified bacterial agents as the cause of diseases classified elsewhere

== ENCOUNTER → 2022-05-06 | Outpatient (CLI) | payer MEDICARE ==
[~2022-05-06] MED LIST changes: +ACET-683 PO; +LEVO1TAB40 PO; +SENN-52 PO
== END ==
LOC: M SOG 10:14
PROVIDERS: ATTEND Orthopaedic Surgery
DX: S32.511A Fracture of superior rim of right pubis, initial encounter for closed fracture (principal); S32.512A Fracture of superior rim of left pubis, initial encounter for closed fracture; Y93.9 Activity, unspecified; Y92.9 Unspecified place or not applicable

== ENCOUNTER 2022-05-20 13:00 | Inpatient (IN) | payer MEDICARE ==
[~2022-05-20] VITALS: Ht 170.2 cm; Wt 96.0 kg
[2022-05-20 16:05] LABS: BASO % 0.6 % (0.0-1.0); HEMOGLOBIN 13.3 g/dl (12.0-15.5); LYMPH # 0.6 10^3/uL (1.5-5.0); LYMPH % 10.3 % (24.0-44.0); MEAN CORPUSCULAR HEMOGLOBIN 30.2 pg (27.0-33.0); MEAN CORPUSCULAR HGB CONC 32.4 g/dl (32.0-36.5); MEAN CORPUSCULAR VOLUME 93.2 fl (80.0-96.0); MONO # 0.3 10^3/uL (0.0-0.8); MONO % 4.8 % (2.0-8.0); NEUTROPHILS # 4.5 10^3/uL (1.5-8.5); PLATELET COUNT, AUTOMATED 157 10^3/uL (150-450); WHITE BLOOD COUNT 5.5 10^3/uL (4.0-10.0)
[2022-05-20 16:23] LABS: INR 1.26; PARTIAL THROMBOPLASTIN TIME 33.1 SECONDS (24.8-34.2); PROTHROMBIN TIME 16.1 SECONDS (12.5-14.5)
[2022-05-20] MEDS: METOPROLOL 5 MG/5 ML VIAL IV SCH ×3 (16:34→16:56)
[2022-05-20 16:35] LABS: CK-MB VALUE MASS < 1.0 NG/ML (<3.6); LIPASE 18 U/L (12-53)
[2022-05-20 16:40] LABS: FREE T4 1.25 NG/DL (0.89-1.76)
[2022-05-20 17:07] LABS: ALBUMIN 2.9 G/DL (3.2-5.2); ALKALINE PHOSPHATASE 192 U/L (46-116); ALT/SGPT 25 U/L (7.0-40); AST/SGOT 48 U/L (<34); BILIRUBIN,DIRECT 0.3 MG/DL (<0.4); BLOOD UREA NITROGEN 18 MG/DL (9-23); CARBON DIOXIDE LEVEL 26 MMOL/L (20-31); CHLORIDE LEVEL 108 MMOL/L (98-107); CPK CREATINE PHOSPHOKINASE 88 U/L (34-145); CREATININE FOR GFR 1.06 MG/DL (0.55-1.30); GLOMERULAR FILTRATION RATE 52.3 (>32); GLUCOSE, FASTING 134 MG/DL (74-106); MB/CK RELATIVE INDEX 1.13 (< OR =4); POTASSIUM SERUM 3.4 MMOL/L (3.5-5.1); SODIUM LEVEL 144 MMOL/L (136-145); TOTAL PROTEIN 5.3 G/DL (5.7-8.2)
[2022-05-20] MEDS ORDERED: POTASSIUM CHLORIDE 10MEQ SR TABLET PO ONE (17:15)
[2022-05-20 17:26] LABS: THYROID STIMULATING HORMONE 1.273 uIU/ML (0.55-4.78)
[2022-05-20] MEDS ORDERED: MORPHINE 2 MG/ML 1ML VIAL IV ONE (17:45)
[2022-05-20 18:07] LABS: CK-MB VALUE MASS < 1.0 NG/ML (<3.6)
[2022-05-20 18:14] LABS: CPK CREATINE PHOSPHOKINASE 93 U/L (34-145); MB/CK RELATIVE INDEX 1.07 (< OR =4)
[2022-05-20] MEDS ORDERED: FUROSEMIDE 40MG/4ML VIAL IV ONE (18:30)
[2022-05-20] MEDS ORDERED: METOPROLOL TART 25 MG TABLET PO ONE (18:55)
[2022-05-20] MEDS ORDERED: cefTRIAXone SOD 1 GM in D5W MINI-BAG PLUS 50 ML IV ONE (19:05)
[2022-05-20] MEDS ORDERED: LABETALOL 100MG/20ML VIAL As Ordered ONE (20:38)
[2022-05-20] MEDS ORDERED: SPIR-10 PO (20:39)
[2022-05-20] MEDS ORDERED: TRAM50TA2 PO (20:39)
[2022-05-20] MEDS ORDERED: FURO20TA2 PO (20:39)
[2022-05-20] MEDS ORDERED: ACET-683 PO (20:39)
[2022-05-20] MEDS ORDERED: levETIRAcetam INJection 1,000 MG in D5W 100 ML IV ONE (20:40)
[2022-05-20] MEDS ORDERED: IPRATROPIUM 0.5MG/ALBUTEROL 2.5MG INH SOL UD 3ML (DUONEB) NEB ONE (20:40)
[2022-05-20] MEDS ORDERED: LABETALOL 100MG/20ML VIAL IV ONE (20:40)
[2022-05-20] MEDS ORDERED: HOME MED LIST COMPLETE! XX SCH (20:45)
[2022-05-20 22:03] VITALS: BP 151/92
[2022-05-20 22:30] VITALS: O2SAT 92
[2022-05-20 23:00] VITALS: O2SAT 96
[2022-05-20] MEDS ORDERED: ACETAMINOPHEN 1000MG 100ML IV BAG IV ONE (23:00)
[2022-05-20 23:59] VITALS: BP 138/84
[2022-05-21] VITALS (7 sets, daily range): BP systolic 96–120; BP diastolic 56–70; O2SAT 90–95
[2022-05-21] MEDS ORDERED: INSULIN LISPRO (NovoLOG) PER UNIT SC SCH
[2022-05-21] MEDS ORDERED: PHENYTOIN IV ONE ×4
[2022-05-21] MEDS ORDERED: NS IV ONE ×4
[2022-05-21] MEDS ORDERED: GLUCOSE 4GM CHEW TABLET PO PRN ×2 (01:10→11:25)
[2022-05-21] MEDS ORDERED: DEXTROSE 50% 50ML SYRINGE IV PRN ×2 (01:10→11:25)
[2022-05-21] MEDS ORDERED: GLUCAGON INJ 1MG VIAL SC PRN ×2 (01:10→11:25)
[2022-05-21] MEDS: ALBUTEROL SULFATE 2.5MG/0.5ML INH NEB SOLN NEB SCH ×4 (01:58→20:39)
[2022-05-21] MEDS ORDERED: PIPERACILLIN/TAZOBACTAM SOD 3.375 GM in D5W MINI-BAG PLUS 50 ML IV SCH (02:00)
[2022-05-21] MEDS ORDERED: AZITHROMYCIN INJ 500 MG, VIAL MATE ADAPTER 1 EACH in NS 250 ML IV SCH (03:00)
[2022-05-21] MEDS ORDERED: ONDANSETRON 4MG 2ML VIAL IV PRN (03:15)
[2022-05-21] MEDS ORDERED: MORPHINE 2 MG/ML 1ML VIAL IV PRN (03:15)
[2022-05-21] MEDS ORDERED: ACETAMINOPHEN 650MG SUPP PR PRN (04:30)
[2022-05-21] MEDS: PHENYTOIN 100MG/2ML VIAL IV SCH ×2 (07:41→15:34)
[2022-05-21] MEDS: ADVAIR HFA 230/21MCG INHALER INH SCH ×2 (08:00→20:00)
[2022-05-21] MEDS ORDERED: PANTOPRAZOLE 40MG VIAL IV SCH (09:00)
[2022-05-21] MEDS ORDERED: HEPARIN SOD (PORCINE) 5000UNITS/ML 1ML VIAL/SYRINGE SC SCH (09:00)
[2022-05-21] MEDS ORDERED: NITROGLYCERIN 0.4MG SUBL TABLET SL PRN (11:25)
[2022-05-21] MEDS ORDERED: LEVALBUTEROL HFA 45MCG/ACT 15GM INHALER INH PRN (11:25)
[2022-05-21] MEDS ORDERED: SENOKOT S TAB PO PRN (11:25)
[2022-05-21 12:04] LABS: BASO % 0.3 % (0.0-1.0); HEMATOCRIT 45.2 % (36.0-47.0); HEMOGLOBIN 14.1 g/dl (12.0-15.5); LYMPH # 0.7 10^3/uL (1.5-5.0); MEAN CORPUSCULAR HEMOGLOBIN 29.8 pg (27.0-33.0); MEAN CORPUSCULAR HGB CONC 31.2 g/dl (32.0-36.5); MEAN CORPUSCULAR VOLUME 95.6 fl (80.0-96.0); MONO # 0.2 10^3/uL (0.0-0.8); MONO % 3.2 % (2.0-8.0); NEUTROPHILS % 84.7 % (36.0-66.0); PLATELET COUNT, AUTOMATED 150 10^3/uL (150-450); RED BLOOD COUNT 4.73 10^6/uL (4.00-5.40); WHITE BLOOD COUNT 5.9 10^3/uL (4.0-10.0)
[2022-05-21 12:31] LABS: CK-MB VALUE MASS 1.4 NG/ML (<3.6)
[2022-05-21 12:32] LABS: PHENYTOIN (DILANTIN) 12.2 UG/ML (10.0-20.0)
[2022-05-21 12:40] LABS: CALCIUM LEVEL 7.9 MG/DL (8.3-10.6); CREATININE FOR GFR 1.5 MG/DL (0.55-1.30); GLOMERULAR FILTRATION RATE 35.1 (>32); MAGNESIUM LEVEL 1.7 MG/DL (1.8-2.4); MB/CK RELATIVE INDEX 0.61 (< OR =4); POTASSIUM SERUM 3.5 MMOL/L (3.5-5.1)
[2022-05-21] MEDS: CALCITRIOL 0.25 MCG CAP (S0169) PO SCH (12:41)
[2022-05-21] MEDS: FLUoxetine 20MG CAP PO SCH (12:41)
[2022-05-21] MEDS: predniSONE 10MG TAB PO SCH (12:42)
[2022-05-21] MEDS: POTASSIUM CHLORIDE 10MEQ SR TABLET PO SCH ×2 (12:42→20:45)
[2022-05-21] MEDS: DULoxetine 30MG CAPSULE (CYMBALTA) PO SCH (12:42)
[2022-05-21] MEDS: METOPROLOL SUCC *XL* 25MG TAB (TopROL *XL*) PO SCH (12:42)
[2022-05-21] MEDS: FERROUS SULFATE 325MG TAB PO SCH (12:42)
[2022-05-21] MEDS: INSULIN LISPRO (NovoLOG) PER UNIT SC SCH ×3 (12:43→20:24)
[2022-05-21] MEDS: LEVEMIR (INSULIN DETEMIR) 1 UNITS/0.01ML SC SCH (12:43)
[2022-05-21] MEDS: NS 1,000 ML IV SCH (12:57)
[2022-05-21] MEDS: DOXYCYCLINE HYCLATE 100MG TABLET PO SCH ×2 (13:13→20:44)
[2022-05-21 16:30] LABS: CK-MB VALUE MASS 1.3 NG/ML (<3.6)
[2022-05-21 16:32] LABS: MB/CK RELATIVE INDEX 0.61 (< OR =4)
[2022-05-21 18:08] LABS: APPEARANCE, BODY FLUID CLOUDY (CLEAR); PLEURAL FL COLOR YELLOW (COLORLESS); SOURCE, BODY FLUID PLEURAL
[2022-05-21] MEDS ORDERED: cefTRIAXone SOD 1 GM in D5W MINI-BAG PLUS 50 ML IV SCH (19:00)
[2022-05-21] MEDS: ATORVASTATIN 20 MG TAB PO SCH (20:44)
[2022-05-21] MEDS: OMEPRAZOLE 20MG CAP PO SCH (20:45)
[2022-05-22] VITALS: BP 131/86
[2022-05-22] MEDS: NS 1,000 ML IV SCH (00:37)
[2022-05-22] MEDS: PHENYTOIN 100MG/2ML VIAL IV SCH ×2 (00:37→09:20)
[2022-05-22] MEDS: ALBUTEROL SULFATE 2.5MG/0.5ML INH NEB SOLN NEB SCH ×4 (02:00→19:39)
[2022-05-22 04:00] VITALS: BP 130/73
[2022-05-22 06:08] LABS: BASO % 0.4 % (0.0-1.0); EOS % 0.6 % (0.0-3.0); HEMATOCRIT 39.8 % (36.0-47.0); HEMOGLOBIN 12.9 g/dl (12.0-15.5); MEAN CORPUSCULAR HEMOGLOBIN 30.5 pg (27.0-33.0); MEAN CORPUSCULAR HGB CONC 32.4 g/dl (32.0-36.5); MEAN CORPUSCULAR VOLUME 94.1 fl (80.0-96.0); MONO # 0.3 10^3/uL (0.0-0.8); MONO % 3.7 % (2.0-8.0); NEUTROPHILS # 5.6 10^3/uL (1.5-8.5); NEUTROPHILS % 80.7 % (36.0-66.0); PLATELET COUNT, AUTOMATED 160 10^3/uL (150-450); RED BLOOD COUNT 4.23 10^6/uL (4.00-5.40)
[2022-05-22 07:17] LABS: CALCIUM LEVEL 7.6 MG/DL (8.3-10.6); CREATININE FOR GFR 1.21 MG/DL (0.55-1.30); GLOMERULAR FILTRATION RATE 44.9 (>32); MAGNESIUM LEVEL 1.4 MG/DL (1.8-2.4); POTASSIUM SERUM 4.2 MMOL/L (3.5-5.1)
[2022-05-22 08:00] VITALS: BP 130/79
[2022-05-22] MEDS: ADVAIR HFA 230/21MCG INHALER INH SCH ×2 (08:00→19:40)
[2022-05-22] MEDS: CALCITRIOL 0.25 MCG CAP (S0169) PO SCH (09:17)
[2022-05-22] MEDS: DULoxetine 30MG CAPSULE (CYMBALTA) PO SCH (09:17)
[2022-05-22] MEDS: OMEPRAZOLE 20MG CAP PO SCH ×2 (09:17→20:29)
[2022-05-22] MEDS: METOPROLOL SUCC *XL* 25MG TAB (TopROL *XL*) PO SCH (09:18)
[2022-05-22] MEDS: FERROUS SULFATE 325MG TAB PO SCH (09:19)
[2022-05-22] MEDS: FLUoxetine 20MG CAP PO SCH (09:19)
[2022-05-22] MEDS: predniSONE 10MG TAB PO SCH (09:19)
[2022-05-22] MEDS: DOXYCYCLINE HYCLATE 100MG TABLET PO SCH ×2 (09:19→20:30)
[2022-05-22] MEDS: POTASSIUM CHLORIDE 10MEQ SR TABLET PO SCH ×2 (09:19→20:29)
[2022-05-22] MEDS: LEVEMIR (INSULIN DETEMIR) 1 UNITS/0.01ML SC SCH (09:23)
[2022-05-22] MEDS: INSULIN LISPRO (NovoLOG) PER UNIT SC SCH ×4 (09:24→20:30)
[2022-05-22] MEDS: MAG SULF 1GM/100ML (MAG RUN) 1 GM in IV 1 EA IV SCH ×3 (09:25→13:11)
[2022-05-22] MEDS: CEFDINIR 300 MG CAP (OMNICEF) PO SCH ×2 (09:26→20:30)
[2022-05-22] MEDS ORDERED: METOPROLOL SUCC *XL* 25MG TAB (TopROL *XL*) PO ONE (11:00)
[2022-05-22 12:00] VITALS: BP 114/80
[2022-05-22] MEDS: SPIRONOLACTONE 25 MG TAB PO SCH (13:07)
[2022-05-22] MEDS: FUROSEMIDE 20 MG TAB PO SCH ×2 (13:09→17:47)
[2022-05-22] MEDS: APIXABAN 5 MG TAB (ELIQUIS) PO SCH ×2 (13:10→20:30)
[2022-05-22] MEDS ORDERED: ONDANSETRON 4MG 2ML VIAL IV ONE (14:10)
[2022-05-22 16:07] VITALS: BP 127/79
[2022-05-22] MEDS: PHENYTOIN 50MG CHEW TABLET PO SCH ×2 (17:47→20:30)
[2022-05-22 19:58] VITALS: BP 140/92
[2022-05-22] MEDS: ATORVASTATIN 20 MG TAB PO SCH (20:30)
[2022-05-23] VITALS (8 sets, daily range): BP systolic 103–146; BP diastolic 61–93
[2022-05-23] MEDS: ALBUTEROL SULFATE 2.5MG/0.5ML INH NEB SOLN NEB SCH ×4 (02:00→20:04)
[2022-05-23 05:58] LABS: BASO % 0.3 % (0.0-1.0); EOS % 0.1 % (0.0-3.0); HEMOGLOBIN 13.5 g/dl (12.0-15.5); LYMPH # 1.2 10^3/uL (1.5-5.0); LYMPH % 17.1 % (24.0-44.0); MEAN CORPUSCULAR HEMOGLOBIN 30.3 pg (27.0-33.0); MEAN CORPUSCULAR HGB CONC 32.9 g/dl (32.0-36.5); MEAN CORPUSCULAR VOLUME 91.9 fl (80.0-96.0); MONO # 0.4 10^3/uL (0.0-0.8); NEUTROPHILS # 5.5 10^3/uL (1.5-8.5); NEUTROPHILS % 77.2 % (36.0-66.0); PLATELET COUNT, AUTOMATED 133 10^3/uL (150-450); RED BLOOD COUNT 4.46 10^6/uL (4.00-5.40); WHITE BLOOD COUNT 7.1 10^3/uL (4.0-10.0)
[2022-05-23 06:37] LABS: CALCIUM LEVEL 7.8 MG/DL (8.3-10.6); CREATININE FOR GFR 1.02 MG/DL (0.55-1.30); GLOMERULAR FILTRATION RATE 54.7 (>32); MAGNESIUM LEVEL 1.9 MG/DL (1.8-2.4); POTASSIUM SERUM 3.1 MMOL/L (3.5-5.1)
[2022-05-23] MEDS ORDERED: POTASSIUM CHLORIDE 10MEQ SR TABLET PO ONE (07:00)
[2022-05-23] MEDS: ADVAIR HFA 230/21MCG INHALER INH SCH ×2 (07:14→20:00)
[2022-05-23] MEDS: INSULIN LISPRO (NovoLOG) PER UNIT SC SCH ×4 (07:30→20:45)
[2022-05-23] MEDS: OMEPRAZOLE 20MG CAP PO SCH ×2 (08:16→21:14)
[2022-05-23] MEDS: CEFDINIR 300 MG CAP (OMNICEF) PO SCH ×2 (08:16→21:15)
[2022-05-23] MEDS: FLUoxetine 20MG CAP PO SCH (08:16)
[2022-05-23] MEDS: PHENYTOIN 50MG CHEW TABLET PO SCH ×3 (08:16→21:15)
[2022-05-23] MEDS: predniSONE 10MG TAB PO SCH (08:17)
[2022-05-23] MEDS: FERROUS SULFATE 325MG TAB PO SCH (08:17)
[2022-05-23] MEDS: SPIRONOLACTONE 25 MG TAB PO SCH (08:17)
[2022-05-23] MEDS: APIXABAN 5 MG TAB (ELIQUIS) PO SCH ×2 (08:17→21:15)
[2022-05-23] MEDS: FUROSEMIDE 20 MG TAB PO SCH ×2 (08:17→16:17)
[2022-05-23] MEDS: DULoxetine 30MG CAPSULE (CYMBALTA) PO SCH (08:17)
[2022-05-23] MEDS: CALCITRIOL 0.25 MCG CAP (S0169) PO SCH (08:17)
[2022-05-23] MEDS: POTASSIUM CHLORIDE 10MEQ SR TABLET PO SCH ×2 (08:17→21:15)
[2022-05-23] MEDS: DOXYCYCLINE HYCLATE 100MG TABLET PO SCH ×2 (08:18→21:15)
[2022-05-23] MEDS ORDERED: METOPROLOL SUCC (TopROL XL) 50MG **XL** TAB PO SCH (09:00)
[2022-05-23] MEDS: ACETAMINOPHEN TAB 650MG DOSE (2X325MG) PO PRN ×2 (11:23→16:17)
[2022-05-23] MEDS: PERCOCET 5MG/325MG TAB PO PRN ×2 (11:45→19:32)
[2022-05-23] MEDS: METOPROLOL SUCC (TopROL XL) 50MG **XL** TAB PO SCH (21:00)
[2022-05-23] MEDS ORDERED: LEVEMIR (INSULIN DETEMIR) 1 UNITS/0.01ML SC SCH (21:00)
[2022-05-23] MEDS: ATORVASTATIN 20 MG TAB PO SCH (21:15)
[2022-05-24] VITALS (12 sets, daily range): BP systolic 94–132; BP diastolic 52–80; O2SAT 93–98
[2022-05-24] MEDS: ALBUTEROL SULFATE 2.5MG/0.5ML INH NEB SOLN NEB SCH ×5 (02:00→19:08)
[2022-05-24 05:41] LABS: HEMOGLOBIN 13.9 g/dl (12.0-15.5); MEAN CORPUSCULAR HGB CONC 32.3 g/dl (32.0-36.5); MEAN CORPUSCULAR VOLUME 92.7 fl (80.0-96.0); PLATELET COUNT, AUTOMATED 123 10^3/uL (150-450); RED BLOOD COUNT 4.64 10^6/uL (4.00-5.40); WHITE BLOOD COUNT 7.1 10^3/uL (4.0-10.0)
[2022-05-24 06:09] LABS: ATYPICAL LYMPH 7 % (0-5); LYMPHOCYTES 12 % (16-44); MONOCYTES 4 % (0-5); NEUTROPHILS 67 % (28-66)
[2022-05-24 06:10] LABS: CALCIUM LEVEL 7.8 MG/DL (8.3-10.6); CREATININE FOR GFR 0.99 MG/DL (0.55-1.30); GLOMERULAR FILTRATION RATE 56.6 (>32); MAGNESIUM LEVEL 1.7 MG/DL (1.8-2.4); POTASSIUM SERUM 3.9 MMOL/L (3.5-5.1)
[2022-05-24 06:11] LABS: ANISOCYTOSIS 1+; OVALOCYTES 1+; PLATELET ESTIMATE DECREASED (NORMAL); SCHISTOCYTES 1+; TEAR DROP CELLS 1+
[2022-05-24 06:12] LABS: POIKILOCYTOSIS 1+
[2022-05-24] MEDS ORDERED: MAG SULF 1GM/100ML (MAG RUN) 1 GM in IV 1 EA IV ONE (07:05)
[2022-05-24] MEDS: INSULIN LISPRO (NovoLOG) PER UNIT SC SCH ×4 (07:30→21:00)
[2022-05-24] MEDS: DULoxetine 30MG CAPSULE (CYMBALTA) PO SCH (07:53)
[2022-05-24] MEDS: METOPROLOL SUCC (TopROL XL) 50MG **XL** TAB PO SCH ×3 (07:54→20:47)
[2022-05-24] MEDS: OMEPRAZOLE 20MG CAP PO SCH ×2 (07:54→20:46)
[2022-05-24] MEDS: PHENYTOIN 50MG CHEW TABLET PO SCH ×3 (07:54→20:44)
[2022-05-24] MEDS: FERROUS SULFATE 325MG TAB PO SCH (07:54)
[2022-05-24] MEDS: PERCOCET 5MG/325MG TAB PO PRN ×3 (07:54→22:29)
[2022-05-24] MEDS: POTASSIUM CHLORIDE 10MEQ SR TABLET PO SCH ×2 (07:55→20:43)
[2022-05-24] MEDS: CALCITRIOL 0.25 MCG CAP (S0169) PO SCH (07:55)
[2022-05-24] MEDS: DOXYCYCLINE HYCLATE 100MG TABLET PO SCH ×2 (07:55→20:42)
[2022-05-24] MEDS: predniSONE 10MG TAB PO SCH (07:55)
[2022-05-24] MEDS: CEFDINIR 300 MG CAP (OMNICEF) PO SCH ×2 (07:55→20:43)
[2022-05-24] MEDS: APIXABAN 5 MG TAB (ELIQUIS) PO SCH ×2 (07:55→20:42)
[2022-05-24] MEDS: FUROSEMIDE 20 MG TAB PO SCH ×2 (07:55→08:00)
[2022-05-24] MEDS: FLUoxetine 20MG CAP PO SCH (07:56)
[2022-05-24] MEDS: SPIRONOLACTONE 25 MG TAB PO SCH ×2 (07:56→08:00)
[2022-05-24] MEDS: ADVAIR HFA 230/21MCG INHALER INH SCH ×2 (08:09→19:08)
[2022-05-24] MEDS ORDERED: PILL CUTTER 1 EACH XX PRN (08:55)
[2022-05-24] MEDS: ACETAMINOPHEN TAB 650MG DOSE (2X325MG) PO PRN (17:18)
[2022-05-24] MEDS: ATORVASTATIN 20 MG TAB PO SCH (20:43)
[2022-05-24] MEDS ORDERED: LEVEMIR (INSULIN DETEMIR) 1 UNITS/0.01ML SC SCH (21:00)
[2022-05-25] MEDS: ALBUTEROL SULFATE 2.5MG/0.5ML INH NEB SOLN NEB SCH ×4 (01:09→19:14)
[2022-05-25] MEDS: PERCOCET 5MG/325MG TAB PO PRN ×2 (04:02→17:28)
[2022-05-25 06:00] VITALS: BP 128/88
[2022-05-25 06:36] LABS: HEMATOCRIT 40.6 % (36.0-47.0); HEMOGLOBIN 13.5 g/dl (12.0-15.5); MEAN CORPUSCULAR HEMOGLOBIN 30.2 pg (27.0-33.0); MEAN CORPUSCULAR HGB CONC 33.3 g/dl (32.0-36.5); MEAN CORPUSCULAR VOLUME 90.8 fl (80.0-96.0); PLATELET COUNT, AUTOMATED 135 10^3/uL (150-450); RED BLOOD COUNT 4.47 10^6/uL (4.00-5.40); WHITE BLOOD COUNT 6.9 10^3/uL (4.0-10.0)
[2022-05-25 06:52] LABS: CALCIUM LEVEL 7.7 MG/DL (8.3-10.6); CREATININE FOR GFR 0.99 MG/DL (0.55-1.30); GLOMERULAR FILTRATION RATE 56.6 (>32); MAGNESIUM LEVEL 1.7 MG/DL (1.8-2.4); POTASSIUM SERUM 4.1 MMOL/L (3.5-5.1)
[2022-05-25 07:03] LABS: ATYPICAL LYMPH 6 % (0-5); LYMPHOCYTES 11 % (16-44); MONOCYTES 3 % (0-5); NEUTROPHILS 73 % (28-66)
[2022-05-25 07:05] LABS: ANISOCYTOSIS 1+; OVALOCYTES 1+; PLATELET ESTIMATE DECREASED (NORMAL)
[2022-05-25 07:06] LABS: PLATELET CLUMPS SMALL AMT; POIKILOCYTOSIS 1+; TEAR DROP CELLS 1+
[2022-05-25] MEDS: ADVAIR HFA 230/21MCG INHALER INH SCH ×2 (07:24→19:14)
[2022-05-25] MEDS: INSULIN LISPRO (NovoLOG) PER UNIT SC SCH ×4 (08:02→21:00)
[2022-05-25] MEDS: PHENYTOIN 50MG CHEW TABLET PO SCH ×3 (08:03→20:27)
[2022-05-25] MEDS: CEFDINIR 300 MG CAP (OMNICEF) PO SCH ×2 (08:04→20:26)
[2022-05-25] MEDS: FUROSEMIDE 20 MG TAB PO SCH ×2 (08:04→17:28)
[2022-05-25] MEDS: FLUoxetine 20MG CAP PO SCH (08:04)
[2022-05-25] MEDS: MAGNESIUM OXIDE 400MG TAB (MAG-OX) PO SCH (08:05)
[2022-05-25] MEDS: DOXYCYCLINE HYCLATE 100MG TABLET PO SCH ×2 (08:05→20:35)
[2022-05-25] MEDS: CALCITRIOL 0.25 MCG CAP (S0169) PO SCH (08:05)
[2022-05-25] MEDS: POTASSIUM CHLORIDE 10MEQ SR TABLET PO SCH ×2 (08:05→20:27)
[2022-05-25] MEDS: OMEPRAZOLE 20MG CAP PO SCH ×2 (08:06→20:27)
[2022-05-25] MEDS: FERROUS SULFATE 325MG TAB PO SCH (08:06)
[2022-05-25] MEDS: METOPROLOL SUCC (TopROL XL) 50MG **XL** TAB PO SCH ×2 (08:06→20:28)
[2022-05-25] MEDS: SPIRONOLACTONE 25 MG TAB PO SCH (08:06)
[2022-05-25] MEDS: DULoxetine 30MG CAPSULE (CYMBALTA) PO SCH (08:06)
[2022-05-25] MEDS: APIXABAN 5 MG TAB (ELIQUIS) PO SCH ×2 (08:06→20:35)
[2022-05-25] MEDS: predniSONE 10MG TAB PO SCH (08:07)
[2022-05-25 14:00] VITALS: BP 130/86
[2022-05-25] MEDS: ATORVASTATIN 20 MG TAB PO SCH (20:27)
[2022-05-26] MEDS: ALBUTEROL SULFATE 2.5MG/0.5ML INH NEB SOLN NEB SCH ×3 (01:14→13:46)
[2022-05-26 04:57] VITALS: BP 132/88
[2022-05-26 05:54] LABS: HEMATOCRIT 42.4 % (36.0-47.0); HEMOGLOBIN 13.5 g/dl (12.0-15.5); MEAN CORPUSCULAR HEMOGLOBIN 29.7 pg (27.0-33.0); MEAN CORPUSCULAR HGB CONC 31.8 g/dl (32.0-36.5); MEAN CORPUSCULAR VOLUME 93.2 fl (80.0-96.0); PLATELET COUNT, AUTOMATED 198 10^3/uL (150-450); RED BLOOD COUNT 4.55 10^6/uL (4.00-5.40); WHITE BLOOD COUNT 8.4 10^3/uL (4.0-10.0)
[2022-05-26 06:16] LABS: CREATININE FOR GFR 0.99 MG/DL (0.55-1.30); GLOMERULAR FILTRATION RATE 56.6 (>32); MAGNESIUM LEVEL 1.7 MG/DL (1.8-2.4); POTASSIUM SERUM 4.1 MMOL/L (3.5-5.1)
[2022-05-26 06:30] LABS: ATYPICAL LYMPH 4 % (0-5); BASOPHILS 2 % (0-1); EOSINOPHILS 3 % (0-3); HYPOCHROMASIA 1+; LYMPHOCYTES 18 % (16-44); MONOCYTES 4 % (0-5); MYELOCYTES 3 % (0-0); NEUTROPHILS 64 % (28-66); PLATELET ESTIMATE NORMAL (NORMAL)
[2022-05-26] MEDS: ADVAIR HFA 230/21MCG INHALER INH SCH (07:29)
[2022-05-26] MEDS: DULoxetine 30MG CAPSULE (CYMBALTA) PO SCH (08:18)
[2022-05-26] MEDS: FUROSEMIDE 20 MG TAB PO SCH (08:18)
[2022-05-26] MEDS: DOXYCYCLINE HYCLATE 100MG TABLET PO SCH (08:18)
[2022-05-26] MEDS: OMEPRAZOLE 20MG CAP PO SCH (08:18)
[2022-05-26] MEDS: PHENYTOIN 50MG CHEW TABLET PO SCH (08:18)
[2022-05-26] MEDS: predniSONE 10MG TAB PO SCH (08:18)
[2022-05-26] MEDS: SPIRONOLACTONE 25 MG TAB PO SCH (08:18)
[2022-05-26] MEDS: INSULIN LISPRO (NovoLOG) PER UNIT SC SCH ×2 (08:19→13:29)
[2022-05-26] MEDS: CEFDINIR 300 MG CAP (OMNICEF) PO SCH (08:19)
[2022-05-26] MEDS: CALCITRIOL 0.25 MCG CAP (S0169) PO SCH (08:19)
[2022-05-26] MEDS: FERROUS SULFATE 325MG TAB PO SCH (08:19)
[2022-05-26] MEDS: POTASSIUM CHLORIDE 10MEQ SR TABLET PO SCH (08:19)
[2022-05-26] MEDS: APIXABAN 5 MG TAB (ELIQUIS) PO SCH (08:19)
[2022-05-26] MEDS: MAGNESIUM OXIDE 400MG TAB (MAG-OX) PO SCH (08:20)
[2022-05-26] MEDS: FLUoxetine 20MG CAP PO SCH (08:20)
[2022-05-26 08:22] VITALS: BP 128/87
[2022-05-26] MEDS: METOPROLOL SUCC (TopROL XL) 50MG **XL** TAB PO SCH (08:22)
[2022-05-26] MEDS ORDERED: CEFD300CAP PO (11:06)
[2022-05-26] MEDS ORDERED: DOXY100T PO (11:06)
[2022-05-26] MEDS ORDERED: METF10004 PO (11:06)
[2022-05-26] MEDS ORDERED: PHEN50CH4 PO (11:06)
[2022-05-26] MEDS ORDERED: PERCOCET PO (11:06)
[2022-05-26] MEDS ORDERED: METO1TAB7 PO (11:06)
[2022-05-26] MEDS ORDERED: GLIM2TAB4 PO (11:31)
[2022-05-26] MEDS ORDERED: MAGN400T2 PO (11:31)
[2022-05-26] MEDS ORDERED: AMOX875T2 PO (11:47)
[2022-05-26 16:08] LABS: BODY FLUID CULTURE Not indicated. (.); LEGIONELLA ANTIGEN URINE Negative (Negative); MYCOPLASMA PNEUMONIAE IgG 312 U/mL (0-99); MYCOPLASMA PNEUMONIAE IgM <770 U/mL (0-769); ORGANISM ID Not indicated. (.); SPECIMEN SOURCE Urine (.); URINE STREP PNEUMONIAE ANTIGEN Negative (Negative)
== END 2022-05-26 16:37 | disposition home health service (06) | DRG 100 ==
LOC: EDBD 13:00 → M ED 13:00 → M ED INP 21:06 → M PCU 21:58 → M MSPAV 05-24 15:20
PROVIDERS: ADMIT Internal Medicine; ATTEND Internal Medicine
PROC: 0W993ZZ Drainage of Right Pleural Cavity, Percutaneous Approach (ICD-10-PCS; principal; 2022-05-21)
DX: G40.901 Epilepsy, unspecified, not intractable, with status epilepticus (principal); J96.00 Acute respiratory failure, unspecified whether with hypoxia or hypercapnia; G93.41 Metabolic encephalopathy; I21.A1 Myocardial infarction type 2; J18.9 Pneumonia, unspecified organism; E87.1 Hypo-osmolality and hyponatremia; N39.0 Urinary tract infection, site not specified; N17.9 Acute kidney failure, unspecified; J44.9 Chronic obstructive pulmonary disease, unspecified; E11.42 Type 2 diabetes mellitus with diabetic polyneuropathy; I12.9 Hypertensive chronic kidney disease with stage 1 through stage 4 chronic kidney disease, or unspecified chronic kidney disease; K21.9 Gastro-esophageal reflux disease without esophagitis; R74.01 Elevation of levels of liver transaminase levels; I48.0 Paroxysmal atrial fibrillation; N18.30 Chronic kidney disease, stage 3 unspecified; Z79.01 Long term (current) use of anticoagulants; J45.909 Unspecified asthma, uncomplicated; Z66 Do not resuscitate; G89.29 Other chronic pain; Z79.899 Other long term (current) drug therapy; Z79.52 Long term (current) use of systemic steroids; Z79.4 Long term (current) use of insulin; G47.33 Obstructive sleep apnea (adult) (pediatric); E55.9 Vitamin D deficiency, unspecified; F41.9 Anxiety disorder, unspecified; F32.A Depression, unspecified